=== PATIENT | male | born 1955 | race Caucasian/White ===

== ENCOUNTER 2016-08-29 00:40 | Emergency (ER) | payer OTHER ==
[~2016-08-29] VITALS: Ht 170.2 cm; Wt 60.0 kg
[~2016-08-29 00:40] MED LIST: CLIN1CAP6 PO; PERI0.126 SWISH-SPIT
[2016-08-29 00:43] VITALS: BP 144/84; PULSE 59; RESP 15; TEMP 97.7; O2SAT 92
[2016-08-29 00:56] VITALS: BP 141/94; PULSE 58; RESP 16; O2SAT 100
[2016-08-29] MEDS ORDERED: LEVE500 PO (00:57)
[2016-08-29] MEDS ORDERED: DEPA500T PO (00:57)
[2016-08-29] MEDS ORDERED: HYDR25TA5 PO (00:57)
[2016-08-29] MEDS ORDERED: CLON0.1T PO (00:57)
--- NOTE | 2016-08-29 01:02 | PD ---
HPI Chief Complaint: Oral / Dental Pain or Problem Time Seen by Provider: 00:59 Travel History International Travel<30 days: No Contact w/Intl Traveler<30days: No Traveled to known affect area: No History of Present Illness HPI 60-year-old male arrives with right upper frontal dentalgia and swelling for about 1 day. Onset gradual. Timing constant. Pain is worse with palpation. No fever. He is not sure when he most recently brush his teeth. PFSH Past Medical History Hx Anticoagulant Therapy: No Arthritis: Yes (GENERALIZED) Blood Disorders: No Heart Rhythm Problems: Yes Cancer: Yes (COLON) Cardiovascular Problems: Yes (HTN) High Cholesterol: No Chemotherapy: Yes (COLON CANCER) Chest Pain: Yes Congestive Heart Failure: No COPD: Yes Cerebrovascular Accident: Yes Diminished Hearing: No Endocrine: No Gastrointestinal Disorders: Yes (PANCREATITIS) GERD: No Genitourinary: No Headaches: Yes Heparin Induced Thrombocytopen: No Hypertension: Yes Implanted Vascular Access Dvce: No Musculoskeletal: No Neurologic: Yes (HISTORY OF SEIZURES ) Psychiatric: No Respiratory: Yes (COPD) Immunizations Current: No Migraines: No Pancreatitis: Yes Radiation Therapy: Yes Seizures: Yes Ulcer: No PNEUMOCCOCAL Vaccine (Year): 1 Past Surgical History Abdominal Surgery: Yes (COLOSTOMY) Appendectomy: Yes Cardiac Surgery: No Ear Surgery: No Endocrine Surgery: No Eye Surgery: Yes (MUSCLES CUT) Genitourinary Surgery: No Gynecologic Surgery: No Neurologic Surgery: No Oral Surgery: No Thoracic Surgery: No Tonsillectomy: Yes Other Surgery: Yes Family History Family Myocardial Infarction: Yes (FATHER) Social History Alcohol Use: No Tobacco Use: Yes (1/2 PPD) Substance Use: Yes (PT ADMITS TO MARIJUANA) Allergies-Medications (Allergen,Severity, Reaction): Coded Allergies: Amoxicillin (Verified Allergy, Severe, Anaphylaxis, 08/29/16) UNABLE TO CONFIRM PT IS INTUBATED Augmentin (Verified Allergy, Severe, "LIPS SWELL", 08/29/16) PT IS INTUBATED UNABLE TO CONFIRM Contrast Media (Verified Allergy, Severe, Anaphylaxis; 06/04/09: PT TOLERATES ORAL CONTRAST W/O AE, 08/29/16) PT INTUBATED UNABLE TO CONFIRM 06/04/09: PER RN, PT TOLERATES ORAL CONTRAST MEDIA WITHOUT ADVERSE EFFECTS; HE HAS HAD ORAL CONTRAST PREVIOUSLY. Dye, Prep (Verified Allergy, Severe, CARDIAC ARREST, 08/29/16) UNABLE TO CONFIRM PT IS INTUBATED Erythromycin (Verified Allergy, Severe, 08/29/16) UNABLE TO CONFIRM PT IS INTUBATED Haldol (Verified Allergy, Severe, "TIGHT JAW", 08/29/16) UNABLE TO CONFIRM PT IS INTUBATED Iohexol (OMNIPAQUE) (Verified Allergy, Severe, PT NEEDS PREMED/DOESN'T KNOW REACTION, 08/29/16) UNABLE TO CONFIRM PT IS INTUBATED Norvasc (Verified Allergy, Severe, Swelling, 08/29/16) UNALBE TO CONFIRM PT IS INTUBATED Valium (Verified Allergy, Severe, RESPIRATORY DISTRESS, 08/29/16) UNALBE TO CONFIRM PT IS INTUBATED Vasotec (Verified Allergy, Severe, 08/29/16) UNALBE TO CONFIRM PT IS INTUBATED Morphine (Verified Allergy, Mild, Itching, 08/29/16) UNABLE TO CONFIRM PT IS INTUBATED LAUREN Inhibitors (Verified Allergy, Unknown, UNKNOWN REACTION, 08/29/16) UNABLE TO CONFIRM PT IS INTUBATED Compazine (Verified Adverse Reaction, Severe, "LOCKJAW", 08/29/16) UNABLE TO CONFIRM PT IS INTUBATED *MDRO Multi-Drug Resistant Organism (Verified Adverse Reaction, Unknown, ) MRSA 03/2003 (cath tip), 06/2006 (urine), 12/2009 (sputum), 03/2012 (wound). Reported Meds & Prescriptions Reported Meds & Active Scripts Active Reported Depakote DR (Divalproex Sodium) 500 Mg Tabdr 500 Mg PO DAILY Keppra (Levetiracetam) 500 Mg Tab 500 Mg PO BID Hydrochlorothiazide 25 Mg Tab 25 Mg PO DAILY Clonidine (Clonidine HCl) 0.1 Mg Tab 0.1 Mg PO BID Review of Systems General / Constitutional: No: Fever, Chills Physical Exam Narrative GENERAL: 60-year-old male pleasant no acute distress SKIN: Warm and dry. HEAD: Atraumatic. Normocephalic. EYES: Pupils equal and round. No scleral icterus. No injection or drainage. ENT: No nasal bleeding or discharge. Mucous membranes pink and moist. Dentition is quite poor generally. There is swelling the region of the right maxillary face and right frontal/lateral incisors. NECK: Trachea midline. No JVD. CARDIOVASCULAR: Regular rate and rhythm. No murmur appreciated. RESPIRATORY: No accessory muscle use. Clear to auscultation. Breath sounds equal bilaterally. GASTROINTESTINAL: Abdomen soft, non-tender, nondistended. Hepatic and splenic margins not palpable. Data Data Last Documented VS Vital Signs Date Time Temp Pulse Resp B/P Pulse Ox O2 Delivery O2 Flow Rate FiO2 08/29/16 00:56 58 16 141/94 100 Room Air 08/29/16 00:43 97.7 MDM Medical Decision Making Medical Screen Exam Complete: Yes Emergency Medical Condition: Yes Medical Record Reviewed: Yes Differential Diagnosis Abscess, acute necrotizing ulcerative gingivitis, dental caries Narrative Course Clindamycin. Pain control. Follow-up with dentist. Diagnosis Primary Impression: Dental abscess Referrals: Dentist 2 days Additional Instructions: You have a choice when it comes to health care, and we are glad that you chose [facility]. Hopefully, we have met your expectations on today's visit. You are welcome to return to [facility] at any time, as we are committed to meeting the health care needs of our community. Med/Other Pt SpecificInfo: Prescription(s) given Scripts Hydrocodone-Acetaminophen (Lortab)5-325 Mg Tab1-2 Tab PO Q6H PRN (PAIN SCALE 5 TO 10) #15 TAB Ref 0 Prov:Dav Cook MD 08/29/16 Clindamycin 300 Mg [id number] Mg PO Q6H 10 Days Ref 0 Prov:Dav Cook MD 08/29/16 Disposition: 01 DISCHARGE HOME Condition: Stable Dav Cook MD Aug 29, 2016 01:02
[2016-08-29] MEDS ORDERED: HYDR-3533 PO (02:42)
[2016-08-29] MEDS ORDERED: CLIN1CAP6 PO (02:42)
[2016-08-29] MEDS ORDERED: CLINDAMYCIN 150 MG CAP PO ONE (02:45)
[2016-08-29] MEDS ORDERED: ACETAMINOPHEN/HYDROcodone 325 MG/10 MG TAB PO ONE (02:45)
[2016-08-29 03:00] VITALS: BP 153/90
== END 2016-08-29 06:50 | disposition home or self-care (01) ==
LOC: NEPC 00:40
DX: K04.7 Periapical abscess without sinus (principal); M19.90 Unspecified osteoarthritis, unspecified site; I10 Essential (primary) hypertension; J44.9 Chronic obstructive pulmonary disease, unspecified; K85.90 Acute pancreatitis without necrosis or infection, unspecified; F17.210 Nicotine dependence, cigarettes, uncomplicated; F12.90 Cannabis use, unspecified, uncomplicated
CPT/HCPCS: 99283

== ENCOUNTER 2016-09-03 04:28 | Emergency (ER) | payer OTHER ==
[~2016-09-03] VITALS: Ht 170.2 cm; Wt 68.0 kg
[~2016-09-03 04:28] MED LIST changes: +CLON0.1T PO; +DEPA500T PO; +HYDR-3533 PO; +HYDR25TA5 PO; +LEVE500 PO; -PERI0.126 SWISH-SPIT
[2016-09-03 04:36] VITALS: BP 194/104; PULSE 81; RESP 18; TEMP 98.4; O2SAT 98
[2016-09-03 04:55] VITALS: BP 120/51; PULSE 81; RESP 14; O2SAT 98
[2016-09-03] MEDS ORDERED: cloNIDine HCL 0.1 MG TAB PO ONE (05:15)
[2016-09-03] MEDS ORDERED: CLON0.1T PO (05:24)
--- NOTE | 2016-09-03 05:25 | PD ---
HPI Chief Complaint: Hypertension Time Seen by Provider: 05:03 Travel History International Travel<30 days: No Contact w/Intl Traveler<30days: No Traveled to known affect area: No History of Present Illness HPI Patient is a 60-year-old male who presents to emergency room for evaluation of hypertension. Patient reports that he ran out of his clonidine 0.1 mg twice a day and has not taken it for "quite a while." Patient reports that he is here for a refill on his medications. Patient reports "I think my blood pressure is high." Patient denies headache or dizziness. Patient denies vision changes. Patient denies chest pain or shortness of breath. Patient with no other complaints at this time. PFSH Past Medical History Hx Anticoagulant Therapy: No Arthritis: Yes (GENERALIZED) Blood Disorders: No Heart Rhythm Problems: Yes Cancer: Yes (COLON) Cardiovascular Problems: Yes (HTN) High Cholesterol: No Chemotherapy: Yes (COLON CANCER) Chest Pain: Yes Congestive Heart Failure: No COPD: Yes Cerebrovascular Accident: Yes Diminished Hearing: No Endocrine: No Gastrointestinal Disorders: Yes (PANCREATITIS) GERD: No Genitourinary: No Headaches: Yes Heparin Induced Thrombocytopen: No Hypertension: Yes Implanted Vascular Access Dvce: No Musculoskeletal: No Neurologic: Yes (HISTORY OF SEIZURES ) Psychiatric: No Respiratory: Yes (COPD) Immunizations Current: No Migraines: No Pancreatitis: Yes Radiation Therapy: Yes Seizures: Yes Ulcer: No PNEUMOCCOCAL Vaccine (Year): 1 Past Surgical History Abdominal Surgery: Yes (COLOSTOMY (REVERSED)) Appendectomy: Yes Cardiac Surgery: No Ear Surgery: No Endocrine Surgery: No Eye Surgery: Yes (MUSCLES CUT) Genitourinary Surgery: No Gynecologic Surgery: No Neurologic Surgery: No Oral Surgery: No Thoracic Surgery: No Tonsillectomy: Yes Other Surgery: Yes Family History Family Myocardial Infarction: Yes (FATHER) Social History Alcohol Use: No Tobacco Use: Yes (08/29 PPD) Substance Use: Yes (PT ADMITS TO MARIJUANA) Allergies-Medications (Allergen,Severity, Reaction): Coded Allergies: Amoxicillin (Verified Allergy, Severe, Anaphylaxis, 09/03/16) UNABLE TO CONFIRM PT IS INTUBATED Augmentin (Verified Allergy, Severe, "LIPS SWELL", 09/03/16) PT IS INTUBATED UNABLE TO CONFIRM Contrast Media (Verified Allergy, Severe, Anaphylaxis; 06/04/09: PT TOLERATES ORAL CONTRAST W/O AE, 09/03/16) PT INTUBATED UNABLE TO CONFIRM 06/04/09: PER RN, PT TOLERATES ORAL CONTRAST MEDIA WITHOUT ADVERSE EFFECTS; HE HAS HAD ORAL CONTRAST PREVIOUSLY. Dye, Prep (Verified Allergy, Severe, CARDIAC ARREST, 09/03/16) UNABLE TO CONFIRM PT IS INTUBATED Erythromycin (Verified Allergy, Severe, 09/03/16) UNABLE TO CONFIRM PT IS INTUBATED Haldol (Verified Allergy, Severe, "TIGHT JAW", 09/03/16) UNABLE TO CONFIRM PT IS INTUBATED Iohexol (OMNIPAQUE) (Verified Allergy, Severe, PT NEEDS PREMED/DOESN'T KNOW REACTION, 09/03/16) UNABLE TO CONFIRM PT IS INTUBATED Norvasc (Verified Allergy, Severe, Swelling, 09/03/16) UNALBE TO CONFIRM PT IS INTUBATED Valium (Verified Allergy, Severe, RESPIRATORY DISTRESS, 09/03/16) UNALBE TO CONFIRM PT IS INTUBATED Vasotec (Verified Allergy, Severe, 09/03/16) UNALBE TO CONFIRM PT IS INTUBATED Morphine (Verified Allergy, Mild, Itching, 09/03/16) UNABLE TO CONFIRM PT IS INTUBATED LAUREN Inhibitors (Verified Allergy, Unknown, UNKNOWN REACTION, 09/03/16) UNABLE TO CONFIRM PT IS INTUBATED Compazine (Verified Adverse Reaction, Severe, "LOCKJAW", 09/03/16) UNABLE TO CONFIRM PT IS INTUBATED *MDRO Multi-Drug Resistant Organism (Verified Adverse Reaction, Unknown, ) MRSA 03/2003 (cath tip), 06/2006 (urine), 12/2009 (sputum), 03/2012 (wound). Reported Meds & Prescriptions Reported Meds & Active Scripts Active Clonidine (Clonidine HCl) 0.1 Mg Tab 0.1 Mg PO BID Lortab (Hydrocodone-Acetaminophen) 5-325 Mg Tab 1-2 Tab PO Q6H PRN Clindamycin (Clindamycin HCl) 300 Mg Cap 300 Mg PO Q6H [address] (Divalproex Sodium) 500 Mg Tabdr 500 Mg PO DAILY Keppra (Levetiracetam) 500 Mg Tab 500 Mg PO BID Hydrochlorothiazide 25 Mg Tab 25 Mg PO DAILY Clonidine (Clonidine HCl) 0.1 Mg Tab 0.1 Mg PO BID Review of Systems General / Constitutional: No: Fever Eyes: No: Visual changes HENT: No: Headaches Cardiovascular: No: Chest Pain or Discomfort Respiratory: No: Shortness of Breath Gastrointestinal: No: Abdominal Pain Genitourinary: No: Dysuria Musculoskeletal: No: Pain Skin: No Rash Neurologic: No: Weakness Psychiatric: No: Depression Endocrine: No: Polydipsia Hematologic/Lymphatic: No: Easy Bruising Physical Exam Narrative GENERAL: No acute distress, nontoxic SKIN: Warm and dry. HEAD: Atraumatic. Normocephalic. EYES: Pupils equal and round. No scleral icterus. No injection or drainage. ENT: No nasal bleeding or discharge. Mucous membranes pink and moist. NECK: Trachea midline. No JVD. CARDIOVASCULAR: Regular rate and rhythm. No murmur appreciated. RESPIRATORY: No accessory muscle use. Clear to auscultation. Breath sounds equal bilaterally. GASTROINTESTINAL: Abdomen soft, non-tender, nondistended. Hepatic and splenic margins not palpable. MUSCULOSKELETAL: No obvious deformities. No clubbing. No cyanosis. No edema. NEUROLOGICAL: Awake and alert. No obvious cranial nerve deficits. Motor grossly within normal limits. Normal speech. PSYCHIATRIC: Appropriate mood and affect; insight and judgment normal. Data Data Last Documented VS Vital Signs Date Time Temp Pulse Resp B/P Pulse Ox O2 Delivery O2 Flow Rate FiO2 09/03/16 04:55 83 09/03/16 04:55 14 120/51 98 Room Air 09/03/16 04:36 98.4 Orders Clonidine (Catapres) (09/03/16 05:15) MDM Medical Decision Making Medical Screen Exam Complete: Yes Emergency Medical Condition: Yes Interpretation(s) Vital Signs Date Time Temp Pulse Resp B/P Pulse Ox O2 Delivery O2 Flow Rate FiO2 09/03/16 04:55 83 09/03/16 04:55 81 14 120/51 98 Room Air 09/03/16 04:36 98.4 81 18 194/104 98 Differential Diagnosis medication noncompliance, htn Narrative Course pt is a 60 year old male who presents to emergency room for evaluation of hypertension. Patient reports that he ran out of his clonidine 0.1 mg twice a day a few months ago and needs a refill on his prescription. Patient with no other complaints at this time. Patient's BP 120/51 - pt in no acute distress, no c/o. Plan to refill his script for clonidine and have him follow up with pcp and return to ER as needed. Signs and symptoms of when to return to ER reviewed with pt in detail. Diagnosis Primary Impression: Medication refill Additional Impression: Hypertension Qualified Code: I10 - Essential hypertension Patient Instructions: General Instructions Additional Instructions: Please follow-up with the primary care doctor as soon as possible Please return to ER as needed Please take all medications as prescribed Med/Other Pt SpecificInfo: Prescription(s) given Scripts Clonidine 0.1 Mg Tab0.1 Mg PO BID #60 TAB Ref 0 Prov:Irma Daley DO 09/03/16 Disposition: 01 DISCHARGE HOME Condition: Stable Irma Daley DO Sep 03, 2016 05:24
--- NOTE | 2016-09-03 14:20 | EKG ---
Date Performed: 09/03/2016 Time Performed: 05:01:39 PTAGE: 60 years EKG: Sinus rhythm MODERATE INTRAVENTRICULAR CONDUCTION DELAY BORDERLINE ECG PREVIOUS TRACING : 01/26/2016 19.25 Rate has increased DOCTOR: Tristan Cook Interpretating Date/Time 09/03/2016 14:19:42
== END 2016-09-03 06:20 | disposition home or self-care (01) ==
LOC: NEPE 04:28
DX: I10 Essential (primary) hypertension (principal); R94.31 Abnormal electrocardiogram [ECG] [EKG]; F17.200 Nicotine dependence, unspecified, uncomplicated; Z76.0 Encounter for issue of repeat prescription; Z86.79 Personal history of other diseases of the circulatory system; Z85.038 Personal history of other malignant neoplasm of large intestine; Z87.09 Personal history of other diseases of the respiratory system; Z86.73 Personal history of transient ischemic attack (TIA), and cerebral infarction without residual deficits; Z87.19 Personal history of other diseases of the digestive system; Z86.69 Personal history of other diseases of the nervous system and sense organs
CPT/HCPCS: 93005; 99283

== ENCOUNTER 2016-10-06 03:22 | Emergency (ER) | payer OTHER ==
[~2016-10-06] VITALS: Ht 170.2 cm; Wt 60.0 kg
[2016-10-06 03:39] VITALS: BP 160/90; PULSE 66; RESP 16; TEMP 97.1; O2SAT 94
[2016-10-06 05:06] VITALS: BP 188/92; PULSE 72; RESP 16
[2016-10-06] MEDS ORDERED: CLON0.1T PO (05:12)
--- NOTE | 2016-10-06 05:12 | PD ---
HPI Chief Complaint: Hypertension Time Seen by Provider: 05:10 Travel History International Travel<30 days: No Contact w/Intl Traveler<30days: No Traveled to known affect area: No History of Present Illness HPI 60-year-old male presents to clonidine refill. He has follow-up with Dr. Ma in 2 weeks. He reports occasional headaches. He denies chest pain. He drinks alcohol and smokes tobacco. He was prescribed clonidine here 1 month ago and ran out a couple days prior. He has no additional complaint. PFSH Past Medical History Hx Anticoagulant Therapy: No Arthritis: Yes (GENERALIZED) Blood Disorders: No Heart Rhythm Problems: Yes Cancer: Yes (COLON) Cardiovascular Problems: Yes (HTN) High Cholesterol: No Chemotherapy: Yes (COLON CANCER) Chest Pain: Yes Congestive Heart Failure: No COPD: Yes Cerebrovascular Accident: Yes Diminished Hearing: No Endocrine: No Gastrointestinal Disorders: Yes (PANCREATITIS) GERD: No Genitourinary: No Headaches: Yes Heparin Induced Thrombocytopen: No Hypertension: Yes Implanted Vascular Access Dvce: No Musculoskeletal: No Neurologic: Yes (HISTORY OF SEIZURES ) Psychiatric: No Respiratory: Yes (COPD) Immunizations Current: No Migraines: No Pancreatitis: Yes Radiation Therapy: Yes Seizures: Yes Ulcer: No Influenza Vaccination: Yes PNEUMOCCOCAL Vaccine (Year): 1 Past Surgical History Abdominal Surgery: Yes (COLOSTOMY (REVERSED)) Appendectomy: Yes Cardiac Surgery: No Ear Surgery: No Endocrine Surgery: No Eye Surgery: Yes (MUSCLES CUT) Genitourinary Surgery: No Gynecologic Surgery: No Neurologic Surgery: No Oral Surgery: No Thoracic Surgery: No Tonsillectomy: Yes Other Surgery: Yes Family History Family Myocardial Infarction: Yes (FATHER) Social History Alcohol Use: No Tobacco Use: Yes (1/2 PPD) Substance Use: Yes (PT ADMITS TO MARIJUANA) Allergies-Medications (Allergen,Severity, Reaction): Coded Allergies: Amoxicillin (Verified Allergy, Severe, Anaphylaxis, 10/06/16) UNABLE TO CONFIRM PT IS INTUBATED Augmentin (Verified Allergy, Severe, "LIPS SWELL", 10/06/16) PT IS INTUBATED UNABLE TO CONFIRM Contrast Media (Verified Allergy, Severe, Anaphylaxis; 06/04/09: PT TOLERATES ORAL CONTRAST W/O AE, 10/06/16) PT INTUBATED UNABLE TO CONFIRM 06/04/09: PER RN, PT TOLERATES ORAL CONTRAST MEDIA WITHOUT ADVERSE EFFECTS; HE HAS HAD ORAL CONTRAST PREVIOUSLY. Dye, Prep (Verified Allergy, Severe, CARDIAC ARREST, 10/06/16) UNABLE TO CONFIRM PT IS INTUBATED Erythromycin (Verified Allergy, Severe, 10/06/16) UNABLE TO CONFIRM PT IS INTUBATED Haldol (Verified Allergy, Severe, "TIGHT JAW", 10/06/16) UNABLE TO CONFIRM PT IS INTUBATED Iohexol (OMNIPAQUE) (Verified Allergy, Severe, PT NEEDS PREMED/DOESN'T KNOW REACTION, 10/06/16) UNABLE TO CONFIRM PT IS INTUBATED Norvasc (Verified Allergy, Severe, Swelling, 10/06/16) UNALBE TO CONFIRM PT IS INTUBATED Valium (Verified Allergy, Severe, RESPIRATORY DISTRESS, 10/06/16) UNALBE TO CONFIRM PT IS INTUBATED Vasotec (Verified Allergy, Severe, 10/06/16) UNALBE TO CONFIRM PT IS INTUBATED Morphine (Verified Allergy, Mild, Itching, 10/06/16) UNABLE TO CONFIRM PT IS INTUBATED LAUREN Inhibitors (Verified Allergy, Unknown, UNKNOWN REACTION, 10/06/16) UNABLE TO CONFIRM PT IS INTUBATED Compazine (Verified Adverse Reaction, Severe, "LOCKJAW", 10/06/16) UNABLE TO CONFIRM PT IS INTUBATED *MDRO Multi-Drug Resistant Organism (Verified Adverse Reaction, Unknown, ) MRSA 03/2003 (cath tip), 06/2006 (urine), 12/2009 (sputum), 03/2012 (wound). Reported Meds & Prescriptions Reported Meds & Active Scripts Active Clonidine (Clonidine HCl) 0.1 Mg Tab 0.1 Mg PO BID Lortab (Hydrocodone-Acetaminophen) 5-325 Mg Tab 1-2 Tab PO Q6H PRN Reported Depakote DR (Divalproex Sodium) 500 Mg Tabdr 500 Mg PO DAILY Keppra (Levetiracetam) 500 Mg Tab 500 Mg PO BID Hydrochlorothiazide 25 Mg Tab 25 Mg PO DAILY Clonidine (Clonidine HCl) 0.1 Mg Tab 0.1 Mg PO BID Review of Systems HENT: Positive: Headaches Cardiovascular: No: Chest Pain or Discomfort, Palpitations Physical Exam Narrative GENERAL: 60-year-old male appears older than stated age SKIN: Warm and dry. HEAD: Atraumatic. Normocephalic. EYES: Pupils equal and round. No scleral icterus. No injection or drainage. ENT: No nasal bleeding or discharge. Mucous membranes pink and moist. NECK: Trachea midline. No JVD. CARDIOVASCULAR: Regular rate and rhythm. No murmur appreciated. RESPIRATORY: No accessory muscle use. Clear to auscultation. Breath sounds equal bilaterally. GASTROINTESTINAL: Abdomen soft, non-tender, nondistended. Hepatic and splenic margins not palpable. MUSCULOSKELETAL: No obvious deformities. No clubbing. No cyanosis. No edema. NEUROLOGICAL: Awake and alert. No obvious cranial nerve deficits. Motor grossly within normal limits. Normal speech. PSYCHIATRIC: Appropriate mood and affect; insight and judgment normal. Data Data Last Documented VS Vital Signs Date Time Temp Pulse Resp B/P Pulse Ox O2 Delivery O2 Flow Rate FiO2 10/06/16 05:06 72 16 188/92 10/06/16 03:42 94 Room Air 10/06/16 03:39 97.1 VS reviewed [facility] Medical Decision Making Medical Screen Exam Complete: Yes Emergency Medical Condition: Yes Medical Record Reviewed: Yes Differential Diagnosis Hypertension, hypertensive crisis, medication refill Narrative Course CLonidine refilled. Pt ok for discharge. Pt understands that ongoing follow up with a primary provider is essential and agrees to follow up in 2 weeks as planned. Diagnosis Primary Impression: HTN (hypertension) Qualified Code: I15.9 - Secondary hypertension Additional Impression: Medication refill Referrals: Primary Care Physician 2 days Additional Instructions: You have a choice when it comes to health care, and we are glad that you chose [facility]. Hopefully, we have met your expectations on today's visit. You are welcome to return to [facility] at any time, as we are committed to meeting the health care needs of our community. Med/Other Pt SpecificInfo: Prescription(s) given Scripts Clonidine 0.1 Mg Tab0.1 Mg PO BID #60 TAB Ref 0 Prov:Dav Cook MD 10/06/16 Disposition: 01 DISCHARGE HOME Condition: Stable Dav Cook MD Oct 06, 2016 05:12
== END 2016-10-06 06:01 | disposition home or self-care (01) ==
LOC: NEDAMB 03:22
DX: I10 Essential (primary) hypertension (principal); Z76.0 Encounter for issue of repeat prescription; F17.210 Nicotine dependence, cigarettes, uncomplicated
CPT/HCPCS: 99283

== ENCOUNTER 2016-10-09 18:05 | Emergency (ER) | payer OTHER ==
[~2016-10-09] VITALS: Ht 170.2 cm; Wt 60.0 kg
[~2016-10-09 18:05] MED LIST changes: -CLIN1CAP6 PO
[2016-10-09 18:06] VITALS: BP 190/98; PULSE 68; RESP 16; TEMP 97.8; O2SAT 96
[2016-10-09] MEDS ORDERED: LABETALOL HCL 100 MG/20 ML VIAL IV PUSH ONE (18:30)
--- NOTE | 2016-10-09 18:36 | PD ---
HPI Chief Complaint: Hypertension Time Seen by Provider: 18:15 Travel History International Travel<30 days: No Contact w/Intl Traveler<30days: No Traveled to known affect area: No History of Present Illness HPI The patient is a 60 year-old male who presents to the emergency department for elevated blood pressure. The patient has a history of hypertension, he has a history of allergies to multiple antihypertensives including DEJAN inhibitor's, Norvasc, and Vasotec. The patient states that the Dejan inhibitors and Norvasc, swelling of the face and tongue. The patient has been on clonidine 0.2 mg twice a day, has been taking it regularly, however, his blood pressure continues to be elevated. The patient is followed by his primary physician, Dr. Ma. The patient complains of increasing headache secondary to his blood pressure as well as generalized malaise, mild nausea, and just not feeling well. He denies any chest pain or shortness of breath. Symptoms are moderate, possibly exacerbated by history of hypertension, and there are no current alleviating factors. The patient did take his clonidine 0.2 mg this morning. PFSH Past Medical History Hx Anticoagulant Therapy: No Arthritis: Yes (GENERALIZED) Blood Disorders: No Heart Rhythm Problems: Yes Cancer: Yes (COLON) Cardiovascular Problems: Yes (HTN) High Cholesterol: No Chemotherapy: Yes (COLON CANCER) Chest Pain: Yes Congestive Heart Failure: No COPD: Yes Cerebrovascular Accident: Yes Diminished Hearing: No Endocrine: No Gastrointestinal Disorders: Yes (PANCREATITIS) GERD: No Genitourinary: No Headaches: Yes Heparin Induced Thrombocytopen: No Hypertension: Yes Implanted Vascular Access Dvce: No Musculoskeletal: No Neurologic: Yes (HISTORY OF SEIZURES ) Psychiatric: No Respiratory: Yes (COPD) Immunizations Current: No Migraines: No Pancreatitis: Yes Radiation Therapy: Yes Seizures: Yes Ulcer: No PNEUMOCCOCAL Vaccine (Year): 1 Past Surgical History Abdominal Surgery: Yes (COLOSTOMY (REVERSED)) Appendectomy: Yes Cardiac Surgery: No Ear Surgery: No Endocrine Surgery: No Eye Surgery: Yes (MUSCLES CUT) Genitourinary Surgery: No Gynecologic Surgery: No Neurologic Surgery: No Oral Surgery: No Thoracic Surgery: No Tonsillectomy: Yes Other Surgery: Yes Family History Family Myocardial Infarction: Yes (FATHER) Social History Alcohol Use: Yes (OCC) Tobacco Use: Yes (1/2 PPD) Substance Use: Yes (PT ADMITS TO MARIJUANA) Allergies-Medications (Allergen,Severity, Reaction): Coded Allergies: Amoxicillin (Verified Allergy, Severe, Anaphylaxis, 10/09/16) UNABLE TO CONFIRM PT IS INTUBATED Augmentin (Verified Allergy, Severe, "LIPS SWELL", 10/09/16) PT IS INTUBATED UNABLE TO CONFIRM Contrast Media (Verified Allergy, Severe, Anaphylaxis; 06/04/09: PT TOLERATES ORAL CONTRAST W/O AE, 10/09/16) PT INTUBATED UNABLE TO CONFIRM 06/04/09: PER RN, PT TOLERATES ORAL CONTRAST MEDIA WITHOUT ADVERSE EFFECTS; HE HAS HAD ORAL CONTRAST PREVIOUSLY. Dye, Prep (Verified Allergy, Severe, CARDIAC ARREST, 10/09/16) UNABLE TO CONFIRM PT IS INTUBATED Erythromycin (Verified Allergy, Severe, 10/09/16) UNABLE TO CONFIRM PT IS INTUBATED Haldol (Verified Allergy, Severe, "TIGHT JAW", 10/09/16) UNABLE TO CONFIRM PT IS INTUBATED Iohexol (OMNIPAQUE) (Verified Allergy, Severe, PT NEEDS PREMED/DOESN'T KNOW REACTION, 10/09/16) UNABLE TO CONFIRM PT IS INTUBATED Norvasc (Verified Allergy, Severe, Swelling, 10/09/16) UNALBE TO CONFIRM PT IS INTUBATED Valium (Verified Allergy, Severe, RESPIRATORY DISTRESS, 10/09/16) UNALBE TO CONFIRM PT IS INTUBATED Vasotec (Verified Allergy, Severe, 10/09/16) UNALBE TO CONFIRM PT IS INTUBATED Morphine (Verified Allergy, Mild, Itching, 10/09/16) UNABLE TO CONFIRM PT IS INTUBATED DEJAN Inhibitors (Verified Allergy, Unknown, UNKNOWN REACTION, 10/09/16) UNABLE TO CONFIRM PT IS INTUBATED Compazine (Verified Adverse Reaction, Severe, "LOCKJAW", 10/09/16) UNABLE TO CONFIRM PT IS INTUBATED *MDRO Multi-Drug Resistant Organism (Verified Adverse Reaction, Unknown, ) MRSA 03/2003 (cath tip), 06/2006 (urine), 12/2009 (sputum), 03/2012 (wound). Reported Meds & Prescriptions Reported Meds & Active Scripts Active Clonidine (Clonidine HCl) 0.1 Mg Tab 0.1 Mg PO BID Reported Depakote DR (Divalproex Sodium) 500 Mg Tabdr 500 Mg PO DAILY Keppra (Levetiracetam) 500 Mg Tab 500 Mg PO BID Clonidine (Clonidine HCl) 0.1 Mg Tab 0.1 Mg PO BID Review of Systems Except as stated in HPI: all other systems reviewed are Neg Eyes: No: Blurred Vision HENT: Positive: Headaches, No: Neck Pain Cardiovascular: No: Chest Pain or Discomfort Respiratory: No: Shortness of Breath Gastrointestinal: Positive: Nausea, No: Vomiting, Abdominal Pain Musculoskeletal: Positive: Weakness Neurologic: Positive: Weakness, Dizziness, Headache Physical Exam Narrative GENERAL: Awake, alert, pleasant 60-year-old male who appears his stated age and is in no acute respiratory distress. SKIN: Warm and dry. HEAD: Atraumatic. Normocephalic. EYES: Pupils equal and round. No scleral icterus. No injection or drainage. ENT: No nasal bleeding or discharge. Poor dentition. NECK: Trachea midline. No JVD. CARDIOVASCULAR: Regular rate and rhythm. No murmur appreciated. Heart rate in the 70s. RESPIRATORY: No accessory muscle use. Clear to auscultation. Breath sounds equal bilaterally. GASTROINTESTINAL: Abdomen soft, multiple well-healed scars. MUSCULOSKELETAL: No obvious deformities. No clubbing. No cyanosis. No edema. NEUROLOGICAL: Awake and alert. No obvious cranial nerve deficits. Motor grossly within normal limits. Normal speech. PSYCHIATRIC: Appropriate mood and affect; insight and judgment normal. Data Data Last Documented VS Vital Signs Date Time Temp Pulse Resp B/P Pulse Ox O2 Delivery O2 Flow Rate FiO2 10/09/16 18:06 97.8 68 16 190/98 96 Room Air Orders Complete Blood Count With Diff (10/09/16 18:20) Basic Metabolic Panel (Bmp) (10/09/16 18:20) Troponin I (10/09/16 18:20) Creatine Kinase (Cpk) (10/09/16 18:20) Ct Brain W/O Iv Contrast(Rout) (10/09/16 ) Labetalol Inj (Trandate Inj) (10/09/16 18:30) Electrocardiogram (10/09/16 ) MDM Medical Decision Making Medical Screen Exam Complete: Yes Emergency Medical Condition: Yes Medical Record Reviewed: Yes Differential Diagnosis Differential diagnosis includes malignant hypertension, accelerated hypertension , noncompliance, essential hypertension, intracranial hemorrhage, acute renal failure, end organ damage. Narrative Course An ultrasound-guided IV was placed in right upper extremity using a linear probe and 1.88 inch, 20-gauge IV. The IV flowed easily, there was good blood return, there is no obvious contraindications. Labs were sent including CBC, CMP, troponin, and CPK. CT the brain was ordered. The patient was administered labetalol 20 mg intravenously for his significantly elevated blood pressure. The patient was signed out to the oncoming physician at [address] and labs pending. If workup is unremarkable and patient's blood pressure improves, patient be discharged home with outpatient follow-up. Procedures Procedure Narrative A 20-gauge, 1.88 inch ultrasound-guided IV was placed in right upper extremity using a linear probe. The IV flowed easily, there was good blood return, the patient had no obvious complications. The patient tolerated the procedure without difficulty. Diagnosis Primary Impression: Hypertensive urgency Condition: Stable Anibal Verde MD Oct 09, 2016 18:36
[2016-10-09 18:45] VITALS: BP 173/89; PULSE 181; RESP 20; O2SAT 94
[2016-10-09 18:55] LABS: AUTOMATED NEUTROPHIL # 2.2 TH/MM3 (1.8-7.7); BASOPHIL # 0.1 TH/MM3 (0-0.2); BASOPHIL % 1.5 % (0.0-2.0); EOSINOPHIL # 0.3 TH/MM3 (0-0.4); EOSINOPHIL % 5.7 % (0.0-4.0); HEMATOCRIT 37.1 % (39.0-51.0); HEMO FLAGS DIFF FINAL; LYMPH % 32.4 % (9.0-44.0); LYMPHOCYTE # 1.4 TH/MM3 (1.0-4.8); MEAN CELL VOLUME 93.5 FL (80.0-100.0); MEAN CORPUSCULAR HEMOGLOBIN 31.8 PG (27.0-34.0); MONO % 11.9 % (0.0-8.0); NEUT % 48.5 % (16.0-70.0); PLATELET COUNT 303 TH/MM3 (150-450); RED BLOOD COUNT 3.97 MIL/MM3 (4.50-5.90); RED CELL DISTRIBUTION WIDTH 14.7 % (11.6-17.2); WHITE BLOOD COUNT 4.4 TH/MM3 (4.0-11.0)
[2016-10-09 19:06] LABS: ANION GAP 9 MEQ/L (5-15); BICARBONATE 27.5 MEQ/L (21.0-32.0); BLOOD UREA NITROGEN 13 MG/DL (7-18); CHLORIDE 106 MEQ/L (98-107); GLOMERULAR FILTRATION RATE 72 ML/MIN (>89); POTASSIUM 3.2 MEQ/L (3.5-5.1); SODIUM (NA) 142 MEQ/L (136-145)
--- NOTE | 2016-10-09 19:06 | RADRPT ---
EXAM DATE/TIME: 10/09/2016 18:49 [facility] COMPARISON: No previous studies available for comparison. INDICATIONS : Dizziness; elevated blood pressure. RADIATION DOSE: 56.35 CTDIvol (mGy) MEDICAL HISTORY : Seizures. Cerebrovascular disease. Pancreatitis.Colon cancer SURGICAL HISTORY : Appendectomy. ENCOUNTER: Initial ACUITY: 1 day PAIN SCALE: 3/10 LOCATION: cranial TECHNIQUE: Multiple contiguous axial images were obtained of the head. Using automated exposure control and adj ustment of the mA and/or kV according to patient size, radiation dose was kept as low as reasonably a chievable to obtain optimal diagnostic quality images. FINDINGS: CEREBRUM: The ventricles are normal for age. No evidence of midline shift, mass lesion, hemorrhage or acute in farction. No extra-axial fluid collections are seen. POSTERIOR FOSSA: The cerebellum and brainstem are intact. The 4th ventricle is midline. The cerebellopontine angle i s unremarkable. EXTRACRANIAL: The visualized portion of the orbits is intact. SKULL: The calvaria is intact. No evidence of skull fracture. CONCLUSION: 1. No acute intracranial abnormalities. Retention cysts in both maxillary sinuses. Jori Reece MD on October 09, 2016 at 19:02 Board Certified Radiologist. This report was verified electronically.
[2016-10-09 19:10] LABS: CREATINE KINASE 154 U/L (39-308)
--- NOTE | 2016-10-09 19:45 | PD ---
Physical Exam Narrative General: The patient is a well-developed well-nourished male in no acute distress. The patient has received a dose of labetalol and he reports that his headache is improving. Head and Neck exam: Head is normocephalic atraumatic. Eyes: EOMI, pupils are equal round and reactive to light. Nose: Midline septum with pink mucous membranes Mouth: Dentition unremarkable. Moist mucus membranes. Posterior oropharynx is not erythematous. No tonsillar hypertrophy. Uvula midline. Airway patent. Neck: No palpable lymphadenopathy. No nuchal rigidity. No thyromegaly. Cardiovascular: Regular rate and rhythm without murmurs, gallops, or rubs. No pulse deficit to the extremities. Lungs: Clear to auscultation bilaterally. No wheezes, rhonchi, or rales. Abdomen: Soft, without tenderness to palpation in all 4 quadrants of the abdomen. No guarding, rebound, or rigidity. Negative [place] sign. Extremities: No clubbing, cyanosis, or edema. 2+ pulses in all 4 extremities. No calf tenderness on palpation. Back: No spinous process tenderness to palpation. No costovertebral angle tenderness to palpation. Neurologic Exam: Cranial nerves 2-12 were intact on exam. Strength is 5/5 in all 4 extremities. No sensory deficits noted. Skin Exam: No rash noted. Intact skin that is warm and dry. Data Data Last Documented VS Vital Signs Date Time Temp Pulse Resp B/P Pulse Ox O2 Delivery O2 Flow Rate FiO2 10/09/16 18:45 181 20 173/89 94 Room Air 10/09/16 18:06 97.8 Orders Complete Blood Count With Diff (10/09/16 18:20) Basic Metabolic Panel (Bmp) (10/09/16 18:20) Troponin I (10/09/16 18:20) Creatine Kinase (Cpk) (10/09/16 18:20) Ct Brain W/O Iv Contrast(Rout) (10/09/16 ) Labetalol Inj (Trandate Inj) (10/09/16 18:30) Electrocardiogram (10/09/16 ) Labs Laboratory Tests Test 10/09/16 18:37 White Blood Count 4.4 TH/MM3 Red Blood Count 3.97 MIL/MM3 Hemoglobin 12.6 GM/DL Hematocrit 37.1 % Mean Corpuscular Volume 93.5 FL Mean Corpuscular Hemoglobin 31.8 PG Mean Corpuscular Hemoglobin 34.0 % Concent Red Cell Distribution Width 14.7 % Platelet Count 303 TH/MM3 Mean Platelet Volume 7.2 FL Neutrophils (%) (Auto) 48.5 % Lymphocytes (%) (Auto) 32.4 % Monocytes (%) (Auto) 11.9 % Eosinophils (%) (Auto) 5.7 % Basophils (%) (Auto) 1.5 % Neutrophils # (Auto) 2.2 TH/MM3 Lymphocytes # (Auto) 1.4 TH/MM3 Monocytes # (Auto) 0.5 TH/MM3 Eosinophils # (Auto) 0.3 TH/MM3 Basophils # (Auto) 0.1 TH/MM3 CBC Comment DIFF FINAL Differential Comment Sodium Level 142 MEQ/L Potassium Level 3.2 MEQ/L Chloride Level 106 MEQ/L Carbon Dioxide Level 27.5 MEQ/L Anion Gap 9 MEQ/L Blood Urea Nitrogen 13 MG/DL Creatinine 1.06 MG/DL Estimat Glomerular Filtration 72 ML/MIN Rate Random Glucose 85 MG/DL Calcium Level 8.5 MG/DL Total Creatine Kinase 154 U/L Troponin I LESS THAN 0.02 NG/ML [facility] Medical Record Reviewed: Yes Supervised Visit with DIANE: No Interpretation(s) Laboratory Tests Test 10/09/16 18:37 White Blood Count 4.4 TH/MM3 Red Blood Count 3.97 MIL/MM3 Hemoglobin 12.6 GM/DL Hematocrit 37.1 % Mean Corpuscular Volume 93.5 FL Mean Corpuscular Hemoglobin 31.8 PG Mean Corpuscular Hemoglobin 34.0 % Concent Red Cell Distribution Width 14.7 % Platelet Count 303 TH/MM3 Mean Platelet Volume 7.2 FL Neutrophils (%) (Auto) 48.5 % Lymphocytes (%) (Auto) 32.4 % Monocytes (%) (Auto) 11.9 % Eosinophils (%) (Auto) 5.7 % Basophils (%) (Auto) 1.5 % Neutrophils # (Auto) 2.2 TH/MM3 Lymphocytes # (Auto) 1.4 TH/MM3 Monocytes # (Auto) 0.5 TH/MM3 Eosinophils # (Auto) 0.3 TH/MM3 Basophils # (Auto) 0.1 TH/MM3 CBC Comment DIFF FINAL Differential Comment Sodium Level 142 MEQ/L Potassium Level 3.2 MEQ/L Chloride Level 106 MEQ/L Carbon Dioxide Level 27.5 MEQ/L Anion Gap 9 MEQ/L Blood Urea Nitrogen 13 MG/DL Creatinine 1.06 MG/DL Estimat Glomerular Filtration 72 ML/MIN Rate Random Glucose 85 MG/DL Calcium Level 8.5 MG/DL Total Creatine Kinase 154 U/L Troponin I LESS THAN 0.02 NG/ML Last Impressions Head CT 10/09/16 0000 Signed Impressions: Service Date/Time: Sunday, October 09, 2016 18:49 - CONCLUSION: 1. No acute intracranial abnormalities. Retention cysts in both maxillary sinuses. Jori Reece MD Differential Diagnosis Poorly controlled hypertension associated headache, versus intracranial hemorrhage, versus tension headache, versus viral syndrome Narrative Course During the course of the patients emergency department visit, the patients history, examination, and differential diagnosis were reviewed with the patient. The patient had IV access obtained and blood work sent for analysis. The patient's case was checked out to me by Dr. Verde who requested that I review the patient's laboratory studies and imaging studies and disposition the patient. He anticipated that the patient would be able to be discharged home on a new blood pressure medication as his clonidine is reportedly not been well controlling his blood pressure. He was given a dose of labetalol and seems to be tolerating this well. The patient was provided labetalol 20 mg IV. The patients laboratory studies were reviewed and remarkable for white count of 4.4, hemoglobin 12.6, platelets 303 with 11.9 monocytes, eosinophils 5.7, CMP is remarkable for potassium 3.2 which was supplemented orally with potassium chloride 20 mEq by mouth 1. CPK 154, troponin I less than 0.02. Radiology studies were reviewed and remarkable for a CT scan of the brain shows no acute intracranial abnormality, retention cyst in both maxillary sinuses The patient is resting comfortably and feels better, is alert and in no distress. The patients results and examination findings were discussed with the patient. The repeat examination is unremarkable and benign. The history, exam, diagnostic testing, and current condition do not suggest any significant pathology to warrant further testing, continued ED treatment, admission, or surgical evaluation at this point. The vital signs have been stable. The patient does not have uncontrollable pain, intractable vomiting, or other significant symptoms. The patient's condition is stable and appropriate for discharge. The patient will pursue further outpatient evaluation with a primary care physician or other designated or consulting physician as indicated in the discharge instructions. The patient expressed understanding and was agreeable with this plan. Diagnosis Primary Impression: Hypertensive urgency Referrals: Arden Ma MD 2 days Patient Instructions: General Instructions, Hypertension (ED) Med/Other Pt SpecificInfo: Prescription(s) given Scripts Labetalol 100 Mg [id number] Mg PO BID 14 Days Ref 0 Prov:Macie Santoyo MD 10/09/16 Disposition: 01 DISCHARGE HOME Condition: Stable Macie Santoyo MD Oct 09, 2016 19:45
[2016-10-09] MEDS ORDERED: LABE100T2 PO (19:56)
[2016-10-09] MEDS ORDERED: POTASSIUM CHLORIDE 20 MEQ CONTROLLED RELEASE TAB PO ONE (20:00)
--- NOTE | 2016-10-10 11:08 | EKG ---
Date Performed: 10/09/2016 Time Performed: 18:49:23 PTAGE: 60 years EKG: Sinus rhythm MODERATE INTRAVENTRICULAR CONDUCTION DELAY FIRST DEGREE AV BLOCK Compared to previous tracing, first degree AV block is now present. BORDERLINE ECG PREVIOUS TRACING : 09/03/2016 05.01 DOCTOR: Carson Sen Interpretating Date/Time 10/10/2016 11:07:33
== END 2016-10-09 20:22 | disposition home or self-care (01) ==
LOC: NEPE 18:05
DX: I16.0 Hypertensive urgency (principal); F17.200 Nicotine dependence, unspecified, uncomplicated; J44.9 Chronic obstructive pulmonary disease, unspecified; I44.0 Atrioventricular block, first degree; Z85.038 Personal history of other malignant neoplasm of large intestine
CPT/HCPCS: 36000; 70450; 80048; 82550; 84484; 85025; 93005; 96374

== ENCOUNTER 2016-10-12 03:24 | Emergency (ER) | payer OTHER ==
[~2016-10-12 03:24] MED LIST changes: -HYDR-3533 PO; -HYDR25TA5 PO; +LABE100T2 PO
[2016-10-12 03:37] VITALS: BP 163/76; PULSE 70; RESP 16; TEMP 97.8; O2SAT 96
== END 2016-10-12 10:10 | disposition left against medical advice (07) ==
LOC: NETRI 03:24
DX: I10 Essential (primary) hypertension (principal)
CPT/HCPCS: 99281

== ENCOUNTER 2016-10-25 21:35 | Emergency (ER) | payer OTHER ==
[2016-10-25 21:37] VITALS: BP 190/97; PULSE 64; RESP 16; TEMP 98; O2SAT 99
== END 2016-10-25 23:26 | disposition left against medical advice (07) ==
LOC: NED 21:35
DX: Z53.21 Procedure and treatment not carried out due to patient leaving prior to being seen by health care provider (principal)
CPT/HCPCS: 99281

== ENCOUNTER 2016-12-07 17:26 | Emergency (ER) | payer OTHER ==
[~2016-12-07] VITALS: Ht 172.7 cm; Wt 66.0 kg
[2016-12-07 17:31] VITALS: BP 184/101; PULSE 67; RESP 16; TEMP 97.8; O2SAT 97
[2016-12-07] MEDS ORDERED: DEPA500T PO (17:53)
[2016-12-07] MEDS ORDERED: LEVE500 PO (17:53)
[2016-12-07 17:55] VITALS: RESP 18; O2SAT 98
[2016-12-07] MEDS ORDERED: SODIUM CHLORIDE 0.9% FLUSH 10 ML FLUSH IVF PRN (18:00)
[2016-12-07 18:08] VITALS: BP_SYST 170; BP_SYST 213; BP_SYST 222; BP_DIAS 107; BP_DIAS 114; BP_DIAS 93; RESP 18
[2016-12-07 18:22] LABS: AUTOMATED NEUTROPHIL # 4.2 TH/MM3 (1.8-7.7); BASOPHIL # 0.1 TH/MM3 (0-0.2); EOSINOPHIL # 0.1 TH/MM3 (0-0.4); EOSINOPHIL % 2.2 % (0.0-4.0); HEMATOCRIT 43.7 % (39.0-51.0); HEMO FLAGS DIFF FINAL; LYMPHOCYTE # 1.1 TH/MM3 (1.0-4.8); MEAN CELL VOLUME 93.3 FL (80.0-100.0); MEAN CORPUSCULAR HEMOGLOBIN 31.2 PG (27.0-34.0); MEAN CORPUSCULAR HGB CONC 33.4 % (32.0-36.0); MONO % 7.9 % (0.0-8.0); NEUT % 69.9 % (16.0-70.0); PLATELET COUNT 266 TH/MM3 (150-450); RED BLOOD COUNT 4.68 MIL/MM3 (4.50-5.90); RED CELL DISTRIBUTION WIDTH 14.5 % (11.6-17.2)
--- NOTE | 2016-12-07 18:27 | PD ---
HPI Chief Complaint: Dizziness Time Seen by Provider: 17:53 Travel History International Travel<30 days: No Contact w/Intl Traveler<30days: No Traveled to known affect area: No History of Present Illness HPI 61-year-old male with history of hypertension, seizures, presents to the ER today for several weeks' history of lightheadedness, general weakness, and not feeling right which he states worsened today. He states he has been having symptoms intermittently. He denies any focal neurological deficits, headaches, vomiting, abdominal pain, chest pains, or any other symptoms. She denies any new medications. He states that he has told his physician about this issue in the past and states there has been work up done for him but he does not know any of the results. He does not know any exacerbating or alleviating factors. Modifying Factors: None Associated Signs & Symptoms: Dizziness, general weakness Risk Factors: Hypertension PFSH Past Medical History Hx Anticoagulant Therapy: No Arthritis: Yes (GENERALIZED) Blood Disorders: No Heart Rhythm Problems: Yes Cancer: Yes (COLON) Cardiovascular Problems: Yes (HBP) High Cholesterol: No Chemotherapy: Yes (COLON CANCER) Chest Pain: Yes Congestive Heart Failure: No COPD: Yes Cerebrovascular Accident: Yes Diminished Hearing: No Endocrine: No Gastrointestinal Disorders: Yes (PANCREATITIS) GERD: No Genitourinary: No Headaches: Yes Heparin Induced Thrombocytopen: No Hypertension: Yes Implanted Vascular Access Dvce: No Musculoskeletal: No Neurologic: Yes (HISTORY OF SEIZURES ) Psychiatric: No Respiratory: Yes (COPD) Immunizations Current: No Migraines: No Pancreatitis: Yes Radiation Therapy: Yes Seizures: Yes Ulcer: No Tetanus Vaccination: < 5 Years Influenza Vaccination: Yes PNEUMOCCOCAL Vaccine (Year): 1 Past Surgical History Abdominal Surgery: Yes (COLOSTOMY (REVERSED)) Appendectomy: Yes Cardiac Surgery: No Ear Surgery: No Endocrine Surgery: No Eye Surgery: Yes (MUSCLES CUT) Genitourinary Surgery: No Gynecologic Surgery: No Neurologic Surgery: No Oral Surgery: No Thoracic Surgery: No Tonsillectomy: Yes Other Surgery: Yes Family History Family Myocardial Infarction: Yes (FATHER) Social History Alcohol Use: No Tobacco Use: Yes (/2 PPD) Substance Use: Yes (PT ADMITS TO MARIJUANA) Allergies-Medications (Allergen,Severity, Reaction): Coded Allergies: Amoxicillin (Verified Allergy, Severe, Anaphylaxis, 12/07/16) UNABLE TO CONFIRM PT IS INTUBATED Augmentin (Verified Allergy, Severe, "LIPS SWELL", 12/07/16) PT IS INTUBATED UNABLE TO CONFIRM Contrast Media (Verified Allergy, Severe, Anaphylaxis; 06/04/09: PT TOLERATES ORAL CONTRAST W/O AE, 12/07/16) PT INTUBATED UNABLE TO CONFIRM 06/04/09: PER RN, PT TOLERATES ORAL CONTRAST MEDIA WITHOUT ADVERSE EFFECTS; HE HAS HAD ORAL CONTRAST PREVIOUSLY. Dye, Prep (Verified Allergy, Severe, CARDIAC ARREST, 12/07/16) UNABLE TO CONFIRM PT IS INTUBATED Erythromycin (Verified Allergy, Severe, RASH, 12/07/16) Haldol (Verified Allergy, Severe, "TIGHT JAW", 12/07/16) UNABLE TO CONFIRM PT IS INTUBATED Iohexol (OMNIPAQUE) (Verified Allergy, Severe, PT NEEDS PREMED/DOESN'T KNOW REACTION, 12/07/16) UNABLE TO CONFIRM PT IS INTUBATED Norvasc (Verified Allergy, Severe, Swelling, 12/07/16) UNALBE TO CONFIRM PT IS INTUBATED Valium (Verified Allergy, Severe, RESPIRATORY DISTRESS, 12/07/16) UNALBE TO CONFIRM PT IS INTUBATED Vasotec (Verified Allergy, Severe, 12/07/16) UNALBE TO CONFIRM PT IS INTUBATED Morphine (Verified Allergy, Mild, Itching, 12/07/16) UNABLE TO CONFIRM PT IS INTUBATED LAUREN Inhibitors (Verified Allergy, Unknown, UNKNOWN REACTION, 12/07/16) UNABLE TO CONFIRM PT IS INTUBATED Compazine (Verified Adverse Reaction, Severe, "LOCKJAW", 12/07/16) UNABLE TO CONFIRM PT IS INTUBATED *MDRO Multi-Drug Resistant Organism (Verified Adverse Reaction, Unknown, ) MRSA 03/2003 (cath tip), 06/2006 (urine), 12/2009 (sputum), 03/2012 (wound). Reported Meds & Prescriptions Reported Meds & Active Scripts Active Labetalol (Labetalol HCl) 100 Mg Tab 100 Mg PO BID [address] (Divalproex Sodium) 500 Mg Tabdr 500 Mg PO BID Keppra (Levetiracetam) 500 Mg Tab 500 Mg PO BID Review of Systems Except as stated in HPI: all other systems reviewed are Neg Physical Exam Narrative GENERAL: Elderly white male patient who is well-developed, awake, alert, oriented 3. Currently none acute distress. SKIN: Focused skin assessment warm/dry. HEAD: Atraumatic. Normocephalic. EYES: Pupils equal and round. No scleral icterus. No injection or drainage. ENT: No nasal bleeding or discharge. Mucous membranes pink and moist. NECK: Trachea midline. No JVD. CARDIOVASCULAR: Regular rate and rhythm. No murmur appreciated. RESPIRATORY: No accessory muscle use. Clear to auscultation. Breath sounds equal bilaterally. GASTROINTESTINAL: Abdomen soft, non-tender, nondistended. Hepatic and splenic margins not palpable. MUSCULOSKELETAL: No obvious deformities. No clubbing. No cyanosis. No edema. NEUROLOGICAL: Awake and alert. No obvious cranial nerve deficits. Motor grossly within normal limits. Normal speech. PSYCHIATRIC: Appropriate mood and affect; insight and judgment normal. Data Data Last Documented VS Vital Signs Date Time Temp Pulse Resp B/P Pulse Ox O2 Delivery O2 Flow Rate FiO2 12/07/16 18:08 68 18 222/93 66 18 213/107 77 18 170/114 12/07/16 17:55 98 Room Air 12/07/16 17:31 97.8 Orders Electrocardiogram (12/07/16 17:53) Complete Blood Count With Diff (12/07/16 17:53) Comprehensive Metabolic Panel (12/07/16 17:53) Magnesium (Mg) (12/07/16 17:53) Ckmb (Isoenzyme) Profile (12/07/16 17:53) Troponin I (12/07/16 17:53) Act Partial Throm Time (Ptt) (12/07/16 17:53) Prothrombin Time / Inr (Pt) (12/07/16 17:53) Urinalysis - C+S If Indicated (12/07/16 17:53) Chest, Single Ap (12/07/16 17:53) Ct Brain W/O Iv Contrast(Rout) (12/07/16 17:53) Ecg Monitoring (12/07/16 17:53) Iv Access Insert/Monitor (12/07/16 17:53) Oximetry (12/07/16 17:53) Sodium Chloride 0.9% Flush (Ns Flush) (12/07/16 18:00) Orthostatic Vital Signs (12/07/16 17:53) Valproic Acid (Depakene) (12/07/16 17:53) Clonidine (Catapres) (12/07/16 18:30) CKMB (12/07/16 18:00) CKMB% (12/07/16 18:00) Labs Laboratory Tests Test 12/07/16 18:00 White Blood Count 6.0 TH/MM3 Red Blood Count 4.68 MIL/MM3 Hemoglobin 14.6 GM/DL Hematocrit 43.7 % Mean Corpuscular Volume 93.3 FL Mean Corpuscular Hemoglobin 31.2 PG Mean Corpuscular Hemoglobin 33.4 % Concent Red Cell Distribution Width 14.5 % Platelet Count 266 TH/MM3 Mean Platelet Volume 7.7 FL Neutrophils (%) (Auto) 69.9 % Lymphocytes (%) (Auto) 19.0 % Monocytes (%) (Auto) 7.9 % Eosinophils (%) (Auto) 2.2 % Basophils (%) (Auto) 1.0 % Neutrophils # (Auto) 4.2 TH/MM3 Lymphocytes # (Auto) 1.1 TH/MM3 Monocytes # (Auto) 0.5 TH/MM3 Eosinophils # (Auto) 0.1 TH/MM3 Basophils # (Auto) 0.1 TH/MM3 CBC Comment DIFF FINAL Differential Comment Prothrombin Time 9.7 SEC Prothromb Time International 0.9 RATIO Ratio Activated Partial 24.5 SEC Thromboplast Time Sodium Level 139 MEQ/L Potassium Level 3.6 MEQ/L Chloride Level 102 MEQ/L Carbon Dioxide Level 32.0 MEQ/L Anion Gap 5 MEQ/L Blood Urea Nitrogen 13 MG/DL Creatinine 1.05 MG/DL Estimat Glomerular Filtration 72 ML/MIN Rate Random Glucose 88 MG/DL Calcium Level 9.0 MG/DL Magnesium Level 2.4 MG/DL Total Bilirubin 0.3 MG/DL Aspartate Amino Transf 16 U/L (AST/SGOT) Alanine Aminotransferase 19 U/L (ALT/SGPT) Alkaline Phosphatase 98 U/L Total Creatine Kinase 154 U/L Creatine Kinase MB 1.0 NG/ML Troponin I LESS THAN 0.02 NG/ML Total Protein 8.3 GM/DL Albumin 3.9 GM/DL Valproic Acid (Depakene) Level 4 MCG/ML MDM Medical Decision Making Medical Screen Exam Complete: Yes Emergency Medical Condition: Yes Medical Record Reviewed: Yes Interpretation(s) EKG shows NSR, no ST elevation or depression, and no arrhythmias. No significant T-wave inversions. Laboratory Tests Test 12/07/16 18:00 Prothrombin Time 9.7 SEC (9.8-11.6) Estimat Glomerular Filtration 72 ML/MIN (>89) Rate Troponin I LESS THAN 0.02 NG/ML (0.02-0.05) Total Protein 8.3 GM/DL (6.4-8.2) Valproic Acid (Depakene) Level 4 MCG/ML (50-100) Last 24 hours Impressions Chest X-Ray 12/07/16 3181 Signed Impressions: Service Date/Time: Wednesday, December 07, 2016 18:11 - CONCLUSION: No evidence of acute cardiopulmonary disease. Arden Nicholas MD Differential Diagnosis Lightheadedness, general weaknessdehydration versus electrolyte abnormalities versus orthostasis versus dysrhythmias versus acute intracranial processes Narrative Course EKG did not show significant dysrhythmias. Vital signs are stable in the ER. Lab work did not show significant anemia or electrolyte abnormalities. CT of the brain did not show any signs of acute intra-cranial processes. Patient's blood pressure was elevated in the ER and clonidine and was given to the patient. Physician Communication Physician Communication Case is signed out at [address] Daley pending UA. Patient will need to ambulate prior to being evaluated for release. Disposition based on remaining UA and ambulation. Diagnosis Primary Impression: Dizziness Condition: Stable Manuel Lopez MD Dec 07, 2016 18:27
[2016-12-07] MEDS ORDERED: cloNIDine HCL 0.2 MG TAB PO ONE (18:30)
[2016-12-07 18:44] LABS: ANION GAP 5 MEQ/L (5-15); AST (GOT) 16 U/L (15-37); BLOOD UREA NITROGEN 13 MG/DL (7-18); CHLORIDE 102 MEQ/L (98-107); GLOMERULAR FILTRATION RATE 72 ML/MIN (>89); MAGNESIUM 2.4 MG/DL (1.5-2.5); POTASSIUM 3.6 MEQ/L (3.5-5.1); SODIUM (NA) 139 MEQ/L (136-145)
[2016-12-07 18:47] LABS: ALKALINE PHOSPHATASE 98 U/L (45-117); ALT (GPT) 19 U/L (12-78); CREATINE KINASE 154 U/L (39-308); TOTAL BILIRUBIN ADULT 0.3 MG/DL (0.2-1.0)
[2016-12-07 18:48] LABS: APTT (PATIENT) 24.5 SEC (24.3-30.1); INTERNATIONAL NORMALIZED RATIO 0.9 RATIO; PROTHROMBIN TIME - PATIENT 9.7 SEC (9.8-11.6)
--- NOTE | 2016-12-07 18:50 | RADRPT ---
EXAM DATE/TIME: 12/07/2016 18:11 [facility] COMPARISON: CHEST SINGLE AP, January 26, 2016, 19:31. INDICATIONS : Chest discomfort, weakness starting today MEDICAL HISTORY : Hypertension. SURGICAL HISTORY : None. ENCOUNTER: Initial ACUITY: 1 day PAIN SCORE: 0/10 LOCATION: Bilateral chest FINDINGS: A single view of the chest demonstrates the lungs to be symmetrically aerated without evidence of mas s, infiltrate or effusion. The cardiomediastinal contours are unremarkable. Osseous structures are intact. CONCLUSION: No evidence of acute cardiopulmonary disease. Arden Nicholas MD on December 07, 2016 at 18:48 Board Certified Radiologist. This report was verified electronically.
--- NOTE | 2016-12-07 18:55 | RADRPT ---
EXAM DATE/TIME: 12/07/2016 18:30 [facility] COMPARISON: No previous studies available for comparison. INDICATIONS : Generalized weakness with dizziness today. RADIATION DOSE: 42.72 CTDIvol (mGy) MEDICAL HISTORY : Cardiovascular disease. Cerebrovascular disease. Seizures.HTN; Colon cancer. SURGICAL HISTORY : None. ENCOUNTER: Initial ACUITY: 1 day PAIN SCALE: 0/10 LOCATION: cranial TECHNIQUE: Multiple contiguous axial images were obtained of the head. Using automated exposure control and adj ustment of the mA and/or kV according to patient size, radiation dose was kept as low as reasonably a chievable to obtain optimal diagnostic quality images. FINDINGS: CEREBRUM: The ventricles are normal for age. No evidence of midline shift, mass lesion, hemorrhage or acute in farction. No extra-axial fluid collections are seen. POSTERIOR FOSSA: The cerebellum and brainstem are intact. The 4th ventricle is midline. The cerebellopontine angle i s unremarkable. EXTRACRANIAL: Mucoperiosteal thickening and mucus retention cysts again seen in the ethmoid and maxillary air cells , actually slightly improved in the interim. SKULL: The calvaria is intact. No evidence of skull fracture. CONCLUSION: No acute intracranial abnormality demonstrated. Chronic sinusitis. Arden Nicholas MD on December 07, 2016 at 18:53 Board Certified Radiologist. This report was verified electronically.
[2016-12-07 19:30] VITALS: BP 189/114; PULSE 60; RESP 16; O2SAT 97
[2016-12-07 19:38] LABS: BLOOD, URINE NEG (NEG); COMMENT (UR) CULT NOT INDICATED; CULTURE IF INDICATED CULT NOT INDICATED; GLUCOSE,URINE NEG (NEG); KETONE, URINE NEG (NEG); NITRITE,URINE NEG (NEG); PH, URINE 6.5 (5.0-8.5); SQUAMOUS EPITHELIAL CELL URINE 1 /hpf (0-5); URINE COLOR YELLOW (YELLW/STRAW)
--- NOTE | 2016-12-07 20:24 | PD ---
Physical Exam Date Seen by Provider: Dec 07, 2016 Data Data Last Documented VS Vital Signs Date Time Temp Pulse Resp B/P Pulse Ox O2 Delivery O2 Flow Rate FiO2 12/07/16 19:30 60 16 189/114 97 Room Air 12/07/16 17:31 97.8 Orders Electrocardiogram (12/07/16 17:53) Complete Blood Count With Diff (12/07/16 17:53) Comprehensive Metabolic Panel (12/07/16 17:53) Magnesium (Mg) (12/07/16 17:53) Ckmb (Isoenzyme) Profile (12/07/16 17:53) Troponin I (12/07/16 17:53) Act Partial Throm Time (Ptt) (12/07/16:53) Prothrombin Time / Inr (Pt) (12/07/16 17:53) Urinalysis - C+S If Indicated (12/07/16 17:53) Chest, Single Ap (12/07/16 17:53) Ct Brain W/O Iv Contrast(Rout) (12/07/16 17:53) Ecg Monitoring (12/07/16 17:53) Iv Access Insert/Monitor (12/07/16 17:53) Oximetry (12/07/16 17:53) Sodium Chloride 0.9% Flush (Ns Flush) (12/07/16 18:00) Orthostatic Vital Signs (12/07/16 17:53) Valproic Acid (Depakene) (12/07/16 17:53) Clonidine (Catapres) (12/07/16 18:30) CKMB (12/07/16 18:00) CKMB% (12/07/16 18:00) Labs Laboratory Tests Test 12/07/16 12/07/16 18:00 19:20 White Blood Count 6.0 TH/MM3 Red Blood Count 4.68 MIL/MM3 Hemoglobin 14.6 GM/DL Hematocrit 43.7 % Mean Corpuscular Volume 93.3 FL Mean Corpuscular Hemoglobin 31.2 PG Mean Corpuscular Hemoglobin 33.4 % Concent Red Cell Distribution Width 14.5 % Platelet Count 266 TH/MM3 Mean Platelet Volume 7.7 FL Neutrophils (%) (Auto) 69.9 % Lymphocytes (%) (Auto) 19.0 % Monocytes (%) (Auto) 7.9 % Eosinophils (%) (Auto) 2.2 % Basophils (%) (Auto) 1.0 % Neutrophils # (Auto) 4.2 TH/MM3 Lymphocytes # (Auto) 1.1 TH/MM3 Monocytes # (Auto) 0.5 TH/MM3 Eosinophils # (Auto) 0.1 TH/MM3 Basophils # (Auto) 0.1 TH/MM3 CBC Comment DIFF FINAL Differential Comment Prothrombin Time 9.7 SEC Prothromb Time International 0.9 RATIO Ratio Activated Partial 24.5 SEC Thromboplast Time Sodium Level 139 MEQ/L Potassium Level 3.6 MEQ/L Chloride Level 102 MEQ/L Carbon Dioxide Level 32.0 MEQ/L Anion Gap 5 MEQ/L Blood Urea Nitrogen 13 MG/DL Creatinine 1.05 MG/DL Estimat Glomerular Filtration 72 ML/MIN Rate Random Glucose 88 MG/DL Calcium Level 9.0 MG/DL Magnesium Level 2.4 MG/DL Total Bilirubin 0.3 MG/DL Aspartate Amino Transf 16 U/L (AST/SGOT) Alanine Aminotransferase 19 U/L (ALT/SGPT) Alkaline Phosphatase 98 U/L Total Creatine Kinase 154 U/L Creatine Kinase MB 1.0 NG/ML Troponin I LESS THAN 0.02 NG/ML Total Protein 8.3 GM/DL Albumin 3.9 GM/DL Valproic Acid (Depakene) Level 4 MCG/ML Urine Color YELLOW Urine Turbidity CLEAR Urine pH 6.5 Urine Specific Josephine 1.009 Urine Protein NEG mg/dL Urine Glucose (UA) NEG mg/dL Urine Ketones NEG mg/dL Urine Occult Blood NEG Urine Nitrite NEG Urine Bilirubin NEG Urine Urobilinogen LESS THAN 2.0 MG/DL Urine Leukocyte Esterase NEG Urine RBC 1 /hpf Urine WBC 1 /hpf Urine Squamous Epithelial 1 /hpf Cells Microscopic Urinalysis Comment CULT NOT INDICATED [facility] Medical Record Reviewed: Yes Supervised Visit with DIANE: No Interpretation(s) Vital Signs Date Time Temp Pulse Resp B/P Pulse Ox O2 Delivery O2 Flow Rate FiO2 12/07/16 19:30 60 16 189/114 97 Room Air 12/07/16 18:08 68 18 222/93 66 18 213/107 77 18 170/114 12/07/16 17:55 18 98 Room Air 12/07/16 17:35 68 17 98 12/07/16 17:31 97.8 67 16 184/101 97 Laboratory Tests Test 12/07/16 12/07/16 18:00 19:20 White Blood Count 6.0 TH/MM3 (4.0-11.0) Red Blood Count 4.68 MIL/MM3 (4.50-5.90) Hemoglobin 14.6 GM/DL (13.0-17.0) Hematocrit 43.7 % (39.0-51.0) Mean Corpuscular Volume 93.3 FL (80.0-100.0) Mean Corpuscular Hemoglobin 31.2 PG (27.0-34.0) Mean Corpuscular Hemoglobin 33.4 % Concent (32.0-36.0) Red Cell Distribution Width 14.5 % (11.6-17.2) Platelet Count 266 TH/MM3 (150-450) Mean Platelet Volume 7.7 FL (7.0-11.0) Neutrophils (%) (Auto) 69.9 % (16.0-70.0) Lymphocytes (%) (Auto) 19.0 % (9.0-44.0) Monocytes (%) (Auto) 7.9 % (0.0-8.0) Eosinophils (%) (Auto) 2.2 % (0.0-4.0) Basophils (%) (Auto) 1.0 % (0.0-2.0) Neutrophils # (Auto) 4.2 TH/MM3 (1.8-7.7) Lymphocytes # (Auto) 1.1 TH/MM3 (1.0-4.8) Monocytes # (Auto) 0.5 TH/MM3 (0-0.9) Eosinophils # (Auto) 0.1 TH/MM3 (0-0.4) Basophils # (Auto) 0.1 TH/MM3 (0-0.2) CBC Comment DIFF FINAL Differential Comment Prothrombin Time 9.7 SEC (9.8-11.6) Prothromb Time International 0.9 RATIO Ratio Activated Partial 24.5 SEC Thromboplast Time (24.3-30.1) Sodium Level 139 MEQ/L (136-145) Potassium Level 3.6 MEQ/L (3.5-5.1) Chloride Level 102 MEQ/L (98-107) Carbon Dioxide Level 32.0 MEQ/L (21.0-32.0) Anion Gap 5 MEQ/L (5-15) Blood Urea Nitrogen 13 MG/DL (7-18) Creatinine 1.05 MG/DL (0.60-1.30) Estimat Glomerular Filtration 72 ML/MIN (>89) Rate Random Glucose 88 MG/DL (74-106) Calcium Level 9.0 MG/DL (8.5-10.1) Magnesium Level 2.4 MG/DL (1.5-2.5) Total Bilirubin 0.3 MG/DL (0.2-1.0) Aspartate Amino Transf 16 U/L (15-37) (AST/SGOT) Alanine Aminotransferase 19 U/L (12-78) (ALT/SGPT) Alkaline Phosphatase 98 U/L (45-117) Total Creatine Kinase 154 U/L (39-308) Creatine Kinase MB 1.0 NG/ML (0.5-3.6) Troponin I LESS THAN 0.02 NG/ML (0.02-0.05) Total Protein 8.3 GM/DL (6.4-8.2) Albumin 3.9 GM/DL (3.4-5.0) Valproic Acid (Depakene) Level 4 MCG/ML (50-100) Urine Color YELLOW (YELLW/STRAW) Urine Turbidity CLEAR (CLEAR) Urine pH 6.5 (5.0-8.5) Urine Specific Josephine 1.009 (1.002-1.035) Urine Protein NEG mg/dL (NEG-TRACE) Urine Glucose (UA) NEG mg/dL (NEG) Urine Ketones NEG mg/dL (NEG) Urine Occult Blood NEG (NEG) Urine Nitrite NEG (NEG) Urine Bilirubin NEG (NEG) Urine Urobilinogen LESS THAN 2.0 MG/DL (LESS THAN 2.0) Urine Leukocyte Esterase NEG (NEG) Urine RBC 1 /hpf (0-3) Urine WBC 1 /hpf (0-5) Urine Squamous Epithelial 1 /hpf (0-5) Cells Microscopic Urinalysis Comment CULT NOT INDICATED Last Impressions Head CT 12/07/161752 Signed Impressions: Service Date/Time: Wednesday, December 07, 2016 18:30 - CONCLUSION: No acute intracranial abnormality demonstrated. Chronic sinusitis. Arden Nicholas MD Chest X-Ray 12/07/161752 Signed Impressions: Service Date/Time: Wednesday, December 07, 2016 18:11 - CONCLUSION: No evidence of acute cardiopulmonary disease. Arden Nicholas MD Differential Diagnosis Dehydration, electrolyte abnormality, uti, VBI though unlikely Narrative Course Patient signed out to me by Dr. Lopez at change of shift The patient is a 61-year-old male with history of hypertension, seizures, presents to emergency room with complaints of dizziness and lightheadedness for the past few weeks. Patient had a workup including CT of the head, lab work, UA , EKG, patient was given IV fluids while in the emergency room. Patient pending UA as well as trial ambulation. Patient was reevaluated after UA resulted, patient reports that he feels 100% better, patient is walking in the emergency room with normal gait, Repeat neuro exam is benign, patient with no neuro deficits. CBC: wnl BMP: wnl UA: neg leuk esteraste, neg nitrite Last Impressions Head CT 12/07/161752 Signed Impressions: Service Date/Time: Wednesday, December 07, 2016 18:30 - CONCLUSION: No acute intracranial abnormality demonstrated. Chronic sinusitis. Arden Nicholas MD Chest X-Ray 12/07/161752 Signed Impressions: Service Date/Time: Wednesday, December 07, 2016 18:11 - CONCLUSION: No evidence of acute cardiopulmonary disease. Arden Nicholas MD Patient will follow up with his pcp and return to ER as needed. Patient appreciative of care Diagnosis Primary Impression: Dizziness Additional Instruction: Please return to ER as needed Please follow up with your primary care doctor Disposition: 01 DISCHARGE HOME Condition: Stable Irma Daley DO Dec 07, 2016 20:24
--- NOTE | 2016-12-09 07:10 | EKG ---
Date Performed: 12/07/2016 Time Performed: 18:04:08 PTAGE: 61 years EKG: Sinus rhythm MODERATE INTRAVENTRICULAR CONDUCTION DELAY BORDERLINE ECG Compared to prior tracing no significant c mimi PREVIOUS TRACING : 10/09/2016 18.49 DOCTOR: Nicolas Charlton Interpretating Date/Time 12/09/2016 07:07:54
== END 2016-12-07 20:44 | disposition home or self-care (01) ==
LOC: NEPE 17:26
DX: R42 Dizziness and giddiness (principal); R53.1 Weakness; R07.89 Other chest pain; I10 Essential (primary) hypertension; F17.200 Nicotine dependence, unspecified, uncomplicated; Z79.899 Other long term (current) drug therapy
CPT/HCPCS: 70450; 71010; 80053; 80164; 81001; 82550; 82552; 83735; 84484; 85025; 85610; 85730; 93005

== ENCOUNTER 2017-01-03 17:31 | Observation (INO) | payer OTHER ==
[~2017-01-03] VITALS: Ht 170.2 cm; Wt 70.0 kg
[~2017-01-03 17:31] MED LIST changes: -CLON0.1T PO
[2017-01-03 17:40] VITALS: BP 184/98; PULSE 68; RESP 20; TEMP 98.3; O2SAT 94
[2017-01-03] MEDS ORDERED: ALBUAER3 INH (17:46)
[2017-01-03 18:00] VITALS: BP 158/75; PULSE 89; RESP 18; TEMP 98.3; O2SAT 98
[2017-01-03] MEDS ORDERED: SODIUM CHLORIDE 0.9% FLUSH 10 ML FLUSH IVF PRN (18:00)
--- NOTE | 2017-01-03 18:05 | PD ---
HPI Chief Complaint: Chest Pain Time Seen by Provider: 17:53 Travel History International Travel<30 days: No Contact w/Intl Traveler<30days: No Traveled to known affect area: No History of Present Illness HPI Patient is 7-year-old male presenting to emergency evaluation of chest pain. Chest pain started just prior to arrival in the right chest with radiation to his left chest. Patient states pain is sharp and came on suddenly. He also reports nausea and shortness of breath. Patient was given 162 mg of aspirin and 1 sublingual nitroglycerin per EMS. Patient reports that he had this same pain several months ago. He currently reports his pain is 8 out of 10, he had no relief of pain with the nitroglycerin. Patient was sitting in his recliner at home and the pain started. Patient's past medical history significant for seizures, COPD, colon cancer with resection, hypertension. PFSH Past Medical History Hx Anticoagulant Therapy: No Arthritis: Yes (GENERALIZED) Blood Disorders: No Heart Rhythm Problems: Yes Cancer: Yes (COLON) Cardiovascular Problems: Yes High Cholesterol: No Chemotherapy: Yes (COLON CANCER) Chest Pain: Yes Congestive Heart Failure: No COPD: Yes Cerebrovascular Accident: Yes Diminished Hearing: No Endocrine: No Gastrointestinal Disorders: Yes (PANCREATITIS) GERD: No Genitourinary: No Headaches: Yes Heparin Induced Thrombocytopen: No Hypertension: Yes Implanted Vascular Access Dvce: No Musculoskeletal: No Psychiatric: No Respiratory: Yes (COPD) Immunizations Current: No Migraines: No Pancreatitis: Yes Radiation Therapy: Yes Seizures: Yes Ulcer: No PNEUMOCCOCAL Vaccine (Year): 1 Past Surgical History Abdominal Surgery: Yes (COLOSTOMY (REVERSED)) Appendectomy: Yes Cardiac Surgery: No Ear Surgery: No Endocrine Surgery: No Eye Surgery: Yes (MUSCLES CUT) Genitourinary Surgery: No Gynecologic Surgery: No Neurologic Surgery: No Oral Surgery: No Thoracic Surgery: No Tonsillectomy: Yes Other Surgery: Yes (bowel resection) Family History Family Myocardial Infarction: Yes (FATHER) Social History Alcohol Use: No Tobacco Use: Yes (1/2 PPD) Substance Use: No Allergies-Medications (Allergen,Severity, Reaction): Coded Allergies: Amoxicillin (Verified Allergy, Severe, Anaphylaxis, 12/07/16) UNABLE TO CONFIRM PT IS INTUBATED Augmentin (Verified Allergy, Severe, "LIPS SWELL", 12/07/16) PT IS INTUBATED UNABLE TO CONFIRM Contrast Media (Verified Allergy, Severe, Anaphylaxis; 06/04/09: PT TOLERATES ORAL CONTRAST W/O AE, 12/07/16) PT INTUBATED UNABLE TO CONFIRM 06/04/09: PER RN, PT TOLERATES ORAL CONTRAST MEDIA WITHOUT ADVERSE EFFECTS; HE HAS HAD ORAL CONTRAST PREVIOUSLY. Dye, Prep (Verified Allergy, Severe, CARDIAC ARREST, 12/07/16) UNABLE TO CONFIRM PT IS INTUBATED Erythromycin (Verified Allergy, Severe, RASH, 12/07/16) Haldol (Verified Allergy, Severe, "TIGHT JAW", 12/07/16) UNABLE TO CONFIRM PT IS INTUBATED Iohexol (OMNIPAQUE) (Verified Allergy, Severe, PT NEEDS PREMED/DOESN'T KNOW REACTION, 12/07/16) UNABLE TO CONFIRM PT IS INTUBATED Norvasc (Verified Allergy, Severe, Swelling, 12/07/16) UNALBE TO CONFIRM PT IS INTUBATED Valium (Verified Allergy, Severe, RESPIRATORY DISTRESS, 12/07/16) UNALBE TO CONFIRM PT IS INTUBATED Vasotec (Verified Allergy, Severe, 12/07/16) UNALBE TO CONFIRM PT IS INTUBATED Morphine (Verified Allergy, Mild, Itching, 12/07/16) UNABLE TO CONFIRM PT IS INTUBATED LAUREN Inhibitors (Verified Allergy, Unknown, UNKNOWN REACTION, 12/07/16) UNABLE TO CONFIRM PT IS INTUBATED Compazine (Verified Adverse Reaction, Severe, "LOCKJAW", 12/07/16) UNABLE TO CONFIRM PT IS INTUBATED *MDRO Multi-Drug Resistant Organism (Verified Adverse Reaction, Unknown, ) MRSA 03/2003 (cath tip), 06/2006 (urine), 12/2009 (sputum), 03/2012 (wound). Reported Meds & Prescriptions Reported Meds & Active Scripts Active Labetalol (Labetalol HCl) 100 Mg Tab 100 Mg PO BID 14 Days Reported Proair Hfa 8.5 GM Inh (Albuterol Sulfate) 90 Mcg/Act Aer 2 Puff INH Q4-6H PRN 108 mcg/actuation Depakote DR (Divalproex Sodium) 500 Mg Tabdr 500 Mg PO BID Keppra (Levetiracetam) 500 Mg Tab 500 Mg PO BID Review of Systems Except as stated in HPI: all other systems reviewed are Neg Eyes: No: Blurred Vision HENT: No: Headaches Cardiovascular: Positive: Chest Pain or Discomfort Respiratory: Positive: Shortness of Breath Gastrointestinal: Positive: Nausea, No: Vomiting, Diarrhea, Abdominal Pain Musculoskeletal: No: Myalgias Neurologic: No: Weakness, Dizziness, Syncope Physical Exam Narrative GENERAL: Well-developed, well-nourished, alert elderly male. Appears slightly uncomfortable, in no acute distress. SKIN: Focused skin assessment warm/dry. HEAD: Atraumatic. Normocephalic. EYES: Pupils equal and round. No scleral icterus. No injection or drainage. ENT: No nasal bleeding or discharge. Mucous membranes pink and moist. NECK: Trachea midline. No JVD. CARDIOVASCULAR: Regular rate and rhythm. No murmur appreciated. RESPIRATORY: No accessory muscle use. Clear to auscultation. Breath sounds equal bilaterally. GASTROINTESTINAL: Abdomen soft, non-tender, nondistended. Hepatic and splenic margins not palpable. MUSCULOSKELETAL: No obvious deformities. No clubbing. No cyanosis. No edema. NEUROLOGICAL: Awake and alert. No obvious cranial nerve deficits. Motor grossly within normal limits. Normal speech. PSYCHIATRIC: Appropriate mood and affect; insight and judgment normal. Data Data Last Documented VS Vital Signs Date Time Temp Pulse Resp B/P Pulse Ox O2 Delivery O2 Flow Rate FiO2 01/03/17 17:50 96 Room Air 01/03/17 17:40 98.3 68 20 184/98 Orders Electrocardiogram (01/03/17 17:46) Ckmb (Isoenzyme) Profile (01/03/17 17:46) Complete Blood Count With Diff (01/03/17 17:46) Comprehensive Metabolic Panel (01/03/17 17:46) Magnesium (Mg) (01/03/17 17:46) Prothrombin Time / Inr (Pt) (01/03/17 17:46) Act Partial Throm Time (Ptt) (01/03/17 17:46) Troponin I (01/03/17 17:46) Chest, Single Ap (01/03/17 17:46) Ecg Monitoring (01/03/17 17:46) Bilateral Bp Monitoring (01/03/17 17:46) Iv Access Insert/Monitor (01/03/17 17:46) Oximetry (01/03/17 17:46) Oxygen Administration (01/03/17 17:46) Sodium Chloride 0.9% Flush (Ns Flush) (01/03/17 18:00) Vascular Access Team Consult/P PRN (01/03/17 18:07) Vascular Poc Ultrasound (01/03/17 ) Ketorolac Inj (Toradol Inj) (01/03/17 19:00) CKMB (01/03/17 18:05) CKMB% (01/03/17 18:05) Admit Order (Ed Use Only) (01/03/17:43) Activity Bed Rest With Brp (01/03/17:43) Vital Signs (Adult) Q4H (01/03/17:43) Cardiac Rhythm .As Directed (01/03/17:43) Notify Dr: Other .PRN (01/03/17:43) Notify Parameters (01/03/17:43) Resp Oxygen Nasal Cannula (01/03/17 ) Diet Npo (01/04/17 Breakfast) Ckmb (Isoenzyme) Profile (01/03/17 21:30) Ckmb (Isoenzyme) Profile (01/04/17 00:30) Troponin I (01/03/17 21:30) Troponin I (01/04/17 00:30) Electrocardiogram (01/03/17 21:30) Electrocardiogram (01/04/17 00:30) ^ Obtain (01/03/17:43) Labs Laboratory Tests Test 01/03/17 01/03/17 18:05 18:35 Sodium Level 140 MEQ/L Potassium Level 3.6 MEQ/L Chloride Level 106 MEQ/L Carbon Dioxide Level 26.3 MEQ/L Anion Gap 8 MEQ/L Blood Urea Nitrogen 17 MG/DL Creatinine 1.01 MG/DL Estimat Glomerular Filtration 75 ML/MIN Rate Random Glucose 85 MG/DL Calcium Level 8.5 MG/DL Magnesium Level 2.3 MG/DL Total Bilirubin 0.3 MG/DL Aspartate Amino Transf 18 U/L (AST/SGOT) Alanine Aminotransferase 17 U/L (ALT/SGPT) Alkaline Phosphatase 75 U/L Total Creatine Kinase 109 U/L Creatine Kinase MB 1.0 NG/ML Troponin I LESS THAN 0.02 NG/ML Total Protein 6.7 GM/DL Albumin 3.4 GM/DL White Blood Count 4.6 TH/MM3 Red Blood Count 4.07 MIL/MM3 Hemoglobin 12.6 GM/DL Hematocrit 37.9 % Mean Corpuscular Volume 93.1 FL Mean Corpuscular Hemoglobin 30.9 PG Mean Corpuscular Hemoglobin 33.2 % Concent Red Cell Distribution Width 14.0 % Platelet Count 250 TH/MM3 Mean Platelet Volume 8.1 FL Neutrophils (%) (Auto) 57.1 % Lymphocytes (%) (Auto) 27.7 % Monocytes (%) (Auto) 10.0 % Eosinophils (%) (Auto) 3.8 % Basophils (%) (Auto) 1.4 % Neutrophils # (Auto) 2.6 TH/MM3 Lymphocytes # (Auto) 1.3 TH/MM3 Monocytes # (Auto) 0.5 TH/MM3 Eosinophils # (Auto) 0.2 TH/MM3 Basophils # (Auto) 0.1 TH/MM3 CBC Comment DIFF FINAL Differential Comment Prothrombin Time 10.5 SEC Prothromb Time International 1.0 RATIO Ratio MDM Medical Decision Making Medical Screen Exam Complete: Yes Emergency Medical Condition: Yes Interpretation(s) Vital Signs Date Time Temp Pulse Resp B/P Pulse Ox O2 Delivery O2 Flow Rate FiO2 01/03/17 17:50 96 Room Air 01/03/17 17:40 98.3 68 20 184/98 94 Differential Diagnosis Unstable angina versus pleurisy versus pulmonary embolism versus chest wall pain versus KS versus other Narrative Course Patient is a 61-year-old male presenting to emergency evaluation of chest pain. Pain radiates across the anterior chest, patient's vital signs are stable currently. Labs and imaging were ordered and pending. IV access established, patient placed on telemetry monitoring and continuous pulse oximetry. Patient was given aspirin and nitroglycerin by EMS prior to arrival. CBC is unremarkable, chemistry is unremarkable, troponin is negative, coags are normal. Patient had a negative stress test in March 2015, and he has not had any recent cardiac workup. Patient's past medical history significant for COPD, hypertension and long-term tobacco use. At this time it would be feasible to bring patient in observation for the chest pain center. Patient is agreeable to plan. Diagnosis Primary Impression: Chest pain Qualified Code: R07.9 - Chest pain, unspecified type Admitting Information Admitting Physician Requests: Observation Condition: Stable Rhonda Cunha January 03, 2017 18:05
--- NOTE | 2017-01-03 18:27 | RADRPT ---
EXAM DATE/TIME: 01/03/2017 18:08 [facility] COMPARISON: CHEST SINGLE AP, December 07, 2016, 18:11. INDICATIONS : Chest pain. MEDICAL HISTORY : Carcinoma, colon. Cardiovascular disease. Cerebrovascular disease. Seizures.HTN; SURGICAL HISTORY : None. ENCOUNTER: Initial ACUITY: 1 day PAIN SCORE: 8/10 LOCATION: Bilateral chest FINDINGS: A single view of the chest demonstrates the lungs to be symmetrically aerated without evidence of mas s, infiltrate or effusion. The cardiomediastinal contours are unremarkable. Osseous structures are intact. CONCLUSION: No acute disease. Arden Lauren MD on January 03, 2017 at 18:24 Board Certified Radiologist. This report was verified electronically.
[2017-01-03 18:53] LABS: ALT (GPT) 17 U/L (12-78); ANION GAP 8 MEQ/L (5-15); AST (GOT) 18 U/L (15-37); BICARBONATE 26.3 MEQ/L (21.0-32.0); BLOOD UREA NITROGEN 17 MG/DL (7-18); CHLORIDE 106 MEQ/L (98-107); GLOMERULAR FILTRATION RATE 75 ML/MIN (>89); MAGNESIUM 2.3 MG/DL (1.5-2.5); POTASSIUM 3.6 MEQ/L (3.5-5.1); SODIUM (NA) 140 MEQ/L (136-145)
[2017-01-03 18:57] LABS: ALKALINE PHOSPHATASE 75 U/L (45-117); CREATINE KINASE 109 U/L (39-308); TOTAL BILIRUBIN ADULT 0.3 MG/DL (0.2-1.0)
[2017-01-03] MEDS ORDERED: KETOROLAC TROMETHAMINE 30 MG/ML (IVP) VIAL IV PUSH ONE (19:00)
[2017-01-03 19:21] LABS: AUTOMATED NEUTROPHIL # 2.6 TH/MM3 (1.8-7.7); BASOPHIL # 0.1 TH/MM3 (0-0.2); BASOPHIL % 1.4 % (0.0-2.0); EOSINOPHIL # 0.2 TH/MM3 (0-0.4); EOSINOPHIL % 3.8 % (0.0-4.0); HEMATOCRIT 37.9 % (39.0-51.0); HEMO FLAGS DIFF FINAL; LYMPH % 27.7 % (9.0-44.0); LYMPHOCYTE # 1.3 TH/MM3 (1.0-4.8); MEAN CELL VOLUME 93.1 FL (80.0-100.0); MEAN CORPUSCULAR HEMOGLOBIN 30.9 PG (27.0-34.0); MEAN CORPUSCULAR HGB CONC 33.2 % (32.0-36.0); NEUT % 57.1 % (16.0-70.0); PLATELET COUNT 250 TH/MM3 (150-450); RED BLOOD COUNT 4.07 MIL/MM3 (4.50-5.90); WHITE BLOOD COUNT 4.6 TH/MM3 (4.0-11.0)
[2017-01-03 19:42] LABS: PROTHROMBIN TIME - PATIENT 10.5 SEC (9.8-11.6)
[2017-01-03 19:47] LABS: APTT (PATIENT) 23.9 SEC (24.3-30.1)
[2017-01-03 19:49] VITALS: O2SAT 96
[2017-01-03 20:00] VITALS: BP 193/99; PULSE 65; RESP 18; O2SAT 95
[2017-01-03] MEDS ORDERED: hydrALAZINE HCL 20 MG/ML VIAL IV PUSH ONE (21:15)
[2017-01-03 21:22] VITALS: BP 161/95; PULSE 67; RESP 20; O2SAT 95
[2017-01-03 21:48] VITALS: BP 170/98; PULSE 70; RESP 20; O2SAT 94
[2017-01-03 22:36] LABS: CREATINE KINASE 94 U/L (39-308)
[2017-01-03] MEDS: ONDANSETRON HCL 4 MG/2 ML VIAL IV PUSH PRN (23:25)
[2017-01-03] MEDS: LABETALOL HCL 100 MG TAB PO SCH (23:25)
[2017-01-03] MEDS ORDERED: cloNIDine HCL 0.2 MG TAB PO PRN (23:30)
[2017-01-04] VITALS (7 sets, daily range): BP systolic 128–164; BP diastolic 77–105; PULSE 51–65; RESP 16–20; TEMP 96.1–98.2; O2SAT 92–96
[2017-01-04 01:12] LABS: CREATINE KINASE 105 U/L (39-308)
[2017-01-04 01:25] LABS: CKMB 0.7 NG/ML (0.5-3.6)
--- NOTE | 2017-01-04 05:42 | EKG ---
Date Performed: 01/03/2017 Time Performed: 21:14:58 PTAGE: 61 years EKG: Sinus rhythm OLD INFERIOR MYOCARDIAL INFARCTION ABNORMAL ECG PREVIOUS TRACING : 01/03/2017 17.47 Compared to prior tracing no significant change DOCTOR: Yoselyn Taveras Interpretating Date/Time 01/04/2017 05:42:00
--- NOTE | 2017-01-04 05:52 | EKG ---
Date Performed: 01/03/2017 Time Performed: 17:47:39 PTAGE: 61 years EKG: Sinus rhythm MODERATE INTRAVENTRICULAR CONDUCTION DELAY BORDERLINE ECG PREVIOUS TRACING : 12/07/2016 18.04 Compared to prior tracing no significant change DOCTOR: Yoselyn Taveras Interpretating Date/Time 01/04/2017 05:50:11
[2017-01-04] MEDS ORDERED: RESP: ALBUTEROL 2.5 MG/IPRATROPIUM 0.5 MG NEB (SCH) INH ONE (09:15)
[2017-01-04] MEDS ORDERED: RESP: ALBUTEROL 2.5 MG/IPRATROPIUM 0.5 MG NEB (PRN) INH (09:15)
[2017-01-04] MEDS ORDERED: LABETALOL HCL 100 MG TAB PO SCH (09:15)
[2017-01-04] MEDS ORDERED: levETIRAcetam 500 MG TAB PO SCH (09:30)
[2017-01-04] MEDS: LABETALOL HCL 100 MG TAB PO SCH (09:58)
--- NOTE | 2017-01-04 10:11 | HHI.HP ---
[facility] Primary Care Physician Arden Ma MD Chief Complaint Chest pain History of Present Illness This is a 61-year-old male that presents to the ED via E VAC with a complaint of developing a chest discomfort across his chest began yesterday morning while sitting. It was a sharp and stabbing pain. The last all day long. He states he was given subluminal nitroglycerin in the ambulance and the pain is now gone. He is also given Toradol in the ED. He denies history of CAD. Upon reviewing records he had a nonischemic Lexiscan in 2015. He was nauseous and short of breath with the symptoms return or diaphoresis. Denies recent illness. Denies fevers or chills. Review of Systems General: Patient denies fevers, chills recent, and recent travel HEENT: Patient denies headache, sore throat, difficulty swallowing. Cardiovascular: Has the chest discomfort as mentioned above. Denies sensation of heart beating rapidly or irregularly. No syncope. Denies diaphoresis. Respiratory: He was short of breath. Denies inspirational chest discomfort. Denies coughing wheezing or hemoptysis. GI: He was nauseous. Patient denies vomiting, diarrhea, abdominal pain, bloody stools. Musculoskeletal: Patient denies joint pain or edema. Denies calf pain or edema. Neurovascular: Patient denies numbness, tingling, weakness in extremities. Denies headache. Endocrine: Denies polyuria and polydipsia. Hematologic: Denies easy bruising. Skin: Denies rash or itching. Past Family Social History Allergies: Coded Allergies: Amoxicillin (Verified Allergy, Severe, Anaphylaxis, 12/07/16) UNABLE TO CONFIRM PT IS INTUBATED Augmentin (Verified Allergy, Severe, "LIPS SWELL", 12/07/16) PT IS INTUBATED UNABLE TO CONFIRM Contrast Media (Verified Allergy, Severe, Anaphylaxis; 06/04/09: PT TOLERATES ORAL CONTRAST W/O AE, 12/07/16) PT INTUBATED UNABLE TO CONFIRM 06/04/09: PER RN, PT TOLERATES ORAL CONTRAST MEDIA WITHOUT ADVERSE EFFECTS; HE HAS HAD ORAL CONTRAST PREVIOUSLY. Dye, Prep (Verified Allergy, Severe, CARDIAC ARREST, 12/07/16) UNABLE TO CONFIRM PT IS INTUBATED Erythromycin (Verified Allergy, Severe, RASH, 12/07/16) Haldol (Verified Allergy, Severe, "TIGHT JAW", 12/07/16) UNABLE TO CONFIRM PT IS INTUBATED Iohexol (OMNIPAQUE) (Verified Allergy, Severe, PT NEEDS PREMED/DOESN'T KNOW REACTION, 12/07/16) UNABLE TO CONFIRM PT IS INTUBATED Norvasc (Verified Allergy, Severe, Swelling, 12/07/16) UNALBE TO CONFIRM PT IS INTUBATED Valium (Verified Allergy, Severe, RESPIRATORY DISTRESS, 12/07/16) UNALBE TO CONFIRM PT IS INTUBATED Vasotec (Verified Allergy, Severe, 12/07/16) UNALBE TO CONFIRM PT IS INTUBATED Morphine (Verified Allergy, Mild, Itching, 12/07/16) UNABLE TO CONFIRM PT IS INTUBATED LAUREN Inhibitors (Verified Allergy, Unknown, UNKNOWN REACTION, 12/07/16) UNABLE TO CONFIRM PT IS INTUBATED Compazine (Verified Adverse Reaction, Severe, "LOCKJAW", 12/07/16) UNABLE TO CONFIRM PT IS INTUBATED *MDRO Multi-Drug Resistant Organism (Verified Adverse Reaction, Unknown, ) MRSA 03/2003 (cath tip), 06/2006 (urine), 12/2009 (sputum), 03/2012 (wound). Past Medical History Hypertension, tobacco abuse, pancreatitis, colon cancer with surgery and radiation and chemotherapy. That was 20 years ago. CVA in the past. COPD. He had a pneumothorax in the past with chest tube placement. Denies diabetes, hyperlipidemia, and known CAD. Past Surgical History Chest tube placement for pneumothorax. Bowel resection secondary to colon cancer. Tonsillectomy. Reported Medications Reported Meds & Active Scripts Active Labetalol (Labetalol HCl) 100 Mg Tab 100 Mg PO BID 14 Days Reported Proair Hfa 8.5 GM Inh (Albuterol Sulfate) 90 Mcg/Act Aer 2 Puff INH Q4-6H PRN 108 mcg/actuation Depakote DR (Divalproex Sodium) 500 Mg Tabdr 500 Mg PO BID Keppra (Levetiracetam) 500 Mg Tab 500 Mg PO BID Active Ordered Medications Current Medications Medications (Trade) Dose Ordered Sig/Dorothy Route Start Time Stop Time Status Last Admin (NS Flush) 2 ml UNSCH PRN IVF 01/03/17 18:00 01/04/17 09:58 (Catapres) 0.2 mg Q6H PRN PO 01/03/17 23:30 (Zofran Inj) 4 mg Q6H PRN IV PUSH 01/03/17 23:30 01/03/17 23:25 (Trandate) 100 mg BID PO 01/03/17 23:18 01/04/17 09:58 (Depakote Dr) 500 mg BID PO 01/04/17 21:00 (Keppra) 500 mg BID PO 01/04/17 09:30 01/04/17 09:58 Family History His father had an DE in his 70s. Social History Patient smokes about one half pack of cigarettes daily for last year but prior that he smoked about 2 pack of cigarettes daily for 45 years. Denies alcohol or illicit drugs. Physical Exam Vital Signs Vital Signs Date Time Temp Pulse Resp B/P Pulse Ox O2 Delivery O2 Flow Rate FiO2 01/04/17 07:59 98.2 57 16 130/78 96 01/04/17 04:40 96.3 56 20 128/77 92 01/04/17 04:02 51 01/04/17 00:22 63 01/04/17 00:16 64 01/04/17 00:11 96.1 65 20 164/105 95 01/03/17 21:48 70 20 170/98 94 01/03/17 21:22 67 20 161/95 95 Room Air 01/03/17 20:00 65 18 193/99 95 Room Air 01/03/17 19:49 96 01/03/17 17:50 96 Room Air 01/03/17 17:40 98.3 68 20 184/98 94 Physical Exam GENERAL: This is a well-nourished, well-developed patient, in no apparent distress. Patient speaks in clear complete sentences. Patient is pleasant. HEENT: Head is atraumatic and normocephalic. Neck is supple without lymphadenopathy and trachea is midline. No JVD or carotid bruits. CARDIOVASCULAR: Regular rate and rhythm without murmurs, gallops, or rubs. RESPIRATORY: Clear to auscultation. Breath sounds equal bilaterally. There was some mild expiratory wheezes bilaterally more so on the right. No rales, or rhonchi. Chest wall is nontender. No use of accessory muscles. GASTROINTESTINAL: Abdomen is nontender, nondistended. Abdomen soft. No obvious pulsatile mass or bruit. No CVA tenderness. Strong femoral pulses bilaterally. Normal bowel sounds in all quadrants. MUSCULOSKELETAL: Patient is moving upper and lower extremities freely. No calf tenderness or edema, no Homans sign. Strong pulses in upper and lower extremities. NEUROLOGICAL: Patient is alert and oriented. Cranial nerves 2-12 are grossly intact. No focal deficits and speech is clear. SKIN: No rash and turgor is normal. Laboratory Laboratory Tests Test 01/03/17 01/03/17 01/03/17 01/04/17 18:05 18:35 21:17 00:25 Sodium Level 140 Potassium Level 3.6 Chloride Level 106 Carbon Dioxide Level 26.3 Anion Gap 8 Blood Urea Nitrogen 17 Creatinine 1.01 Estimat Glomerular Filtration 75 Rate Random Glucose 85 Calcium Level 8.5 Magnesium Level 2.3 Total Bilirubin 0.3 Aspartate Amino Transf 18 (AST/SGOT) Alanine Aminotransferase 17 (ALT/SGPT) Alkaline Phosphatase 75 Total Creatine Kinase 109 94 105 Creatine Kinase MB 1.0 0.7 Troponin I LESS THAN 0.02 LESS THAN 0.02 LESS THAN 0.02 Total Protein 6.7 Albumin 3.4 White Blood Count 4.6 Red Blood Count 4.07 Hemoglobin 12.6 Hematocrit 37.9 Mean Corpuscular Volume 93.1 Mean Corpuscular Hemoglobin 30.9 Mean Corpuscular Hemoglobin 33.2 Concent Red Cell Distribution Width 14.0 Platelet Count 250 Mean Platelet Volume 8.1 Neutrophils (%) (Auto) 57.1 Lymphocytes (%) (Auto) 27.7 Monocytes (%) (Auto) 10.0 Eosinophils (%) (Auto) 3.8 Basophils (%) (Auto) 1.4 Neutrophils # (Auto) 2.6 Lymphocytes # (Auto) 1.3 Monocytes # (Auto) 0.5 Eosinophils # (Auto) 0.2 Basophils # (Auto) 0.1 CBC Comment DIFF FINAL Differential Comment Prothrombin Time 10.5 Prothromb Time International 1.0 Ratio Activated Partial 23.9 Thromboplast Time Result Diagram: 01/03/17 1835 01/03/17 1805 Imaging Last 24 hours Impressions Chest X-Ray 01/03/17 1142 Signed Impressions: Service Date/Time: Tuesday, January 03, 2017 18:08 - CONCLUSION: No acute disease. Arden Lauren MD Course EKGs have sinus rhythm without significant ST segment depressions or elevations. Assessment and Plan Assessment and Plan * Chest pain: Patient has had serial cardiac enzymes and EKGs for ruling out purposes. He will be seen by Dr. Carson Sen of cardiology in the chest pain center. He will undergo a Lexiscan and if nonischemic will be discharged home with instructions to follow-up with his primary care physician. * Hypertension: Continue current medication. * Seizure disorder continue current medications. * COPD: Patient is a quit smoking. Continue medications. We'll add duo nebs when necessary. * Tobacco abuse: Patient has been counseled on importance of smoking cessation. Patient is stable at this time. He is agreeable to this plan. Brendon Mejía January 04, 2017 10:11
[2017-01-04] MEDS ORDERED: REGADENOSON INJ 0.4 MG/5 ML SYR ONE (11:12)
[2017-01-04] MEDS: ONDANSETRON HCL 4 MG/2 ML VIAL IV PUSH PRN (13:00)
--- NOTE | 2017-01-04 13:15 | RADRPT ---
EXAM DATE/TIME: 01/04/2017 11:14 [facility] COMPARISON: No previous studies available for comparison. INDICATIONS : Mid chest pain for one day. Angina. DOSE: 27.2 mCi Tc99m Myoview at stress. 8.5 mCi Tc99m Myoview at rest. 0.4 mg Lexiscan STRESS SYMPTOMS: Chest pain, nausea and abdominal pain. EJECTION FRACTION: 69% MEDICAL HISTORY : Carcinoma, colon. Hypertension. Chronic obstructive pulmonary disease. SURGICAL HISTORY : Tonsillectomy. Bowel resection. ENCOUNTER: Initial ACUITY: 1 day PAIN SCALE: 8/10 LOCATION: Midsternal chest TECHNIQUE: The patient underwent pharmacologic stress with infusion of prescribed dose. Continuous ECG tracing was monitored during stress. Gated SPECT imaging was performed after stress and conventional SPECT i maging was performed at rest. The examination was performed on a SPECT/CT scanner, both attenuation and non-corrected datasets were reviewed. FINDINGS: DISTRIBUTION: The maximum perfused segment at stress is in the anteroseptal wall. PERFUSION STUDY: The pattern of perfusion at stress is within normal limits. GATED STUDY: There is intact wall motion and thickening without hypokinetic or dyskinetic segments. CONCLUSION: 1. Normal ejection fraction. 2. No significant reversible perfusion defects to suggest ischemia. RISK CATEGORY: Low (<1% Annual Mortality Rate) Deo Bethea MD on January 04, 2017 at 13:11 Board Certified Radiologist. This report was verified electronically.
--- NOTE | 2017-01-04 13:26 | HHI.DCPOC ---
Discharge Care Plan Diagnosis: (1) Chest pain (2) Hypertension (3) Tobacco abuse Goals to Promote Your Health * To prevent worsening of your condition and complications * To maintain your health at the optimal level Directions to Meet Your Goals Take your medications as prescribed Follow your dietary instruction Follow activity as directed Keep your appointments as scheduled Take your immunizations and boosters as scheduled If your symptoms worsen call your PCP, if no PCP go to Urgent Care Center or Emergency Room Smoking is Dangerous to Your Health. Avoid second hand smoke Call the 24-hour hour crisis hotline for domestic abuse at Brendon Mejía January 04, 2017 13:26
--- NOTE | 2017-01-04 14:09 | EKG ---
Date Performed: 01/04/2017 Time Performed: 00:28:29 PTAGE: 61 years EKG: Sinus rhythm PROLONGED QT INTERVAL ABNORMAL ECG PREVIOUS TRACING : 01/03/2017 21.14 Since previous tracing, no significant change noted DOCTOR: Carson Sen Interpretating Date/Time 01/04/2017 14:07:13
--- NOTE | 2017-01-04 14:36 | TR ---
Date Performed: 01/04/2017 Time Performed: 11:53:55 DOCTOR: Carson Sen DRUG LIST: ASA CLINICAL HISTORY: HTN CHEST PAIN REASON FOR TEST: CHEST PAIN REASON FOR ENDING: OBSERVATION: CONCLUSION: Lexiscan stress test was performed under standard four minute protocol. Radionuclid e was injected one minute prior to ending the test. No electrocardiographic abormalities were present to suggest ischemia. Nuclear imaging and interpretation are pending. COMMENTS:
[2017-01-04] MEDS ORDERED: DIVALPROEX DR 500 MG TABEC PO SCH (21:00)
== END 2017-01-04 18:34 | disposition home or self-care (01) ==
LOC: NEPC 17:31 → NEDH 19:48 → NEPFCDU 21:35
PROVIDERS: ADMIT Internal Medicine Interventional Cardiology; ATTEND Internal Medicine Interventional Cardiology
DX: R07.89 Other chest pain (principal); I10 Essential (primary) hypertension; G40.909 Epilepsy, unspecified, not intractable, without status epilepticus; J44.9 Chronic obstructive pulmonary disease, unspecified; F17.210 Nicotine dependence, cigarettes, uncomplicated; M19.90 Unspecified osteoarthritis, unspecified site; Z88.5 Allergy status to narcotic agent; Z88.8 Allergy status to other drugs, medicaments and biological substances; Z88.1 Allergy status to other antibiotic agents; Z91.041 Radiographic dye allergy status; Z85.038 Personal history of other malignant neoplasm of large intestine; Z92.21 Personal history of antineoplastic chemotherapy; Z86.73 Personal history of transient ischemic attack (TIA), and cerebral infarction without residual deficits; Z79.51 Long term (current) use of inhaled steroids; Z82.49 Family history of ischemic heart disease and other diseases of the circulatory system
CPT/HCPCS: 71010; 76937; 78452; 80053; 82550; 82552; 83735; 84484; 85025; 85610; 85730; 93005; 93017; 94664; 96374; 99285; A9502; G0378; J0360; J1885; J2405; J2785

== ENCOUNTER 2017-01-09 18:08 | Emergency (ER) | payer OTHER ==
[~2017-01-09 18:08] MED LIST changes: +ALBUAER3 INH
[2017-01-09 18:16] VITALS: BP 137/95; PULSE 72; RESP 20; TEMP 98.3; O2SAT 95
== END 2017-01-09 18:35 | disposition left against medical advice (07) ==
LOC: NEDAMB 18:08
DX: R07.9 Chest pain, unspecified (principal)
CPT/HCPCS: 99281

== ENCOUNTER 2017-01-28 09:53 | Emergency (ER) | payer OTHER ==
[~2017-01-28] VITALS: Ht 170.2 cm; Wt 60.0 kg
[2017-01-28 10:10] VITALS: BP 158/81; TEMP 98; O2SAT 94
[2017-01-28] MEDS ORDERED: SODIUM CHLOR 0.9% 1000 ML INJ 1,000 ML IV ONE (10:23)
[2017-01-28] MEDS ORDERED: HYDR25TA5 PO (10:23)
[2017-01-28] MEDS ORDERED: SODIUM CHLORIDE 0.9% FLUSH 10 ML FLUSH IVF PRN (10:30)
[2017-01-28] MEDS ORDERED: METOCLOPRAMIDE HCL 10 MG/2 ML VIAL IV PUSH ONE (10:30)
[2017-01-28] MEDS ORDERED: MECLIZINE HCL 25 MG TAB PO ONE (10:30)
--- NOTE | 2017-01-28 10:56 | PD ---
HPI Chief Complaint: Dizziness Time Seen by Provider: 10:23 Travel History International Travel<30 days: No Contact w/Intl Traveler<30days: No Traveled to known affect area: No History of Present Illness HPI Patient is a 61-year-old male with history of hypertension, pancreatitis, colon cancer, CVA, COPD, urgency room with complaints of dizziness. Patient reports that his dizziness began 1 hour prior to presentation to the emergency room, ( patient did tell nursing that symptoms started about 24 hours ago), patient reports that he feels as if the whole world is spinning, reports that symptoms occurred acutely, reports that symptoms are better when he lays down. Patient reports that when he stands up and ambulates, he feels lightheaded and dizzy with associated nausea and vomiting. Patient denies any vision changes, denies any chest pain or shortness of breath at this time. Patient reports that he has had symptoms like this in the past. PFSH Past Medical History Hx Anticoagulant Therapy: No Arthritis: Yes (GENERALIZED) Blood Disorders: No Heart Rhythm Problems: Yes Cancer: Yes (COLON) Cardiac Catheterization: No Cardiovascular Problems: Yes High Cholesterol: No Chemotherapy: Yes (COLON CANCER) Chest Pain: Yes Congestive Heart Failure: No COPD: Yes Cerebrovascular Accident: Yes Diabetes: No Diminished Hearing: No Endocrine: No Gastrointestinal Disorders: Yes (PANCREATITIS) GERD: No Genitourinary: No Headaches: Yes Heparin Induced Thrombocytopen: No Hypertension: Yes Implanted Vascular Access Dvce: No Musculoskeletal: No Psychiatric: No Respiratory: Yes (COPD) Immunizations Current: No Migraines: No Pancreatitis: Yes Radiation Therapy: Yes Seizures: Yes Ulcer: No PNEUMOCCOCAL Vaccine (Year): 1 Past Surgical History Abdominal Surgery: Yes (COLOSTOMY (REVERSED)) Appendectomy: Yes Cardiac Surgery: No Coronary Artery Bypass Graft: No Ear Surgery: No Endocrine Surgery: No Eye Surgery: Yes (MUSCLES CUT) Genitourinary Surgery: No Gynecologic Surgery: No Neurologic Surgery: No Oral Surgery: No Thoracic Surgery: No Tonsillectomy: Yes Other Surgery: Yes (bowel resection) Family History Family Myocardial Infarction: Yes (FATHER) Social History Alcohol Use: No Tobacco Use: Yes (08/29 PPD) Substance Use: No Allergies-Medications (Allergen,Severity, Reaction): Coded Allergies: Amoxicillin (Verified Allergy, Severe, Anaphylaxis, 01/28/17) UNABLE TO CONFIRM PT IS INTUBATED Augmentin (Verified Allergy, Severe, "LIPS SWELL", 01/28/17) PT IS INTUBATED UNABLE TO CONFIRM Contrast Media (Verified Allergy, Severe, Anaphylaxis; 06/04/09: PT TOLERATES ORAL CONTRAST W/O AE, 01/28/17) PT INTUBATED UNABLE TO CONFIRM 06/04/09: PER RN, PT TOLERATES ORAL CONTRAST MEDIA WITHOUT ADVERSE EFFECTS; HE HAS HAD ORAL CONTRAST PREVIOUSLY. Dye, Prep (Verified Allergy, Severe, CARDIAC ARREST, 01/28/17) UNABLE TO CONFIRM PT IS INTUBATED Erythromycin (Verified Allergy, Severe, RASH, 01/28/17) Haldol (Verified Allergy, Severe, "TIGHT JAW", 01/28/17) UNABLE TO CONFIRM PT IS INTUBATED Iohexol (OMNIPAQUE) (Verified Allergy, Severe, PT NEEDS PREMED/DOESN'T KNOW REACTION, 01/28/17) UNABLE TO CONFIRM PT IS INTUBATED Norvasc (Verified Allergy, Severe, Swelling, 01/28/17) UNALBE TO CONFIRM PT IS INTUBATED Valium (Verified Allergy, Severe, RESPIRATORY DISTRESS, 01/28/17) UNALBE TO CONFIRM PT IS INTUBATED Vasotec (Verified Allergy, Severe, 01/28/17) UNALBE TO CONFIRM PT IS INTUBATED Morphine (Verified Allergy, Mild, Itching, 01/28/17) UNABLE TO CONFIRM PT IS INTUBATED LAUREN Inhibitors (Verified Allergy, Unknown, UNKNOWN REACTION, 01/28/17) UNABLE TO CONFIRM PT IS INTUBATED Compazine (Verified Adverse Reaction, Severe, "LOCKJAW", 01/28/17) UNABLE TO CONFIRM PT IS INTUBATED *MDRO Multi-Drug Resistant Organism (Verified Adverse Reaction, Unknown, ) MRSA 03/2003 (cath tip), 06/2006 (urine), 12/2009 (sputum), 03/2012 (wound). Reported Meds & Prescriptions Reported Meds & Active Scripts Active Labetalol (Labetalol HCl) 100 Mg Tab 100 Mg PO BID 14 Days Reported Hydrochlorothiazide 25 Mg Tab 25 Mg PO DAILY Proair Hfa 8.5 GM Inh (Albuterol Sulfate) 90 Mcg/Act Aer 2 Puff INH Q4-6H PRN 108 mcg/actuation Depakote DR (Divalproex Sodium) 500 Mg Tabdr 500 Mg PO BID Keppra (Levetiracetam) 500 Mg Tab 500 Mg PO BID Review of Systems General / Constitutional: No: Fever Eyes: No: Visual changes HENT: No: Headaches Cardiovascular: No: Chest Pain or Discomfort Respiratory: No: Shortness of Breath Gastrointestinal: Positive: Nausea, Vomiting, No: Abdominal Pain Genitourinary: No: Dysuria Musculoskeletal: No: Pain Skin: No Rash Neurologic: Positive: Dizziness, No: Weakness Psychiatric: No: Depression Endocrine: No: Polydipsia Hematologic/Lymphatic: No: Easy Bruising Physical Exam Narrative GENERAL: Mild distress SKIN: Focused skin assessment warm/dry. HEAD: Atraumatic. Normocephalic. EYES: Pupils equal and round. No scleral icterus. No injection or drainage. Patient with horizontal nystagmus ENT: No nasal bleeding or discharge. Mucous membranes pink and moist. NECK: Trachea midline. No JVD. CARDIOVASCULAR: Regular rate and rhythm. No murmur appreciated. RESPIRATORY: No accessory muscle use. Clear to auscultation. Breath sounds equal bilaterally. GASTROINTESTINAL: Abdomen soft, non-tender, nondistended. Hepatic and splenic margins not palpable. MUSCULOSKELETAL: No obvious deformities. No clubbing. No cyanosis. No edema. NEUROLOGICAL: Awake and alert. No obvious cranial nerve deficits. Motor grossly within normal limits. Normal speech. PSYCHIATRIC: Appropriate mood and affect; insight and judgment normal. Data Data Last Documented VS Vital Signs Date Time Temp Pulse Resp B/P Pulse Ox O2 Delivery O2 Flow Rate FiO2 01/28/17 10:10 98.0 60 17 158/81 94 Orders Electrocardiogram (01/28/17 10:23) Complete Blood Count With Diff (01/28/17 10:23) Comprehensive Metabolic Panel (01/28/17 10:23) Magnesium (Mg) (01/28/17 10:23) Act Partial Throm Time (Ptt) (01/28/17 10:23) Prothrombin Time / Inr (Pt) (01/28/17 10:23) Urinalysis - C+S If Indicated (01/28/17 10:23) Ct Brain W/O Iv Contrast(Rout) (01/28/17 10:23) Blood Glucose (01/28/17 10:23) Ecg Monitoring (01/28/17 10:23) Iv Access Insert/Monitor (01/28/17 10:23) Oximetry (01/28/17 10:23) Meclizine (Antivert) (01/28/17 10:30) Sodium Chloride 0.9% Flush (Ns Flush) (01/28/17 10:30) Sodium Chlor 0.9% 1000 Ml Inj (Ns 1000 M (01/28/17 10:23) Metoclopramide Inj (Reglan Inj) (01/28/17 10:30) Vascular Access Team Consult/P PRN (01/28/17 10:27) Vascular Poc Ultrasound (01/28/17 ) Labs Laboratory Tests Test 01/28/17 10:55 White Blood Count 4.2 TH/MM3 Red Blood Count 4.23 MIL/MM3 Hemoglobin 13.4 GM/DL Hematocrit 39.5 % Mean Corpuscular Volume 93.4 FL Mean Corpuscular Hemoglobin 31.7 PG Mean Corpuscular Hemoglobin 33.9 % Concent Red Cell Distribution Width 13.9 % Platelet Count 229 TH/MM3 Mean Platelet Volume 7.9 FL Neutrophils (%) (Auto) 61.3 % Lymphocytes (%) (Auto) 22.1 % Monocytes (%) (Auto) 11.2 % Eosinophils (%) (Auto) 3.8 % Basophils (%) (Auto) 1.6 % Neutrophils # (Auto) 2.6 TH/MM3 Lymphocytes # (Auto) 0.9 TH/MM3 Monocytes # (Auto) 0.5 TH/MM3 Eosinophils # (Auto) 0.2 TH/MM3 Basophils # (Auto) 0.1 TH/MM3 CBC Comment DIFF FINAL Differential Comment Prothrombin Time 10.0 SEC Prothromb Time International 0.9 RATIO Ratio Activated Partial 27.3 SEC Thromboplast Time Sodium Level 140 MEQ/L Potassium Level 4.6 MEQ/L Chloride Level 107 MEQ/L Carbon Dioxide Level 29.9 MEQ/L Anion Gap 3 MEQ/L Blood Urea Nitrogen 12 MG/DL Creatinine 1.03 MG/DL Estimat Glomerular Filtration 74 ML/MIN Rate Random Glucose 83 MG/DL Calcium Level 8.1 MG/DL Magnesium Level 2.3 MG/DL Total Bilirubin 0.3 MG/DL Aspartate Amino Transf 21 U/L (AST/SGOT) Alanine Aminotransferase 19 U/L (ALT/SGPT) Alkaline Phosphatase 69 U/L Total Protein 7.2 GM/DL Albumin 3.6 GM/DL MDM Medical Decision Making Medical Screen Exam Complete: Yes Emergency Medical Condition: Yes Interpretation(s) EKG at 1012: Sinus bradycardia at 57 bpm, QT/QTc 475/470, no acute ST or T-wave changes Vital Signs Date Time Temp Pulse Resp B/P Pulse Ox O2 Delivery O2 Flow Rate FiO2 01/28/17 10:10 98.0 60 17 158/81 94 Differential Diagnosis Dizziness could be secondary to vertigo, CVA, electrolyte abnormality, ACS though unlikely Narrative Course Patient is a 61-year-old male who presents to emergency room for evaluation of acute onset dizziness which started 1 hour prior to presentation to the emergency room. Patient reports that he had symptoms similar to today previously. On evaluation, patient reports that he feels fine when he is laying down and laying still. With normal neurological exam except for the fact that he does have horizontal nystagmus. Patient's dizziness is most likely due to benign positional vertigo. 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 Vital Signs Date Time Temp Pulse Resp B/P Pulse Ox O2 Delivery O2 Flow Rate FiO2 01/28/17 10:10 98.0 60 17 158/81 94 Laboratory Tests Test 01/28/17 10:55 White Blood Count 4.2 TH/MM3 (4.0-11.0) Red Blood Count 4.23 MIL/MM3 (4.50-5.90) Hemoglobin 13.4 GM/DL (13.0-17.0) Hematocrit 39.5 % (39.0-51.0) Mean Corpuscular Volume 93.4 FL (80.0-100.0) Mean Corpuscular Hemoglobin 31.7 PG (27.0-34.0) Mean Corpuscular Hemoglobin 33.9 % Concent (32.0-36.0) Red Cell Distribution Width 13.9 % (11.6-17.2) Platelet Count 229 TH/MM3 (150-450) Mean Platelet Volume 7.9 FL (7.0-11.0) Neutrophils (%) (Auto) 61.3 % (16.0-70.0) Lymphocytes (%) (Auto) 22.1 % (9.0-44.0) Monocytes (%) (Auto) 11.2 % (0.0-8.0) Eosinophils (%) (Auto) 3.8 % (0.0-4.0) Basophils (%) (Auto) 1.6 % (0.0-2.0) Neutrophils # (Auto) 2.6 TH/MM3 (1.8-7.7) Lymphocytes # (Auto) 0.9 TH/MM3 (1.0-4.8) Monocytes # (Auto) 0.5 TH/MM3 (0-0.9) Eosinophils # (Auto) 0.2 TH/MM3 (0-0.4) Basophils # (Auto) 0.1 TH/MM3 (0-0.2) CBC Comment DIFF FINAL Differential Comment Prothrombin Time 10.0 SEC (9.8-11.6) Prothromb Time International 0.9 RATIO Ratio Activated Partial 27.3 SEC Thromboplast Time (24.3-30.1) Sodium Level 140 MEQ/L (136-145) Potassium Level 4.6 MEQ/L (3.5-5.1) Chloride Level 107 MEQ/L (98-107) Carbon Dioxide Level 29.9 MEQ/L (21.0-32.0) Anion Gap 3 MEQ/L (5-15) Blood Urea Nitrogen 12 MG/DL (7-18) Creatinine 1.03 MG/DL (0.60-1.30) Estimat Glomerular Filtration 74 ML/MIN (>89) Rate Random Glucose 83 MG/DL (74-106) Calcium Level 8.1 MG/DL (8.5-10.1) Magnesium Level 2.3 MG/DL (1.5-2.5) Total Bilirubin 0.3 MG/DL (0.2-1.0) Aspartate Amino Transf 21 U/L (15-37) (AST/SGOT) Alanine Aminotransferase 19 U/L (12-78) (ALT/SGPT) Alkaline Phosphatase 69 U/L (45-117) Total Protein 7.2 GM/DL (6.4-8.2) Albumin 3.6 GM/DL (3.4-5.0) Last Impressions Head CT 01/28/17 1023 Signed Impressions: Service Date/Time: Monday, January 28, 2017 10:37 - CONCLUSION: No acute intracranial findings. Modesto Donnelly MD Patient re-evaluated, patient wishes to have no further workup. he request to be discharged at this time. He understands that he can return to ER at anytime. Understands need to follow up with his primary care doctor as soon as possible. AMA: The risks of leaving against medical advice without further evaluation treatment were discussed with the patient. These risks include cardiac dysfunction, cardiac dysrhythmia, possible heart attack, possible stroke or . The patient indicated understanding of these risks and appeared to have the capacity to make this decision. Diagnosis Primary Impression: Dizziness Patient Instructions: General Instructions Additional Instructions: You may return to the emergency room at any time for further evaluation of her symptoms Please call your primary care doctor first thing in the morning for follow up as soon as possible Return to ER as needed Disposition: 07 AGAINST MEDICAL ADVICE Irma Daley DO Jan 28, 2017 10:56
[2017-01-28 11:18] LABS: AUTOMATED NEUTROPHIL # 2.6 TH/MM3 (1.8-7.7); BASOPHIL # 0.1 TH/MM3 (0-0.2); BASOPHIL % 1.6 % (0.0-2.0); EOSINOPHIL # 0.2 TH/MM3 (0-0.4); EOSINOPHIL % 3.8 % (0.0-4.0); HEMATOCRIT 39.5 % (39.0-51.0); HEMO FLAGS DIFF FINAL; LYMPH % 22.1 % (9.0-44.0); LYMPHOCYTE # 0.9 TH/MM3 (1.0-4.8); MEAN CELL VOLUME 93.4 FL (80.0-100.0); MEAN CORPUSCULAR HEMOGLOBIN 31.7 PG (27.0-34.0); MEAN CORPUSCULAR HGB CONC 33.9 % (32.0-36.0); MONO % 11.2 % (0.0-8.0); NEUT % 61.3 % (16.0-70.0); PLATELET COUNT 229 TH/MM3 (150-450); RED BLOOD COUNT 4.23 MIL/MM3 (4.50-5.90); RED CELL DISTRIBUTION WIDTH 13.9 % (11.6-17.2); WHITE BLOOD COUNT 4.2 TH/MM3 (4.0-11.0)
[2017-01-28 11:30] LABS: APTT (PATIENT) 27.3 SEC (24.3-30.1); INTERNATIONAL NORMALIZED RATIO 0.9 RATIO
[2017-01-28 11:36] LABS: ALT (GPT) 19 U/L (12-78)
[2017-01-28 11:39] LABS: ALKALINE PHOSPHATASE 69 U/L (45-117); TOTAL BILIRUBIN ADULT 0.3 MG/DL (0.2-1.0)
--- NOTE | 2017-01-28 11:39 | RADRPT ---
EXAM DATE/TIME: 01/28/2017 10:37 [facility] COMPARISON: CT BRAIN W/O CONTRAST, December 07, 2016, 18:30. INDICATIONS : Dizziness. RADIATION DOSE: 43.32 CTDIvol (mGy) MEDICAL HISTORY : Seizures. Carcinoma, colon. SURGICAL HISTORY : None. ENCOUNTER: Initial ACUITY: 1 day PAIN SCALE: 0/10 LOCATION: cranial TECHNIQUE: Multiple contiguous axial images were obtained of the head. Using automated exposure control and adj ustment of the mA and/or kV according to patient size, radiation dose was kept as low as reasonably a chievable to obtain optimal diagnostic quality images. FINDINGS: CEREBRUM: The ventricles are normal for age. No evidence of midline shift, mass lesion, hemorrhage or acute in farction. No extra-axial fluid collections are seen. POSTERIOR FOSSA: The cerebellum and brainstem are intact. The 4th ventricle is midline. The cerebellopontine angle i s unremarkable. EXTRACRANIAL: The visualized portion of the orbits is intact. SKULL: The calvaria is intact. No evidence of skull fracture. CONCLUSION: No acute intracranial findings. Modesto Donnelly MD on January 28, 2017 at 11:36 Board Certified Radiologist. This report was verified electronically.
[2017-01-28 11:45] LABS: ANION GAP 3 MEQ/L (5-15); AST (GOT) 21 U/L (15-37); BICARBONATE 29.9 MEQ/L (21.0-32.0); BLOOD UREA NITROGEN 12 MG/DL (7-18); CHLORIDE 107 MEQ/L (98-107); GLOMERULAR FILTRATION RATE 74 ML/MIN (>89); MAGNESIUM 2.3 MG/DL (1.5-2.5); SODIUM (NA) 140 MEQ/L (136-145)
[2017-01-28 11:46] LABS: POTASSIUM 4.6 MEQ/L (3.5-5.1)
--- NOTE | 2017-01-29 14:11 | EKG ---
Date Performed: 01/28/2017 Time Performed: 10:12:42 PTAGE: 61 years EKG: SINUS BRADYCARDIA MODERATE INTRAVENTRICULAR CONDUCTION DELAY PROLONGED QT INTERVAL Compared to previous tracing, no significant change ABNORMAL ECG PREVIOUS TRACING : 01/04/2017 00.28 DOCTOR: Stephen Ulloa Interpretating Date/Time 01/29/2017 14:10:31
== END 2017-01-28 12:15 | disposition left against medical advice (07) ==
LOC: NEPE 09:53
DX: R42 Dizziness and giddiness (principal); R94.31 Abnormal electrocardiogram [ECG] [EKG]; I10 Essential (primary) hypertension
CPT/HCPCS: 70450; 80053; 83735; 85025; 85610; 85730; 93005; 99284

== ENCOUNTER 2017-02-19 16:33 | Emergency (ER) | payer OTHER ==
[~2017-02-19] VITALS: Ht 170.2 cm; Wt 60.0 kg
[~2017-02-19 16:33] MED LIST changes: +HYDR25TA5 PO
[2017-02-19] MEDS ORDERED: FUROSEMIDE 40 MG/4 ML VIAL IV PUSH ONE (16:45)
[2017-02-19 16:47] VITALS: BP 139/90; PULSE 62; RESP 15; TEMP 97.6; O2SAT 96
[2017-02-19 16:52] VITALS: O2SAT 97
--- NOTE | 2017-02-19 16:56 | PD ---
HPI Chief Complaint: Dizziness Time Seen by Provider: 16:43 Travel History International Travel<30 days: No Contact w/Intl Traveler<30days: No Traveled to known affect area: No History of Present Illness HPI PT STATES THAT HE FEELS LIKE HIS "PRESSURE IS UP" BECAUSE HE IS STARTING TO NOTICE SWELLING TO HIS HANDS, DENIES CP/SOB/BALTAZAR/ABD PAIN/N/V/D/URI SX. PFSH Past Medical History Hx Anticoagulant Therapy: No Arthritis: Yes (GENERALIZED) Blood Disorders: No Heart Rhythm Problems: Yes Cancer: Yes (COLON) Cardiac Catheterization: No Cardiovascular Problems: Yes (HTN) High Cholesterol: No Chemotherapy: Yes (COLON CANCER) Chest Pain: Yes Congestive Heart Failure: No COPD: Yes Cerebrovascular Accident: Yes Diabetes: No Diminished Hearing: No Endocrine: No Gastrointestinal Disorders: Yes (PANCREATITIS) GERD: No Genitourinary: No Headaches: Yes Heparin Induced Thrombocytopen: No Hypertension: Yes Implanted Vascular Access Dvce: No Musculoskeletal: No Psychiatric: No Respiratory: Yes (COPD) Immunizations Current: No Migraines: No Pancreatitis: Yes Radiation Therapy: Yes Seizures: Yes Ulcer: No Influenza Vaccination: Yes PNEUMOCCOCAL Vaccine (Year): 1 Past Surgical History Abdominal Surgery: Yes (COLOSTOMY (REVERSED)) Appendectomy: Yes Cardiac Surgery: No Coronary Artery Bypass Graft: No Ear Surgery: No Endocrine Surgery: No Eye Surgery: Yes (MUSCLES CUT) Genitourinary Surgery: No Gynecologic Surgery: No Neurologic Surgery: No Oral Surgery: No Thoracic Surgery: No Tonsillectomy: Yes Other Surgery: Yes (bowel resection) Family History Family Myocardial Infarction: Yes (FATHER) Social History Alcohol Use: Yes (OCCASIONALLY) Tobacco Use: Yes (1/2 PPD) Substance Use: No Allergies-Medications (Allergen,Severity, Reaction): Coded Allergies: Amoxicillin (Verified Allergy, Severe, Anaphylaxis, 02/19/17) UNABLE TO CONFIRM PT IS INTUBATED Augmentin (Verified Allergy, Severe, "LIPS SWELL", 02/19/17) PT IS INTUBATED UNABLE TO CONFIRM Contrast Media (Verified Allergy, Severe, Anaphylaxis; 06/04/09: PT TOLERATES ORAL CONTRAST W/O AE, 02/19/17) PT INTUBATED UNABLE TO CONFIRM 06/04/09: PER RN, PT TOLERATES ORAL CONTRAST MEDIA WITHOUT ADVERSE EFFECTS; HE HAS HAD ORAL CONTRAST PREVIOUSLY. Dye, Prep (Verified Allergy, Severe, CARDIAC ARREST, 02/19/17) UNABLE TO CONFIRM PT IS INTUBATED Erythromycin (Verified Allergy, Severe, RASH, 02/19/17) Haldol (Verified Allergy, Severe, "TIGHT JAW", 02/19/17) UNABLE TO CONFIRM PT IS INTUBATED Iohexol (OMNIPAQUE) (Verified Allergy, Severe, PT NEEDS PREMED/DOESN'T KNOW REACTION, 02/19/17) UNABLE TO CONFIRM PT IS INTUBATED Norvasc (Verified Allergy, Severe, Swelling, 02/19/17) UNALBE TO CONFIRM PT IS INTUBATED Valium (Verified Allergy, Severe, RESPIRATORY DISTRESS, 02/19/17) UNALBE TO CONFIRM PT IS INTUBATED Vasotec (Verified Allergy, Severe, 02/19/17) UNALBE TO CONFIRM PT IS INTUBATED Morphine (Verified Allergy, Mild, Itching, 02/19/17) UNABLE TO CONFIRM PT IS INTUBATED LAUREN Inhibitors (Verified Allergy, Unknown, UNKNOWN REACTION, 02/19/17) UNABLE TO CONFIRM PT IS INTUBATED Compazine (Verified Adverse Reaction, Severe, "LOCKJAW", 02/19/17) UNABLE TO CONFIRM PT IS INTUBATED *MDRO Multi-Drug Resistant Organism (Verified Adverse Reaction, Unknown, ) MRSA 03/2003 (cath tip), 06/2006 (urine), 12/2009 (sputum), 03/2012 (wound). Reported Meds & Prescriptions Reported Meds & Active Scripts Active Labetalol (Labetalol HCl) 100 Mg Tab 100 Mg PO BID 14 Days Reported Hydrochlorothiazide 25 Mg Tab 25 Mg PO DAILY Proair Hfa 8.5 GM Inh (Albuterol Sulfate) 90 Mcg/Act Aer 2 Puff INH Q4-6H PRN 108 mcg/actuation Depakote DR (Divalproex Sodium) 500 Mg Tabdr 500 Mg PO BID Keppra (Levetiracetam) 500 Mg Tab 500 Mg PO BID Review of Systems Except as stated in HPI: all other systems reviewed are Neg Musculoskeletal: Positive: Edema (MILD MARITA EDEMA TO HANDS OF 1+) Physical Exam Narrative GENERAL: SKIN: Warm and dry. HEAD: Atraumatic. Normocephalic. EYES: Pupils equal and round. No scleral icterus. No injection or drainage. ENT: No nasal bleeding or discharge. Mucous membranes pink and moist. NECK: Trachea midline. No JVD. CARDIOVASCULAR: Regular rate and rhythm. RESPIRATORY: No accessory muscle use. Clear to auscultation. Breath sounds equal bilaterally. GASTROINTESTINAL: Abdomen soft, non-tender, nondistended. Hepatic and splenic margins not palpable. MUSCULOSKELETAL: Extremities without clubbing, cyanosis, BUT 1+ PERIPHERAL MARITA HAND edema. No obvious deformities. NEUROLOGICAL: Awake and alert. No obvious cranial nerve deficits. Motor grossly within normal limits. Five out of 5 muscle strength in the arms and legs. Normal speech. PSYCHIATRIC: Appropriate mood and affect; insight and judgment normal. Data Data Last Documented VS Vital Signs Date Time Temp Pulse Resp B/P Pulse Ox O2 Delivery O2 Flow Rate FiO2 02/19/17 16:52 97 Room Air 02/19/17 16:47 97.6 62 15 139/90 Orders Complete Blood Count With Diff (02/19/17 16:43) Comprehensive Metabolic Panel (02/19/17 16:43) B-Type Natriuretic Peptide (02/19/17 16:43) Valproic Acid (Depakene) (02/19/17 16:43) Chest, Single Ap (02/19/17 16:43) Iv Access Insert/Monitor (02/19/17 16:43) Ecg Monitoring (02/19/17 16:43) Oximetry (02/19/17 16:43) Furosemide Inj (Lasix Inj) (02/19/17 16:45) Labs Laboratory Tests Test 02/19/17 18:00 White Blood Count 5.5 TH/MM3 Red Blood Count 4.23 MIL/MM3 Hemoglobin 13.3 GM/DL Hematocrit 39.5 % Mean Corpuscular Volume 93.4 FL Mean Corpuscular Hemoglobin 31.4 PG Mean Corpuscular Hemoglobin 33.6 % Concent Red Cell Distribution Width 14.1 % Platelet Count 244 TH/MM3 Mean Platelet Volume 7.4 FL Neutrophils (%) (Auto) 65.9 % Lymphocytes (%) (Auto) 22.3 % Monocytes (%) (Auto) 8.0 % Eosinophils (%) (Auto) 2.8 % Basophils (%) (Auto) 1.0 % Neutrophils # (Auto) 3.6 TH/MM3 Lymphocytes # (Auto) 1.2 TH/MM3 Monocytes # (Auto) 0.4 TH/MM3 Eosinophils # (Auto) 0.2 TH/MM3 Basophils # (Auto) 0.1 TH/MM3 CBC Comment DIFF FINAL Differential Comment Sodium Level 143 MEQ/L Potassium Level 3.4 MEQ/L Chloride Level 107 MEQ/L Carbon Dioxide Level 28.1 MEQ/L Anion Gap 8 MEQ/L Blood Urea Nitrogen 14 MG/DL Creatinine 1.05 MG/DL Estimat Glomerular Filtration 72 ML/MIN Rate Random Glucose 90 MG/DL Calcium Level 8.3 MG/DL Total Bilirubin 0.4 MG/DL Aspartate Amino Transf 17 U/L (AST/SGOT) Alanine Aminotransferase 21 U/L (ALT/SGPT) Alkaline Phosphatase 77 U/L Total Protein 7.4 GM/DL Albumin 3.8 GM/DL Valproic Acid (Depakene) Level LESS THAN 3 MCG/ML [facility] Medical Decision Making Medical Screen Exam Complete: Yes Emergency Medical Condition: Yes Medical Record Reviewed: Yes Differential Diagnosis PERIPHERAL EDEMA V RENAL INSUFF V LIVER FAILURE V CHF Narrative Course NO E/O CHF/RENAL FAILURE NOR LIVER FAILURE....PATIENT WILL BE D/C WITH PERIPHERAL EDEMA...PT IS A/O X4 AND AMBULATES WELL ON HIS OWN WITHOUT ASSISTANCE Diagnosis Primary Impression: PERIPHERAL EDEMA Patient Instructions: General Instructions, Leg Edema (ED) Scripts Furosemide (Lasix)40 Mg Tab40 Mg PO DAILY #6 TAB Prov:Eduardo Schmidt MD 02/19/17 Disposition: 01 DISCHARGE HOME Condition: Stable Eduardo Schmidt MD Feb 19, 2017 16:56
--- NOTE | 2017-02-19 17:14 | RADRPT ---
EXAM DATE/TIME: 02/19/2017 16:43 [facility] COMPARISON: CHEST SINGLE AP, January 03, 2017, 18:08. INDICATIONS : Upper extremity edema for two days with lightheadness and dizziness for one day. MEDICAL HISTORY : Hypertension. SURGICAL HISTORY : None. ENCOUNTER: Initial ACUITY: 2 days PAIN SCORE: 0/10 LOCATION: Bilateral chest FINDINGS: A single view of the chest demonstrates the lungs to be symmetrically aerated without evidence of mas s, infiltrate or effusion. The cardiomediastinal contours are unremarkable. Osseous structures are intact. CONCLUSION: No acute disease. Remi Nieves MD on February 19, 2017 at 17:11 Board Certified Radiologist. This report was verified electronically.
[2017-02-19 18:18] LABS: AUTOMATED NEUTROPHIL # 3.6 TH/MM3 (1.8-7.7); BASOPHIL # 0.1 TH/MM3 (0-0.2); EOSINOPHIL # 0.2 TH/MM3 (0-0.4); EOSINOPHIL % 2.8 % (0.0-4.0); HEMATOCRIT 39.5 % (39.0-51.0); HEMO FLAGS DIFF FINAL; LYMPH % 22.3 % (9.0-44.0); LYMPHOCYTE # 1.2 TH/MM3 (1.0-4.8); MEAN CELL VOLUME 93.4 FL (80.0-100.0); MEAN CORPUSCULAR HEMOGLOBIN 31.4 PG (27.0-34.0); MEAN CORPUSCULAR HGB CONC 33.6 % (32.0-36.0); NEUT % 65.9 % (16.0-70.0); PLATELET COUNT 244 TH/MM3 (150-450); RED BLOOD COUNT 4.23 MIL/MM3 (4.50-5.90); RED CELL DISTRIBUTION WIDTH 14.1 % (11.6-17.2); WHITE BLOOD COUNT 5.5 TH/MM3 (4.0-11.0)
[2017-02-19 18:38] LABS: ALT (GPT) 21 U/L (12-78); ANION GAP 8 MEQ/L (5-15); AST (GOT) 17 U/L (15-37); BICARBONATE 28.1 MEQ/L (21.0-32.0); BLOOD UREA NITROGEN 14 MG/DL (7-18); CHLORIDE 107 MEQ/L (98-107); GLOMERULAR FILTRATION RATE 72 ML/MIN (>89); POTASSIUM 3.4 MEQ/L (3.5-5.1); SODIUM (NA) 143 MEQ/L (136-145)
[2017-02-19 18:40] LABS: ALKALINE PHOSPHATASE 77 U/L (45-117); TOTAL BILIRUBIN ADULT 0.4 MG/DL (0.2-1.0)
[2017-02-19] MEDS ORDERED: FURO1TAB60 PO (18:51)
[2017-02-19] MEDS ORDERED: VALPROIC ACID 250 MG CAP PO ONE (19:00)
== END 2017-02-19 19:04 | disposition home or self-care (01) ==
LOC: NEPC 16:33
DX: R60.0 Localized edema (principal); I10 Essential (primary) hypertension; J44.9 Chronic obstructive pulmonary disease, unspecified; F17.200 Nicotine dependence, unspecified, uncomplicated; Z85.038 Personal history of other malignant neoplasm of large intestine
CPT/HCPCS: 71010; 80053; 80164; 83880; 85025; 96374; 99284; J1940

== ENCOUNTER 2017-03-22 19:04 | Emergency (ER) | payer OTHER ==
[~2017-03-22 19:04] MED LIST changes: +FURO1TAB60 PO
[2017-03-22 19:21] VITALS: BP 207/112; PULSE 68; RESP 16; TEMP 98.3; O2SAT 99
--- NOTE | 2017-03-22 20:23 | PD ---
HPI Chief Complaint: Hypertension Time Seen by Provider: 20:22 Travel History International Travel<30 days: No Contact w/Intl Traveler<30days: No Traveled to known affect area: No PFSH Past Medical History Hx Anticoagulant Therapy: No Arthritis: Yes (GENERALIZED) Blood Disorders: No Heart Rhythm Problems: Yes Cancer: Yes (COLON) Cardiac Catheterization: No Cardiovascular Problems: Yes (HTN) High Cholesterol: No Chemotherapy: Yes (COLON CANCER) Chest Pain: Yes Congestive Heart Failure: No COPD: Yes Cerebrovascular Accident: Yes Diabetes: No Diminished Hearing: No Endocrine: No Gastrointestinal Disorders: Yes (PANCREATITIS) GERD: No Genitourinary: No Headaches: Yes Heparin Induced Thrombocytopen: No Hypertension: Yes Implanted Vascular Access Dvce: No Musculoskeletal: No Psychiatric: No Respiratory: Yes (COPD) Immunizations Current: No Migraines: No Pancreatitis: Yes Radiation Therapy: Yes Seizures: Yes Ulcer: No PNEUMOCCOCAL Vaccine (Year): 1 Past Surgical History Abdominal Surgery: Yes (COLOSTOMY (REVERSED)) Appendectomy: Yes Cardiac Surgery: No Coronary Artery Bypass Graft: No Ear Surgery: No Endocrine Surgery: No Eye Surgery: Yes (MUSCLES CUT) Genitourinary Surgery: No Gynecologic Surgery: No Neurologic Surgery: No Oral Surgery: No Thoracic Surgery: No Tonsillectomy: Yes Other Surgery: Yes (bowel resection) Social History Alcohol Use: Yes (OCCASIONALLY) Tobacco Use: Yes (1/2 PPD) Substance Use: No Allergies-Medications (Allergen,Severity, Reaction): Coded Allergies: Amoxicillin (Verified Allergy, Severe, Anaphylaxis, 03/22/17) UNABLE TO CONFIRM PT IS INTUBATED Augmentin (Verified Allergy, Severe, "LIPS SWELL", 03/22/17) PT IS INTUBATED UNABLE TO CONFIRM Contrast Media (Verified Allergy, Severe, Anaphylaxis; 06/04/09: PT TOLERATES ORAL CONTRAST W/O AE, 03/22/17) PT INTUBATED UNABLE TO CONFIRM 06/04/09: PER RN, PT TOLERATES ORAL CONTRAST MEDIA WITHOUT ADVERSE EFFECTS; HE HAS HAD ORAL CONTRAST PREVIOUSLY. Dye, Prep (Verified Allergy, Severe, CARDIAC ARREST, 03/22/17) UNABLE TO CONFIRM PT IS INTUBATED Erythromycin (Verified Allergy, Severe, RASH, 03/22/17) Haldol (Verified Allergy, Severe, "TIGHT JAW", 03/22/17) UNABLE TO CONFIRM PT IS INTUBATED Iohexol (OMNIPAQUE) (Verified Allergy, Severe, PT NEEDS PREMED/DOESN'T KNOW REACTION, 03/22/17) UNABLE TO CONFIRM PT IS INTUBATED Norvasc (Verified Allergy, Severe, Swelling, 03/22/17) UNALBE TO CONFIRM PT IS INTUBATED Valium (Verified Allergy, Severe, RESPIRATORY DISTRESS, 03/22/17) UNALBE TO CONFIRM PT IS INTUBATED Vasotec (Verified Allergy, Severe, 03/22/17) UNALBE TO CONFIRM PT IS INTUBATED Morphine (Verified Allergy, Mild, Itching, 03/22/17) UNABLE TO CONFIRM PT IS INTUBATED LAUREN Inhibitors (Verified Allergy, Unknown, UNKNOWN REACTION, 03/22/17) UNABLE TO CONFIRM PT IS INTUBATED Compazine (Verified Adverse Reaction, Severe, "LOCKJAW", 03/22/17) UNABLE TO CONFIRM PT IS INTUBATED *MDRO Multi-Drug Resistant Organism (Verified Adverse Reaction, Unknown, ) MRSA 03/2003 (cath tip), 06/2006 (urine), 12/2009 (sputum), 03/2012 (wound). Reported Meds & Prescriptions Reported Meds & Active Scripts Active Lasix (Furosemide) 40 Mg Tab 40 Mg PO DAILY Labetalol (Labetalol HCl) 100 Mg Tab 100 Mg PO BID 14 Days Reported Hydrochlorothiazide 25 Mg Tab 25 Mg PO DAILY Proair Hfa 8.5 GM Inh (Albuterol Sulfate) 90 Mcg/Act Aer 2 Puff INH Q4-6H PRN 108 mcg/actuation Depakote DR (Divalproex Sodium) 500 Mg Tabdr 500 Mg PO BID Keppra (Levetiracetam) 500 Mg Tab 500 Mg PO BID Data Data Last Documented VS Vital Signs Date Time Temp Pulse Resp B/P Pulse Ox O2 Delivery O2 Flow Rate FiO2 03/22/17 19:21 98.3 68 16 207/112 99 Room Air Orders ^ Insert Iv (03/22/17 20:29) Sodium Chlor 0.9% 1000 Ml Inj (Ns 1000 M (03/22/17 20:30) Ondansetron Inj (Zofran Inj) (03/22/17 20:30) Thuy Green Mar 22, 2017 20:23
[2017-03-22] MEDS ORDERED: SODIUM CHLOR 0.9% 1000 ML INJ 1,000 ML IV ONE (20:30)
[2017-03-22] MEDS ORDERED: ONDANSETRON HCL 4 MG/2 ML VIAL IV PUSH ONE (20:30)
== END 2017-03-22 20:50 | disposition left against medical advice (07) ==
LOC: NED 19:04
DX: I10 Essential (primary) hypertension (principal); Z53.21 Procedure and treatment not carried out due to patient leaving prior to being seen by health care provider
CPT/HCPCS: 99281

== ENCOUNTER 2017-04-19 08:56 | Emergency (ER) | payer OTHER ==
[2017-04-19 09:07] VITALS: BP 190/107; PULSE 60; RESP 22; TEMP 97.9; O2SAT 96
[2017-04-19 09:15] VITALS: BP 190/106; PULSE 59; RESP 22; TEMP 97.9; O2SAT 96
[2017-04-19] MEDS ORDERED: predniSONE 50 MG TAB PO ONE (09:15)
[2017-04-19] MEDS: RESP: ALBUTEROL 2.5 MG/IPRATROPIUM 0.5 MG NEB (SCH) INH (09:22)
[2017-04-19 09:23] VITALS: O2SAT 96
--- NOTE | 2017-04-19 09:51 | PD ---
HPI Chief Complaint: Cold / Flu Symptoms Time Seen by Provider: 09:13 Travel History International Travel<30 days: No Contact w/Intl Traveler<30days: No Traveled to known affect area: No History of Present Illness HPI 61-year-old male notes using his inhaler and having frequent cough over the past week. He notes productive cough. He denies other significant complaints. He feels worse when he moves around. He denies other modifying factors. He presents by ambulance where he was given no medications and had stable vitals. Quality is productive. Severity is frequent per patient. PFSH Past Medical History Hx Anticoagulant Therapy: No Arthritis: Yes (GENERALIZED) Asthma: No Autoimmune Disease: No Blood Disorders: No Anxiety: No Depression: No Heart Rhythm Problems: Yes Cancer: Yes (COLON) Cardiac Catheterization: No Cardiovascular Problems: Yes (HTN) High Cholesterol: No Chemotherapy: Yes (COLON CANCER) Chest Pain: Yes Congestive Heart Failure: No COPD: Yes Cerebrovascular Accident: Yes Diabetes: No Diminished Hearing: No Endocrine: No Gastrointestinal Disorders: Yes (PANCREATITIS) GERD: No Glaucoma: No Genitourinary: No Headaches: Yes Hepatitis: No Hiatal Hernia: No Heparin Induced Thrombocytopen: No Hypertension: Yes Immune Disorder: No Implanted Vascular Access Dvce: No Kidney Stones: No Musculoskeletal: No Neurologic: Yes (HISTORY OF SEIZURES ) Psychiatric: No Reproductive: No Respiratory: Yes (COPD) Immunizations Current: No Migraines: No Myocardial Infarction: No Pancreatitis: Yes Radiation Therapy: Yes Renal Failure: No Seizures: Yes Sickle Cell Disease: No Sleep Apnea: No Thyroid Disease: No Ulcer: No PNEUMOCCOCAL Vaccine (Year): 1 Past Surgical History Abdominal Surgery: Yes (COLOSTOMY (REVERSED)) AICD: No Appendectomy: Yes Arteriovenous Shunt: No Cardiac Surgery: No Cholecystectomy: No Coronary Artery Bypass Graft: No Ear Surgery: No Endocrine Surgery: No Eye Surgery: Yes (MUSCLES CUT) Genitourinary Surgery: No Gynecologic Surgery: No Insulin Pump: No Joint Replacement: No Neurologic Surgery: No Oral Surgery: No Pacemaker: No Thoracic Surgery: No Tonsillectomy: Yes Other Surgery: Yes (bowel resection) Family History Family Myocardial Infarction: Yes (FATHER) Social History Alcohol Use: Yes (OCCASIONALLY) Tobacco Use: Yes (1/2 PPD) Substance Use: No Allergies-Medications (Allergen,Severity, Reaction): Coded Allergies: amlodipine (Unverified Allergy, Severe, Swelling, 04/19/17) UNALBE TO CONFIRM PT IS INTUBATED amoxicillin (Unverified Allergy, Severe, "LIPS SWELL", 04/19/17) PT IS INTUBATED UNABLE TO CONFIRM clavulanic acid (Unverified Allergy, Severe, "LIPS SWELL", 04/19/17) PT IS INTUBATED UNABLE TO CONFIRM diatrizoate meglumine (Unverified Allergy, Severe, Anaphylaxis; 06/04/09: PT TOLERATES ORAL CONTRAST W/O AE, 04/19/17) PT INTUBATED UNABLE TO CONFIRM 06/04/09: PER RN, PT TOLERATES ORAL CONTRAST MEDIA WITHOUT ADVERSE EFFECTS; HE HAS HAD ORAL CONTRAST PREVIOUSLY. diazepam (Unverified Allergy, Severe, RESPIRATORY DISTRESS, 04/19/17) UNALBE TO CONFIRM PT IS INTUBATED enalaprilat (Unverified Allergy, Severe, 04/19/17) UNALBE TO CONFIRM PT IS INTUBATED erythromycin base (Unverified Allergy, Severe, RASH, 04/19/17) gadobenic acid (Unverified Allergy, Severe, Anaphylaxis; 06/04/09: PT TOLERATES ORAL CONTRAST W/O AE, 04/19/17) PT INTUBATED UNABLE TO CONFIRM 06/04/09: PER RN, PT TOLERATES ORAL CONTRAST MEDIA WITHOUT ADVERSE EFFECTS; HE HAS HAD ORAL CONTRAST PREVIOUSLY. gadodiamide (Unverified Allergy, Severe, Anaphylaxis; 06/04/09: PT TOLERATES ORAL CONTRAST W/O AE, 04/19/17) PT INTUBATED UNABLE TO CONFIRM 06/04/09: PER RN, PT TOLERATES ORAL CONTRAST MEDIA WITHOUT ADVERSE EFFECTS; HE HAS HAD ORAL CONTRAST PREVIOUSLY. gadoteridol (Unverified Allergy, Severe, Anaphylaxis; 06/04/09: PT TOLERATES ORAL CONTRAST W/O AE, 04/19/17) PT INTUBATED UNABLE TO CONFIRM 06/04/09: PER RN, PT TOLERATES ORAL CONTRAST MEDIA WITHOUT ADVERSE EFFECTS; HE HAS HAD ORAL CONTRAST PREVIOUSLY. haloperidol (Unverified Allergy, Severe, "TIGHT JAW", 04/19/17) UNABLE TO CONFIRM PT IS INTUBATED iodixanol (Unverified Allergy, Severe, Anaphylaxis; 06/04/09: PT TOLERATES ORAL CONTRAST W/O AE, 04/19/17) PT INTUBATED UNABLE TO CONFIRM 06/04/09: PER RN, PT TOLERATES ORAL CONTRAST MEDIA WITHOUT ADVERSE EFFECTS; HE HAS HAD ORAL CONTRAST PREVIOUSLY. iohexol (Unverified Allergy, Severe, PT NEEDS PREMED/DOESN'T KNOW REACTION , 04/19/17) UNABLE TO CONFIRM PT IS INTUBATED 06/04/09: PER RN, PT TOLERATES ORAL CONTRAST MEDIA WITHOUT ADVERSE EFFECTS; HE HAS HAD ORAL CONTRAST PREVIOUSLY. morphine (Unverified Allergy, Mild, Itching, 04/19/17) UNABLE TO CONFIRM PT IS INTUBATED benazepril (Unverified Allergy, Unknown, UNKNOWN REACTION, 04/19/17) UNABLE TO CONFIRM PT IS INTUBATED captopril (Unverified Allergy, Unknown, UNKNOWN REACTION, 04/19/17) UNABLE TO CONFIRM PT IS INTUBATED fosinopril (Unverified Allergy, Unknown, UNKNOWN REACTION, 04/19/17) UNABLE TO CONFIRM PT IS INTUBATED lisinopril (Unverified Allergy, Unknown, UNKNOWN REACTION, 04/19/17) UNABLE TO CONFIRM PT IS INTUBATED quinapril (Unverified Allergy, Unknown, UNKNOWN REACTION, 04/19/17) UNABLE TO CONFIRM PT IS INTUBATED prochlorperazine (Unverified Adverse Reaction, Severe, "LOCKJAW", 04/19/17) UNABLE TO CONFIRM PT IS INTUBATED *MDRO Multi-Drug Resistant Organism (Verified Adverse Reaction, Unknown, ) MRSA 03/2003 (cath tip), 06/2006 (urine), 12/2009 (sputum), 03/2012 (wound). Uncoded Allergies: DYE (Allergy, Severe, CARDIAC ARREST, 04/11/17) UNABLE TO CONFIRM PT IS INTUBATED Reported Meds & Prescriptions Reported Meds & Active Scripts Active Doxycycline (Doxycycline (Monohydrate)) 100 Mg Cap 100 Mg PO BID 5 Days Prednisone 50 Mg Tab 50 Mg PO DAILY first dose 04/20 Ventolin Hfa 18 GM Inh (Albuterol Sulfate) 90 Mcg/Act Aer 2 Puff INH Q4-6H PRN Lasix (Furosemide) 40 Mg Tab 40 Mg PO DAILY Labetalol (Labetalol HCl) 100 Mg Tab 100 Mg PO BID 14 Days Reported Hydrochlorothiazide 25 Mg Tab 25 Mg PO DAILY Proair Hfa 8.5 GM Inh (Albuterol Sulfate) 90 Mcg/Act Aer 2 Puff INH Q4-6H PRN 108 mcg/actuation Depakote DR (Divalproex Sodium) 500 Mg Tabdr 500 Mg PO BID Keppra (Levetiracetam) 500 Mg Tab 500 Mg PO BID Review of Systems Except as stated in HPI: all other systems reviewed are Neg Physical Exam Narrative General: No apparent distress, well appearing ENT: mmm Neck: Neck is supple,trachea is midline Cardiovascular: Regular rate and rhythm Lungs: No increased respiratory effort noted, intermittent expiratory wheezing bilaterally that clears with cough Abdomen: Soft, NT, ND, no rebound or guarding Extremities: No edema Neuro: Awake, motor and sensation grossly intact, normal speech Data Data Last Documented VS Vital Signs Date Time Temp Pulse Resp B/P (MAP) Pulse Ox O2 Delivery O2 Flow Rate FiO2 04/19/17 10:15 95 Room Air 04/19/17 10:15 64 18 04/19/17 09:23 21 04/19/17 09:15 97.9 Orders Orders Influenzae A/B Antigen (04/19/17 09:13) Ecg Monitoring (04/19/17 09:13) Oximetry (04/19/17 09:13) Chest, Pa & Lat (04/19/17 09:13) Albuterol-Ipratropium Neb (Duoneb Neb) (04/19/17 09:15) Prednisone (Deltasone) (04/19/17 09:15) MDM Medical Decision Making Medical Screen Exam Complete: Yes Emergency Medical Condition: Yes Medical Record Reviewed: Yes (pmh confirmed) Interpretation(s) Last 24 hours Impressions Chest X-Ray 04/19/17912 Signed Impressions: Service Date/Time: Wednesday, April 19, 2017 09:56 - CONCLUSION: 1. Symmetric nodular densities projecting over the lower chest are characteristic of benign nipple shadows. 2. Lungs are otherwise clear Gm Brunson MD flu no acute Differential Diagnosis COPD, pneumonia, URI Narrative Course Will check chest x-ray and dose with prednisone and DuoNeb's and reevaluate ed workup with COPD exacerbation, patient feels better after 2 breathing treatments, 96% on room air, and no wheezing with cough now, chest x-ray without concurrent pneumonia, influenza is negative,Patient denies any new complaints, all questions answered. Patient knows that follow up is incumbent on them and to return to the emergency room immediately if new or worsening symptoms develop. Patient given strict return precautions, vitals reviewed and are normal, agrees to further workup as an outpatient. Patient agrees to monitor blood pressure and discuss with his primary adjustment Diagnosis Primary Impression: COPD exacerbation Additional Impression: Hypertension Qualified Codes: I10 - Essential (primary) hypertension Patient Instructions: General Instructions Additional Instructions: Return as needed, keep blood pressure log, follow with primary care physician this week Med/Other Pt SpecificInfo: Prescription(s) given Scripts Doxycycline (Monohydrate) (Doxycycline) 100 Mg Cap 100 MG PO BID for 5 Days Prov: Toyin Varghese MD 04/19/17 Prednisone (Prednisone) 50 Mg Tab 50 MG PO DAILY, #5 TAB 0 Refills first dose 04/20 Prov: Toyin Varghese MD 04/19/17 Albuterol 18 GM Inh (Ventolin Hfa 18 GM Inh) 90 Mcg/Act Aer 2 PUFF INH Q4-6H Y for SHORTNESS OF BREATH, #1 INHALER 0 Refills Prov: Toyin Varghese MD 04/19/17 Disposition: 01 DISCHARGE HOME Condition: Stable Toyin Varghese MD Apr 19, 2017 09:51
--- NOTE | 2017-04-19 10:09 | RADRPT ---
EXAM DATE/TIME: 04/19/2017 09:56 [facility] COMPARISON: CHEST PA & LAT, February 02, 2015, 18:48. INDICATIONS : Short of breath for one week. Productive cough. MEDICAL HISTORY : Hypertension. Chronic obstructive pulmonary disease. SURGICAL HISTORY : None. ENCOUNTER: Initial ACUITY: 1 week PAIN SCORE: 0/10 LOCATION: Bilateral chest FINDINGS: PA and lateral views of the chest demonstrate the lungs to be symmetrically aerated with symmetric no dular densities projecting over the lower chest characteristic of benign nipple shadows. Lungs are ot herwise clear. Heart size is normal. Osseous structures are intact. CONCLUSION: 1. Symmetric nodular densities projecting over the lower chest are characteristic of benign nipple sh adows. 2. Lungs are otherwise clear Gm Brunson MD on April 19, 2017 at 10:05 Board Certified Radiologist. This report was verified electronically.
[2017-04-19 10:15] VITALS: BP 168/97; PULSE 64; RESP 18; O2SAT 95
[2017-04-19] MEDS ORDERED: PRED50 PO (10:33)
[2017-04-19] MEDS ORDERED: VENTAER INH (10:33)
[2017-04-19] MEDS ORDERED: DOXY1CAP91 PO (10:33)
[2017-04-19 11:09] VITALS: BP 166/68
== END 2017-04-19 11:13 | disposition home or self-care (01) ==
LOC: NEPE 08:56
DX: J44.1 Chronic obstructive pulmonary disease with (acute) exacerbation (principal); I10 Essential (primary) hypertension; F17.200 Nicotine dependence, unspecified, uncomplicated; Z87.39 Personal history of other diseases of the musculoskeletal system and connective tissue; Z86.79 Personal history of other diseases of the circulatory system; Z85.038 Personal history of other malignant neoplasm of large intestine; Z87.09 Personal history of other diseases of the respiratory system; Z87.19 Personal history of other diseases of the digestive system; Z86.69 Personal history of other diseases of the nervous system and sense organs
CPT/HCPCS: 71020; 87804; 94640; 94664; 99283; J7512

== ENCOUNTER 2017-05-21 14:06 | Emergency (ER) | payer OTHER ==
[~2017-05-21] VITALS: Ht 170.2 cm; Wt 60.0 kg
[~2017-05-21 14:06] MED LIST changes: +DOXY1CAP91 PO; +PRED50 PO; +VENTAER INH
[2017-05-21 14:41] VITALS: BP 174/97; PULSE 62; RESP 18; TEMP 98.5; O2SAT 96
[2017-05-21] MEDS ORDERED: SODIUM CHLORIDE 0.9% FLUSH 10 ML FLUSH IVF PRN (15:00)
[2017-05-21 15:08] VITALS: BP 147/96; PULSE 65; RESP 16; O2SAT 97
--- NOTE | 2017-05-21 15:17 | RADRPT ---
EXAM DATE/TIME: 05/21/2017 14:57 [facility] COMPARISON: CHEST PA & LAT, April 19, 2017, 9:56. CHEST SINGLE AP, February 19, 2017, 16:43. INDICATIONS : Shortness of breath, cough for 1 month. MEDICAL HISTORY : Chronic obstructive pulmonary disease. Hypertension SURGICAL HISTORY : None. ENCOUNTER: Initial ACUITY: 1 month PAIN SCORE: 0/10 LOCATION: Bilateral chest FINDINGS: A single view of the chest demonstrates the lungs to be symmetrically aerated without evidence of mas s, infiltrate or effusion. The cardiomediastinal contours are unremarkable. Osseous structures are intact. CONCLUSION: No acute disease. Rakan Ramirez MD on May 21, 2017 at 15:15 Board Certified Radiologist. This report was verified electronically.
--- NOTE | 2017-05-21 15:22 | PD ---
HPI Chief Complaint: Dizziness Time Seen by Provider: 15:11 Travel History International Travel<30 days: No Contact w/Intl Traveler<30days: No Traveled to known affect area: No History of Present Illness HPI 61-year-old male patient with history of colon cancer status post treatment, COPD, seizures, presents to the ER today for several weeks' history of dizziness especially with standing up, coughing, shortness of breath. He denies any recent fevers, chest pains, or any other issues. He denies any vomiting or other symptoms. Modifying Factors: None Associated Signs & Symptoms: Dizziness with standing up, coughing, shortness of breath Risk Factors: None PFSH Past Medical History Hx Anticoagulant Therapy: No Arthritis: Yes (GENERALIZED) Asthma: No Autoimmune Disease: No Blood Disorders: No Anxiety: No Depression: No Heart Rhythm Problems: Yes Cancer: Yes (COLON) Cardiac Catheterization: No Cardiovascular Problems: Yes High Cholesterol: No Chemotherapy: Yes (COLON CANCER) Chest Pain: Yes Congestive Heart Failure: No COPD: Yes Cerebrovascular Accident: Yes Diabetes: No Diminished Hearing: No Endocrine: No Gastrointestinal Disorders: Yes (PANCREATITIS) GERD: No Glaucoma: No Genitourinary: No Headaches: Yes Hepatitis: No Hiatal Hernia: No Heparin Induced Thrombocytopen: No Hypertension: Yes Immune Disorder: No Implanted Vascular Access Dvce: No Kidney Stones: No Musculoskeletal: No Neurologic: Yes (HISTORY OF SEIZURES ) Psychiatric: No Reproductive: No Respiratory: Yes (COPD) Immunizations Current: No Migraines: No Myocardial Infarction: No Pancreatitis: Yes Radiation Therapy: Yes Renal Failure: No Seizures: Yes Sickle Cell Disease: No Sleep Apnea: No Thyroid Disease: No Ulcer: No Tetanus Vaccination: < 5 Years Influenza Vaccination: Yes PNEUMOCCOCAL Vaccine (Year): 1 Past Surgical History Abdominal Surgery: Yes (COLOSTOMY (REVERSED)) AICD: No Appendectomy: Yes Arteriovenous Shunt: No Cardiac Surgery: No Cholecystectomy: No Coronary Artery Bypass Graft: No Ear Surgery: No Endocrine Surgery: No Eye Surgery: Yes (MUSCLES CUT) Genitourinary Surgery: No Gynecologic Surgery: No Insulin Pump: No Joint Replacement: No Neurologic Surgery: No Oral Surgery: No Pacemaker: No Thoracic Surgery: No Tonsillectomy: Yes Other Surgery: Yes (bowel resection) Family History Family Myocardial Infarction: Yes (FATHER) Social History Alcohol Use: Yes (OCCASIONALLY) Tobacco Use: Yes (1/2 PPD) Substance Use: No Allergies-Medications (Allergen,Severity, Reaction): Coded Allergies: amlodipine (Unverified Allergy, Severe, Swelling, 05/21/17) UNALBE TO CONFIRM PT IS INTUBATED amoxicillin (Unverified Allergy, Severe, "LIPS SWELL", 05/21/17) PT IS INTUBATED UNABLE TO CONFIRM clavulanic acid (Unverified Allergy, Severe, "LIPS SWELL", 05/21/17) PT IS INTUBATED UNABLE TO CONFIRM diatrizoate meglumine (Unverified Allergy, Severe, Anaphylaxis; 06/04/09: PT TOLERATES ORAL CONTRAST W/O AE, 05/21/17) PT INTUBATED UNABLE TO CONFIRM 06/04/09: PER RN, PT TOLERATES ORAL CONTRAST MEDIA WITHOUT ADVERSE EFFECTS; HE HAS HAD ORAL CONTRAST PREVIOUSLY. diazepam (Unverified Allergy, Severe, RESPIRATORY DISTRESS, 05/21/17) UNALBE TO CONFIRM PT IS INTUBATED enalaprilat (Unverified Allergy, Severe, 05/21/17) UNALBE TO CONFIRM PT IS INTUBATED erythromycin base (Unverified Allergy, Severe, RASH, 05/21/17) gadobenic acid (Unverified Allergy, Severe, Anaphylaxis; 06/04/09: PT TOLERATES ORAL CONTRAST W/O AE, 05/21/17) PT INTUBATED UNABLE TO CONFIRM 06/04/09: PER RN, PT TOLERATES ORAL CONTRAST MEDIA WITHOUT ADVERSE EFFECTS; HE HAS HAD ORAL CONTRAST PREVIOUSLY. gadodiamide (Unverified Allergy, Severe, Anaphylaxis; 06/04/09: PT TOLERATES ORAL CONTRAST W/O AE, 05/21/17) PT INTUBATED UNABLE TO CONFIRM 06/04/09: PER RN, PT TOLERATES ORAL CONTRAST MEDIA WITHOUT ADVERSE EFFECTS; HE HAS HAD ORAL CONTRAST PREVIOUSLY. gadoteridol (Unverified Allergy, Severe, Anaphylaxis; 06/04/09: PT TOLERATES ORAL CONTRAST W/O AE, 05/21/17) PT INTUBATED UNABLE TO CONFIRM 06/04/09: PER RN, PT TOLERATES ORAL CONTRAST MEDIA WITHOUT ADVERSE EFFECTS; HE HAS HAD ORAL CONTRAST PREVIOUSLY. haloperidol (Unverified Allergy, Severe, "TIGHT JAW", 05/21/17) UNABLE TO CONFIRM PT IS INTUBATED iodixanol (Unverified Allergy, Severe, Anaphylaxis; 06/04/09: PT TOLERATES ORAL CONTRAST W/O AE, 05/21/17) PT INTUBATED UNABLE TO CONFIRM 06/04/09: PER RN, PT TOLERATES ORAL CONTRAST MEDIA WITHOUT ADVERSE EFFECTS; HE HAS HAD ORAL CONTRAST PREVIOUSLY. iohexol (Unverified Allergy, Severe, PT NEEDS PREMED/DOESN'T KNOW REACTION , 05/21/17) UNABLE TO CONFIRM PT IS INTUBATED 06/04/09: PER RN, PT TOLERATES ORAL CONTRAST MEDIA WITHOUT ADVERSE EFFECTS; HE HAS HAD ORAL CONTRAST PREVIOUSLY. morphine (Unverified Allergy, Mild, Itching, 05/21/17) UNABLE TO CONFIRM PT IS INTUBATED benazepril (Unverified Allergy, Unknown, UNKNOWN REACTION, 05/21/17) UNABLE TO CONFIRM PT IS INTUBATED captopril (Unverified Allergy, Unknown, UNKNOWN REACTION, 05/21/17) UNABLE TO CONFIRM PT IS INTUBATED fosinopril (Unverified Allergy, Unknown, UNKNOWN REACTION, 05/21/17) UNABLE TO CONFIRM PT IS INTUBATED lisinopril (Unverified Allergy, Unknown, UNKNOWN REACTION, 05/21/17) UNABLE TO CONFIRM PT IS INTUBATED quinapril (Unverified Allergy, Unknown, UNKNOWN REACTION, 05/21/17) UNABLE TO CONFIRM PT IS INTUBATED prochlorperazine (Unverified Adverse Reaction, Severe, "LOCKJAW", 05/21/17) UNABLE TO CONFIRM PT IS INTUBATED *MDRO Multi-Drug Resistant Organism (Verified Adverse Reaction, Unknown, ) MRSA 03/2003 (cath tip), 06/2006 (urine), 12/2009 (sputum), 03/2012 (wound). Uncoded Allergies: DYE (Allergy, Severe, CARDIAC ARREST, 04/11/17) UNABLE TO CONFIRM PT IS INTUBATED Reported Meds & Prescriptions Reported Meds & Active Scripts Active Ventolin Hfa 18 GM Inh (Albuterol Sulfate) 90 Mcg/Act Aer 2 Puff INH Q4-6H PRN Lasix (Furosemide) 40 Mg Tab 40 Mg PO DAILY Labetalol (Labetalol HCl) 100 Mg Tab 100 Mg PO BID 14 Days Reported Hydrochlorothiazide 25 Mg Tab 25 Mg PO DAILY Proair Hfa 8.5 GM Inh (Albuterol Sulfate) 90 Mcg/Act Aer 2 Puff INH Q4-6H PRN 108 mcg/actuation Depakote DR (Divalproex Sodium) 500 Mg Tabdr 500 Mg PO BID Keppra (Levetiracetam) 500 Mg Tab 500 Mg PO BID Review of Systems Except as stated in HPI: all other systems reviewed are Neg Physical Exam Narrative GENERAL: Well-developed elderly white male patient currently in no acute distress. Awake and oriented 3. SKIN: Focused skin assessment warm/dry. HEAD: Atraumatic. Normocephalic. EYES: Pupils equal and round. No scleral icterus. No injection or drainage. ENT: No nasal bleeding or discharge. Mucous membranes pink and moist. NECK: Trachea midline. No JVD. CARDIOVASCULAR: Regular rate and rhythm. No murmur appreciated. Pulses are present and equal bilaterally. RESPIRATORY: No accessory muscle use. Clear to auscultation. Breath sounds equal bilaterally. GASTROINTESTINAL: Abdomen soft, non-tender, nondistended. Hepatic and splenic margins not palpable. MUSCULOSKELETAL: No obvious deformities. No clubbing. No cyanosis. No edema. NEUROLOGICAL: Awake and alert. No obvious cranial nerve deficits. Motor grossly within normal limits. Normal speech. PSYCHIATRIC: Appropriate mood and affect; insight and judgment normal. Data Data Last Documented VS Vital Signs Date Time Temp Pulse Resp B/P (MAP) Pulse Ox O2 Delivery O2 Flow Rate FiO2 05/21/17 15:08 65 16 147/96 (113) 97 Room Air 05/21/17 14:41 98.5 Orders Orders Electrocardiogram (05/21/17 14:51) Complete Blood Count With Diff (05/21/17 14:51) Comprehensive Metabolic Panel (05/21/17 14:51) Ckmb (Isoenzyme) Profile (05/21/17 14:51) Troponin I (05/21/17 14:51) Urinalysis - C+S If Indicated (05/21/17 14:51) Chest, Single Ap (05/21/17 14:51) Ecg Monitoring (05/21/17 14:51) Iv Access Insert/Monitor (05/21/17 14:51) Oximetry (05/21/17 14:51) Sodium Chloride 0.9% Flush (Ns Flush) (05/21/17 15:00) Valproic Acid (Depakene) (05/21/17 15:11) Vascular Access Team Consult/P PRN (05/21/17 15:14) Vascular Poc Ultrasound (05/21/17 ) MDM Medical Decision Making Medical Screen Exam Complete: Yes Emergency Medical Condition: Yes Medical Record Reviewed: Yes Interpretation(s) EKG shows sinus bradycardia rate of 53 bpm, no ST elevation or depression, and no arrhythmias. No significant T-wave inversions. Last 24 hours Impressions Chest X-Ray 05/21/17 1451 Signed Impressions: Service Date/Time: Sunday, May 21, 2017 14:57 - CONCLUSION: No acute disease. Rakan Ramirez MD Differential Diagnosis Dizziness, coughing, shortness of breath: Pneumonia versus metabolic issues versus dehydration versus COPD exacerbation Narrative Course Chest x-ray did not show any signs of acute pneumonia. It appears that his symptoms have been going on at least for several weeks. There has been no change according to the patient. EKG did not show significant dysrhythmias except for some mild bradycardia. Vital signs are otherwise stable in the ER. Patient is ambulatory in the ER. Lab work was ordered but patient is a very hard lab draw and refuses for me to do an EJ on the right side in order to obtain blood work. Consult for vascular access has been ordered but before they can calm, patient decided he did not want to wait anymore. He should follow-up with primary care physician. However, workup has not been completed and at this point I cannot tell whether the patient has any underlying acute processes. Acute processes can include cardiac dysrhythmias, [place], sepsis, and other issues not yet identified. Patient will be leaving against my advice. Patient has been notified of this as well. AMA: The risks of leaving against medical advice without further evaluation treatment were discussed with the patient. These risks include cardiac dysfunction, cardiac dysrhythmia, possible heart attack, possible stroke or . The patient indicated understanding of these risks and appeared to have the capacity to make this decision. Diagnosis Primary Impression: Dizziness Disposition: 07 AGAINST MEDICAL ADVICE Condition: Stable Manuel Lopez MD May 21, 2017 15:22
--- NOTE | 2017-05-22 14:15 | EKG ---
Date Performed: 05/21/2017 Time Performed: 15:25:46 PTAGE: 61 years EKG: SINUS BRADYCARDIA PROLONGED QT INTERVAL ABNORMAL ECG Compared to prior tracing no significa nt change PREVIOUS TRACING : 01/28/2017 10.12 DOCTOR: Néstor Mccain Interpretating Date/Time 05/22/2017 14:14:10
== END 2017-05-21 18:05 | disposition left against medical advice (07) ==
LOC: NEPC 14:06
DX: R42 Dizziness and giddiness (principal)
CPT/HCPCS: 71010; 93005; 99284

== ENCOUNTER 2017-05-24 23:24 | Emergency (ER) | payer OTHER ==
[~2017-05-24] VITALS: Ht 170.2 cm; Wt 60.0 kg
[2017-05-24 23:30] VITALS: BP 127/68; PULSE 68; RESP 16; O2SAT 98
[2017-05-25] MEDS ORDERED: PROPARACAINE HCL 0.5% OPHT SOLN 15 ML BTL LEFT EYE ONE (00:45)
--- NOTE | 2017-05-25 00:58 | PD ---
HPI Chief Complaint: Eye Problems/Injury Time Seen by Provider: 00:34 Travel History International Travel<30 days: No Contact w/Intl Traveler<30days: No Traveled to known affect area: No History of Present Illness HPI DEVELOPED LEFT EYE PAIN WHILE HELPING [employer] AND [employer] A [employer], LEFT EYE TEARY, 02/04, ABLE TO SEE BUT PAINFUL TO OPEN LEFT EYE PFSH Past Medical History Hx Anticoagulant Therapy: No Arthritis: Yes (GENERALIZED) Asthma: No Autoimmune Disease: No Blood Disorders: No Anxiety: No Depression: No Heart Rhythm Problems: Yes Cancer: Yes (COLON) Cardiac Catheterization: No Cardiovascular Problems: Yes High Cholesterol: No Chemotherapy: Yes (COLON CANCER) Chest Pain: Yes Congestive Heart Failure: No COPD: Yes Cerebrovascular Accident: Yes Diabetes: No Diminished Hearing: No Endocrine: No Gastrointestinal Disorders: Yes (PANCREATITIS) GERD: No Glaucoma: No Genitourinary: No Headaches: Yes Hepatitis: No Hiatal Hernia: No Heparin Induced Thrombocytopen: No Hypertension: Yes Immune Disorder: No Implanted Vascular Access Dvce: No Kidney Stones: No Musculoskeletal: No Neurologic: Yes (HISTORY OF SEIZURES ) Psychiatric: No Reproductive: No Respiratory: Yes (COPD) Immunizations Current: No Migraines: No Myocardial Infarction: No Pancreatitis: Yes Radiation Therapy: Yes Renal Failure: No Seizures: Yes Sickle Cell Disease: No Sleep Apnea: No Thyroid Disease: No Ulcer: No PNEUMOCCOCAL Vaccine (Year): 1 Past Surgical History Abdominal Surgery: Yes (COLOSTOMY (REVERSED)) AICD: No Appendectomy: Yes Arteriovenous Shunt: No Cardiac Surgery: No Cholecystectomy: No Coronary Artery Bypass Graft: No Ear Surgery: No Endocrine Surgery: No Eye Surgery: Yes (MUSCLES CUT) Genitourinary Surgery: No Gynecologic Surgery: No Insulin Pump: No Joint Replacement: No Neurologic Surgery: No Oral Surgery: No Pacemaker: No Thoracic Surgery: No Tonsillectomy: Yes Other Surgery: Yes (bowel resection) Family History Family Myocardial Infarction: Yes (FATHER) Social History Alcohol Use: Yes (OCCASIONALLY) Tobacco Use: Yes (1/2 PPD) Substance Use: No Allergies-Medications (Allergen,Severity, Reaction): Coded Allergies: amlodipine (Unverified Allergy, Severe, Swelling, 05/24/17) UNALBE TO CONFIRM PT IS INTUBATED amoxicillin (Unverified Allergy, Severe, "LIPS SWELL", 05/24/17) PT IS INTUBATED UNABLE TO CONFIRM clavulanic acid (Unverified Allergy, Severe, "LIPS SWELL", 05/24/17) PT IS INTUBATED UNABLE TO CONFIRM diatrizoate meglumine (Unverified Allergy, Severe, Anaphylaxis; 06/04/09: PT TOLERATES ORAL CONTRAST W/O AE, 05/24/17) PT INTUBATED UNABLE TO CONFIRM 06/04/09: PER RN, PT TOLERATES ORAL CONTRAST MEDIA WITHOUT ADVERSE EFFECTS; HE HAS HAD ORAL CONTRAST PREVIOUSLY. diazepam (Unverified Allergy, Severe, RESPIRATORY DISTRESS, 05/24/17) UNALBE TO CONFIRM PT IS INTUBATED enalaprilat (Unverified Allergy, Severe, 05/24/17) UNALBE TO CONFIRM PT IS INTUBATED erythromycin base (Unverified Allergy, Severe, RASH, 05/24/17) gadobenic acid (Unverified Allergy, Severe, Anaphylaxis; 06/04/09: PT TOLERATES ORAL CONTRAST W/O AE, 05/24/17) PT INTUBATED UNABLE TO CONFIRM 06/04/09: PER RN, PT TOLERATES ORAL CONTRAST MEDIA WITHOUT ADVERSE EFFECTS; HE HAS HAD ORAL CONTRAST PREVIOUSLY. gadodiamide (Unverified Allergy, Severe, Anaphylaxis; 06/04/09: PT TOLERATES ORAL CONTRAST W/O AE, 05/24/17) PT INTUBATED UNABLE TO CONFIRM 06/04/09: PER RN, PT TOLERATES ORAL CONTRAST MEDIA WITHOUT ADVERSE EFFECTS; HE HAS HAD ORAL CONTRAST PREVIOUSLY. gadoteridol (Unverified Allergy, Severe, Anaphylaxis; 06/04/09: PT TOLERATES ORAL CONTRAST W/O AE, 05/24/17) PT INTUBATED UNABLE TO CONFIRM 06/04/09: PER RN, PT TOLERATES ORAL CONTRAST MEDIA WITHOUT ADVERSE EFFECTS; HE HAS HAD ORAL CONTRAST PREVIOUSLY. haloperidol (Unverified Allergy, Severe, "TIGHT JAW", 05/24/17) UNABLE TO CONFIRM PT IS INTUBATED iodixanol (Unverified Allergy, Severe, Anaphylaxis; 06/04/09: PT TOLERATES ORAL CONTRAST W/O AE, 05/24/17) PT INTUBATED UNABLE TO CONFIRM 06/04/09: PER RN, PT TOLERATES ORAL CONTRAST MEDIA WITHOUT ADVERSE EFFECTS; HE HAS HAD ORAL CONTRAST PREVIOUSLY. iohexol (Unverified Allergy, Severe, PT NEEDS PREMED/DOESN'T KNOW REACTION , 05/24/17) UNABLE TO CONFIRM PT IS INTUBATED 06/04/09: PER RN, PT TOLERATES ORAL CONTRAST MEDIA WITHOUT ADVERSE EFFECTS; HE HAS HAD ORAL CONTRAST PREVIOUSLY. morphine (Unverified Allergy, Mild, Itching, 05/24/17) UNABLE TO CONFIRM PT IS INTUBATED benazepril (Unverified Allergy, Unknown, UNKNOWN REACTION, 05/24/17) UNABLE TO CONFIRM PT IS INTUBATED captopril (Unverified Allergy, Unknown, UNKNOWN REACTION, 05/24/17) UNABLE TO CONFIRM PT IS INTUBATED fosinopril (Unverified Allergy, Unknown, UNKNOWN REACTION, 05/24/17) UNABLE TO CONFIRM PT IS INTUBATED lisinopril (Unverified Allergy, Unknown, UNKNOWN REACTION, 05/24/17) UNABLE TO CONFIRM PT IS INTUBATED quinapril (Unverified Allergy, Unknown, UNKNOWN REACTION, 05/24/17) UNABLE TO CONFIRM PT IS INTUBATED prochlorperazine (Unverified Adverse Reaction, Severe, "LOCKJAW", 05/24/17) UNABLE TO CONFIRM PT IS INTUBATED *MDRO Multi-Drug Resistant Organism (Verified Adverse Reaction, Unknown, ) MRSA 03/2003 (cath tip), 06/2006 (urine), 12/2009 (sputum), 03/2012 (wound). Uncoded Allergies: DYE (Allergy, Severe, CARDIAC ARREST, 04/11/17) UNABLE TO CONFIRM PT IS INTUBATED Reported Meds & Prescriptions Reported Meds & Active Scripts Active Bacitracin Opth Oint 500 Unit/Gm Oint 1 Applic LEFT EYE BID Ventolin Hfa 18 GM Inh (Albuterol Sulfate) 90 Mcg/Act Aer 2 Puff INH Q4-6H PRN Labetalol (Labetalol HCl) 100 Mg Tab 100 Mg PO BID 14 Days Reported Proair Hfa 8.5 GM Inh (Albuterol Sulfate) 90 Mcg/Act Aer 2 Puff INH Q4-6H PRN 108 mcg/actuation Depakote DR (Divalproex Sodium) 500 Mg Tabdr 500 Mg PO BID Keppra (Levetiracetam) 500 Mg Tab 500 Mg PO BID Review of Systems Except as stated in HPI: all other systems reviewed are Neg Eyes: Positive: Foreign Body Sensation Physical Exam Narrative GENERAL: SKIN: Warm and dry. HEAD: Atraumatic. Normocephalic. EYES: Pupils equal and round. No scleral icterus. LEFT EYE INJECTED, NL PUPIL, NEG LOBO'S, CORNEAL ABRASION NOTED WITH FLOURESCEIN, 20/40 ON LEFT EYE AND RIGHT EYE. ENT: No nasal bleeding or discharge. Mucous membranes pink and moist. NECK: Trachea midline. No JVD. CARDIOVASCULAR: Regular rate and rhythm. RESPIRATORY: No accessory muscle use. Clear to auscultation. Breath sounds equal bilaterally. GASTROINTESTINAL: Abdomen soft, non-tender, nondistended. Hepatic and splenic margins not palpable. MUSCULOSKELETAL: Extremities without clubbing, cyanosis, or edema. No obvious deformities. NEUROLOGICAL: Awake and alert. No obvious cranial nerve deficits. Motor grossly within normal limits. Five out of 5 muscle strength in the arms and legs. Normal speech. PSYCHIATRIC: Appropriate mood and affect; insight and judgment normal. Data Data Last Documented VS Vital Signs Date Time Temp Pulse Resp B/P (MAP) Pulse Ox O2 Delivery O2 Flow Rate FiO2 05/25/17 03:03 05/24/17 23:30 68 16 98 Room Air Orders Orders Proparacaine 0.5% Opth Soln (Alcaine 0.5 (05/25/17 00:45) MDM Medical Decision Making Medical Screen Exam Complete: Yes Emergency Medical Condition: Yes Medical Record Reviewed: Yes Differential Diagnosis FB V CORNEAL ULCER V CORNEAL ABRASION Narrative Course UPON EXAMINATION NO E/O RETINAL DETACHMENT, NORMAL TONOPEN PRESSURES OF 12 AND 14, NEG LOBO SIGN, ONLY E/O CORNEAL ABRASION PRESENT...PATIENT FELT MUCH BETTER AFTER PROPARACAINE Diagnosis Primary Impression: LEFT CORNEAL ABRASION Patient Instructions: Corneal Abrasion (ED), General Instructions Scripts Bacitracin Opth Oint (Bacitracin Opth Oint) 500 Unit/Gm Oint 1 APPLIC LEFT EYE BID for Infection, #1 TUBE 0 Refills Prov: Eduardo Schmidt MD 05/25/17 Disposition: 01 DISCHARGE HOME Condition: Stable Eduardo Schmidt MD May 25, 2017 00:58
[2017-05-25] MEDS ORDERED: BACIOIN6 LEFT EYE (01:39)
== END 2017-05-25 03:05 | disposition home or self-care (01) ==
LOC: NEPE 23:24
DX: S05.02XA Injury of conjunctiva and corneal abrasion without foreign body, left eye, initial encounter (principal); I10 Essential (primary) hypertension; K85.90 Acute pancreatitis without necrosis or infection, unspecified; J44.9 Chronic obstructive pulmonary disease, unspecified; M19.90 Unspecified osteoarthritis, unspecified site; R56.9 Unspecified convulsions; W45.8XXA Other foreign body or object entering through skin, initial encounter; Z86.73 Personal history of transient ischemic attack (TIA), and cerebral infarction without residual deficits; Z79.899 Other long term (current) drug therapy
CPT/HCPCS: 99283

== ENCOUNTER 2017-05-27 22:54 | Emergency (ER) | payer OTHER ==
[~2017-05-27] VITALS: Ht 170.2 cm; Wt 60.0 kg
[~2017-05-27 22:54] MED LIST changes: +BACIOIN6 LEFT EYE; -DOXY1CAP91 PO; -FURO1TAB60 PO; -HYDR25TA5 PO; -PRED50 PO
[2017-05-27 23:02] VITALS: BP 130/78; PULSE 70; RESP 16; TEMP 98.1; O2SAT 97
[2017-05-28] MEDS ORDERED: PROPARACAINE HCL 0.5% OPHT SOLN 15 ML BTL EACH EYE ONE
[2017-05-28] MEDS ORDERED: OFLOXACIN 0.3% OPTH SOLN 5 ML BTL LEFT EYE ONE (00:45)
--- NOTE | 2017-05-28 00:46 | PD ---
HPI Chief Complaint: ENT Complaint Time Seen by Provider: 23:55 Travel History International Travel<30 days: No Contact w/Intl Traveler<30days: No Traveled to known affect area: No History of Present Illness HPI 61-year-old white male returns to the emergency department by EMS for evaluation of left eye pain. He states he was seen in the ER last week for a foreign body with an abrasion in his left eye. He alleges that he was sent home with antibiotics that he has continued to take although he states that his eyes becoming matted closed. He states that he's had decreased vision, increasing pain and discharge from his left eye. No photophobia. No nausea vomiting. Patient states the pain is moderate. PFSH Past Medical History Hx Anticoagulant Therapy: No Arthritis: Yes (GENERALIZED) Asthma: No Autoimmune Disease: No Blood Disorders: No Anxiety: No Depression: No Heart Rhythm Problems: Yes Cancer: Yes (COLON) Cardiac Catheterization: No Cardiovascular Problems: Yes High Cholesterol: No Chemotherapy: Yes (COLON CANCER) Chest Pain: Yes Congestive Heart Failure: No COPD: Yes Cerebrovascular Accident: Yes Diabetes: No Diminished Hearing: No Endocrine: No Gastrointestinal Disorders: Yes (PANCREATITIS) GERD: No Glaucoma: No Genitourinary: No Headaches: Yes Hepatitis: No Hiatal Hernia: No Heparin Induced Thrombocytopen: No Hypertension: Yes Immune Disorder: No Implanted Vascular Access Dvce: No Kidney Stones: No Musculoskeletal: No Neurologic: Yes (HISTORY OF SEIZURES ) Psychiatric: No Reproductive: No Respiratory: Yes (COPD) Immunizations Current: No Migraines: No Myocardial Infarction: No Pancreatitis: Yes Radiation Therapy: Yes Renal Failure: No Seizures: Yes Sickle Cell Disease: No Sleep Apnea: No Thyroid Disease: No Ulcer: No Tetanus Vaccination: < 5 Years Influenza Vaccination: Yes PNEUMOCCOCAL Vaccine (Year): 1 Past Surgical History Abdominal Surgery: Yes (COLOSTOMY (REVERSED)) AICD: No Appendectomy: Yes Arteriovenous Shunt: No Cardiac Surgery: No Cholecystectomy: No Coronary Artery Bypass Graft: No Ear Surgery: No Endocrine Surgery: No Eye Surgery: Yes (MUSCLES CUT) Genitourinary Surgery: No Gynecologic Surgery: No Insulin Pump: No Joint Replacement: No Neurologic Surgery: No Oral Surgery: No Pacemaker: No Thoracic Surgery: No Tonsillectomy: Yes Other Surgery: Yes (bowel resection) Family History Family Myocardial Infarction: Yes (FATHER) Social History Alcohol Use: Yes (OCCASIONALLY) Tobacco Use: Yes (1/2 PPD) Substance Use: No (sascha) Allergies-Medications (Allergen,Severity, Reaction): Coded Allergies: amlodipine (Unverified Allergy, Severe, Swelling, 05/24/17) UNALBE TO CONFIRM PT IS INTUBATED amoxicillin (Unverified Allergy, Severe, "LIPS SWELL", 05/24/17) PT IS INTUBATED UNABLE TO CONFIRM clavulanic acid (Unverified Allergy, Severe, "LIPS SWELL", 05/24/17) PT IS INTUBATED UNABLE TO CONFIRM diatrizoate meglumine (Unverified Allergy, Severe, Anaphylaxis; 06/04/09: PT TOLERATES ORAL CONTRAST W/O AE, 05/24/17) PT INTUBATED UNABLE TO CONFIRM 06/04/09: PER RN, PT TOLERATES ORAL CONTRAST MEDIA WITHOUT ADVERSE EFFECTS; HE HAS HAD ORAL CONTRAST PREVIOUSLY. diazepam (Unverified Allergy, Severe, RESPIRATORY DISTRESS, 05/24/17) UNALBE TO CONFIRM PT IS INTUBATED enalaprilat (Unverified Allergy, Severe, 05/24/17) UNALBE TO CONFIRM PT IS INTUBATED erythromycin base (Unverified Allergy, Severe, RASH, 05/24/17) gadobenic acid (Unverified Allergy, Severe, Anaphylaxis; 06/04/09: PT TOLERATES ORAL CONTRAST W/O AE, 05/24/17) PT INTUBATED UNABLE TO CONFIRM 06/04/09: PER RN, PT TOLERATES ORAL CONTRAST MEDIA WITHOUT ADVERSE EFFECTS; HE HAS HAD ORAL CONTRAST PREVIOUSLY. gadodiamide (Unverified Allergy, Severe, Anaphylaxis; 06/04/09: PT TOLERATES ORAL CONTRAST W/O AE, 05/24/17) PT INTUBATED UNABLE TO CONFIRM 06/04/09: PER RN, PT TOLERATES ORAL CONTRAST MEDIA WITHOUT ADVERSE EFFECTS; HE HAS HAD ORAL CONTRAST PREVIOUSLY. gadoteridol (Unverified Allergy, Severe, Anaphylaxis; 06/04/09: PT TOLERATES ORAL CONTRAST W/O AE, 05/24/17) PT INTUBATED UNABLE TO CONFIRM 06/04/09: PER RN, PT TOLERATES ORAL CONTRAST MEDIA WITHOUT ADVERSE EFFECTS; HE HAS HAD ORAL CONTRAST PREVIOUSLY. haloperidol (Unverified Allergy, Severe, "TIGHT JAW", 05/24/17) UNABLE TO CONFIRM PT IS INTUBATED iodixanol (Unverified Allergy, Severe, Anaphylaxis; 06/04/09: PT TOLERATES ORAL CONTRAST W/O AE, 05/24/17) PT INTUBATED UNABLE TO CONFIRM 06/04/09: PER RN, PT TOLERATES ORAL CONTRAST MEDIA WITHOUT ADVERSE EFFECTS; HE HAS HAD ORAL CONTRAST PREVIOUSLY. iohexol (Unverified Allergy, Severe, PT NEEDS PREMED/DOESN'T KNOW REACTION , 05/24/17) UNABLE TO CONFIRM PT IS INTUBATED 06/04/09: PER RN, PT TOLERATES ORAL CONTRAST MEDIA WITHOUT ADVERSE EFFECTS; HE HAS HAD ORAL CONTRAST PREVIOUSLY. morphine (Unverified Allergy, Mild, Itching, 05/24/17) UNABLE TO CONFIRM PT IS INTUBATED benazepril (Unverified Allergy, Unknown, UNKNOWN REACTION, 05/24/17) UNABLE TO CONFIRM PT IS INTUBATED captopril (Unverified Allergy, Unknown, UNKNOWN REACTION, 05/24/17) UNABLE TO CONFIRM PT IS INTUBATED fosinopril (Unverified Allergy, Unknown, UNKNOWN REACTION, 05/24/17) UNABLE TO CONFIRM PT IS INTUBATED lisinopril (Unverified Allergy, Unknown, UNKNOWN REACTION, 05/24/17) UNABLE TO CONFIRM PT IS INTUBATED quinapril (Unverified Allergy, Unknown, UNKNOWN REACTION, 05/24/17) UNABLE TO CONFIRM PT IS INTUBATED prochlorperazine (Unverified Adverse Reaction, Severe, "LOCKJAW", 05/24/17) UNABLE TO CONFIRM PT IS INTUBATED *MDRO Multi-Drug Resistant Organism (Verified Adverse Reaction, Unknown, ) MRSA 03/2003 (cath tip), 06/2006 (urine), 12/2009 (sputum), 03/2012 (wound). Uncoded Allergies: DYE (Allergy, Severe, CARDIAC ARREST, 04/11/17) UNABLE TO CONFIRM PT IS INTUBATED Reported Meds & Prescriptions Reported Meds & Active Scripts Active Bacitracin Opth Oint 500 Unit/Gm Oint 1 Applic LEFT EYE BID Ventolin Hfa 18 GM Inh (Albuterol Sulfate) 90 Mcg/Act Aer 2 Puff INH Q4-6H PRN Labetalol (Labetalol HCl) 100 Mg Tab 100 Mg PO BID 14 Days Reported Proair Hfa 8.5 GM Inh (Albuterol Sulfate) 90 Mcg/Act Aer 2 Puff INH Q4-6H PRN 108 mcg/actuation Depakote DR (Divalproex Sodium) 500 Mg Tabdr 500 Mg PO BID Keppra (Levetiracetam) 500 Mg Tab 500 Mg PO BID Review of Systems Except as stated in HPI: all other systems reviewed are Neg Eyes: Positive: Blurred Vision, Drainage, Redness, Foreign Body Sensation, Pain , Tearing, Visual changes, No: Diploplia, Photophobia Physical Exam Narrative GENERAL: Well-developed, well-nourished in no acute distress. Nontoxic appearing. HEAD: Normocephalic, atraumatic. EYES: Pupils equal round and reactive. Extraocular motions intact. No scleral icterus. No injection or drainage in the right eye. The left eyes glued shut with mucus. The eyes moistened with saline and the eyelashes are . The cornea appears clear. Cornea is very injected. The lids are flipped and no foreign body seen. Fluorescein stain reveals mild superficial uptake but no localized ulceration or foreign body. No corneal abrasion. Visual acuity noted on the nursing note. ENT: TMs clear without erythema. The external auditory canals clear. Nose: clear . Posterior pharynx is pink and moist. No tonsillar edema or exudate. Uvula midline. Airway patent. NECK: Trachea midline.Supple, nontender, moves head freely. No central bony tenderness or spasm. CARDIOVASCULAR: Regular rate and rhythm without murmurs, gallops, or rubs. RESPIRATORY: Clear to auscultation. Breath sounds equal bilaterally. No wheezes , rales, or rhonchi. GASTROINTESTINAL: Abdomen soft, non-tender, nondistended. No hepato-splenomegaly , or palpable masses. No guarding. EXTREMITIES: No clubbing, cyanosis, or edema. No joint tenderness, effusion, or edema noted. BACK: Nontender without deformity or crepitance. No flank tenderness. Data Data Last Documented VS Vital Signs Date Time Temp Pulse Resp B/P (MAP) Pulse Ox O2 Delivery O2 Flow Rate FiO2 05/27/17 23:02 98.1 70 16 130/78 (95) 97 Orders Orders Proparacaine 0.5% Opth Soln (Alcaine 0.5 (05/28/17 00:00) Ofloxacin 0.3% Opth Soln (Ocuflox 0.3% O (05/28/17 00:45) MDM Medical Decision Making Medical Screen Exam Complete: Yes Emergency Medical Condition: Yes Medical Record Reviewed: Yes Differential Diagnosis MDM: High Differential diagnoses: Acute conjunctivitis (bacterial, viral, allergic, traumatic), glaucoma, iritis, traumatic globe injury, foreign body, corneal abrasion, corneal ulcer, diabetic retinopathy, photokeratitis, herpes keratitis , CMV retinitis Narrative Course The patient appeared to have a secondary conjunctivitis from having a foreign body and corneal abrasion. I see no evidence of a foreign body at this time a corneal abrasion. The patient is given Floxin ophthalmic drops. He is to continue this until he follows up with on Monday. Diagnosis Primary Impression: Acute conjunctivitis, left eye Qualified Codes: H10.32 - Unspecified acute conjunctivitis, left eye Referrals: Karena Stark MD 2 days Patient Instructions: General Instructions Additional Instructions: Rest. Wash eyelashes with baby shampoo 3 times daily. Warm compresses. Floxin ophthalmic drops. Followup with an eye doctor Monday. No eye rubbing Return to the ER if any problems. Med/Other Pt SpecificInfo: Prescription(s) given Disposition: DISCHARGE HOME Condition: Jori Devries May 28, 2017 00:46
== END 2017-05-28 01:24 | disposition home or self-care (01) ==
LOC: NEPD 22:54
DX: H10.32 Unspecified acute conjunctivitis, left eye (principal); M19.90 Unspecified osteoarthritis, unspecified site; J44.9 Chronic obstructive pulmonary disease, unspecified; K85.90 Acute pancreatitis without necrosis or infection, unspecified; I10 Essential (primary) hypertension; R56.9 Unspecified convulsions; F17.200 Nicotine dependence, unspecified, uncomplicated; Z86.73 Personal history of transient ischemic attack (TIA), and cerebral infarction without residual deficits; Z79.899 Other long term (current) drug therapy
CPT/HCPCS: 99283

== ENCOUNTER 2017-06-03 18:37 | Emergency (ER) | payer OTHER ==
[~2017-06-03] VITALS: Ht 170.2 cm; Wt 60.0 kg
[2017-06-03 18:49] VITALS: BP 184/100; PULSE 88; RESP 13; TEMP 99.2; O2SAT 95
[2017-06-03 19:54] VITALS: BP 179/100; PULSE 76; RESP 18; O2SAT 99
--- NOTE | 2017-06-03 19:57 | PD ---
HPI Chief Complaint: Injury Time Seen by Provider: 19:46 Travel History International Travel<30 days: No Contact w/Intl Traveler<30days: No Traveled to known affect area: No History of Present Illness HPI The patient is a 61 year-old male who presents to the emergency department via EMS for left shoulder pain. The patient states he tripped over an electrical cord last night, falling 4 to strike [place] left [place]. The patient complains of pain over the anterior lateral aspect the shoulder which is worsened with movement and alleviated at rest. He does have a history of previous dislocation to the left shoulder. He denies any numbness or tingling to the left upper extremity, does note he is able to move his left upper extremity, however, it is painful. He denies any obvious deformity to the affected area and denies any associated paresthesias, numbness , or tingling. He denies any loss consciousness with the fall denies any current headache, neck pain, nausea, vomiting, or abdominal pain. The patient is left-hand dominant. PFSH Past Medical History Hx Anticoagulant Therapy: No Arthritis: Yes (GENERALIZED) Asthma: No Autoimmune Disease: No Blood Disorders: No Anxiety: No Depression: No Heart Rhythm Problems: Yes Cancer: Yes (COLON) Cardiac Catheterization: No Cardiovascular Problems: Yes High Cholesterol: No Chemotherapy: Yes Chest Pain: Yes Congestive Heart Failure: No COPD: Yes Cerebrovascular Accident: Yes (CVA ) Diabetes: No Diminished Hearing: No Endocrine: No Gastrointestinal Disorders: Yes GERD: No Glaucoma: No Genitourinary: No Headaches: Yes Hepatitis: No Hiatal Hernia: No Heparin Induced Thrombocytopen: No Hypertension: Yes Immune Disorder: No Implanted Vascular Access Dvce: No Kidney Stones: No Musculoskeletal: No Neurologic: Yes Psychiatric: No Reproductive: No Respiratory: Yes Immunizations Current: No Migraines: No Myocardial Infarction: No Pancreatitis: Yes Radiation Therapy: Yes Renal Failure: No Seizures: Yes Sickle Cell Disease: No Sleep Apnea: No Thyroid Disease: No Ulcer: No PNEUMOCCOCAL Vaccine (Year): 1 Past Surgical History Abdominal Surgery: Yes (COLOSTOMY (REVERSED), COLON RESECTION) AICD: No Appendectomy: Yes Arteriovenous Shunt: No Cardiac Surgery: No Cholecystectomy: No Coronary Artery Bypass Graft: No Ear Surgery: No Endocrine Surgery: No Eye Surgery: Yes (BILAT MUSCLES CUT) Genitourinary Surgery: No Gynecologic Surgery: No Insulin Pump: No Joint Replacement: No Neurologic Surgery: No Oral Surgery: No Pacemaker: No Thoracic Surgery: No Tonsillectomy: Yes Other Surgery: Yes Family History Family Myocardial Infarction: Yes (FATHER) Social History Alcohol Use: Yes (OCCASIONALLY) Tobacco Use: Yes (1/2 PPD) Substance Use: Yes (nilsonia) Allergies-Medications (Allergen,Severity, Reaction): Coded Allergies: amlodipine (Unverified Allergy, Severe, Swelling, 06/03/17) UNALBE TO CONFIRM PT IS INTUBATED amoxicillin (Unverified Allergy, Severe, "LIPS SWELL", 06/03/17) PT IS INTUBATED UNABLE TO CONFIRM clavulanic acid (Unverified Allergy, Severe, "LIPS SWELL", 06/03/17) PT IS INTUBATED UNABLE TO CONFIRM diatrizoate meglumine (Unverified Allergy, Severe, Anaphylaxis; 06/04/09: PT TOLERATES ORAL CONTRAST W/O AE, 06/03/17) PT INTUBATED UNABLE TO CONFIRM 06/04/09: PER RN, PT TOLERATES ORAL CONTRAST MEDIA WITHOUT ADVERSE EFFECTS; HE HAS HAD ORAL CONTRAST PREVIOUSLY. diazepam (Unverified Allergy, Severe, RESPIRATORY DISTRESS, 06/03/17) UNALBE TO CONFIRM PT IS INTUBATED enalaprilat (Unverified Allergy, Severe, 06/03/17) UNALBE TO CONFIRM PT IS INTUBATED erythromycin base (Unverified Allergy, Severe, RASH, 06/03/17) gadobenic acid (Unverified Allergy, Severe, Anaphylaxis; 06/04/09: PT TOLERATES ORAL CONTRAST W/O AE, 06/03/17) PT INTUBATED UNABLE TO CONFIRM 06/04/09: PER RN, PT TOLERATES ORAL CONTRAST MEDIA WITHOUT ADVERSE EFFECTS; HE HAS HAD ORAL CONTRAST PREVIOUSLY. gadodiamide (Unverified Allergy, Severe, Anaphylaxis; 06/04/09: PT TOLERATES ORAL CONTRAST W/O AE, 06/03/17) PT INTUBATED UNABLE TO CONFIRM 06/04/09: PER RN, PT TOLERATES ORAL CONTRAST MEDIA WITHOUT ADVERSE EFFECTS; HE HAS HAD ORAL CONTRAST PREVIOUSLY. gadoteridol (Unverified Allergy, Severe, Anaphylaxis; 06/04/09: PT TOLERATES ORAL CONTRAST W/O AE, 06/03/17) PT INTUBATED UNABLE TO CONFIRM 06/04/09: PER RN, PT TOLERATES ORAL CONTRAST MEDIA WITHOUT ADVERSE EFFECTS; HE HAS HAD ORAL CONTRAST PREVIOUSLY. haloperidol (Unverified Allergy, Severe, "TIGHT JAW", 06/03/17) UNABLE TO CONFIRM PT IS INTUBATED iodixanol (Unverified Allergy, Severe, Anaphylaxis; 06/04/09: PT TOLERATES ORAL CONTRAST W/O AE, 06/03/17) PT INTUBATED UNABLE TO CONFIRM 06/04/09: PER RN, PT TOLERATES ORAL CONTRAST MEDIA WITHOUT ADVERSE EFFECTS; HE HAS HAD ORAL CONTRAST PREVIOUSLY. iohexol (Unverified Allergy, Severe, PT NEEDS PREMED/DOESN'T KNOW REACTION , 06/03/17) UNABLE TO CONFIRM PT IS INTUBATED 06/04/09: PER RN, PT TOLERATES ORAL CONTRAST MEDIA WITHOUT ADVERSE EFFECTS; HE HAS HAD ORAL CONTRAST PREVIOUSLY. morphine (Unverified Allergy, Mild, Itching, 06/03/17) UNABLE TO CONFIRM PT IS INTUBATED benazepril (Unverified Allergy, Unknown, UNKNOWN REACTION, 06/03/17) UNABLE TO CONFIRM PT IS INTUBATED captopril (Unverified Allergy, Unknown, UNKNOWN REACTION, 06/03/17) UNABLE TO CONFIRM PT IS INTUBATED fosinopril (Unverified Allergy, Unknown, UNKNOWN REACTION, 06/03/17) UNABLE TO CONFIRM PT IS INTUBATED lisinopril (Unverified Allergy, Unknown, UNKNOWN REACTION, 06/03/17) UNABLE TO CONFIRM PT IS INTUBATED quinapril (Unverified Allergy, Unknown, UNKNOWN REACTION, 06/03/17) UNABLE TO CONFIRM PT IS INTUBATED prochlorperazine (Unverified Adverse Reaction, Severe, "LOCKJAW", 06/03/17) UNABLE TO CONFIRM PT IS INTUBATED *MDRO Multi-Drug Resistant Organism (Verified Adverse Reaction, Unknown, 06/03/17) MRSA 03/2003 (cath tip), 06/2006 (urine), 12/2009 (sputum), 03/2012 (wound). Uncoded Allergies: DYE (Allergy, Severe, CARDIAC ARREST, 04/11/17) UNABLE TO CONFIRM PT IS INTUBATED Reported Meds & Prescriptions Reported Meds & Active Scripts Active Ventolin Hfa 18 GM Inh (Albuterol Sulfate) 90 Mcg/Act Aer 2 Puff INH Q4-6H PRN Labetalol (Labetalol HCl) 100 Mg Tab 100 Mg PO BID 14 Days Reported Hydrochlorothiazide 12.5 Mg Cap Unknown Dose PO BID Proair Hfa 8.5 GM Inh (Albuterol Sulfate) 90 Mcg/Act Aer 2 Puff INH Q4-6H PRN 108 mcg/actuation Depakote DR (Divalproex Sodium) 500 Mg Tabdr 500 Mg PO BID Keppra (Levetiracetam) 500 Mg Tab 500 Mg PO BID Review of Systems HENT: No: Headaches, Neck Pain Cardiovascular: No: Chest Pain or Discomfort Respiratory: No: Shortness of Breath Gastrointestinal: No: Nausea, Vomiting Musculoskeletal: Positive: Limited ROM, Pain Neurologic: No: Paresthesia, Sensory Disturbance Physical Exam Narrative GENERAL: Awake, alert, pleasant [id number] male who appears his stated age and is in no acute respiratory distress. SKIN: Focused skin assessment warm/dry. HEAD: Atraumatic. Normocephalic. EYES: Patient is wearing glasses. No injection or drainage. ENT: No nasal bleeding or discharge. Mucous membranes pink and moist. Poor dentition. NECK: Trachea midline. No JVD. No tenderness of the cervical vertebrae. MUSCULOSKELETAL: Mild tenderness of the lateral aspect left shoulder, no tenderness of the ear, clavicular joint or clavicle. The patient is able to extend the shoulder as well as abducted to 45. He is able flex and extend the left elbow as well as supinate and pronate the left forearm. He is able to flex and extend the left wrist. Intrinsic hand muscles on the left hand are intact. Positive left radial pulse. There is no visible ecchymosis or deformity. NEUROLOGICAL: Awake and alert. No obvious cranial nerve deficits. Motor grossly within normal limits. Normal speech. Sensation is intact over the radial, median, and ulnar distribution of the left hand. PSYCHIATRIC: Appropriate mood and affect; insight and judgment normal. Data Data Last Documented VS Vital Signs Date Time Temp Pulse Resp B/P (MAP) Pulse Ox O2 Delivery O2 Flow Rate FiO2 06/03/17 19:54 76 18 179/100 (126) 99 Room Air 06/03/17 18:49 99.2 Orders Orders Shoulder, Limited(2vws) (06/03/17 ) Acetamin-Hydrocod 325-5 Mg ([place] 5-325 (06/03/17 20:00) Ondansetron Odt (Zofran Odt) (06/03/17 20:15) MDM Medical Decision Making Medical Screen Exam Complete: Yes Emergency Medical Condition: Yes Medical Record Reviewed: Yes Interpretation(s) Last Impressions Shoulder X-Ray 06/03/17 0000 Signed Impressions: Service Date/Time: Saturday, June 03, 2017 20:28 - CONCLUSION: No acute disease. Shaun Martinez MD Differential Diagnosis Differential diagnosis includes fracture, dislocation, contusion, hematoma, clavicle fracture, acromioclavicular separation, rotator cuff injury. Narrative Course X-ray the left shoulder was obtained. The patient was administered [place] 5 mg/ 325 mg orally for pain. X-ray of the left shoulder is unremarkable. The patient was placed on pain medications, is advised range of motion, to follow- up with his primary physician. Diagnosis Primary Impression: Shoulder pain, left Qualified Codes: M25.512 - Pain in left shoulder Patient Instructions: General Instructions Additional Instructions: Range of motion exercises daily. Apply ice and/or heat. Follow-up with your primary physician. Medication as directed. Return if symptoms worsen or progress. Please provide the patient a copy of his x-ray results at discharge. Med/Other Pt SpecificInfo: Prescription(s) given Scripts Hydrocodone-Acetaminophen ([place]) 5-325 mg Tab 1 TAB PO Q6H Y for PAIN, #15 TAB 0 Refills Prov: Anibal Verde MD 06/03/17 Disposition: 01 DISCHARGE HOME Condition: Stable Anibal Verde MD Jun 03, 2017 19:57
[2017-06-03] MEDS ORDERED: HYDR12.57 PO (19:58)
[2017-06-03] MEDS ORDERED: ACETAMINOPHEN/HYDROcodone 325 MG/5 MG TAB PO ONE (20:00)
[2017-06-03] MEDS ORDERED: ONDANSETRON ODT 4 MG TAB PO ONE (20:15)
--- NOTE | 2017-06-03 20:54 | RADRPT ---
EXAM DATE/TIME: 06/03/2017 20:28 [facility] COMPARISON: No previous studies available for comparison. INDICATIONS : Fall. Left shoulder pain. MEDICAL HISTORY : None. SURGICAL HISTORY : None. ENCOUNTER: Initial ACUITY: 1 day PAIN SCORE: 6/10 LOCATION: Left scapular FINDINGS: Two view examination of the left shoulder demonstrates no evidence of fracture or dislocation. The g lenohumeral and acromioclavicular joints are maintained. Bony mineralization is normal. CONCLUSION: No acute disease. Shaun Martinez MD on June 03, 2017 at 20:52 Board Certified Radiologist. This report was verified electronically.
[2017-06-03] MEDS ORDERED: NORC5TAB PO (21:12)
== END 2017-06-03 21:38 | disposition home or self-care (01) ==
LOC: NEPC 18:37
DX: M25.512 Pain in left shoulder (principal); F17.210 Nicotine dependence, cigarettes, uncomplicated; F12.90 Cannabis use, unspecified, uncomplicated; W18.09XA Striking against other object with subsequent fall, initial encounter
CPT/HCPCS: 73030; 99283

== ENCOUNTER 2017-06-05 09:07 | Emergency (ER) | payer OTHER ==
[~2017-06-05] VITALS: Ht 175.3 cm; Wt 65.0 kg
[~2017-06-05 09:07] MED LIST changes: -BACIOIN6 LEFT EYE; +HYDR12.57 PO; +NORC5TAB PO
[2017-06-05 09:16] VITALS: BP 143/96; PULSE 74; RESP 16; TEMP 97.7; O2SAT 95
--- NOTE | 2017-06-05 09:46 | PD ---
HPI Chief Complaint: Chest Pain Time Seen by Provider: 09:31 Travel History International Travel<30 days: No Contact w/Intl Traveler<30days: No Traveled to known affect area: No History of Present Illness HPI This patient complains of chest pain. He has had a left upper chest pain every day for the last 1-2 months. It is made significantly worse by him sitting up or twisting his torso. He denies injury to the chest wall. He is not short of breath. Symptoms severity is moderate. No Alleviating factors. PFSH Past Medical History Hx Anticoagulant Therapy: No Arthritis: Yes (GENERALIZED) Asthma: No Autoimmune Disease: No Blood Disorders: No Anxiety: No Depression: No Heart Rhythm Problems: Yes Cancer: Yes (COLON) Cardiac Catheterization: No Cardiovascular Problems: Yes High Cholesterol: No Chemotherapy: Yes Chest Pain: Yes Congestive Heart Failure: No COPD: Yes Cerebrovascular Accident: Yes (CVA ) Diabetes: No Diminished Hearing: No Endocrine: No Gastrointestinal Disorders: Yes GERD: No Glaucoma: No Genitourinary: No Headaches: Yes Hepatitis: No Hiatal Hernia: No Heparin Induced Thrombocytopen: No Hypertension: Yes Immune Disorder: No Implanted Vascular Access Dvce: No Kidney Stones: No Musculoskeletal: No Neurologic: Yes Psychiatric: No Reproductive: No Respiratory: Yes Immunizations Current: No Migraines: No Myocardial Infarction: No Pancreatitis: Yes Radiation Therapy: Yes Renal Failure: No Seizures: Yes Sickle Cell Disease: No Sleep Apnea: No Thyroid Disease: No Ulcer: No Tetanus Vaccination: < 5 Years PNEUMOCCOCAL Vaccine (Year): 1 Past Surgical History Abdominal Surgery: Yes (COLOSTOMY (REVERSED), COLON RESECTION) AICD: No Appendectomy: Yes Arteriovenous Shunt: No Cardiac Surgery: No Cholecystectomy: No Coronary Artery Bypass Graft: No Ear Surgery: No Endocrine Surgery: No Eye Surgery: Yes (BILAT MUSCLES CUT) Genitourinary Surgery: No Gynecologic Surgery: No Insulin Pump: No Joint Replacement: No Neurologic Surgery: No Oral Surgery: No Pacemaker: No Thoracic Surgery: No Tonsillectomy: Yes Other Surgery: Yes Family History Family Myocardial Infarction: Yes (FATHER) Social History Alcohol Use: Yes (OCCASIONALLY) Tobacco Use: Yes (1/2 PPD) Substance Use: Yes (marijaunia) Allergies-Medications (Allergen,Severity, Reaction): Coded Allergies: amlodipine (Unverified Allergy, Severe, Swelling, 06/05/17) UNALBE TO CONFIRM PT IS INTUBATED amoxicillin (Unverified Allergy, Severe, "LIPS SWELL", 06/05/17) PT IS INTUBATED UNABLE TO CONFIRM clavulanic acid (Unverified Allergy, Severe, "LIPS SWELL", 06/05/17) PT IS INTUBATED UNABLE TO CONFIRM diatrizoate meglumine (Unverified Allergy, Severe, Anaphylaxis; 06/04/09: PT TOLERATES ORAL CONTRAST W/O AE, 06/05/17) PT INTUBATED UNABLE TO CONFIRM 06/04/09: PER RN, PT TOLERATES ORAL CONTRAST MEDIA WITHOUT ADVERSE EFFECTS; HE HAS HAD ORAL CONTRAST PREVIOUSLY. diazepam (Unverified Allergy, Severe, RESPIRATORY DISTRESS, 06/05/17) UNALBE TO CONFIRM PT IS INTUBATED enalaprilat (Unverified Allergy, Severe, 06/05/17) UNALBE TO CONFIRM PT IS INTUBATED erythromycin base (Unverified Allergy, Severe, RASH, 06/05/17) gadobenic acid (Unverified Allergy, Severe, Anaphylaxis; 06/04/09: PT TOLERATES ORAL CONTRAST W/O AE, 06/05/17) PT INTUBATED UNABLE TO CONFIRM 06/04/09: PER RN, PT TOLERATES ORAL CONTRAST MEDIA WITHOUT ADVERSE EFFECTS; HE HAS HAD ORAL CONTRAST PREVIOUSLY. gadodiamide (Unverified Allergy, Severe, Anaphylaxis; 06/04/09: PT TOLERATES ORAL CONTRAST W/O AE, 06/05/17) PT INTUBATED UNABLE TO CONFIRM 06/04/09: PER RN, PT TOLERATES ORAL CONTRAST MEDIA WITHOUT ADVERSE EFFECTS; HE HAS HAD ORAL CONTRAST PREVIOUSLY. gadoteridol (Unverified Allergy, Severe, Anaphylaxis; 06/04/09: PT TOLERATES ORAL CONTRAST W/O AE, 06/05/17) PT INTUBATED UNABLE TO CONFIRM 06/04/09: PER RN, PT TOLERATES ORAL CONTRAST MEDIA WITHOUT ADVERSE EFFECTS; HE HAS HAD ORAL CONTRAST PREVIOUSLY. haloperidol (Unverified Allergy, Severe, "TIGHT JAW", 06/05/17) UNABLE TO CONFIRM PT IS INTUBATED iodixanol (Unverified Allergy, Severe, Anaphylaxis; 06/04/09: PT TOLERATES ORAL CONTRAST W/O AE, 06/05/17) PT INTUBATED UNABLE TO CONFIRM 06/04/09: PER RN, PT TOLERATES ORAL CONTRAST MEDIA WITHOUT ADVERSE EFFECTS; HE HAS HAD ORAL CONTRAST PREVIOUSLY. iohexol (Unverified Allergy, Severe, PT NEEDS PREMED/DOESN'T KNOW REACTION , 06/05/17) UNABLE TO CONFIRM PT IS INTUBATED 06/04/09: PER RN, PT TOLERATES ORAL CONTRAST MEDIA WITHOUT ADVERSE EFFECTS; HE HAS HAD ORAL CONTRAST PREVIOUSLY. morphine (Unverified Allergy, Mild, Itching, 06/05/17) UNABLE TO CONFIRM PT IS INTUBATED benazepril (Unverified Allergy, Unknown, UNKNOWN REACTION, 06/05/17) UNABLE TO CONFIRM PT IS INTUBATED captopril (Unverified Allergy, Unknown, UNKNOWN REACTION, 06/05/17) UNABLE TO CONFIRM PT IS INTUBATED fosinopril (Unverified Allergy, Unknown, UNKNOWN REACTION, 06/05/17) UNABLE TO CONFIRM PT IS INTUBATED lisinopril (Unverified Allergy, Unknown, UNKNOWN REACTION, 06/05/17) UNABLE TO CONFIRM PT IS INTUBATED quinapril (Unverified Allergy, Unknown, UNKNOWN REACTION, 06/05/17) UNABLE TO CONFIRM PT IS INTUBATED prochlorperazine (Unverified Adverse Reaction, Severe, "LOCKJAW", 06/05/17) UNABLE TO CONFIRM PT IS INTUBATED *MDRO Multi-Drug Resistant Organism (Verified Adverse Reaction, Unknown, 06/05/17) MRSA 03/2003 (cath tip), 06/2006 (urine), 12/2009 (sputum), 03/2012 (wound). Uncoded Allergies: DYE (Allergy, Severe, CARDIAC ARREST, 04/11/17) UNABLE TO CONFIRM PT IS INTUBATED Reported Meds & Prescriptions Reported Meds & Active Scripts Active [place] (Hydrocodone-Acetaminophen) 5-325 mg Tab 1 Tab PO Q6H PRN Ventolin Hfa 18 GM Inh (Albuterol Sulfate) 90 Mcg/Act Aer 2 Puff INH Q4-6H PRN Labetalol (Labetalol HCl) 100 Mg Tab 100 Mg PO BID 14 Days Reported Hydrochlorothiazide 12.5 Mg Cap Unknown Dose PO BID Proair Hfa 8.5 GM Inh (Albuterol Sulfate) 90 Mcg/Act Aer 2 Puff INH Q4-6H PRN 108 mcg/actuation Depakote DR (Divalproex Sodium) 500 Mg Tabdr 500 Mg PO BID Keppra (Levetiracetam) 500 Mg Tab 500 Mg PO BID Review of Systems General / Constitutional: No: Fever Eyes: No: Visual changes HENT: No: Headaches Cardiovascular: Positive: Chest Pain or Discomfort Respiratory: No: Shortness of Breath Gastrointestinal: No: Abdominal Pain Genitourinary: No: Dysuria Musculoskeletal: No: Pain Skin: No Rash Neurologic: No: Weakness Psychiatric: No: Depression Endocrine: No: Polydipsia Hematologic/Lymphatic: No: Easy Bruising Physical Exam Narrative GENERAL: Well-nourished, well-developed patient in no apparent distress. SKIN: Focused skin assessment reveals no rash and nodules. Skin is Warm and dry. HEAD: Atraumatic. Normocephalic. EYES: Pupils equal and round. No scleral icterus. No injection or drainage. ENT: No nasal bleeding or discharge. Mucous membranes pink and moist. NECK: Trachea midline. No JVD. CARDIOVASCULAR: Regular rate and rhythm. No murmur appreciated. RESPIRATORY: No accessory muscle use. Scattered rhonchi . Breath sounds equal bilaterally. GASTROINTESTINAL: Abdomen soft, non-tender, nondistended. Hepatic and splenic margins not palpable. MUSCULOSKELETAL: No obvious deformities. No clubbing. No cyanosis. No edema. Some reproducible chest wall tenderness in the left upper chest. No bruising or crepitus. NEUROLOGICAL: Awake and alert. No obvious cranial nerve deficits. Motor grossly within normal limits. Normal speech. PSYCHIATRIC: Appropriate mood and affect; insight and judgment seems a bit weak given his continued smoking with COPD . Data Data Last Documented VS Vital Signs Date Time Temp Pulse Resp B/P (MAP) Pulse Ox O2 Delivery O2 Flow Rate FiO2 06/05/17 09:16 97.7 74 16 143/96 (112) 95 Orders Orders Electrocardiogram (06/05/17 ) Chest, Single Ap (06/05/17 ) Azithromycin (Zithromax) (06/05/17 11:00) Ceftriaxone Inj (Rocephin Inj) (06/05/17 11:00) Lidocaine Pf 1% Inj (Xylocaine-Mpf 1% In (06/05/17 11:00) MDM Medical Decision Making Medical Screen Exam Complete: Yes Emergency Medical Condition: Yes Medical Record Reviewed: Yes Differential Diagnosis Differential diagnosis includes GA, angina, pericarditis, pleurisy, GERD, anxiety. Narrative Course I have reviewed the patient's electronic medical record. Patient is an extremely frequent visitor to the ER. He's been here innumerable times over the years, many times for chest pain. He had a normal myocardial perfusion scan 5 months ago here. He was seen here 2 or 3 days ago for shoulder pain. I reviewed his chest x-ray shows some left-sided infiltrate could be consistent with pneumonia I reviewed his EKG which shows sinus rhythm with no ST elevation or ectopy Patient has no productive cough or fever, this is an incidental finding His chest pain is clearly noncardiac and in his chest wall I gave him Rocephin and Zithromax I'm prescribing a Z-Raymond Is to quit smoking and follow-up with primary care Diagnosis Primary Impression: Musculoskeletal chest pain Additional Impression: Community acquired pneumonia Qualified Codes: J18.1 - Lobar pneumonia, unspecified organism Additional Instructions: The patient was advised to follow up with their physician and return if they worsen. Quit smoking Med/Other Pt SpecificInfo: Prescription(s) given Disposition: 01 DISCHARGE HOME Condition: Stable Scott Guillermo MD Jun 05, 2017 09:46
--- NOTE | 2017-06-05 10:46 | RADRPT ---
EXAM DATE/TIME: 06/05/2017 10:01 [facility] COMPARISON: CHEST SINGLE AP, May 21, 2017, 14:57. INDICATIONS : Shortness of breath, with mild chest pains. MEDICAL HISTORY : Chronic obstructive pulmonary disease. SURGICAL HISTORY : None. ENCOUNTER: Initial ACUITY: 1 day PAIN SCORE: 3/10 LOCATION: Left chest FINDINGS: Left lower lobe airspace consolidation and associated small to moderate left pleural effusion. Right lung is clear. Cardiomediastinal contours are within normal limits. Remainder of exam is unchanged. CONCLUSION: 1. New left lower lobe airspace consolidation and associated small to moderate left pleural effusion. Jae Talavera MD on June 05, 2017 at 10:43 Board Certified Radiologist. This report was verified electronically.
[2017-06-05] MEDS ORDERED: LIDOCAINE HCL 1% PF 30 ML VIAL XX ONE (11:00)
[2017-06-05] MEDS ORDERED: AZITHROMYCIN 250 MG TAB PO ONE (11:00)
[2017-06-05] MEDS ORDERED: ZITHTAB PO (11:56)
[2017-06-05 12:03] VITALS: BP 142/87
--- NOTE | 2017-06-05 12:33 | EKG ---
Date Performed: 06/05/2017 Time Performed: 09:49:00 PTAGE: 61 years EKG: Sinus rhythm Since PREVIOUS TRACING , no significant change noted PREVIOUS TRACIN05/21/2017 15.25 DOCTOR: Carson Sen Interpretating Date/Time 06/05/2017 12:28:01
== END 2017-06-05 12:07 | disposition home or self-care (01) ==
LOC: NEPD 09:07
DX: J18.1 Lobar pneumonia, unspecified organism (principal); J44.0 Chronic obstructive pulmonary disease with (acute) lower respiratory infection; F17.200 Nicotine dependence, unspecified, uncomplicated
CPT/HCPCS: 71010; 93005; 96372; 99284; J0696

== ENCOUNTER 2017-06-07 18:04 | Emergency (ER) | payer OTHER ==
[~2017-06-07] VITALS: Ht 170.2 cm; Wt 60.0 kg
[~2017-06-07 18:04] MED LIST changes: +ZITHTAB PO
[2017-06-07 18:15] VITALS: BP 116/89; PULSE 94; RESP 16; O2SAT 96
== END 2017-06-07 20:52 | disposition left against medical advice (07) ==
LOC: NED 18:04
DX: R53.1 Weakness (principal)
CPT/HCPCS: 99281

== ENCOUNTER 2017-06-17 12:37 | Emergency (ER) | payer OTHER ==
[2017-06-17 12:42] VITALS: BP 120/82; PULSE 80; RESP 16; TEMP 98.6; O2SAT 98
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
== END 2017-06-17 14:22 | disposition left against medical advice (07) ==
LOC: NEPK 12:37
DX: M25.512 Pain in left shoulder (principal); F17.200 Nicotine dependence, unspecified, uncomplicated; Z85.038 Personal history of other malignant neoplasm of large intestine
CPT/HCPCS: 99281

== ENCOUNTER 2017-06-20 16:20 | Inpatient (IN) | payer OTHER ==
[~2017-06-20] VITALS: Ht 170.2 cm; Wt 60.0 kg
[~2017-06-20 16:20] MED LIST changes: -ALBUAER3 INH; -NORC5TAB PO; -ZITHTAB PO
[2017-06-20 16:25] VITALS: BP 158/80; PULSE 70; RESP 18; O2SAT 98
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
--- NOTE | 2017-06-20 17:34 | RADRPT ---
EXAM DATE/TIME: 06/20/2017 17:09 [facility] COMPARISON: CHEST SINGLE AP, June 05, 2017, 10:01. CHEST PA & LAT, April 19, 2017, 9:56. INDICATIONS : Chest pain and cough. MEDICAL HISTORY : Carcinoma, colon. Chronic obstructive pulmonary disease. SURGICAL HISTORY : None. ENCOUNTER: Initial ACUITY: 2 weeks PAIN SCORE: 10/10 LOCATION: Left chest FINDINGS: There is prominent opacity with meniscal interface elevating the lateral left hemidiaphragm and exten ding posterior in the lateral view. This is characteristic of a moderately large pleural effusion. There are patchy areas of infiltrate in the left lower lung which are less dense and smaller when com pared to to prior chest x-ray. The right lung is clear. The heart is normal in size. CONCLUSION: Persistent but improving left lower lobe consolidation. Persistent large left pleural effusion with possible loculation and extension posterior to the upper chest. Augusto Jeong MD on June 20, 2017 at 17:31 Board Certified Radiologist. This report was verified electronically.
--- NOTE | 2017-06-20 19:58 | PD ---
HPI Chief Complaint: Chest Pain Time Seen by Provider: 19:48 Travel History International Travel<30 days: No Contact w/Intl Traveler<30days: No Traveled to known affect area: No History of Present Illness HPI The patient is a 61 year old male who presents to the [facility] emergency department with a history of left sided chest pain that began 2 weeks ago after a fall. He has a history of COPD. He has had a more frequent cough productive of clear sputum over the last 1 and 1/2 weeks. He has a subjective fever. He has intermittent dyspnea on exertion. the chest pain only occurs with activity and is sharp in character. On review of symptoms, he denies any neck pain, abdominal pain, vomiting, urinary symptoms, or neurologic symptoms. He has had a loss of appetite. He has had diarrhea 2 x per day since the fall. No blood in his stool. He has nausea. [facility] Past Medical History Narrative Medical The patient's past medical history is significant for COPD, history of colon cancer, history of seizure disorder, hypertension, prior history of medication noncompliance Hx Anticoagulant Therapy: No Arthritis: Yes (GENERALIZED) Asthma: No Autoimmune Disease: No Blood Disorders: No Anxiety: No Depression: No Heart Rhythm Problems: Yes Cancer: Yes (COLON) Cardiac Catheterization: No Cardiovascular Problems: Yes High Cholesterol: No Chemotherapy: Yes Chest Pain: Yes Congestive Heart Failure: No COPD: Yes Cerebrovascular Accident: Yes (CVA ) Diabetes: No Diminished Hearing: No Endocrine: No Gastrointestinal Disorders: Yes GERD: No Glaucoma: No Genitourinary: No Headaches: Yes Hepatitis: No Hiatal Hernia: No Heparin Induced Thrombocytopen: No Hypertension: Yes Immune Disorder: No Implanted Vascular Access Dvce: No Kidney Stones: No Musculoskeletal: No Neurologic: Yes Psychiatric: No Reproductive: No Respiratory: Yes Immunizations Current: No Migraines: No Myocardial Infarction: No Pancreatitis: Yes Radiation Therapy: Yes Renal Failure: No Seizures: Yes Sickle Cell Disease: No Sleep Apnea: No Thyroid Disease: No Ulcer: No Tetanus Vaccination: < 5 Years PNEUMOCCOCAL Vaccine (Year): 1 Past Surgical History Narrative Surgical The patient's past surgical history is significant for colon cancer resection, tonsillectomy, eye surgery Abdominal Surgery: Yes (COLOSTOMY (REVERSED), COLON RESECTION) AICD: No Appendectomy: Yes Arteriovenous Shunt: No Cardiac Surgery: No Cholecystectomy: No Coronary Artery Bypass Graft: No Ear Surgery: No Endocrine Surgery: No Eye Surgery: Yes (BILAT MUSCLES CUT) Genitourinary Surgery: No Gynecologic Surgery: No Insulin Pump: No Joint Replacement: No Neurologic Surgery: No Oral Surgery: No Pacemaker: No Thoracic Surgery: No Tonsillectomy: Yes Other Surgery: Yes Family History Family Myocardial Infarction: Yes (FATHER) Social History Alcohol Use: Yes (OCCASIONALLY) Tobacco Use: Yes (1/2 PPD) Substance Use: Yes (marijaunia) Allergies-Medications (Allergen,Severity, Reaction): Coded Allergies: amlodipine (Verified Allergy, Severe, Swelling, 06/20/17) UNALBE TO CONFIRM PT IS INTUBATED amoxicillin (Verified Allergy, Severe, "LIPS SWELL", 06/20/17) PT IS INTUBATED UNABLE TO CONFIRM clavulanic acid (Verified Allergy, Severe, "LIPS SWELL", 06/20/17) PT IS INTUBATED UNABLE TO CONFIRM diatrizoate meglumine (Verified Allergy, Severe, Anaphylaxis; 06/04/09: PT TOLERATES ORAL CONTRAST W/O AE, 06/20/17) PT INTUBATED UNABLE TO CONFIRM 06/04/09: PER RN, PT TOLERATES ORAL CONTRAST MEDIA WITHOUT ADVERSE EFFECTS; HE HAS HAD ORAL CONTRAST PREVIOUSLY. diazepam (Verified Allergy, Severe, RESPIRATORY DISTRESS, 06/20/17) UNALBE TO CONFIRM PT IS INTUBATED enalaprilat (Verified Allergy, Severe, 06/20/17) UNALBE TO CONFIRM PT IS INTUBATED erythromycin base (Verified Allergy, Severe, RASH, 06/20/17) gadobenic acid (Verified Allergy, Severe, Anaphylaxis; 06/04/09: PT TOLERATES ORAL CONTRAST W/O AE, 06/20/17) PT INTUBATED UNABLE TO CONFIRM 06/04/09: PER RN, PT TOLERATES ORAL CONTRAST MEDIA WITHOUT ADVERSE EFFECTS; HE HAS HAD ORAL CONTRAST PREVIOUSLY. gadodiamide (Verified Allergy, Severe, Anaphylaxis; 06/04/09: PT TOLERATES ORAL CONTRAST W/O AE, 06/20/17) PT INTUBATED UNABLE TO CONFIRM 06/04/09: PER RN, PT TOLERATES ORAL CONTRAST MEDIA WITHOUT ADVERSE EFFECTS; HE HAS HAD ORAL CONTRAST PREVIOUSLY. gadoteridol (Verified Allergy, Severe, Anaphylaxis; 06/04/09: PT TOLERATES ORAL CONTRAST W/O AE, 06/20/17) PT INTUBATED UNABLE TO CONFIRM 06/04/09: PER RN, PT TOLERATES ORAL CONTRAST MEDIA WITHOUT ADVERSE EFFECTS; HE HAS HAD ORAL CONTRAST PREVIOUSLY. haloperidol (Verified Allergy, Severe, "TIGHT JAW", 06/20/17) UNABLE TO CONFIRM PT IS INTUBATED iodixanol (Verified Allergy, Severe, Anaphylaxis; 06/04/09: PT TOLERATES ORAL CONTRAST W/O AE, 06/20/17) PT INTUBATED UNABLE TO CONFIRM 06/04/09: PER RN, PT TOLERATES ORAL CONTRAST MEDIA WITHOUT ADVERSE EFFECTS; HE HAS HAD ORAL CONTRAST PREVIOUSLY. iohexol (Verified Allergy, Severe, PT NEEDS PREMED/DOESN'T KNOW REACTION, 06/20/17) UNABLE TO CONFIRM PT IS INTUBATED 06/04/09: PER RN, PT TOLERATES ORAL CONTRAST MEDIA WITHOUT ADVERSE EFFECTS; HE HAS HAD ORAL CONTRAST PREVIOUSLY. morphine (Verified Allergy, Mild, Itching, 06/20/17) UNABLE TO CONFIRM PT IS INTUBATED benazepril (Verified Allergy, Unknown, UNKNOWN REACTION, 06/20/17) UNABLE TO CONFIRM PT IS INTUBATED captopril (Verified Allergy, Unknown, UNKNOWN REACTION, 06/20/17) UNABLE TO CONFIRM PT IS INTUBATED fosinopril (Verified Allergy, Unknown, UNKNOWN REACTION, 06/20/17) UNABLE TO CONFIRM PT IS INTUBATED lisinopril (Verified Allergy, Unknown, UNKNOWN REACTION, 06/20/17) UNABLE TO CONFIRM PT IS INTUBATED quinapril (Verified Allergy, Unknown, UNKNOWN REACTION, 06/20/17) UNABLE TO CONFIRM PT IS INTUBATED prochlorperazine (Verified Adverse Reaction, Severe, "LOCKJAW", 06/20/17) UNABLE TO CONFIRM PT IS INTUBATED *MDRO Multi-Drug Resistant Organism (Verified Adverse Reaction, Unknown, 06/20/17) MRSA 03/2003 (cath tip), 06/2006 (urine), 12/2009 (sputum), 03/2012 (wound). Uncoded Allergies: DYE (Allergy, Severe, CARDIAC ARREST, 04/11/17) UNABLE TO CONFIRM PT IS INTUBATED Reported Meds & Prescriptions Reported Meds & Active Scripts Active Ventolin Hfa 18 GM Inh (Albuterol Sulfate) 90 Mcg/Act Aer 2 Puff INH Q4-6H PRN Labetalol (Labetalol HCl) 100 Mg Tab 100 Mg PO BID 14 Days Reported Hydrochlorothiazide 12.5 Mg Cap Unknown Dose PO BID Depakote DR (Divalproex Sodium) 500 Mg Tabdr 500 Mg PO BID Keppra (Levetiracetam) 500 Mg Tab 500 Mg PO BID Narrative Medication depakote, keppra, hctz, labetolol, albuterol nebulizer treatment. Review of Systems Except as stated in HPI: all other systems reviewed are Neg General / Constitutional: Positive: Fever Eyes: No: Visual changes HENT: Positive: Congestion, No: Headaches Cardiovascular: Positive: Chest Pain or Discomfort, Dyspnea on exertion Respiratory: Positive: Cough, Shortness of Breath Gastrointestinal: No: Abdominal Pain Genitourinary: No: Dysuria Musculoskeletal: No: Pain Skin: No Rash Neurologic: No: Weakness Psychiatric: No: Depression Endocrine: No: Polydipsia Hematologic/Lymphatic: No: Easy Bruising Physical Exam Narrative General: The patient is a well-developed well-nourished male in no acute distress. Head and Neck exam: Head is normocephalic atraumatic. Eyes: EOMI, pupils are equal round and reactive to light. Nose: Midline septum with pink mucous membranes Mouth: Dentition unremarkable. Moist mucus membranes. Posterior oropharynx is not erythematous. No tonsillar hypertrophy. Uvula midline. Airway patent. Neck: No palpable lymphadenopathy. No nuchal rigidity. No thyromegaly. Cardiovascular: Regular rate and rhythm without murmurs, gallops, or rubs. Lungs: The patient has decreased breath sounds are audible in the left lower lung field , no rhonchi, no crackles. No accessory muscle use. The patient has no chest wall tenderness on palpation. No step-off or crepitus. Abdomen: Soft, without tenderness to palpation in all 4 quadrants of the abdomen. No guarding, rebound, or rigidity. Normal bowel sounds are audible. No tenderness on palpation of McBurney's point. Extremities: No clubbing, cyanosis, or edema. 2+ pulses in all 4 extremities. Back: No spinous process tenderness to palpation. The patient reports having left- sided CVA tenderness on palpation. Neurologic Exam: Grossly nonfocal. Skin Exam: No rash noted. Intact skin that is warm and dry. Data Data Last Documented VS Vital Signs Date Time Temp Pulse Resp B/P (MAP) Pulse Ox O2 Delivery O2 Flow Rate FiO2 06/20/17 22:37 114 18 138/88 (105) 96 Room Air Orders Orders Electrocardiogram (06/20/17 16:40) Ckmb (Isoenzyme) Profile (06/20/17 16:40) Complete Blood Count With Diff (06/20/17 16:40) Comprehensive Metabolic Panel (06/20/17 16:40) Magnesium (Mg) (06/20/17 16:40) Prothrombin Time / Inr (Pt) (06/20/17 16:40) Act Partial Throm Time (Ptt) (06/20/17 16:40) Troponin I (06/20/17 16:40) Chest, Pa & Lat (06/20/17 16:40) Lactic Acid Sepsis Protocol (06/20/17 19:57) Blood Culture (06/20/17 19:57) B-Type Natriuretic Peptide (06/20/17 19:57) Lipase (06/20/17 19:57) Valproic Acid (Depakene) (06/20/17 20:08) Nitroglycerin 2% Oint (Nitroglycerin 2% (06/20/17 20:15) Ceftriaxone Inj (Rocephin Inj) (06/20/17 20:15) Azithromycin Inj (Zithromax Inj) (06/20/17 20:15) Ondansetron Inj (Zofran Inj) (06/20/17 20:15) Ketorolac Inj (Toradol Inj) (06/20/17 20:15) Labetalol Inj (Trandate Inj) (06/20/17 22:15) Admit Order (Ed Use Only) (06/20/17 22:40) Labs Laboratory Tests Test 06/20/17 20:20 White Blood Count 12.2 TH/MM3 Red Blood Count 3.71 MIL/MM3 Hemoglobin 11.8 GM/DL Hematocrit 34.4 % Mean Corpuscular Volume 92.8 FL Mean Corpuscular Hemoglobin 31.9 PG Mean Corpuscular Hemoglobin Concent 34.4 % Red Cell Distribution Width 13.3 % Platelet Count 611 TH/MM3 Mean Platelet Volume 6.6 FL Neutrophils (%) (Auto) 79.9 % Lymphocytes (%) (Auto) 10.0 % Monocytes (%) (Auto) 7.0 % Eosinophils (%) (Auto) 2.0 % Basophils (%) (Auto) 1.1 % Neutrophils # (Auto) 9.8 TH/MM3 Lymphocytes # (Auto) 1.2 TH/MM3 Monocytes # (Auto) 0.9 TH/MM3 Eosinophils # (Auto) 0.2 TH/MM3 Basophils # (Auto) 0.1 TH/MM3 CBC Comment DIFF FINAL Differential Comment Blood Urea Nitrogen 16 MG/DL Creatinine 1.04 MG/DL Random Glucose 112 MG/DL Total Protein 7.5 GM/DL Albumin 2.7 GM/DL Calcium Level 8.8 MG/DL Magnesium Level 2.1 MG/DL Alkaline Phosphatase 87 U/L Aspartate Amino Transf (AST/SGOT) 15 U/L Alanine Aminotransferase (ALT/SGPT) 21 U/L Total Bilirubin 0.2 MG/DL Sodium Level 138 MEQ/L Potassium Level 3.0 MEQ/L Chloride Level 100 MEQ/L Carbon Dioxide Level 28.2 MEQ/L Anion Gap 10 MEQ/L Estimat Glomerular Filtration Rate 73 ML/MIN Lactic Acid Level 1.3 mmol/L Total Creatine Kinase 51 U/L Troponin I LESS THAN 0.02 NG/ML B-Type Natriuretic Peptide 54 PG/ML Lipase 232 U/L Valproic Acid (Depakene) Level 5 MCG/ML MDM Medical Decision Making Medical Screen Exam Complete: Yes Emergency Medical Condition: Yes Medical Record Reviewed: Yes Interpretation(s) Last Impressions Chest X-Ray 06/20/17 1640 Signed Impressions: Service Date/Time: Tuesday, June 20, 2017 17:09 - CONCLUSION: Persistent but improving left lower lobe consolidation. Persistent large left pleural effusion with possible loculation and extension posterior to the upper chest. Augusto Jeong MD Differential Diagnosis Acute coronary syndrome, versus pneumonia, versus effusion, versus new-onset congestive heart failure. Narrative Course During the course of the patients emergency department visit, the patients history, examination, and differential diagnosis were reviewed with the patient. The patient was placed on a engine monitor with oximetry and frequent blood pressure monitoring. The patient had IV access obtained and blood work sent for analysis. Blood cultures 2 were ordered, lactic acid was ordered. The patient was initially provided Rocephin 2 g IV, Zithromax 500 IV, the patient had nitroglycerin 1 inch of paste applied to the chest wall. The patient reports having an allergy to aspirin therefore this was not administered. The patient was given Toradol 15 mg IV for pain, Zofran 4 mg IV for nausea. The patients laboratory studies were reviewed and remarkable for white count of 12.2, hemoglobin 11.8, platelets 611, with neutrophils 79.9, lactic acid is 1.3 , lipase 232, valproic acid level is 5 Radiology studies were reviewed and remarkable for a persistent but improving left lower lobe consolidation. Persistent large left pleural effusion with possible loculation and extension posterior to the upper chest. On review the patient's prior x-rays the patient was noted to have a left lower lobe infiltrate on evaluation by chest x-ray on June 05. The patient was given his first dose of antibiotic in the emergency department and then discharged home with a Z-Raymond. He reports that he completed the Z-Raymond. In April the patient had a chest x-ray that showed no evidence of infiltrate or effusions. The patients results were discussed with the patient, including the plan of care. I explained that further testing and/ or monitoring is indicated based on the patients history, examination, and/ or laboratory findings. Therefore, I recommended admission for additional evaluation. The patient expressed understanding and was agreeable with this plan. The patient was admitted to the hospital in stable condition and sent to a bed [facility] the [facility].. Physician Communication Physician Communication The patient's case is discussed with Dr. Rowland who did agree to admit the patient for further evaluation and treatment at this time. Diagnosis Primary Impression: Pneumonia Qualified Codes: J18.1 - Lobar pneumonia, unspecified organism Additional Impressions: Pleural effusion Chest pain Qualified Codes: R07.9 - Chest pain, unspecified Admitting Information Admitting Physician Requests: Admit Condition: Macie Braden MD Jun 20, 2017 19:58
[2017-06-20] MEDS ORDERED: ONDANSETRON HCL 4 MG/2 ML VIAL IV PUSH ONE (20:15)
[2017-06-20] MEDS ORDERED: cefTRIAXone INJ 2,000 MG in SODIUM CHLORIDE 0.9% INJ 100 ML IV ONE (20:15)
[2017-06-20] MEDS ORDERED: AZITHROMYCIN INJ 500 MG in SODIUM CHLOR 0.9% 250 ML INJ 250 ML IV ONE (20:15)
[2017-06-20] MEDS ORDERED: KETOROLAC TROMETHAMINE 30 MG/ML (IVP) VIAL IV PUSH ONE (20:15)
[2017-06-20] MEDS ORDERED: NITROGLYCERIN 2% OINT 1 GM PACKET TOPICAL ONE (20:15)
[2017-06-20 20:25] VITALS: BP 191/101; PULSE 89; RESP 22; O2SAT 99
[2017-06-20 21:01] LABS: AUTOMATED NEUTROPHIL # 9.8 TH/MM3 (1.8-7.7); BASOPHIL # 0.1 TH/MM3 (0-0.2); BASOPHIL % 1.1 % (0.0-2.0); EOSINOPHIL # 0.2 TH/MM3 (0-0.4); HEMATOCRIT 34.4 % (39.0-51.0); HEMO FLAGS DIFF FINAL; LYMPHOCYTE # 1.2 TH/MM3 (1.0-4.8); MEAN CELL VOLUME 92.8 FL (80.0-100.0); MEAN CORPUSCULAR HEMOGLOBIN 31.9 PG (27.0-34.0); MEAN CORPUSCULAR HGB CONC 34.4 % (32.0-36.0); NEUT % 79.9 % (16.0-70.0); PLATELET COUNT 611 TH/MM3 (150-450); RED BLOOD COUNT 3.71 MIL/MM3 (4.50-5.90); RED CELL DISTRIBUTION WIDTH 13.3 % (11.6-17.2); WHITE BLOOD COUNT 12.2 TH/MM3 (4.0-11.0)
--- NOTE | 2017-06-20 21:45 | EKG ---
Date Performed: 06/20/2017 Time Performed: 16:45:40 PTAGE: 61 years EKG: Sinus rhythm PREVIOUS TRACING : 06/05/2017 09.49 Compared to prior tracing no significant change DOCTOR: Yoselyn Taveras Interpretating Date/Time 06/20/2017 21:44:34
[2017-06-20 22:13] LABS: ANION GAP 10 MEQ/L (5-15); AST (GOT) 15 U/L (15-37); BICARBONATE 28.2 MEQ/L (21.0-32.0); BLOOD UREA NITROGEN 16 MG/DL (7-18); CHLORIDE 100 MEQ/L (98-107); GLOMERULAR FILTRATION RATE 73 ML/MIN (>89); MAGNESIUM 2.1 MG/DL (1.5-2.5); SODIUM (NA) 138 MEQ/L (136-145)
[2017-06-20] MEDS ORDERED: LABETALOL HCL 100 MG/20 ML VIAL IV PUSH ONE (22:15)
[2017-06-20 22:18] LABS: ALKALINE PHOSPHATASE 87 U/L (45-117); ALT (GPT) 21 U/L (12-78); TOTAL BILIRUBIN ADULT 0.2 MG/DL (0.2-1.0)
[2017-06-20 22:21] LABS: CREATINE KINASE 51 U/L (39-308)
[2017-06-20 22:37] VITALS: BP 138/88; PULSE 114; RESP 18; O2SAT 96
[2017-06-20] MEDS ORDERED: SODIUM CHLORIDE 0.9% FLUSH 10 ML FLUSH IV FLUSH PRN (23:30)
[2017-06-20] MEDS ORDERED: NALOXONE HCL 0.4 MG/ML AMP IV PUSH PRN (23:30)
[2017-06-20] MEDS ORDERED: POTASSIUM CHLORIDE 25 MEQ EFFERVESCENT TAB PO ONE (23:30)
--- NOTE | 2017-06-20 23:49 | RADRPT ---
EXAM DATE/TIME: 06/20/2017 23:34 [place] COMPARISON: CHEST PA & LAT, June 20, 2017, 17:09. INDICATIONS : Short of breath. MEDICAL HISTORY : None. SURGICAL HISTORY : None. ENCOUNTER: Subsequent ACUITY: 1 day PAIN SCORE: 0/10 LOCATION: Bilateral chest FINDINGS: A single view of the chest demonstrates moderate left pleural effusion and left basilar density. Righ t lung clear. Osseous structures are intact. CONCLUSION: Moderate left pleural effusion and left basilar density likely atelectasis. Deo Bethea MD on June 20, 2017 at 23:46 Board Certified Radiologist. This report was verified electronically.
[2017-06-21] VITALS (10 sets, daily range): BP systolic 125–192; BP diastolic 76–99; PULSE 48–67; RESP 14–20; TEMP 96.3–98.4; O2SAT 93–98
[2017-06-21] MEDS: LEVOFLOXACIN 750 MG PREMIX INJ 150 ML IV SCH ×2 (00:04→22:28)
--- NOTE | 2017-06-21 01:40 | HHI.HP ---
[facility] Arden Ma MD Admission Diagnosis left sided pneumonia with pleural effusion, chest pain Diagnoses: Chief Complaint: left sided chest pain and sob Travel History International Travel<30 Days: No Contact w/Intl Traveler <30 Da: No Traveled to Known Affected Are: No History of Present Illness Written by MALENA Newby acting as scribe for [Janett] on 06/21/17 at 01: 29. 61 y/o male with a history of HTN, colon cancer, HLD, CVA, and seizures presented to the ED with a complaints of a cough for the last 2 weeks. He states he has been having a productive cough with white sputum for 2 weeks with associated with left sided chest pain. Worse with deep breath and palpation. Denies any fever or chills. He states 2 weeks ago he was was given azithromycin and he finished 1 week ago. He states his symptoms have not changed. He also complains of diarrhea, twice a day for 1 week, denies any black or red colored stools. Denies any vomiting or nausea. Review of Systems Except as stated in HPI: all other systems reviewed are Neg Past Family Social History Past Medical History HTN Colon cancer,chemo,radiation 30 years ago CVA, no residual HLD COPD Seizures Past Surgical History Colon resection Tonsillectomy Eye surgery Reported Medications Reported Meds & Active Scripts Active Ventolin Hfa 18 GM Inh (Albuterol Sulfate) 90 Mcg/Act Aer 2 Puff INH Q4-6H PRN Labetalol (Labetalol HCl) 100 Mg Tab 100 Mg PO BID 14 Days Reported Hydrochlorothiazide 12.5 Mg Cap Unknown Dose PO BID Depakote DR (Divalproex Sodium) 500 Mg Tabdr 500 Mg PO BID Keppra (Levetiracetam) 500 Mg Tab 500 Mg PO BID Allergies: Coded Allergies: amlodipine (Verified Allergy, Severe, Swelling, 06/20/17) UNALBE TO CONFIRM PT IS INTUBATED amoxicillin (Verified Allergy, Severe, "LIPS SWELL", 06/20/17) PT IS INTUBATED UNABLE TO CONFIRM clavulanic acid (Verified Allergy, Severe, "LIPS SWELL", 06/20/17) PT IS INTUBATED UNABLE TO CONFIRM diatrizoate meglumine (Verified Allergy, Severe, Anaphylaxis; 06/04/09: PT TOLERATES ORAL CONTRAST W/O AE, 06/20/17) PT INTUBATED UNABLE TO CONFIRM 06/04/09: PER RN, PT TOLERATES ORAL CONTRAST MEDIA WITHOUT ADVERSE EFFECTS; HE HAS HAD ORAL CONTRAST PREVIOUSLY. diazepam (Verified Allergy, Severe, RESPIRATORY DISTRESS, 06/20/17) UNALBE TO CONFIRM PT IS INTUBATED enalaprilat (Verified Allergy, Severe, 06/20/17) UNALBE TO CONFIRM PT IS INTUBATED erythromycin base (Verified Allergy, Severe, RASH, 06/20/17) gadobenic acid (Verified Allergy, Severe, Anaphylaxis; 06/04/09: PT TOLERATES ORAL CONTRAST W/O AE, 06/20/17) PT INTUBATED UNABLE TO CONFIRM 06/04/09: PER RN, PT TOLERATES ORAL CONTRAST MEDIA WITHOUT ADVERSE EFFECTS; HE HAS HAD ORAL CONTRAST PREVIOUSLY. gadodiamide (Verified Allergy, Severe, Anaphylaxis; 06/04/09: PT TOLERATES ORAL CONTRAST W/O AE, 06/20/17) PT INTUBATED UNABLE TO CONFIRM 06/04/09: PER RN, PT TOLERATES ORAL CONTRAST MEDIA WITHOUT ADVERSE EFFECTS; HE HAS HAD ORAL CONTRAST PREVIOUSLY. gadoteridol (Verified Allergy, Severe, Anaphylaxis; 06/04/09: PT TOLERATES ORAL CONTRAST W/O AE, 06/20/17) PT INTUBATED UNABLE TO CONFIRM 06/04/09: PER RN, PT TOLERATES ORAL CONTRAST MEDIA WITHOUT ADVERSE EFFECTS; HE HAS HAD ORAL CONTRAST PREVIOUSLY. haloperidol (Verified Allergy, Severe, "TIGHT JAW", 06/20/17) UNABLE TO CONFIRM PT IS INTUBATED iodixanol (Verified Allergy, Severe, Anaphylaxis; 06/04/09: PT TOLERATES ORAL CONTRAST W/O AE, 06/20/17) PT INTUBATED UNABLE TO CONFIRM 06/04/09: PER RN, PT TOLERATES ORAL CONTRAST MEDIA WITHOUT ADVERSE EFFECTS; HE HAS HAD ORAL CONTRAST PREVIOUSLY. iohexol (Verified Allergy, Severe, PT NEEDS PREMED/DOESN'T KNOW REACTION, 06/20/17) UNABLE TO CONFIRM PT IS INTUBATED 06/04/09: PER RN, PT TOLERATES ORAL CONTRAST MEDIA WITHOUT ADVERSE EFFECTS; HE HAS HAD ORAL CONTRAST PREVIOUSLY. morphine (Verified Allergy, Mild, Itching, 06/20/17) UNABLE TO CONFIRM PT IS INTUBATED benazepril (Verified Allergy, Unknown, UNKNOWN REACTION, 06/20/17) UNABLE TO CONFIRM PT IS INTUBATED captopril (Verified Allergy, Unknown, UNKNOWN REACTION, 06/20/17) UNABLE TO CONFIRM PT IS INTUBATED fosinopril (Verified Allergy, Unknown, UNKNOWN REACTION, 06/20/17) UNABLE TO CONFIRM PT IS INTUBATED lisinopril (Verified Allergy, Unknown, UNKNOWN REACTION, 06/20/17) UNABLE TO CONFIRM PT IS INTUBATED quinapril (Verified Allergy, Unknown, UNKNOWN REACTION, 06/20/17) UNABLE TO CONFIRM PT IS INTUBATED prochlorperazine (Verified Adverse Reaction, Severe, "LOCKJAW", 06/20/17) UNABLE TO CONFIRM PT IS INTUBATED *MDRO Multi-Drug Resistant Organism (Verified Adverse Reaction, Unknown, 06/20/17) MRSA 03/2003 (cath tip), 06/2006 (urine), 12/2009 (sputum), 03/2012 (wound). Uncoded Allergies: DYE (Allergy, Severe, CARDIAC ARREST, 04/11/17) UNABLE TO CONFIRM PT IS INTUBATED Active Ordered Medications Current Medications Medications (Trade) Dose Ordered Sig/Dorothy Route Start Time Stop Time Status Last Admin (NS Flush) 2 ml UNSCH PRN IV FLUSH 06/20/17 23:30 (NS Flush) 2 ml BID IV FLUSH 06/21/17 09:00 (Narcan Inj) 0.4 mg UNSCH PRN IV PUSH 06/20/17 23:30 Levofloxacin/ Dextrose 150 ml @ 100 mls/hr Q24H IV 06/21/17 00:00 06/21/17 00:04 (Flu (Quadrivalent) Vaccine Inj) 0.5 ml ONCE ONCE IM 06/21/17 09:00 06/21/17 09:01 Family History Dad: Cancer, unknown kind Social History Tobacco use: 1PPD Alcohol use: Denies Illicit drug use: Marijuana Physical Exam Vital Signs Vital Signs Date Time Temp Pulse Resp B/P (MAP) Pulse Ox O2 Delivery O2 Flow Rate FiO2 06/21/17 01:07 96.3 62 18 142/77 (98) 94 06/20/17 23:56 06/20/17 22:37 114 18 138/88 (105) 96 Room Air 06/20/17 20:25 22 98 Room Air 06/20/17 20:25 89 22 191/101 (131) 99 Room Air 06/20/17 16:25 70 18 158/80 (106) 98 Physical Exam GENERAL: This is a well-nourished, well-developed patient, in no apparent distress. SKIN: No rashes, ecchymoses or lesions. Cool and dry. HEAD: Atraumatic. Normocephalic. EYES: Pupils equal round and reactive. ENT: Nose without bleeding, purulent drainage or septal hematoma. Airway patent. NECK: Trachea midline. No JVD. CARDIOVASCULAR: Regular rate and rhythm without murmurs, gallops, or rubs. RESPIRATORY: Decreased air entry on left side. No wheezes, rales, or rhonchi. GASTROINTESTINAL: Abdomen soft, non-tender, nondistended. MUSCULOSKELETAL: Extremities without clubbing, cyanosis, or edema. No calf tenderness. NEUROLOGICAL: Awake and alert. Motor and sensory grossly within normal limits. Normal speech. Laboratory Laboratory Tests Test 06/20/17 20:20 White Blood Count 12.2 Red Blood Count 3.71 Hemoglobin 11.8 Hematocrit 34.4 Mean Corpuscular Volume 92.8 Mean Corpuscular Hemoglobin 31.9 Mean Corpuscular Hemoglobin Concent 34.4 Red Cell Distribution Width 13.3 Platelet Count 611 Mean Platelet Volume 6.6 Neutrophils (%) (Auto) 79.9 Lymphocytes (%) (Auto) 10.0 Monocytes (%) (Auto) 7.0 Eosinophils (%) (Auto) 2.0 Basophils (%) (Auto) 1.1 Neutrophils # (Auto) 9.8 Lymphocytes # (Auto) 1.2 Monocytes # (Auto) 0.9 Eosinophils # (Auto) 0.2 Basophils # (Auto) 0.1 CBC Comment DIFF FINAL Differential Comment Blood Urea Nitrogen 16 Creatinine 1.04 Random Glucose 112 Total Protein 7.5 Albumin 2.7 Calcium Level 8.8 Magnesium Level 2.1 Alkaline Phosphatase 87 Aspartate Amino Transf (AST/SGOT) 15 Alanine Aminotransferase (ALT/SGPT) 21 Total Bilirubin 0.2 Sodium Level 138 Potassium Level 3.0 Chloride Level 100 Carbon Dioxide Level 28.2 Anion Gap 10 Estimat Glomerular Filtration Rate 73 Lactic Acid Level 1.3 Total Creatine Kinase 51 Troponin I LESS THAN 0.02 B-Type Natriuretic Peptide 54 Lipase 232 Valproic Acid (Depakene) Level 5 Date/Time Source Procedure Growth Status 06/20/17 20:20 Blood Peripheral Aerobic Blood Culture Pending Received 06/20/17 20:20 Blood Peripheral Anaerobic Blood Culture Pending Received Result Diagram: 06/20/17201906/20/172019 Imaging Last Impressions Chest X-Ray 06/20/17 1640 Signed Impressions: Service Date/Time: Tuesday, June 20, 2017 17:09 - CONCLUSION: Persistent but improving left lower lobe consolidation. Persistent large left pleural effusion with possible loculation and extension posterior to the upper chest. Augusto Jeong MD Capjillian VTE Risk Assessment Caprini VTE Risk Assessment: Mod/High Risk (score >= 2) Caprini Risk Assessment Model Point Value = 1 Point Value = 2 Point Value = 3 Point Value = 5 Age 41-60 Minor surgery BMI > 25 kg/m2 Swollen legs Varicose veins or History of unexplained or recurrent spontaneous Oral contraceptives or hormone replacement Sepsis (< 1 month) Serious lung disease, including pneumonia (< 1 month) Abnormal pulmonary function Acute myocardial infarction Congestive heart failure (< 1 month) History of inflammatory bowel disease Medical patient at bed rest Age 61-74 Arthroscopic surgery Major open surgery (> 45 min) Laparoscopic surgery (> 45 min) Malignancy Confined to bed (> 72 hours) Immobilizing plaster cast Central venous access Age >= 75 History of VTE Family history of VTE Factor V Leiden Prothrombin [id number] Lupus anticoagulant Anticardiolipin antibodies Elevated serum homocysteine Heparin-induced thrombocytopenia Other congenital or acquired thrombophilia Stroke (< 1 month) Elective arthroplasty Hip, pelvis, or leg fracture Acute spinal cord injury (< 1 month) Prophylaxis Regimen Total Risk Factor Score Risk Level Prophylaxis Regimen 0-1 Low Early ambulation 2 Moderate Order ONE of the following: *Sequential Compression Device (SCD) *Heparin 5000 units SQ BID 3-4 Higher Order ONE of the following medications: *Heparin 5000 units SQ TID *Enoxaparin/Lovenox 40 mg SQ daily (WT < 150 kg, CrCl > 30 mL/min) *Enoxaparin/Lovenox 30 mg SQ daily (WT < 150 kg, CrCl > 10-29 mL/min) *Enoxaparin/Lovenox 30 mg SQ BID (WT < 150 kg, CrCl > 30 mL/min) AND/OR *Sequential Compression Device (SCD) 5 or more Highest Order ONE of the following medications: *Heparin 5000 units SQ TID (Preferred with Epidurals) *Enoxaparin/Lovenox 40 mg SQ daily (WT < 150 kg, CrCl > 30 mL/min) *Enoxaparin/Lovenox 30 mg SQ daily (WT < 150 kg, CrCl > 10-29 mL/min) *Enoxaparin/Lovenox 30 mg SQ BID (WT < 150 kg, CrCl > 30 mL/min) AND *Sequential Compression Device (SCD) Assessment and Plan Problem List: (1) Pleural effusion associated with pulmonary infection ICD Code: J18.9 - Pneumonia, unspecified organism; J91.8 - Pleural effusion in other conditions classified elsewhere Status: Acute (2) Hypertension ICD Code: I10 - Hypertension Status: Chronic (3) Tobacco abuse ICD Code: Z72.0 - Tobacco abuse Status: Chronic (4) Seizure disorder ICD Code: G40.909 - Seizure disorder Status: Chronic Assessment and Plan 61 y/o male with a history of HTN, colon cancer, HLD, CVA, and seizures presented to the ED with a complaints of a cough for the last 2 weeks. Pleural effusion associated with pulmonary infections with leukocytosis Chest x ray reviewed and shows moderate left pleural effusion and left basilar density atelectasis WBC 12.2 -Consult IR for thoracentesis, pleural fluid labs and cultures ordered -Hold IV antibiotics until after thoracentesis -CBC in AM -Pain management with [facility] [place] Hypokalemia, potassium 3.0 -Supplementation ordered, labs in AM, replace as needed Hypertension, chronic -Resume home medications, monitor vitals Seizure, chronic -Resume home medications, seizure precautions DVT prophylaxis: SCDs, hold chemical until after thoracentesis Discussed Condition With Patient and RN Physician Certification 2 Midnight Certification Type: Admission for Inpatient Services Order for Inpatient Services The services are ordered in accordance with Medicare regulations or non- Medicare payer requirements, as applicable. In the case of services not specified as inpatient-only, they are appropriately provided as inpatient services in accordance with the 2-midnight benchmark. Estimated LOS (days): 3 days is the estimated time the patient will need to remain in the hospital, assuming treatment plan goals are met and no additional complications. Post-Hospital Plan: Valeria Tijerina Jun 21, 2017 01:39
[2017-06-21] MEDS ORDERED: ALBUTEROL SULFATE 90 MCG/ACT HFA 8 GM INHALER INH PRN (03:30)
[2017-06-21] MEDS ORDERED: ACETAMINOPHEN/HYDROcodone 325 MG/5 MG TAB PO PRN (03:30)
[2017-06-21] MEDS: ACETAMINOPHEN/HYDROcodone 325 MG/10 MG TAB PO PRN ×2 (03:59→21:56)
[2017-06-21 07:56] LABS: APTT (PATIENT) 34.5 SEC (24.3-30.1); PROTHROMBIN TIME - PATIENT 10.9 SEC (9.8-11.6)
[2017-06-21 07:57] LABS: AUTOMATED NEUTROPHIL # 6.7 TH/MM3 (1.8-7.7); BASOPHIL # 0.1 TH/MM3 (0-0.2); BASOPHIL % 0.7 % (0.0-2.0); EOSINOPHIL # 0.2 TH/MM3 (0-0.4); EOSINOPHIL % 2.8 % (0.0-4.0); HEMATOCRIT 31.8 % (39.0-51.0); HEMO FLAGS DIFF FINAL; MEAN CELL VOLUME 93.7 FL (80.0-100.0); MEAN CORPUSCULAR HEMOGLOBIN 32.1 PG (27.0-34.0); MEAN CORPUSCULAR HGB CONC 34.3 % (32.0-36.0); MONO % 7.3 % (0.0-8.0); NEUT % 78.2 % (16.0-70.0); PLATELET COUNT 554 TH/MM3 (150-450); RED BLOOD COUNT 3.39 MIL/MM3 (4.50-5.90); RED CELL DISTRIBUTION WIDTH 13.2 % (11.6-17.2); WHITE BLOOD COUNT 8.6 TH/MM3 (4.0-11.0)
[2017-06-21 08:24] LABS: BICARBONATE 29.1 MEQ/L (21.0-32.0); POTASSIUM 3.2 MEQ/L (3.5-5.1)
[2017-06-21] MEDS ORDERED: ONDANSETRON HCL 4 MG/2 ML VIAL IV PUSH PRN (08:30)
[2017-06-21] MEDS ORDERED: PNEUMOCOCCAL POLYVALENT INJ 25 MCG/0.5 ML SYR IM ONE (09:00)
[2017-06-21] MEDS: levETIRAcetam 500 MG TAB PO SCH ×2 (09:00→21:49)
[2017-06-21] MEDS: DIVALPROEX DR 500 MG TABEC PO SCH ×2 (09:00→21:50)
[2017-06-21] MEDS: LABETALOL HCL 100 MG TAB PO SCH ×2 (09:00→21:49)
[2017-06-21] MEDS ORDERED: INFLUENZA VIRUS VACCINE (QUADRIVALENT) 0.5 ML SYR IM ONE (09:00)
[2017-06-21] MEDS ORDERED: POTASSIUM CHLORIDE 10 MEQ CONTROLLED RELEASE TAB PO ONE (09:45)
[2017-06-21] MEDS: SODIUM CHLORIDE 0.9% FLUSH 10 ML FLUSH IV FLUSH SCH ×2 (11:10→21:50)
[2017-06-21] MEDS ORDERED: LIDOCAINE HCL 1% 20 ML VIAL ONE (15:18)
--- NOTE | 2017-06-21 15:18 | RADRPT ---
EXAM DATE/TIME: 06/21/2017 15:55 [facility] COMPARISON: CHEST SINGLE AP, June 20, 2017, 23:34. INDICATIONS : Status post left sided thoracentesis. MEDICAL HISTORY : None. SURGICAL HISTORY : None. ENCOUNTER: Subsequent ACUITY: 1 day PAIN SCORE: 0/10 LOCATION: chest FINDINGS: A single portable frontal view the chest shows interval reduction in size of the left pleural effusio n. No pneumothorax observed. A small effusion remains. Left basilar consolidation is noted but less p ronounced from the prior exam. Right lung is clear. Heart is at the upper limits of normal in terms o f size. A scoliotic spine. CONCLUSION: 1. No pneumothorax following thoracentesis. 2. Small left effusion with left lower lobe atelectasis versus infiltrate. Augusto Rivas Jr., MD on June 21, 2017 at 15:15 Board Certified Radiologist. This report was verified electronically.
--- NOTE | 2017-06-21 15:28 | RADRPT ---
EXAM DATE/TIME: 06/21/2017 13:41 [facility] COMPARISON: No previous studies available for comparison. INDICATIONS : Left pleural effusion. MEDICAL HISTORY : Pancreatitis. Arthritis. Carcinoma, colon. CVA. Seizures. Head trauma. Chest pain. Irregular heartbea t. HTN. COPD. Dyspnea. Pleural effusion. Pneumonia. Clotting problems. MRSA. Substance use. Tobacco u se. SURGICAL HISTORY : Tonsillectomy. Appendectomy. Bilateral eye muscles cut. Chemotherapy. Radiation therapy. Blood trans fusions. ENCOUNTER: Initial ACUITY: 2 days PAIN SCORE: 0/10 LOCATION: Left chest FLUID: Total volume of 400 cc of clear, red fluid was removed. Fluid was sent to lab for ordered studies. TECHNIQUE: 1. Ultrasound guidance for thoracentesis. 2. Thoracentesis. The risks, benefits, and alternatives to ultrasound guided thoracentesis were explained to the patien t in lay simple terms, including the risk of bleeding and infection. Written and verbal informed con sent was obtained. Appropriate area for thoracentesis was marked under ultrasound guidance with the patient in the uprig ht position. Overlying skin was prepped and draped in the usual sterile fashion and with local anest hetic, a dermatotomy was made with an 11 blade scalpel. A 6 Turkmen thoracentesis catheter was placed in the pleural space and fluid was removed. Catheter was then removed and a sterile dressing applie d. There were no immediate complications. The patient tolerated the procedure well and the left the ultrasound suite in stable condition. Chest radiograph is to be obtained. CONCLUSION: Uncomplicated ultrasound guided thoracentesis. Jae Talavera MD on June 21, 2017 at 15:26 Board Certified Radiologist. This report was verified electronically.
[2017-06-21] MEDS ORDERED: ENALAPRILAT 1.25 MG/ML VIAL IV PUSH PRN (16:15)
[2017-06-21] MEDS ORDERED: cloNIDine HCL 0.1 MG TAB PO PRN (16:15)
[2017-06-21 22:46] LABS: TOTAL PROTEIN,PLEURAL FLUID 4.5 GM/DL
[2017-06-21 23:14] LABS: PLEURAL FLUID LYMPHS 88 %
[2017-06-22] VITALS (7 sets, daily range): BP systolic 97–131; BP diastolic 59–79; PULSE 46–65; RESP 16–20; TEMP 96.4–98.4; O2SAT 92–97
[2017-06-22] MEDS: ACETAMINOPHEN/HYDROcodone 325 MG/10 MG TAB PO PRN ×2 (02:15→22:31)
[2017-06-22] MEDS: ONDANSETRON ODT 4 MG TAB PO PRN ×4 (05:13→22:31)
[2017-06-22 07:05] LABS: AUTOMATED NEUTROPHIL # 5.8 TH/MM3 (1.8-7.7); BASOPHIL # 0.1 TH/MM3 (0-0.2); BASOPHIL % 0.9 % (0.0-2.0); EOSINOPHIL # 0.3 TH/MM3 (0-0.4); EOSINOPHIL % 3.4 % (0.0-4.0); HEMO FLAGS DIFF FINAL; LYMPH % 14.7 % (9.0-44.0); LYMPHOCYTE # 1.2 TH/MM3 (1.0-4.8); MEAN CELL VOLUME 93.8 FL (80.0-100.0); MEAN CORPUSCULAR HEMOGLOBIN 31.7 PG (27.0-34.0); MEAN CORPUSCULAR HGB CONC 33.7 % (32.0-36.0); PLATELET COUNT 511 TH/MM3 (150-450); RED CELL DISTRIBUTION WIDTH 13.2 % (11.6-17.2)
[2017-06-22 07:52] LABS: ALKALINE PHOSPHATASE 74 U/L (45-117); ALT (GPT) 18 U/L (12-78); ANION GAP 7 MEQ/L (5-15); AST (GOT) 13 U/L (15-37); BICARBONATE 29.7 MEQ/L (21.0-32.0); BLOOD UREA NITROGEN 17 MG/DL (7-18); CHLORIDE 99 MEQ/L (98-107); GLOMERULAR FILTRATION RATE 83 ML/MIN (>89); POTASSIUM 3.5 MEQ/L (3.5-5.1); SODIUM (NA) 136 MEQ/L (136-145); TOTAL BILIRUBIN ADULT 0.1 MG/DL (0.2-1.0)
[2017-06-22] MEDS: levETIRAcetam 500 MG TAB PO SCH ×2 (09:00→21:00)
[2017-06-22] MEDS: LABETALOL HCL 100 MG TAB PO SCH ×2 (09:00→21:00)
[2017-06-22] MEDS: DIVALPROEX DR 500 MG TABEC PO SCH ×2 (09:00→21:00)
[2017-06-22] MEDS: SODIUM CHLORIDE 0.9% FLUSH 10 ML FLUSH IV FLUSH SCH ×2 (09:02→22:30)
--- NOTE | 2017-06-22 15:30 | HHI.PR ---
Subjective Remarks Patient tolerated left-sided thoracentesis well. He says his breathing much better today. Cultures are pending. Objective Vital Signs Date Time Temp Pulse Resp B/P (MAP) Pulse Ox O2 Delivery O2 Flow Rate FiO2 06/22/17 12:00 97.9 56 18 97/59 (72) 92 06/22/17 08:00 98.4 46 18 130/75 (93) 96 06/22/17 04:00 97.2 51 20 130/70 (90) 96 06/22/17 00:00 96.4 54 20 127/79 (95) 94 06/21/17 20:00 98.4 53 20 141/90 (107) 94 06/21/17 19:55 53 06/21/17 16:30 176/87 (116) 06/21/17 16:00 97.1 54 16 187/96 (126) 98 06/21/17 15:29 96.9 53 16 192/92 (125) 96 I/O 06/21/17 06/21/17 06/21/17 06/22/17 06/22/17 06/22/17 07:00 15:00 23:00 07:00 15:00 23:00 Intake Total 0 ml 650 ml 480 ml 150 ml Balance 0 ml 650 ml 480 ml 150 ml Intake Oral 0 ml 650 ml 480 ml IV Total 150 ml # Voids 0 2 3 # Bowel Movements 0 0 1 Result Diagram: 06/22/17 0559 06/22/17 0559 Objective Remarks GENERAL: NAD, A&Ox3 HEAD: Normocephalic. NECK: Supple, trachea midline. No lymphadenopathy. EYES: No scleral icterus. No injection or drainage. CARDIOVASCULAR: Regular rate and rhythm without murmurs, gallops, or rubs. RESPIRATORY: Breath sounds equal bilaterally. No accessory muscle use. GASTROINTESTINAL: Abdomen soft, non-tender, nondistended. MUSCULOSKELETAL: No cyanosis, or edema. SKIN: Warm and dry. NEURO: No focal neurological deficitis. A/P Problem List: (1) Pneumonia ICD Code: J18.9 - Pneumonia, unspecified organism (2) Pleural effusion associated with pulmonary infection ICD Code: J18.9 - Pneumonia, unspecified organism; J91.8 - Pleural effusion in other conditions classified elsewhere Status: Acute Assessment and Plan Assessment and Plan 69-year-old male admitted with left sided pneumonia and pleural effusion Left-sided pleural effusion Status post thoracentesis Follow cultures to ensure no empyema Follow clinically Community-acquired pneumonia Levaquin Probiotics Oxygen as needed Follow for improvement As needed pain treatments Hypokalemia Monitor and supplement as needed Hypertension Follow blood pressures Provide treatment as needed Seizure Patient declines recommended treatments DVT prophylaxis SCDs Dav Bradford MD Jun 22, 2017 15:30
[2017-06-22] MEDS: LEVOFLOXACIN 750 MG PREMIX INJ 150 ML IV SCH (22:31)
[2017-06-23 00:36] VITALS: BP 128/83; PULSE 62; RESP 16; TEMP 97.1; O2SAT 96
[2017-06-23 04:00] VITALS: BP 112/75; PULSE 61; RESP 16; TEMP 98.2; O2SAT 94
[2017-06-23 08:00] VITALS: BP 142/80; PULSE 57; RESP 16; TEMP 97.6; O2SAT 93
[2017-06-23] MEDS: DIVALPROEX DR 500 MG TABEC PO SCH (09:00)
[2017-06-23] MEDS: LABETALOL HCL 100 MG TAB PO SCH (09:00)
[2017-06-23] MEDS: levETIRAcetam 500 MG TAB PO SCH (09:00)
[2017-06-23] MEDS: SODIUM CHLORIDE 0.9% FLUSH 10 ML FLUSH IV FLUSH SCH (10:24)
--- NOTE | 2017-06-23 15:11 | PD.AMA ---
Against Medical Advice Note Diagnosis: (1) Pleural effusion associated with pulmonary infection (2) Pneumonia Discharge Disposition: Against Medical Advice Pt Condition on Discharge: Guarded Recommended Treatment Course Stay in hospital for further clarification of infection and continue antibiotic treatments. AMA Statement Patient Arden Tan has decided to leave the hospital against medical advice. This patient has the capacity to refuse care and understands the risks of leaving, including permanent disability and/or , and has had an opportunity to ask questions about his condition. The patient has been informed that he may return for care at any time, and follow up has been arranged/ advised. Dav Bradford MD Jun 23, 2017 15:10
[2017-06-24] MEDS ORDERED: LEVOFLOXACIN 750 MG TAB PO SCH (11:00)
== END 2017-06-23 10:52 | disposition left against medical advice (07) | DRG 194 ==
LOC: NEPC 16:20 → NEDA 22:43 → N07B 06-21 00:07
PROVIDERS: ADMIT Hospitalist; ATTEND Hospitalist
PROC: 0W9B3ZX Drainage of Left Pleural Cavity, Percutaneous Approach, Diagnostic (ICD-10-PCS; principal; 2017-06-21)
DX: J18.9 Pneumonia, unspecified organism (principal); J91.8 Pleural effusion in other conditions classified elsewhere; J44.0 Chronic obstructive pulmonary disease with (acute) lower respiratory infection; E78.5 Hyperlipidemia, unspecified; I10 Essential (primary) hypertension; F17.210 Nicotine dependence, cigarettes, uncomplicated; E87.6 Hypokalemia; G40.909 Epilepsy, unspecified, not intractable, without status epilepticus; Z85.038 Personal history of other malignant neoplasm of large intestine; Z86.73 Personal history of transient ischemic attack (TIA), and cerebral infarction without residual deficits; Z92.3 Personal history of irradiation; Z92.21 Personal history of antineoplastic chemotherapy; Z23 Encounter for immunization; Z88.5 Allergy status to narcotic agent; Z88.0 Allergy status to penicillin; Z88.8 Allergy status to other drugs, medicaments and biological substances; Z88.1 Allergy status to other antibiotic agents; Z91.041 Radiographic dye allergy status
CPT/HCPCS: 32555; 71010; 71020; 76937; 80048; 80053; 80164; 82150; 82550; 82945; 83605; 83615; 83690; 83735; 83880; 83986; 84157; 84484; 85025; 85610; 85730; 87015; 87040; 87070; 87102; 87116; 87205; 87206; 88108; 89051; 90686; 93005; 96365; 96368; 96375; C1729; J0456; J0696; J1885; J1956; J2405; J7050; Q2038

== ENCOUNTER 2017-11-27 17:01 | Emergency (ER) | payer OTHER | END 2017-11-27 17:40 | disposition left against medical advice (07) | LOC: NED 17:01 | DX: Z03.89 Encounter for observation for other suspected diseases and conditions ruled out (principal) | CPT/HCPCS: 99281 ==

== ENCOUNTER 2017-12-08 01:03 | Inpatient (IN) | payer OTHER ==
[2017-12-08] VITALS (24 sets, daily range): BP systolic 116–193; BP diastolic 71–107; PULSE 50–71; RESP 16–18; TEMP 97.9–98.1; O2SAT 94–98
[~2017-12-08] VITALS: Ht 175.3 cm; Wt 58.4 kg
[2017-12-08] MEDS ORDERED: SODIUM CHLORIDE 0.9% FLUSH 10 ML FLUSH IV FLUSH PRN ×2 (02:00→04:00)
--- NOTE | 2017-12-08 02:27 | RADRPT ---
EXAM DATE/TIME: 12/08/2017 02:07 [facility] COMPARISON: CT BRAIN W/O CONTRAST, January 28, 2017, 10:37. INDICATIONS : Altered mental status. RADIATION DOSE: 52.13 CTDIvol (mGy) MEDICAL HISTORY : Carcinoma, colon. Cerebrovascular disease. Seizures.Hypertension. SURGICAL HISTORY : None. ENCOUNTER: Initial ACUITY: 1 day PAIN SCALE: 0/10 LOCATION: cranial TECHNIQUE: Multiple contiguous axial images were obtained of the head. Using automated exposure control and adj ustment of the mA and/or kV according to patient size, radiation dose was kept as low as reasonably a chievable to obtain optimal diagnostic quality images. DICOM format image data is available electro nically for review and comparison. FINDINGS: CEREBRUM: The ventricles are normal for age. No evidence of midline shift, mass lesion, hemorrhage or acute in farction. No extra-axial fluid collections are seen. POSTERIOR FOSSA: The cerebellum and brainstem are intact. The 4th ventricle is midline. The cerebellopontine angle i s unremarkable. EXTRACRANIAL: The visualized portion of the orbits is intact. SKULL: The calvaria is intact. No evidence of skull fracture. CONCLUSION: Stable brain with no acute intracranial findings Arden Lauren MD on December 08, 2017 at 2:22 Board Certified Radiologist. This report was verified electronically.
[2017-12-08 02:50] LABS: AUTOMATED NEUTROPHIL # 5.8 TH/MM3 (1.8-7.7); BASOPHIL # 0.1 TH/MM3 (0-0.2); EOSINOPHIL # 0.3 TH/MM3 (0-0.4); EOSINOPHIL % 3.2 % (0.0-4.0); HEMOGLOBIN 14.5 GM/DL (13.0-17.0); LYMPH % 20.6 % (9.0-44.0); LYMPHOCYTE # 1.9 TH/MM3 (1.0-4.8); MEAN CELL VOLUME 92.6 FL (80.0-100.0); MEAN CORPUSCULAR HEMOGLOBIN 31.3 PG (27.0-34.0); MEAN CORPUSCULAR HGB CONC 33.8 % (32.0-36.0); MEAN PLATELET VOLUME 7.8 FL (7.0-11.0); MONO % 10.5 % (0.0-8.0); MONOCYTE # 0.9 TH/MM3 (0-0.9); NEUT % 64.7 % (16.0-70.0); PLATELET COUNT 287 TH/MM3 (150-450); RED BLOOD COUNT 4.64 MIL/MM3 (4.50-5.90); RED CELL DISTRIBUTION WIDTH 14.1 % (11.6-17.2)
--- NOTE | 2017-12-08 02:55 | RADRPT ---
EXAM DATE/TIME: 12/08/2017 02:04 [facility] COMPARISON: CHEST EXPIRATION ONLY, June 21, 2017, 15:55. INDICATIONS : Syncopal episode. MEDICAL HISTORY : Carcinoma, colon. Chronic obstructive pulmonary disease. SURGICAL HISTORY : None. ENCOUNTER: Initial ACUITY: 1 day PAIN SCORE: Non-responsive. LOCATION: chest FINDINGS: There is minimal parenchymal opacity at the left lung base. Right lung is grossly clear. Possible sma ll left effusion. Cardiac contours are stable and satisfactory. CONCLUSION: Minimal left base pleural-parenchymal opacity Arden Lauren MD on December 08, 2017 at 2:51 Board Certified Radiologist. This report was verified electronically.
[2017-12-08 03:04] LABS: ALBUMIN 3.9 GM/DL (3.4-5.0); AST (GOT) 18 U/L (15-37); BICARBONATE 27.4 MEQ/L (21.0-32.0); BLOOD UREA NITROGEN 24 MG/DL (7-18); CALCIUM 8.6 MG/DL (8.5-10.1); CHLORIDE 108 MEQ/L (98-107); GLOMERULAR FILTRATION RATE 62 ML/MIN (>89); GLUCOSE,RANDOM 82 MG/DL (74-106); SODIUM (NA) 141 MEQ/L (136-145)
[2017-12-08 03:07] LABS: ALKALINE PHOSPHATASE 84 U/L (45-117); ALT (GPT) 22 U/L (12-78); TOTAL BILIRUBIN ADULT 0.3 MG/DL (0.2-1.0)
--- NOTE | 2017-12-08 03:10 | PD ---
HPI Chief Complaint: General Weakness Time Seen by Provider: 01:58 Travel History International Travel<30 days: No Contact w/Intl Traveler<30days: No Traveled to known affect area: No History of Present Illness HPI 62-year-old male arrives to the ER via [facility]. He complains of dizziness malaise and weakness. He states that he typically feels as well as blood pressure is high. Upon his arrival the blood pressure recorded at 179/101. When I entered the room the patient states, "when I am at work" repeatedly. History is thereby limited. PFSH Past Medical History Hx Anticoagulant Therapy: No Arthritis: Yes (GENERALIZED) Asthma: No Autoimmune Disease: No Blood Disorders: No Anxiety: No Depression: No Heart Rhythm Problems: Yes Cancer: Yes (colon cancer) Cardiac Catheterization: No Cardiovascular Problems: No High Cholesterol: No Chemotherapy: Yes (over 30 years) Chest Pain: Yes Congestive Heart Failure: No COPD: Yes Cerebrovascular Accident: Yes (CVA ) Diabetes: No Diminished Hearing: No Endocrine: No Gastrointestinal Disorders: Yes GERD: No Glaucoma: No Genitourinary: No Headaches: Yes Hepatitis: No Hiatal Hernia: No Heparin Induced Thrombocytopen: No Hypertension: Yes Immune Disorder: No Implanted Vascular Access Dvce: No Kidney Stones: No Musculoskeletal: No Neurologic: Yes Psychiatric: No Reproductive: No Respiratory: Yes Immunizations Current: No Migraines: No Myocardial Infarction: No Pancreatitis: Yes Radiation Therapy: Yes Renal Failure: No Seizures: Yes Sickle Cell Disease: No Sleep Apnea: No Thyroid Disease: No Ulcer: No PNEUMOCCOCAL Vaccine (Year): 1 Past Surgical History Abdominal Surgery: Yes (deepti cancer) AICD: No Appendectomy: Yes Arteriovenous Shunt: No Cardiac Surgery: No Cholecystectomy: No Coronary Artery Bypass Graft: No Ear Surgery: No Endocrine Surgery: No Eye Surgery: Yes (BILAT MUSCLES CUT) Genitourinary Surgery: No Gynecologic Surgery: No Insulin Pump: No Joint Replacement: No Neurologic Surgery: No Oral Surgery: No Pacemaker: No Thoracic Surgery: No Tonsillectomy: Yes Other Surgery: Yes (colon cancer.tonsilts, eyes,) Family History Family Myocardial Infarction: Yes (FATHER) Social History Alcohol Use: Yes (OCCASIONALLY) Tobacco Use: Yes (1/2 PPD) Substance Use: Yes Allergies-Medications (Allergen,Severity, Reaction): Coded Allergies: amlodipine (Verified Allergy, Severe, Swelling, 12/08/17) UNALBE TO CONFIRM PT IS INTUBATED amoxicillin (Verified Allergy, Severe, "LIPS SWELL", 12/08/17) PT IS INTUBATED UNABLE TO CONFIRM clavulanic acid (Verified Allergy, Severe, "LIPS SWELL", 12/08/17) PT IS INTUBATED UNABLE TO CONFIRM diatrizoate meglumine (Verified Allergy, Severe, Anaphylaxis; 06/04/09: PT TOLERATES ORAL CONTRAST W/O AE, 12/08/17) PT INTUBATED UNABLE TO CONFIRM 06/04/09: PER RN, PT TOLERATES ORAL CONTRAST MEDIA WITHOUT ADVERSE EFFECTS; HE HAS HAD ORAL CONTRAST PREVIOUSLY. diazepam (Verified Allergy, Severe, RESPIRATORY DISTRESS, 12/08/17) UNALBE TO CONFIRM PT IS INTUBATED enalaprilat (Verified Allergy, Severe, 12/08/17) UNALBE TO CONFIRM PT IS INTUBATED erythromycin base (Verified Allergy, Severe, RASH, 12/08/17) gadobenic acid (Verified Allergy, Severe, Anaphylaxis; 06/04/09: PT TOLERATES ORAL CONTRAST W/O AE, 12/08/17) PT INTUBATED UNABLE TO CONFIRM 06/04/09: PER RN, PT TOLERATES ORAL CONTRAST MEDIA WITHOUT ADVERSE EFFECTS; HE HAS HAD ORAL CONTRAST PREVIOUSLY. gadodiamide (Verified Allergy, Severe, Anaphylaxis; 06/04/09: PT TOLERATES ORAL CONTRAST W/O AE, 12/08/17) PT INTUBATED UNABLE TO CONFIRM 06/04/09: PER RN, PT TOLERATES ORAL CONTRAST MEDIA WITHOUT ADVERSE EFFECTS; HE HAS HAD ORAL CONTRAST PREVIOUSLY. gadoteridol (Verified Allergy, Severe, Anaphylaxis; 06/04/09: PT TOLERATES ORAL CONTRAST W/O AE, 12/08/17) PT INTUBATED UNABLE TO CONFIRM 06/04/09: PER RN, PT TOLERATES ORAL CONTRAST MEDIA WITHOUT ADVERSE EFFECTS; HE HAS HAD ORAL CONTRAST PREVIOUSLY. haloperidol (Verified Allergy, Severe, "TIGHT JAW", 12/08/17) UNABLE TO CONFIRM PT IS INTUBATED iodixanol (Verified Allergy, Severe, Anaphylaxis; 06/04/09: PT TOLERATES ORAL CONTRAST W/O AE, 12/08/17) PT INTUBATED UNABLE TO CONFIRM 06/04/09: PER RN, PT TOLERATES ORAL CONTRAST MEDIA WITHOUT ADVERSE EFFECTS; HE HAS HAD ORAL CONTRAST PREVIOUSLY. iohexol (Verified Allergy, Severe, PT NEEDS PREMED/DOESN'T KNOW REACTION, 12/08/17) UNABLE TO CONFIRM PT IS INTUBATED 06/04/09: PER RN, PT TOLERATES ORAL CONTRAST MEDIA WITHOUT ADVERSE EFFECTS; HE HAS HAD ORAL CONTRAST PREVIOUSLY. morphine (Verified Allergy, Mild, Itching, 12/08/17) UNABLE TO CONFIRM PT IS INTUBATED benazepril (Verified Allergy, Unknown, UNKNOWN REACTION, 12/08/17) UNABLE TO CONFIRM PT IS INTUBATED captopril (Verified Allergy, Unknown, UNKNOWN REACTION, 12/08/17) UNABLE TO CONFIRM PT IS INTUBATED fosinopril (Verified Allergy, Unknown, UNKNOWN REACTION, 12/08/17) UNABLE TO CONFIRM PT IS INTUBATED lisinopril (Verified Allergy, Unknown, UNKNOWN REACTION, 12/08/17) UNABLE TO CONFIRM PT IS INTUBATED quinapril (Verified Allergy, Unknown, UNKNOWN REACTION, 12/08/17) UNABLE TO CONFIRM PT IS INTUBATED prochlorperazine (Verified Adverse Reaction, Severe, "LOCKJAW", 12/08/17) UNABLE TO CONFIRM PT IS INTUBATED Uncoded Allergies: DYE (Allergy, Severe, CARDIAC ARREST, 04/11/17) UNABLE TO CONFIRM PT IS INTUBATED Reported Meds & Prescriptions Reported Meds & Active Scripts Active Ventolin Hfa 18 GM Inh (Albuterol Sulfate) 90 Mcg/Act Aer 2 Puff INH Q4-6H PRN Labetalol (Labetalol HCl) 100 Mg Tab 100 Mg PO BID 14 Days Reported Hydrochlorothiazide 12.5 Mg Cap Unknown Dose PO BID Depakote DR (Divalproex Sodium) 500 Mg Tabdr 500 Mg PO BID Keppra (Levetiracetam) 500 Mg Tab 500 Mg PO BID Review of Systems ROS Limitations: Clinical Condition Physical Exam Narrative GENERAL: 62-year-old male well-nourished well-developed unable to participate with meaningful history of present illness SKIN: Warm and dry. HEAD: Atraumatic. Normocephalic. EYES: Pupils equal and round. No scleral icterus. No injection or drainage. ENT: No nasal bleeding or discharge. Mucous membranes pink and moist. NECK: Trachea midline. No JVD. CARDIOVASCULAR: Regular rate and rhythm. RESPIRATORY: No accessory muscle use. Clear to auscultation. Breath sounds equal bilaterally. GASTROINTESTINAL: Abdomen soft, non-tender, nondistended. Hepatic and splenic margins not palpable. MUSCULOSKELETAL: Extremities without clubbing, cyanosis, or edema. No obvious deformities. NEUROLOGICAL: Cranial nerves II through XII are normal. The patient moving all extremities normally. Patient repeats "when I'm at work" repeatedly PSYCHIATRIC: Unable to assess. Data Data Last Documented VS Vital Signs Date Time Temp Pulse Resp B/P (MAP) Pulse Ox O2 Delivery O2 Flow Rate FiO2 12/08/17 03:42 57 186/100 12/08/17 03:27 94 Room Air 12/08/17 03:27 18 12/08/17 01:24 97.9 Orders Orders Ammonia (12/08/17 01:58) Complete Blood Count With Diff (12/08/17 01:58) Comprehensive Metabolic Panel (12/08/17 01:58) Creatine Kinase (Cpk) (12/08/17 01:58) Chest, Single Ap (12/08/17 01:58) Ct Brain W/O Iv Contrast(Rout) (12/08/17 01:58) Blood Glucose (12/08/17 01:58) Ecg Monitoring (12/08/17 01:58) Iv Access Insert/Monitor (12/08/17 01:58) Oximetry (12/08/17 01:58) Sodium Chloride 0.9% Flush (Ns Flush) (12/08/17 02:00) Drug Screen, Random Urine (12/08/17 01:58) Alcohol (Ethanol) (12/08/17 01:58) Nicardipine Inj (Cardene Inj) (12/08/17 03:30) Admit Order (Ed Use Only) (12/08/17 ) [employer] / Telemetry VALENTINO.Q8H (12/08/17 03:44) Vital Signs (Adult) Q4H (12/08/17 03:44) Diet Heart Healthy (12/08/17 Breakfast) Activity Bed Rest (12/08/17 03:44) Notify Dr: Other (12/08/17 03:44) Labs Laboratory Tests Test 12/08/17 02:25 12/08/17 03:27 White Blood Count 9.0 TH/MM3 Red Blood Count 4.64 MIL/MM3 Hemoglobin 14.5 GM/DL Hematocrit 43.0 % Mean Corpuscular Volume 92.6 FL Mean Corpuscular Hemoglobin 31.3 PG Mean Corpuscular Hemoglobin Concent 33.8 % Red Cell Distribution Width 14.1 % Platelet Count 287 TH/MM3 Mean Platelet Volume 7.8 FL Neutrophils (%) (Auto) 64.7 % Lymphocytes (%) (Auto) 20.6 % Monocytes (%) (Auto) 10.5 % Eosinophils (%) (Auto) 3.2 % Basophils (%) (Auto) 1.0 % Neutrophils # (Auto) 5.8 TH/MM3 Lymphocytes # (Auto) 1.9 TH/MM3 Monocytes # (Auto) 0.9 TH/MM3 Eosinophils # (Auto) 0.3 TH/MM3 Basophils # (Auto) 0.1 TH/MM3 CBC Comment DIFF FINAL Differential Comment Blood Urea Nitrogen 24 MG/DL Creatinine 1.20 MG/DL Random Glucose 82 MG/DL Total Protein 8.0 GM/DL Albumin 3.9 GM/DL Calcium Level 8.6 MG/DL Alkaline Phosphatase 84 U/L Aspartate Amino Transf (AST/SGOT) 18 U/L Alanine Aminotransferase (ALT/SGPT) 22 U/L Total Bilirubin 0.3 MG/DL Sodium Level 141 MEQ/L Potassium Level 3.8 MEQ/L Chloride Level 108 MEQ/L Carbon Dioxide Level 27.4 MEQ/L Anion Gap 6 MEQ/L Estimat Glomerular Filtration Rate 62 ML/MIN Ammonia 27 MCMOL/L Total Creatine Kinase 115 U/L Ethyl Alcohol Level LESS THAN 3 MG/DL Urine Opiates Screen NEG Urine Barbiturates Screen NEG Urine Amphetamines Screen NEG Urine Benzodiazepines Screen NEG Urine Cocaine Screen NEG Urine Cannabinoids Screen POS [facility] Medical Decision Making Medical Screen Exam Complete: Yes Emergency Medical Condition: Yes Medical Record Reviewed: Yes Differential Diagnosis Metabolic disarray, polypharmacy, EtOH intoxication, seizure, infection Narrative Course CBC & BMP Diagram 12/08/17 02:25 Total Protein 8.0, Albumin 3.9, Calcium Level 8.6, Alkaline Phosphatase 84, Aspartate Amino Transf (AST/SGOT) 18, Alanine Aminotransferase (ALT/SGPT) 22, Total Bilirubin 0.3 Ammonia [address] 12/08/17 0158 Signed Impressions: Service Date/Time: Friday, December 08, 2017 02:07 - CONCLUSION: Stable brain with no acute intracranial findings Arden Lauren MD Chest X-Ray 12/08/17 0158 Signed Impressions: Service Date/Time: Friday, December 08, 2017 02:04 - CONCLUSION: Minimal left base pleural-parenchymal opacity Arden Lauren MD Nicardipine drip started in the setting of hypertensive encephalopathy. The patient will be admitted for hypertension management. d/w Dr Hernandez Critical Care Narrative Aggregate critical care time was 35 minutes. Time to perform other separately billable procedures was not included in the critical care time. My time did not include minutes spent treating any other patients simultaneously or on activities that did not directly contribute to the patient's treatment. The services I provided to this patient were to treat and/or prevent clinically significant deterioration that could result in: ICH, permanent deficit I provided critical care services requiring my management, as noted below: Chart data review, documentation time, medication orders and management, vital sign assessments/reviewing monitor data, ordering and reviewing lab tests, ordering and interpreting/reviewing x-rays and diagnostic studies, care of the patient and discussion of the patient with the admitting physicians. Diagnosis Primary Impression: Hypertensive encephalopathy Admitting Information Admitting Physician Requests: Dav Aguillon MD Dec 08, 2017 03:10
[2017-12-08] MEDS ORDERED: niCARdipine INJ 25 MG in SODIUM CHLOR 0.9% 250 ML INJ 240 ML IV ONE (03:30)
[2017-12-08] MEDS ORDERED: ONDANSETRON HCL 4 MG/2 ML VIAL IVP PRN (04:00)
[2017-12-08] MEDS ORDERED: ACETAMINOPHEN 325 MG TAB PO PRN (04:00)
[2017-12-08] MEDS ORDERED: NALOXONE HCL 0.4 MG/ML AMP IV PUSH PRN (04:00)
[2017-12-08] MEDS ORDERED: RESP: ALBUTEROL 2.5 MG/IPRATROPIUM 0.5 MG NEB (PRN) NEB (04:45)
--- NOTE | 2017-12-08 04:47 | HHI.HP ---
[facility] Arden Ma MD Admission Diagnosis Hypertensive Encephalopathy Diagnoses: Travel History International Travel<30 Days: No Contact w/Intl Traveler <30 Da: No Traveled to Known Affected Are: No History of Present Illness 62-year-old male with a past medical history significant for hypertension, history of colon cancer, hyperlipidemia, previous CVA and seizure disorder presents to the emergency department for evaluation of elevated blood pressure. The patient reports he did not take his blood pressure at home but he knew he was hypertensive because his hands were swelling and he became dizzy. He states these are his typical symptoms when his blood pressure is elevated. He denies any chest pain or shortness of breath. No abdominal pain. No nausea/ vomiting/diarrhea. No new onset weakness or fatigue. Review of Systems Except as stated in HPI: all other systems reviewed are Neg Past Family Social History Past Medical History HTN Colon cancer,chemo,radiation 30 years ago CVA, no residual HLD COPD Seizures Past Surgical History Colon resection Tonsillectomy Eye surgery Reported Medications Reported Meds & Active Scripts Active Ventolin Hfa 18 GM Inh (Albuterol Sulfate) 90 Mcg/Act Aer 2 Puff INH Q4-6H PRN Labetalol (Labetalol HCl) 100 Mg Tab 100 Mg PO BID 14 Days Reported Hydrochlorothiazide 12.5 Mg Cap Unknown Dose PO BID Depakote DR (Divalproex Sodium) 500 Mg Tabdr 500 Mg PO BID Keppra (Levetiracetam) 500 Mg Tab 500 Mg PO BID Allergies: Coded Allergies: amlodipine (Verified Allergy, Severe, Swelling, 12/08/17) UNALBE TO CONFIRM PT IS INTUBATED amoxicillin (Verified Allergy, Severe, "LIPS SWELL", 12/08/17) PT IS INTUBATED UNABLE TO CONFIRM clavulanic acid (Verified Allergy, Severe, "LIPS SWELL", 12/08/17) PT IS INTUBATED UNABLE TO CONFIRM diatrizoate meglumine (Verified Allergy, Severe, Anaphylaxis; 06/04/09: PT TOLERATES ORAL CONTRAST W/O AE, 12/08/17) PT INTUBATED UNABLE TO CONFIRM 06/04/09: PER RN, PT TOLERATES ORAL CONTRAST MEDIA WITHOUT ADVERSE EFFECTS; HE HAS HAD ORAL CONTRAST PREVIOUSLY. diazepam (Verified Allergy, Severe, RESPIRATORY DISTRESS, 12/08/17) UNALBE TO CONFIRM PT IS INTUBATED enalaprilat (Verified Allergy, Severe, 12/08/17) UNALBE TO CONFIRM PT IS INTUBATED erythromycin base (Verified Allergy, Severe, RASH, 12/08/17) gadobenic acid (Verified Allergy, Severe, Anaphylaxis; 06/04/09: PT TOLERATES ORAL CONTRAST W/O AE, 12/08/17) PT INTUBATED UNABLE TO CONFIRM 06/04/09: PER RN, PT TOLERATES ORAL CONTRAST MEDIA WITHOUT ADVERSE EFFECTS; HE HAS HAD ORAL CONTRAST PREVIOUSLY. gadodiamide (Verified Allergy, Severe, Anaphylaxis; 06/04/09: PT TOLERATES ORAL CONTRAST W/O AE, 12/08/17) PT INTUBATED UNABLE TO CONFIRM 06/04/09: PER RN, PT TOLERATES ORAL CONTRAST MEDIA WITHOUT ADVERSE EFFECTS; HE HAS HAD ORAL CONTRAST PREVIOUSLY. gadoteridol (Verified Allergy, Severe, Anaphylaxis; 06/04/09: PT TOLERATES ORAL CONTRAST W/O AE, 12/08/17) PT INTUBATED UNABLE TO CONFIRM 06/04/09: PER RN, PT TOLERATES ORAL CONTRAST MEDIA WITHOUT ADVERSE EFFECTS; HE HAS HAD ORAL CONTRAST PREVIOUSLY. haloperidol (Verified Allergy, Severe, "TIGHT JAW", 12/08/17) UNABLE TO CONFIRM PT IS INTUBATED iodixanol (Verified Allergy, Severe, Anaphylaxis; 06/04/09: PT TOLERATES ORAL CONTRAST W/O AE, 12/08/17) PT INTUBATED UNABLE TO CONFIRM 06/04/09: PER RN, PT TOLERATES ORAL CONTRAST MEDIA WITHOUT ADVERSE EFFECTS; HE HAS HAD ORAL CONTRAST PREVIOUSLY. iohexol (Verified Allergy, Severe, PT NEEDS PREMED/DOESN'T KNOW REACTION, 12/08/17) UNABLE TO CONFIRM PT IS INTUBATED 06/04/09: PER RN, PT TOLERATES ORAL CONTRAST MEDIA WITHOUT ADVERSE EFFECTS; HE HAS HAD ORAL CONTRAST PREVIOUSLY. morphine (Verified Allergy, Mild, Itching, 12/08/17) UNABLE TO CONFIRM PT IS INTUBATED benazepril (Verified Allergy, Unknown, UNKNOWN REACTION, 12/08/17) UNABLE TO CONFIRM PT IS INTUBATED captopril (Verified Allergy, Unknown, UNKNOWN REACTION, 12/08/17) UNABLE TO CONFIRM PT IS INTUBATED fosinopril (Verified Allergy, Unknown, UNKNOWN REACTION, 12/08/17) UNABLE TO CONFIRM PT IS INTUBATED lisinopril (Verified Allergy, Unknown, UNKNOWN REACTION, 12/08/17) UNABLE TO CONFIRM PT IS INTUBATED quinapril (Verified Allergy, Unknown, UNKNOWN REACTION, 12/08/17) UNABLE TO CONFIRM PT IS INTUBATED prochlorperazine (Verified Adverse Reaction, Severe, "LOCKJAW", 12/08/17) UNABLE TO CONFIRM PT IS INTUBATED Uncoded Allergies: DYE (Allergy, Severe, CARDIAC ARREST, 04/11/17) UNABLE TO CONFIRM PT IS INTUBATED Family History Dad: Cancer, unknown kind Social History Tobacco use: 1PPD Alcohol use: Denies Illicit drug use: Marijuana Physical Exam Vital Signs Vital Signs Date Time Temp Pulse Resp B/P (MAP) Pulse Ox O2 Delivery O2 Flow Rate FiO2 12/08/17 04:29 57 18 161/92 (115) 98 Room Air 12/08/17 03:57 182/102 (128) 12/08/17 03:42 57 186/100 12/08/17 03:27 94 Room Air 12/08/17 03:27 66 18 193/102 (132) 94 Room Air 12/08/17 01:24 97.9 59 16 179/101 (127) Physical Exam GENERAL: male lying in bed SKIN: No rashes, ecchymoses or lesions. Cool and dry. HEAD: Atraumatic. Normocephalic. No temporal or scalp tenderness. EYES: Pupils equal round and reactive. Extraocular motions intact. No scleral icterus. No injection or drainage. ENT: Nose without bleeding, purulent drainage or septal hematoma. Throat without erythema, tonsillar hypertrophy or exudate. Uvula midline. Airway patent. NECK: Trachea midline. No JVD or lymphadenopathy. Supple, nontender, no meningeal signs. CARDIOVASCULAR: Regular rate and rhythm without murmurs, gallops, or rubs. RESPIRATORY: Clear to auscultation. Breath sounds equal bilaterally. No wheezes , rales, or rhonchi. GASTROINTESTINAL: Abdomen soft, non-tender, nondistended. No hepato-splenomegaly , or palpable masses. No guarding. MUSCULOSKELETAL: Extremities without clubbing, cyanosis, or edema. No joint tenderness, effusion, or edema noted. No calf tenderness. NEUROLOGICAL: Awake and alert. Cranial nerves II through XII intact. Motor and sensory grossly within normal limits. Normal speech. Laboratory Laboratory Tests Test 12/08/17 02:25 12/08/17 03:27 White Blood Count 9.0 Red Blood Count 4.64 Hemoglobin 14.5 Hematocrit 43.0 Mean Corpuscular Volume 92.6 Mean Corpuscular Hemoglobin 31.3 Mean Corpuscular Hemoglobin Concent 33.8 Red Cell Distribution Width 14.1 Platelet Count 287 Mean Platelet Volume 7.8 Neutrophils (%) (Auto) 64.7 Lymphocytes (%) (Auto) 20.6 Monocytes (%) (Auto) 10.5 Eosinophils (%) (Auto) 3.2 Basophils (%) (Auto) 1.0 Neutrophils # (Auto) 5.8 Lymphocytes # (Auto) 1.9 Monocytes # (Auto) 0.9 Eosinophils # (Auto) 0.3 Basophils # (Auto) 0.1 CBC Comment DIFF FINAL Differential Comment Blood Urea Nitrogen 24 Creatinine 1.20 Random Glucose 82 Total Protein 8.0 Albumin 3.9 Calcium Level 8.6 Alkaline Phosphatase 84 Aspartate Amino Transf (AST/SGOT) 18 Alanine Aminotransferase (ALT/SGPT) 22 Total Bilirubin 0.3 Sodium Level 141 Potassium Level 3.8 Chloride Level 108 Carbon Dioxide Level 27.4 Anion Gap 6 Estimat Glomerular Filtration Rate 62 Ammonia 27 Total Creatine Kinase 115 Ethyl Alcohol Level LESS THAN 3 Urine Opiates Screen NEG Urine Barbiturates Screen NEG Urine Amphetamines Screen NEG Urine Benzodiazepines Screen NEG Urine Cocaine Screen NEG Urine Cannabinoids Screen POS Result Diagram: 12/08/1722412/08/17224 Caprini VTE Risk Assessment Caprini VTE Risk Assessment: Mod/High Risk (score >= 2) Caprini Risk Assessment Model Point Value = 1 Point Value = 2 Point Value = 3 Point Value = 5 Age 41-60 Minor surgery BMI > 25 kg/m2 Swollen legs Varicose veins or History of unexplained or recurrent spontaneous Oral contraceptives or hormone replacement Sepsis (< 1 month) Serious lung disease, including pneumonia (< 1 month) Abnormal pulmonary function Acute myocardial infarction Congestive heart failure (< 1 month) History of inflammatory bowel disease Medical patient at bed rest Age 61-74 Arthroscopic surgery Major open surgery (> 45 min) Laparoscopic surgery (> 45 min) Malignancy Confined to bed (> 72 hours) Immobilizing plaster cast Central venous access Age >= 75 History of VTE Family history of VTE Factor V Leiden Prothrombin [id number] Lupus anticoagulant Anticardiolipin antibodies Elevated serum homocysteine Heparin-induced thrombocytopenia Other congenital or acquired thrombophilia Stroke (< 1 month) Elective arthroplasty Hip, pelvis, or leg fracture Acute spinal cord injury (< 1 month) Prophylaxis Regimen Total Risk Factor Score Risk Level Prophylaxis Regimen 0-1 Low Early ambulation 2 Moderate Order ONE of the following: *Sequential Compression Device (SCD) *Heparin 5000 units SQ BID 3-4 Higher Order ONE of the following medications: *Heparin 5000 units SQ TID *Enoxaparin/Lovenox 40 mg SQ daily (WT < 150 kg, CrCl > 30 mL/min) *Enoxaparin/Lovenox 30 mg SQ daily (WT < 150 kg, CrCl > 10-29 mL/min) *Enoxaparin/Lovenox 30 mg SQ BID (WT < 150 kg, CrCl > 30 mL/min) AND/OR *Sequential Compression Device (SCD) 5 or more Highest Order ONE of the following medications: *Heparin 5000 units SQ TID (Preferred with Epidurals) *Enoxaparin/Lovenox 40 mg SQ daily (WT < 150 kg, CrCl > 30 mL/min) *Enoxaparin/Lovenox 30 mg SQ daily (WT < 150 kg, CrCl > 10-29 mL/min) *Enoxaparin/Lovenox 30 mg SQ BID (WT < 150 kg, CrCl > 30 mL/min) AND *Sequential Compression Device (SCD) Assessment and Plan Assessment and Plan Assessment/plan: 1. Hypertensive urgency Cardene drip Wean as tolerated Continue home labetalol, hydrochlorothiazide 2. Seizure disorder Continue home Depakote, Keppra 3. COPD Duo nebs FEN Heart healthy diet Electrolytes: monitor and replete prn Heparin Physician Certification 2 Midnight Certification Type: Admission for Inpatient Services Order for Inpatient Services The services are ordered in accordance with Medicare regulations or non- Medicare payer requirements, as applicable. In the case of services not specified as inpatient-only, they are appropriately provided as inpatient services in accordance with the 2-midnight benchmark. Estimated LOS (days): 2 2 days is the estimated time the patient will need to remain in the hospital, assuming treatment plan goals are met and no additional complications. Post-Hospital Plan: Not yet determined Irma Hernandez MD Dec 08, 2017 04:47
[2017-12-08] MEDS: HEPARIN SODIUM - SQ 10,000 UNITS/ML VIAL SQ SCH ×2 (06:20→14:30)
[2017-12-08] MEDS ORDERED: niCARdipine INJ 25 MG in SODIUM CHLOR 0.9% 250 ML INJ 240 ML IV PRN (06:45)
[2017-12-08] MEDS: SODIUM CHLORIDE 0.9% FLUSH 10 ML FLUSH IV FLUSH SCH ×2 (09:00→21:00)
[2017-12-08] MEDS: DIVALPROEX DR 500 MG TABEC PO SCH ×2 (09:48→21:00)
[2017-12-08] MEDS: LABETALOL HCL 100 MG TAB PO SCH ×2 (09:48→21:00)
[2017-12-08] MEDS: HYDROCHLOROTHIAZIDE 12.5 MG CAP PO SCH ×2 (09:48→20:12)
[2017-12-08] MEDS: levETIRAcetam 500 MG TAB PO SCH ×2 (09:48→21:00)
[2017-12-08] MEDS ORDERED: cloNIDine HCL 0.1 MG TAB PO PRN (11:00)
--- NOTE | 2017-12-08 18:44 | HHI.PR ---
Addendum To [facility] Progress Not Reason for addendum: Additonal documentation (Discussed with RN, off Cardene drip. BP much improved on home medications. Asymptomatic at this time. Continue to monitor add IV hydralazine as needed) Wally Davis MD Dec 08, 2017 18:44
[2017-12-08] MEDS ORDERED: hydrALAZINE HCL 20 MG/ML VIAL IV PUSH PRN (18:45)
[2017-12-09] VITALS (12 sets, daily range): BP systolic 125–159; BP diastolic 88–97; PULSE 50–59; RESP 18; TEMP 97.5–97.9; O2SAT 96–98
[2017-12-09 05:07] LABS: AUTOMATED NEUTROPHIL # 3.5 TH/MM3 (1.8-7.7); BASOPHIL # 0.1 TH/MM3 (0-0.2); BASOPHIL % 1.2 % (0.0-2.0); EOSINOPHIL # 0.2 TH/MM3 (0-0.4); EOSINOPHIL % 3.8 % (0.0-4.0); HEMATOCRIT 42.3 % (39.0-51.0); HEMOGLOBIN 14.5 GM/DL (13.0-17.0); LYMPH % 23.6 % (9.0-44.0); LYMPHOCYTE # 1.4 TH/MM3 (1.0-4.8); MEAN CELL VOLUME 91.6 FL (80.0-100.0); MEAN CORPUSCULAR HEMOGLOBIN 31.4 PG (27.0-34.0); MEAN CORPUSCULAR HGB CONC 34.3 % (32.0-36.0); MEAN PLATELET VOLUME 7.5 FL (7.0-11.0); MONO % 10.8 % (0.0-8.0); MONOCYTE # 0.6 TH/MM3 (0-0.9); NEUT % 60.6 % (16.0-70.0); PLATELET COUNT 296 TH/MM3 (150-450); RED BLOOD COUNT 4.61 MIL/MM3 (4.50-5.90); RED CELL DISTRIBUTION WIDTH 14.2 % (11.6-17.2); WHITE BLOOD COUNT 5.8 TH/MM3 (4.0-11.0)
[2017-12-09 05:26] LABS: BICARBONATE 29.2 MEQ/L (21.0-32.0); CALCIUM 9.1 MG/DL (8.5-10.1); CREATININE 1.02 MG/DL (0.60-1.30)
[2017-12-09] MEDS: HEPARIN SODIUM - SQ 10,000 UNITS/ML VIAL SQ SCH ×2 (05:48→14:00)
[2017-12-09] MEDS: levETIRAcetam 500 MG TAB PO SCH (05:50)
[2017-12-09] MEDS: LABETALOL HCL 100 MG TAB PO SCH (05:50)
[2017-12-09] MEDS: DIVALPROEX DR 500 MG TABEC PO SCH (05:50)
[2017-12-09] MEDS ORDERED: POTA-163 PO (08:14)
--- NOTE | 2017-12-09 08:14 | HHI.DCPOC ---
Discharge Care Plan Diagnosis: (1) Hypertension Your Health Problems Are: Difficulty with ADL Exercise Tolerance Goals to Promote Your Health * To prevent worsening of your condition and complications * To maintain your health at the optimal level Directions to Meet Your Goals Take your medications as prescribed Follow your dietary instruction Follow activity as directed Keep your appointments as scheduled Take your immunizations and boosters as scheduled If your symptoms worsen call your PCP, if no PCP go to Urgent Care Center or Emergency Room Smoking is Dangerous to Your Health. Avoid second hand smoke Call the 24-hour hour crisis hotline for domestic abuse at Wally Davis MD Dec 09, 2017 08:14
[2017-12-09] MEDS ORDERED: POTASSIUM CHLORIDE 20 MEQ CONTROLLED RELEASE TAB PO ONE (08:15)
[2017-12-09] MEDS: HYDROCHLOROTHIAZIDE 12.5 MG CAP PO SCH (08:48)
[2017-12-09] MEDS: SODIUM CHLORIDE 0.9% FLUSH 10 ML FLUSH IV FLUSH SCH (08:55)
[2017-12-09] MEDS ORDERED: PNEUMOCOCCAL POLYVALENT INJ 25 MCG/0.5 ML SYR IM ONE (09:00)
[2017-12-09] MEDS ORDERED: INFLUENZA VIRUS VACCINE (QUADRIVALENT) 0.5 ML SYR IM ONE (09:00)
--- NOTE | 2017-12-09 09:48 | HHI.PR ---
Subjective Remarks Follow-up hypertension and encephalopathy. States he is doing much better denies any complaints. He is alert and oriented. He is requesting refill of his BP medications. He has been counseled regarding compliance. Discussed with nursing. Objective Vitals Vital Signs Date Time Temp Pulse Resp B/P (MAP) Pulse Ox O2 Delivery O2 Flow Rate FiO2 12/09/17 07:01 56 12/09/17 04:00 59 12/09/17 00:00 56 12/08/17 20:45 98.1 63 16 175/84 (114) 95 12/08/17 20:45 58 12/08/17 20:26 12/08/17 18:30 50 16 135/73 (93) 98 Room Air 12/08/17 15:50 58 16 178/93 (121) 98 Room Air 12/08/17 14:31 61 16 145/87 (106) 98 Room Air 12/08/17 13:30 54 16 141/90 (107) 98 Room Air 12/08/17 12:30 56 16 152/85 (107) 98 Room Air 12/08/17 12:00 60 16 132/84 (100) 98 Room Air 12/08/17 11:29 54 16 129/83 (98) 98 Room Air 12/08/17 11:00 63 16 116/71 (86) 98 Room Air 12/08/17 10:03 61 16 139/82 (101) 98 Room Air 12/08/17 09:49 71 16 135/81 (99) 98 Room Air I/O 12/08/17 12/08/17 12/08/17 12/09/17 12/09/17 12/09/17 07:00 15:00 23:00 07:00 15:00 23:00 Intake Total 120 ml Output Total 850 ml Balance -730 ml Intake Oral 120 ml Output Urine Total 850 ml # Voids 1 Result Diagram: 12/09/17 0440 12/09/17439 Imaging Last Impressions Head CT 12/08/17157 Signed Impressions: Service Date/Time: Friday, December 08, 2017 02:07 - CONCLUSION: Stable brain with no acute intracranial findings Arden Lauren MD Chest X-Ray 12/08/17157 Signed Impressions: Service Date/Time: Friday, December 08, 2017 02:04 - CONCLUSION: Minimal left base pleural-parenchymal opacity Arden Lauren MD Objective Remarks GENERAL: male lying in bed. Well-developed and well-nourished SKIN: No rashes, ecchymoses or lesions. Cool and dry. CARDIOVASCULAR: Regular rate and rhythm without murmurs, gallops, or rubs. RESPIRATORY: Clear to auscultation. Breath sounds equal bilaterally. No wheezes , rales, or rhonchi. GASTROINTESTINAL: Abdomen soft, non-tender, nondistended. No guarding. MUSCULOSKELETAL: Extremities without clubbing, cyanosis, or edema. No joint tenderness, effusion, or edema noted. No calf tenderness. NEUROLOGICAL: Awake and alert. Cranial nerves II through XII intact. Motor and sensory grossly within normal limits. Normal speech. Procedures none A/P Problem List: (1) Hypertension ICD Code: I10 - Essential (primary) hypertension Status: Chronic Assessment and Plan 1. Hypertensive urgency. Resolved status post Cardizem drip. Continue home medications of labetalol and hydrochlorothiazide. He has been counseled. 2. Hypertensive encephalopathy. Resolved. Continue to monitor 3. Seizure disorder. Stable Continue home Depakote, Keppra 4. COPD. Stable ct Duo nebs FEN Heart healthy diet Electrolytes: monitor and replete prn Heparin Discharge Planning discharge patient to home Condition on discharge: Improved Regular Diet as tolerated Ad Nataliya activity no driving Rx written:requested refill of Percocet and labetalol Follow-up with primary care physician Wally Davis MD Dec 09, 2017 09:48
[2017-12-09] MEDS ORDERED: LABE100T2 PO (09:58)
[2017-12-09] MEDS ORDERED: HYDR12.57 PO (09:58)
== END 2017-12-09 16:00 | disposition home or self-care (01) | DRG 79 ==
LOC: NEPE 01:03 → NEDA 03:46 → HCIS 20:24
PROVIDERS: ADMIT Internal Medicine; ATTEND Internal Medicine
DX: I67.4 Hypertensive encephalopathy (principal); I16.0 Hypertensive urgency; I10 Essential (primary) hypertension; G40.909 Epilepsy, unspecified, not intractable, without status epilepticus; J44.9 Chronic obstructive pulmonary disease, unspecified; E78.5 Hyperlipidemia, unspecified; R53.1 Weakness; F12.90 Cannabis use, unspecified, uncomplicated; F17.210 Nicotine dependence, cigarettes, uncomplicated; Z85.038 Personal history of other malignant neoplasm of large intestine; Z86.73 Personal history of transient ischemic attack (TIA), and cerebral infarction without residual deficits
CPT/HCPCS: 70450; 71045; 80048; 80053; 80307; 82140; 82550; 85025; 96374; J1644; J7050

== ENCOUNTER 2017-12-16 23:50 | Emergency (ER) | payer OTHER ==
[~2017-12-16] VITALS: Ht 177.8 cm; Wt 71.0 kg
[~2017-12-16 23:50] MED LIST changes: +POTA-163 PO
[2017-12-17] VITALS: BP 194/99; PULSE 60; RESP 18; TEMP 98.1
--- NOTE | 2017-12-17 00:23 | PD ---
HPI Chief Complaint: Hypertension Time Seen by Provider: 00:05 Travel History International Travel<30 days: No Contact w/Intl Traveler<30days: No Traveled to known affect area: No History of Present Illness HPI 62-year-old male came to the emergency room with history feeling weak. Patient is well-known to the department and has been in the emergency room multiple times. His last admission was 2 weeks ago for hypertensive crisis. Patient is on medications for high blood pressure and says that he took a few hours ago. His blood pressure upon arrival was 194/77. Patient came in by ambulance. Denies of any chest pain, headache. Says he has mild blurred vision. He does not appear to be in significant distress. [facility] Past Medical History Narrative Medical List of his past medical, surgical, social and family history is reviewed from the nursing note. Hx Anticoagulant Therapy: No Arthritis: Yes (GENERALIZED) Asthma: No Autoimmune Disease: No Blood Disorders: No Anxiety: No Depression: No Heart Rhythm Problems: Yes Cancer: Yes (colon cancer) Cardiac Catheterization: No Cardiovascular Problems: Yes High Cholesterol: No Chemotherapy: Yes Chest Pain: Yes Congestive Heart Failure: No COPD: Yes Cerebrovascular Accident: Yes (CVA ) Diabetes: No Patient Takes Glucophage: No Diminished Hearing: No Endocrine: No Gastrointestinal Disorders: Yes GERD: No Glaucoma: No Genitourinary: No Headaches: Yes Hepatitis: No Hiatal Hernia: No Heparin Induced Thrombocytopen: No Hypertension: Yes Immune Disorder: No Implanted Vascular Access Dvce: No Kidney Stones: No Musculoskeletal: No Neurologic: Yes Psychiatric: No Reproductive: No Respiratory: Yes Immunizations Current: Yes Migraines: No Myocardial Infarction: No Pancreatitis: Yes Radiation Therapy: Yes Renal Failure: No Seizures: Yes Sickle Cell Disease: No Sleep Apnea: No Thyroid Disease: No Ulcer: No Tetanus Vaccination: > 5 Years Influenza Vaccination: Yes PNEUMOCCOCAL Vaccine (Year): 1 Past Surgical History Abdominal Surgery: Yes (deepti cancer) AICD: No Appendectomy: Yes Arteriovenous Shunt: No Cardiac Surgery: No Cholecystectomy: No Coronary Artery Bypass Graft: No Ear Surgery: No Endocrine Surgery: No Eye Surgery: Yes (BILAT MUSCLES CUT) Genitourinary Surgery: No Gynecologic Surgery: No Insulin Pump: No Joint Replacement: No Neurologic Surgery: No Oral Surgery: No Pacemaker: No Thoracic Surgery: No Tonsillectomy: Yes Other Surgery: Yes (colon cancer.tonsilts, eyes,) Family History Family Myocardial Infarction: Yes (FATHER) Social History Alcohol Use: Yes (OCCASIONALLY) Tobacco Use: Yes (1/2 PPD) Substance Use: Yes (marijuana) Allergies-Medications (Allergen,Severity, Reaction): Coded Allergies: amlodipine (Verified Allergy, Severe, Swelling, 12/17/17) UNALBE TO CONFIRM PT IS INTUBATED amoxicillin (Verified Allergy, Severe, "LIPS SWELL", 12/17/17) PT IS INTUBATED UNABLE TO CONFIRM clavulanic acid (Verified Allergy, Severe, "LIPS SWELL", 12/17/17) PT IS INTUBATED UNABLE TO CONFIRM diatrizoate meglumine (Verified Allergy, Severe, Anaphylaxis; 06/04/09: PT TOLERATES ORAL CONTRAST W/O AE, 12/17/17) PT INTUBATED UNABLE TO CONFIRM 06/04/09: PER RN, PT TOLERATES ORAL CONTRAST MEDIA WITHOUT ADVERSE EFFECTS; HE HAS HAD ORAL CONTRAST PREVIOUSLY. diazepam (Verified Allergy, Severe, RESPIRATORY DISTRESS, 12/17/17) UNALBE TO CONFIRM PT IS INTUBATED enalaprilat (Verified Allergy, Severe, 12/17/17) UNALBE TO CONFIRM PT IS INTUBATED erythromycin base (Verified Allergy, Severe, RASH, 12/17/17) gadobenic acid (Verified Allergy, Severe, Anaphylaxis; 06/04/09: PT TOLERATES ORAL CONTRAST W/O AE, 12/17/17) PT INTUBATED UNABLE TO CONFIRM 06/04/09: PER RN, PT TOLERATES ORAL CONTRAST MEDIA WITHOUT ADVERSE EFFECTS; HE HAS HAD ORAL CONTRAST PREVIOUSLY. gadodiamide (Verified Allergy, Severe, Anaphylaxis; 06/04/09: PT TOLERATES ORAL CONTRAST W/O AE, 12/17/17) PT INTUBATED UNABLE TO CONFIRM 06/04/09: PER RN, PT TOLERATES ORAL CONTRAST MEDIA WITHOUT ADVERSE EFFECTS; HE HAS HAD ORAL CONTRAST PREVIOUSLY. gadoteridol (Verified Allergy, Severe, Anaphylaxis; 06/04/09: PT TOLERATES ORAL CONTRAST W/O AE, 12/17/17) PT INTUBATED UNABLE TO CONFIRM 06/04/09: PER RN, PT TOLERATES ORAL CONTRAST MEDIA WITHOUT ADVERSE EFFECTS; HE HAS HAD ORAL CONTRAST PREVIOUSLY. haloperidol (Verified Allergy, Severe, "TIGHT JAW", 12/17/17) UNABLE TO CONFIRM PT IS INTUBATED iodixanol (Verified Allergy, Severe, Anaphylaxis; 06/04/09: PT TOLERATES ORAL CONTRAST W/O AE, 12/17/17) PT INTUBATED UNABLE TO CONFIRM 06/04/09: PER RN, PT TOLERATES ORAL CONTRAST MEDIA WITHOUT ADVERSE EFFECTS; HE HAS HAD ORAL CONTRAST PREVIOUSLY. iohexol (Verified Allergy, Severe, PT NEEDS PREMED/DOESN'T KNOW REACTION, 12/17/17) UNABLE TO CONFIRM PT IS INTUBATED 06/04/09: PER RN, PT TOLERATES ORAL CONTRAST MEDIA WITHOUT ADVERSE EFFECTS; HE HAS HAD ORAL CONTRAST PREVIOUSLY. morphine (Verified Allergy, Mild, Itching, 12/17/17) UNABLE TO CONFIRM PT IS INTUBATED benazepril (Verified Allergy, Unknown, UNKNOWN REACTION, 12/17/17) UNABLE TO CONFIRM PT IS INTUBATED captopril (Verified Allergy, Unknown, UNKNOWN REACTION, 12/17/17) UNABLE TO CONFIRM PT IS INTUBATED fosinopril (Verified Allergy, Unknown, UNKNOWN REACTION, 12/17/17) UNABLE TO CONFIRM PT IS INTUBATED lisinopril (Verified Allergy, Unknown, UNKNOWN REACTION, 12/17/17) UNABLE TO CONFIRM PT IS INTUBATED quinapril (Verified Allergy, Unknown, UNKNOWN REACTION, 12/17/17) UNABLE TO CONFIRM PT IS INTUBATED prochlorperazine (Verified Adverse Reaction, Severe, "LOCKJAW", 12/17/17) UNABLE TO CONFIRM PT IS INTUBATED Uncoded Allergies: DYE (Allergy, Severe, CARDIAC ARREST, 04/11/17) UNABLE TO CONFIRM PT IS INTUBATED Comments List of his extensive allergies reviewed from the nursing note. Reported Meds & Prescriptions Reported Meds & Active Scripts Active Hydrochlorothiazide 12.5 Mg Cap 12.5 Mg PO QD Labetalol (Labetalol HCl) 100 Mg Tab 100 Mg PO BID 14 Days Potassium Chloride ER (Potassium Chloride) 20 Meq Tab 20 Meq PO DAILY Ventolin Hfa 18 GM Inh (Albuterol Sulfate) 90 Mcg/Act Aer 2 Puff INH Q4-6H PRN Reported Depbritany DR (Divalproex Sodium) 500 Mg Tabdr 500 Mg PO BID Keppra (Levetiracetam) 500 Mg Tab 500 Mg PO BID Narrative Medication List of his home medications reviewed from the nursing appear Review of Systems Except as stated in HPI: all other systems reviewed are Neg Physical Exam Narrative GENERAL: Awake, alert, disheveled, no obvious to SKIN: Focused skin assessment warm/dry. Disheveled, poor skin hygiene HEAD: Atraumatic. Normocephalic. EYES: Pupils equal and round. No scleral icterus. No injection or drainage. ENT: No nasal bleeding or discharge. Mucous membranes pink and moist. NECK: Trachea midline. No JVD. CARDIOVASCULAR: Regular rate and rhythm. No murmur appreciated. RESPIRATORY: No accessory muscle use. Clear to auscultation. Breath sounds equal bilaterally. GASTROINTESTINAL: Abdomen soft, non-tender, nondistended. Hepatic and splenic margins not palpable. MUSCULOSKELETAL: No obvious deformities. No clubbing. No cyanosis. No edema. NEUROLOGICAL: Awake and alert. No obvious cranial nerve deficits. Motor grossly within normal limits. Normal speech. PSYCHIATRIC: Appropriate mood and affect; insight and judgment normal. Data Data Last Documented VS Vital Signs Date Time Temp Pulse Resp B/P (MAP) Pulse Ox O2 Delivery O2 Flow Rate FiO2 12/17/17 08:33 98.9 76 19 157/89 (111) 95 12/17/17 06:02 Room Air Orders Orders Complete Blood Count With Diff (12/17/17 00:05) Basic Metabolic Panel (Bmp) (12/17/17 00:05) Valproic Acid (Depakene) (12/17/17 00:05) Urinalysis - C+S If Indicated (12/17/17 00:05) Gear Shaver Set Up Operator / Telemetry VALENTINO.Q8H (12/17/17 00:05) Clonidine (Catapres) (12/17/17 00:30) Magnesium (Mg) (12/17/17 00:05) Ed Discharge Order (12/17/17 01:43) Labs Laboratory Tests Test 12/17/17 00:50 12/17/17 01:10 White Blood Count 6.2 TH/MM3 Red Blood Count 4.38 MIL/MM3 Hemoglobin 13.8 GM/DL Hematocrit 40.5 % Mean Corpuscular Volume 92.5 FL Mean Corpuscular Hemoglobin 31.6 PG Mean Corpuscular Hemoglobin Concent 34.1 % Red Cell Distribution Width 14.2 % Platelet Count 243 TH/MM3 Mean Platelet Volume 8.0 FL Neutrophils (%) (Auto) 58.0 % Lymphocytes (%) (Auto) 26.3 % Monocytes (%) (Auto) 10.9 % Eosinophils (%) (Auto) 3.8 % Basophils (%) (Auto) 1.0 % Neutrophils # (Auto) 3.6 TH/MM3 Lymphocytes # (Auto) 1.6 TH/MM3 Monocytes # (Auto) 0.7 TH/MM3 Eosinophils # (Auto) 0.2 TH/MM3 Basophils # (Auto) 0.1 TH/MM3 CBC Comment DIFF FINAL Differential Comment Blood Urea Nitrogen 12 MG/DL Creatinine 1.05 MG/DL Random Glucose 85 MG/DL Calcium Level 8.5 MG/DL Magnesium Level 2.2 MG/DL Sodium Level 138 MEQ/L Potassium Level 3.7 MEQ/L Chloride Level 105 MEQ/L Carbon Dioxide Level 25.7 MEQ/L Anion Gap 7 MEQ/L Estimat Glomerular Filtration Rate 72 ML/MIN Valproic Acid (Depakene) Level 5 MCG/ML Urine Color COLORLESS Urine Turbidity CLEAR Urine pH 5.5 Urine Specific [place] 1.001 Urine Protein NEG mg/dL Urine Glucose (UA) NEG mg/dL Urine Ketones NEG mg/dL Urine Occult Blood NEG Urine Nitrite NEG Urine Bilirubin NEG Urine Urobilinogen LESS THAN 2.0 MG/DL Urine Leukocyte Esterase NEG Urine WBC LESS THAN 1 /hpf Urine Squamous Epithelial Cells <1 /hpf Microscopic Urinalysis Comment CULT NOT INDICATED MDM Medical Decision Making Medical Screen Exam Complete: Yes Emergency Medical Condition: Yes Medical Record Reviewed: Yes Differential Diagnosis Essential hypertension, electrolyte abnormalities Narrative Course 12:23 AM waiting for blood test result. Patient will get p.o. clonidine. 12:50 AM waiting for the labs. Case will be signed over to the nurse practitioner. Procedures EKG Prior to Arrival: Concepción Mcbride MD Dec 17, 2017 00:23
[2017-12-17] MEDS ORDERED: cloNIDine HCL 0.1 MG TAB PO ONE (00:30)
[2017-12-17 01:17] LABS: BILIRUBIN, URINE NEG (NEG); BLOOD, URINE NEG (NEG); GLUCOSE,URINE NEG (NEG); KETONE, URINE NEG (NEG); NITRITE,URINE NEG (NEG); PH, URINE 5.5 (5.0-8.5); SQUAMOUS EPITHELIAL CELL URINE <1 /hpf (0-5); URINE COLOR COLORLESS (YELLW/STRAW); URINE LEUKOCYTE ESTERASE NEG (NEG)
[2017-12-17 01:19] LABS: AUTOMATED NEUTROPHIL # 3.6 TH/MM3 (1.8-7.7); BASOPHIL # 0.1 TH/MM3 (0-0.2); EOSINOPHIL # 0.2 TH/MM3 (0-0.4); EOSINOPHIL % 3.8 % (0.0-4.0); HEMATOCRIT 40.5 % (39.0-51.0); HEMOGLOBIN 13.8 GM/DL (13.0-17.0); LYMPH % 26.3 % (9.0-44.0); LYMPHOCYTE # 1.6 TH/MM3 (1.0-4.8); MEAN CELL VOLUME 92.5 FL (80.0-100.0); MEAN CORPUSCULAR HEMOGLOBIN 31.6 PG (27.0-34.0); MEAN CORPUSCULAR HGB CONC 34.1 % (32.0-36.0); MONO % 10.9 % (0.0-8.0); MONOCYTE # 0.7 TH/MM3 (0-0.9); PLATELET COUNT 243 TH/MM3 (150-450); RED BLOOD COUNT 4.38 MIL/MM3 (4.50-5.90); RED CELL DISTRIBUTION WIDTH 14.2 % (11.6-17.2); WHITE BLOOD COUNT 6.2 TH/MM3 (4.0-11.0)
[2017-12-17 01:24] LABS: BICARBONATE 25.7 MEQ/L (21.0-32.0); CALCIUM 8.5 MG/DL (8.5-10.1); CREATININE 1.05 MG/DL (0.60-1.30); MAGNESIUM 2.2 MG/DL (1.5-2.5)
[2017-12-17 01:41] VITALS: BP 161/97; PULSE 55; RESP 20; O2SAT 96
--- NOTE | 2017-12-17 01:44 | PD ---
Physical Exam Time Seen by Provider: 01:43 Data Data Last Documented VS Vital Signs Date Time Temp Pulse Resp B/P (MAP) Pulse Ox O2 Delivery O2 Flow Rate FiO2 12/17/17 01:41 55 20 161/97 (118) 96 Room Air 12/17/17 00:00 98.1 Orders Orders Complete Blood Count With Diff (12/17/17 00:05) Basic Metabolic Panel (Bmp) (12/17/17 00:05) Electrocardiogram (12/17/17 ) Valproic Acid (Depakene) (12/17/17 00:05) Urinalysis - C+S If Indicated (12/17/17 00:05) Litigation Secretary / Telemetry VALENTINO.Q8H (12/17/17 00:05) Clonidine (Catapres) (12/17/17 00:30) Magnesium (Mg) (12/17/17 00:05) Ed Discharge Order (12/17/17 01:43) Labs Laboratory Tests Test 12/17/17 00:50 12/17/17 01:10 White Blood Count 6.2 TH/MM3 Red Blood Count 4.38 MIL/MM3 Hemoglobin 13.8 GM/DL Hematocrit 40.5 % Mean Corpuscular Volume 92.5 FL Mean Corpuscular Hemoglobin 31.6 PG Mean Corpuscular Hemoglobin Concent 34.1 % Red Cell Distribution Width 14.2 % Platelet Count 243 TH/MM3 Mean Platelet Volume 8.0 FL Neutrophils (%) (Auto) 58.0 % Lymphocytes (%) (Auto) 26.3 % Monocytes (%) (Auto) 10.9 % Eosinophils (%) (Auto) 3.8 % Basophils (%) (Auto) 1.0 % Neutrophils # (Auto) 3.6 TH/MM3 Lymphocytes # (Auto) 1.6 TH/MM3 Monocytes # (Auto) 0.7 TH/MM3 Eosinophils # (Auto) 0.2 TH/MM3 Basophils # (Auto) 0.1 TH/MM3 CBC Comment DIFF FINAL Differential Comment Blood Urea Nitrogen 12 MG/DL Creatinine 1.05 MG/DL Random Glucose 85 MG/DL Calcium Level 8.5 MG/DL Magnesium Level 2.2 MG/DL Sodium Level 138 MEQ/L Potassium Level 3.7 MEQ/L Chloride Level 105 MEQ/L Carbon Dioxide Level 25.7 MEQ/L Anion Gap 7 MEQ/L Estimat Glomerular Filtration Rate 72 ML/MIN Valproic Acid (Depakene) Level 5 MCG/ML Urine Color COLORLESS Urine Turbidity CLEAR Urine pH 5.[address] [place] 1.001 Urine Protein NEG mg/dL Urine Glucose (UA) NEG mg/dL Urine Ketones NEG mg/dL Urine Occult Blood NEG Urine Nitrite NEG Urine Bilirubin NEG Urine Urobilinogen LESS THAN 2.0 MG/DL Urine Leukocyte Esterase NEG Urine WBC LESS THAN 1 /hpf Urine Squamous Epithelial Cells <1 /hpf Microscopic Urinalysis Comment CULT NOT INDICATED MDM Medical Record Reviewed: Yes Supervised Visit with DIANE: No Diagnosis Primary Impression: Hypertension Qualified Codes: I10 - Essential (primary) hypertension Referrals: Primary Care Physician Patient Instructions: Chronic Hypertension (ED), General Instructions Additional Instruction: Follow-up with a primary care provider Take your medication as prescribed Return immediately with any acute worsening symptoms Disposition: 01 DISCHARGE HOME Condition: Stable SullivanHerve lewisfrank GUY Dec 17, 2017 01:44
[2017-12-17 06:02] VITALS: BP 151/86; PULSE 60; RESP 20; O2SAT 98
[2017-12-17 08:33] VITALS: BP 157/89; TEMP 98.9
== END 2017-12-17 08:10 | disposition home or self-care (01) ==
LOC: NEPD 23:50
DX: I10 Essential (primary) hypertension (principal); J44.9 Chronic obstructive pulmonary disease, unspecified; F17.210 Nicotine dependence, cigarettes, uncomplicated; Z86.73 Personal history of transient ischemic attack (TIA), and cerebral infarction without residual deficits; Z85.038 Personal history of other malignant neoplasm of large intestine; Z88.1 Allergy status to other antibiotic agents; Z88.0 Allergy status to penicillin; Z88.5 Allergy status to narcotic agent; Z88.8 Allergy status to other drugs, medicaments and biological substances; Z79.899 Other long term (current) drug therapy
CPT/HCPCS: 80048; 80164; 81001; 83735; 85025; 99284

== ENCOUNTER 2017-12-20 15:05 | Observation (INO) | payer OTHER ==
[2017-12-20] VITALS (12 sets, daily range): BP systolic 166–185; BP diastolic 76–112; PULSE 64–77; RESP 16–18; TEMP 98.2; O2SAT 93–99
[2017-12-20] MEDS ORDERED: cloNIDine HCL 0.1 MG TAB PO ONE (16:00)
[2017-12-20] MEDS ORDERED: RESP: ALBUTEROL 2.5 MG/IPRATROPIUM 0.5 MG NEB (SCH) INH ONE ×2 (16:00→21:00)
[2017-12-20] MEDS ORDERED: ASPIRIN 325 MG TAB PO ONE (16:00)
[2017-12-20] MEDS ORDERED: NITROGLYCERIN 0.4 MG SL 25 TABS/BTL SL ONE (16:15)
--- NOTE | 2017-12-20 16:39 | PD ---
HPI Chief Complaint: Hypertension Time Seen by Provider: 15:47 Travel History International Travel<30 days: No Contact w/Intl Traveler<30days: No Traveled to known affect area: No History of Present Illness HPI 62-year-old male that presents to the ED for evaluation of high blood pressure and chest pressure. Patient reports that his blood pressure has been elevated and his been having chest pressure for the past 2 hours before coming. Patient called the ambulance and was brought here for evaluation. Per patient he is compliant with his medications but his blood pressure continues to creep up. He has a history of high blood pressure as well as COPD. He also has a history of seizures. He denies any alcohol. He does state that he smokes. He has been using inhalers recently. He has been having cough and congestion for the past week. He has multiple allergies to different medications. Of note patient has been here 3 times for high blood pressure in the past and was admitted actually during of this month secondary to encephalopathy secondary to probable hypertensive urgency. Per patient his chest discomfort feels like a pressure and the pain is 4 out of 10. He denies any urinary or bowel movement issues. Has not taken anything for this. Denies any recent travel. No history of heart disease. Denies having a stress test recently. PFSH Past Medical History Hx Anticoagulant Therapy: No Arthritis: Yes (GENERALIZED) Asthma: No Autoimmune Disease: No Blood Disorders: No Anxiety: No Depression: No Heart Rhythm Problems: Yes Cancer: Yes (colon cancer) Cardiac Catheterization: No Cardiovascular Problems: Yes High Cholesterol: No Chemotherapy: Yes Chest Pain: Yes Congestive Heart Failure: No COPD: Yes Cerebrovascular Accident: Yes (CVA ) Diabetes: No Diminished Hearing: No Endocrine: No Gastrointestinal Disorders: Yes GERD: No Glaucoma: No Genitourinary: No Headaches: Yes Hepatitis: No Hiatal Hernia: No Heparin Induced Thrombocytopen: No Hypertension: Yes Immune Disorder: No Implanted Vascular Access Dvce: No Kidney Stones: No Musculoskeletal: No Neurologic: Yes Psychiatric: No Reproductive: No Respiratory: Yes Immunizations Current: Yes Migraines: No Myocardial Infarction: No Pancreatitis: Yes Radiation Therapy: Yes Renal Failure: No Seizures: Yes Sickle Cell Disease: No Sleep Apnea: No Thyroid Disease: No Ulcer: No PNEUMOCCOCAL Vaccine (Year): 1 ?: Not Past Surgical History Abdominal Surgery: Yes (deepti cancer) AICD: No Appendectomy: Yes Arteriovenous Shunt: No Cardiac Surgery: No Cholecystectomy: No Coronary Artery Bypass Graft: No Ear Surgery: No Endocrine Surgery: No Eye Surgery: Yes (BILAT MUSCLES CUT) Genitourinary Surgery: No Gynecologic Surgery: No Insulin Pump: No Joint Replacement: No Neurologic Surgery: No Oral Surgery: No Pacemaker: No Thoracic Surgery: No Tonsillectomy: Yes Other Surgery: Yes (colon cancer.tonsilts, eyes,) Family History Family Myocardial Infarction: Yes (FATHER) Social History Alcohol Use: Yes (OCCASIONALLY) Tobacco Use: Yes (1/2 PPD) Substance Use: Yes (marijuana) Allergies-Medications (Allergen,Severity, Reaction): Coded Allergies: amlodipine (Verified Allergy, Severe, Swelling, 12/20/17) UNALBE TO CONFIRM PT IS INTUBATED amoxicillin (Verified Allergy, Severe, "LIPS SWELL", 12/20/17) PT IS INTUBATED UNABLE TO CONFIRM clavulanic acid (Verified Allergy, Severe, "LIPS SWELL", 12/20/17) PT IS INTUBATED UNABLE TO CONFIRM diatrizoate meglumine (Verified Allergy, Severe, Anaphylaxis; 06/04/09: PT TOLERATES ORAL CONTRAST W/O AE, 12/20/17) PT INTUBATED UNABLE TO CONFIRM 06/04/09: PER RN, PT TOLERATES ORAL CONTRAST MEDIA WITHOUT ADVERSE EFFECTS; HE HAS HAD ORAL CONTRAST PREVIOUSLY. diazepam (Verified Allergy, Severe, RESPIRATORY DISTRESS, 12/20/17) UNALBE TO CONFIRM PT IS INTUBATED enalaprilat (Verified Allergy, Severe, 12/20/17) UNALBE TO CONFIRM PT IS INTUBATED erythromycin base (Verified Allergy, Severe, RASH, 12/20/17) gadobenic acid (Verified Allergy, Severe, Anaphylaxis; 06/04/09: PT TOLERATES ORAL CONTRAST W/O AE, 12/20/17) PT INTUBATED UNABLE TO CONFIRM 06/04/09: PER RN, PT TOLERATES ORAL CONTRAST MEDIA WITHOUT ADVERSE EFFECTS; HE HAS HAD ORAL CONTRAST PREVIOUSLY. gadodiamide (Verified Allergy, Severe, Anaphylaxis; 06/04/09: PT TOLERATES ORAL CONTRAST W/O AE, 12/20/17) PT INTUBATED UNABLE TO CONFIRM 06/04/09: PER RN, PT TOLERATES ORAL CONTRAST MEDIA WITHOUT ADVERSE EFFECTS; HE HAS HAD ORAL CONTRAST PREVIOUSLY. gadoteridol (Verified Allergy, Severe, Anaphylaxis; 06/04/09: PT TOLERATES ORAL CONTRAST W/O AE, 12/20/17) PT INTUBATED UNABLE TO CONFIRM 06/04/09: PER RN, PT TOLERATES ORAL CONTRAST MEDIA WITHOUT ADVERSE EFFECTS; HE HAS HAD ORAL CONTRAST PREVIOUSLY. haloperidol (Verified Allergy, Severe, "TIGHT JAW", 12/20/17) UNABLE TO CONFIRM PT IS INTUBATED iodixanol (Verified Allergy, Severe, Anaphylaxis; 06/04/09: PT TOLERATES ORAL CONTRAST W/O AE, 12/20/17) PT INTUBATED UNABLE TO CONFIRM 06/04/09: PER RN, PT TOLERATES ORAL CONTRAST MEDIA WITHOUT ADVERSE EFFECTS; HE HAS HAD ORAL CONTRAST PREVIOUSLY. iohexol (Verified Allergy, Severe, PT NEEDS PREMED/DOESN'T KNOW REACTION, 12/20/17) UNABLE TO CONFIRM PT IS INTUBATED 06/04/09: PER RN, PT TOLERATES ORAL CONTRAST MEDIA WITHOUT ADVERSE EFFECTS; HE HAS HAD ORAL CONTRAST PREVIOUSLY. morphine (Verified Allergy, Mild, Itching, 12/20/17) UNABLE TO CONFIRM PT IS INTUBATED benazepril (Verified Allergy, Unknown, UNKNOWN REACTION, 12/20/17) UNABLE TO CONFIRM PT IS INTUBATED captopril (Verified Allergy, Unknown, UNKNOWN REACTION, 12/20/17) UNABLE TO CONFIRM PT IS INTUBATED fosinopril (Verified Allergy, Unknown, UNKNOWN REACTION, 12/20/17) UNABLE TO CONFIRM PT IS INTUBATED lisinopril (Verified Allergy, Unknown, UNKNOWN REACTION, 12/20/17) UNABLE TO CONFIRM PT IS INTUBATED quinapril (Verified Allergy, Unknown, UNKNOWN REACTION, 12/20/17) UNABLE TO CONFIRM PT IS INTUBATED prochlorperazine (Verified Adverse Reaction, Severe, "LOCKJAW", 12/20/17) UNABLE TO CONFIRM PT IS INTUBATED Uncoded Allergies: DYE (Allergy, Severe, CARDIAC ARREST, 04/11/17) UNABLE TO CONFIRM PT IS INTUBATED Reported Meds & Prescriptions Reported Meds & Active Scripts Active Hydrochlorothiazide 12.5 Mg Cap 12.5 Mg PO QD Labetalol (Labetalol HCl) 100 Mg Tab 100 Mg PO BID 14 Days Potassium Chloride ER (Potassium Chloride) 20 Meq Tab 20 Meq PO DAILY Ventolin Hfa 18 GM Inh (Albuterol Sulfate) 90 Mcg/Act Aer 2 Puff INH Q4-6H PRN Reported Depakote DR (Divalproex Sodium) 500 Mg Tabdr 500 Mg PO BID Keppra (Levetiracetam) 500 Mg Tab 500 Mg PO BID Review of Systems Except as stated in HPI: all other systems reviewed are Neg Physical Exam Narrative GENERAL: SKIN: Warm and dry. HEAD: Atraumatic. Normocephalic. EYES: Pupils equal and round. No scleral icterus. No injection or drainage. ENT: No nasal bleeding or discharge. Mucous membranes pink and moist. Tongue is midline. No uvula deviation. NECK: Trachea midline. No JVD. CARDIOVASCULAR: Regular rate and rhythm. No murmurs, S3, S4. RESPIRATORY: No accessory muscle use. Mild wheezing heard. Breath sounds equal bilaterally. GASTROINTESTINAL: Abdomen soft, non-tender, nondistended. Hepatic and splenic margins not palpable. MUSCULOSKELETAL: Extremities without clubbing, cyanosis, or edema. No obvious deformities. Full range of motion of the upper and lower extremities bilaterally. 2+ pulses bilaterally. NEUROLOGICAL: Awake and alert. No obvious cranial nerve deficits. Motor grossly within normal limits. Five out of 5 muscle strength in the arms and legs. Normal speech. PSYCHIATRIC: Appropriate mood and affect; insight and judgment normal. Data Data Last Documented VS Vital Signs Date Time Temp Pulse Resp B/P (MAP) Pulse Ox O2 Delivery O2 Flow Rate FiO2 12/20/17 16:24 93 21 12/20/17 15:15 74 12/20/17 15:13 18 174/89 (117) Orders Orders Electrocardiogram (12/20/17 15:51) Ckmb (Isoenzyme) Profile (12/20/17 15:51) Complete Blood Count With Diff (12/20/17 15:51) Comprehensive Metabolic Panel (12/20/17 15:51) D-Dimer (12/20/17 15:51) Prothrombin Time / Inr (Pt) (12/20/17 15:51) Act Partial Throm Time (Ptt) (12/20/17 15:51) Troponin I (12/20/17 15:51) Lipase (12/20/17 15:51) Chest, Single Ap (12/20/17 15:51) Ecg Monitoring (12/20/17 15:51) Bilateral Bp Monitoring (12/20/17 15:51) Iv Access Insert/Monitor (12/20/17 15:51) Oximetry (12/20/17 15:51) Aspirin (Aspirin) (12/20/17 16:00) Albuterol-Ipratropium Neb (Duoneb Neb) (12/20/17 16:00) Clonidine (Catapres) (12/20/17 16:00) Nitroglycerin Sl (Nitrostat Sl) (12/20/17 16:15) MDM Medical Decision Making Medical Screen Exam Complete: Yes Emergency Medical Condition: Yes Medical Record Reviewed: Yes Differential Diagnosis Hypertension versus hypertensive urgency versus chest pain versus ACS versus COPD versus pneumonia Narrative Course 62-year-old male that presents to the ED for evaluation of high blood pressure and chest pain. Patient was properly examined and was found to have signs and symptoms of unclear etiology at this time. Labs and imaging order. Patient was given aspirin as well as nitroglycerin and DuoNeb. Labs and imaging showed Aubrey Angulo Dec 20, 2017 16:39
[2017-12-20 16:51] LABS: AUTOMATED NEUTROPHIL # 4.7 TH/MM3 (1.8-7.7); BASOPHIL # 0.1 TH/MM3 (0-0.2); BASOPHIL % 1.1 % (0.0-2.0); EOSINOPHIL # 0.1 TH/MM3 (0-0.4); EOSINOPHIL % 1.1 % (0.0-4.0); HEMATOCRIT 37.1 % (39.0-51.0); HEMOGLOBIN 12.8 GM/DL (13.0-17.0); LYMPH % 8.6 % (9.0-44.0); LYMPHOCYTE # 0.5 TH/MM3 (1.0-4.8); MEAN CELL VOLUME 92.7 FL (80.0-100.0); MEAN CORPUSCULAR HEMOGLOBIN 31.9 PG (27.0-34.0); MEAN CORPUSCULAR HGB CONC 34.4 % (32.0-36.0); MEAN PLATELET VOLUME 7.5 FL (7.0-11.0); MONO % 10.7 % (0.0-8.0); MONOCYTE # 0.6 TH/MM3 (0-0.9); NEUT % 78.5 % (16.0-70.0); PLATELET COUNT 238 TH/MM3 (150-450); RED CELL DISTRIBUTION WIDTH 14.2 % (11.6-17.2)
[2017-12-20 17:08] LABS: D-DIMER 0.74 MG/L FEU (0.00-0.50)
--- NOTE | 2017-12-20 17:11 | RADRPT ---
EXAM DATE/TIME: 12/20/2017 16:12 [facility] COMPARISON: CHEST SINGLE AP, December 08, 2017, 2:04. INDICATIONS : Chest pain. MEDICAL HISTORY : Hypertension. Chronic obstructive pulmonary disease. Irregular heart beat. SURGICAL HISTORY : None. ENCOUNTER: Initial ACUITY: 1 day PAIN SCORE: 5/10 LOCATION: Bilateral chest FINDINGS: A single view of the chest demonstrates the lungs to be symmetrically aerated without evidence of mas s, infiltrate or effusion. The cardiomediastinal contours are unremarkable. Osseous structures are intact. Multiple air shadows project in the left upper abdominal quadrant, one just subjacent to the left hem idiaphragm. This area is incompletely evaluated on the radiograph of the chest. CONCLUSION: 1. No acute cardiopulmonary process. Lungs are clear. 2. Air densities in the left upper abdominal quadrant could represent adjacent air filled hollow visc us like the stomach and adjacent bowel. If the patient does not complain of abdominal discomfort, no further imaging is probably necessary. Otherwise, dedicated views of the abdomen could be performed f or further characterization Gm Brunson MD on December 20, 2017 at 17:04 Board Certified Radiologist. This report was verified electronically.
[2017-12-20 17:19] LABS: ALBUMIN 3.4 GM/DL (3.4-5.0); ALT (GPT) 20 U/L (12-78); AST (GOT) 18 U/L (15-37); BICARBONATE 27.8 MEQ/L (21.0-32.0); BLOOD UREA NITROGEN 13 MG/DL (7-18); CALCIUM 8.2 MG/DL (8.5-10.1); CHLORIDE 105 MEQ/L (98-107); CREATININE 1.26 MG/DL (0.60-1.30); GLOMERULAR FILTRATION RATE 58 ML/MIN (>89); GLUCOSE,RANDOM 78 MG/DL (74-106); SODIUM (NA) 142 MEQ/L (136-145)
[2017-12-20 17:24] LABS: ALKALINE PHOSPHATASE 88 U/L (45-117); TOTAL BILIRUBIN ADULT 0.4 MG/DL (0.2-1.0); TOTAL PROTEIN 7.1 GM/DL (6.4-8.2); TROPONIN I LESS THAN 0.02 NG/ML (0.02-0.05)
--- NOTE | 2017-12-20 19:34 | PD ---
Physical Exam Date Seen by Provider: Dec 20, 2017 Time Seen by Provider: 17:30 Narrative I, Dr. Lopez, have reviewed the advance practice practitioner's documentation and am in agreement, met with the patient face to face, made the diagnosis, and the medical decision making was done by me. *My assessment and Findings: EKG did not show any signs of acute dysrhythmias or ST changes. Patient is here because he is having elevated blood pressures and chest discomfort. Cardiac and pulmonary exam was unremarkable. Abdomen is fairly benign and not suspecting acute intra-abdominal process. Laboratory Tests Test 12/20/17 16:18 Red Blood Count 4.00 MIL/MM3 (4.50-5.90) Hemoglobin 12.8 GM/DL (13.0-17.0) Hematocrit 37.1 % (39.0-51.0) Neutrophils (%) (Auto) 78.5 % (16.0-70.0) Lymphocytes (%) (Auto) 8.6 % (9.0-44.0) Monocytes (%) (Auto) 10.7 % (0.0-8.0) Lymphocytes # (Auto) 0.5 TH/MM3 (1.0-4.8) D-Dimer Quantitative (PE/DVT) 0.74 MG/L FEU (0.00-0.50) Calcium Level 8.2 MG/DL (8.5-10.1) Estimat Glomerular Filtration Rate 58 ML/MIN (>89) Troponin I LESS THAN 0.02 NG/ML Last 24 hours Impressions Chest X-Ray 12/20/17 1551 Signed Impressions: Service Date/Time: Wednesday, December 20, 2017 16:12 - CONCLUSION: 1. No acute cardiopulmonary process. Lungs are clear. 2. Air densities in the left upper abdominal quadrant could represent adjacent air filled hollow viscus like the stomach and adjacent bowel. If the patient does not complain of abdominal discomfort, no further imaging is probably necessary. Otherwise, dedicated views of the abdomen could be performed for further characterization Gm Brunson MD Initial chest x-ray is concerning for possible free air. CT of the abdomen was ordered for further evaluation. In addition, his d-dimer is elevated and VQ scan was ordered because the patient is allergic to contrast. If both negative , planning to admit patient for chest pain center for further evaluation of atypical chest pain. Data Data Last Documented VS Vital Signs Date Time Temp Pulse Resp B/P (MAP) Pulse Ox O2 Delivery O2 Flow Rate FiO2 12/20/17 17:02 74 18 166/88 (114) 96 Room Air 12/20/17 16:24 21 Orders Orders Electrocardiogram (12/20/17 15:51) Ckmb (Isoenzyme) Profile (12/20/17 15:51) Complete Blood Count With Diff (12/20/17 15:51) Comprehensive Metabolic Panel (12/20/17 15:51) D-Dimer (12/20/17 15:51) Prothrombin Time / Inr (Pt) (12/20/17 15:51) Act Partial Throm Time (Ptt) (12/20/17 15:51) Troponin I (12/20/17 15:51) Lipase (12/20/17 15:51) Chest, Single Ap (12/20/17 15:51) Ecg Monitoring (12/20/17 15:51) Bilateral Bp Monitoring (12/20/17 15:51) Iv Access Insert/Monitor (12/20/17 15:51) Oximetry (12/20/17 15:51) Aspirin (Aspirin) (12/20/17 16:00) Albuterol-Ipratropium Neb (Duoneb Neb) (12/20/17 16:00) Clonidine (Catapres) (12/20/17 16:00) Nitroglycerin Sl (Nitrostat Sl) (12/20/17 16:15) Ct Abd/Pel W/O Iv Contrast (12/20/17 ) Ventilation & Perfusion Scan (12/20/17 ) CKMB (12/20/17 16:18) CKMB% (12/20/17 16:18) Labs Laboratory Tests Test 12/20/17 16:18 White Blood Count 6.0 TH/MM3 Red Blood Count 4.00 MIL/MM3 Hemoglobin 12.8 GM/DL Hematocrit 37.1 % Mean Corpuscular Volume 92.7 FL Mean Corpuscular Hemoglobin 31.9 PG Mean Corpuscular Hemoglobin Concent 34.4 % Red Cell Distribution Width 14.2 % Platelet Count 238 TH/MM3 Mean Platelet Volume 7.5 FL Neutrophils (%) (Auto) 78.5 % Lymphocytes (%) (Auto) 8.6 % Monocytes (%) (Auto) 10.7 % Eosinophils (%) (Auto) 1.1 % Basophils (%) (Auto) 1.1 % Neutrophils # (Auto) 4.7 TH/MM3 Lymphocytes # (Auto) 0.5 TH/MM3 Monocytes # (Auto) 0.6 TH/MM3 Eosinophils # (Auto) 0.1 TH/MM3 Basophils # (Auto) 0.1 TH/MM3 CBC Comment DIFF FINAL Differential Comment Prothrombin Time 10.0 SEC Prothromb Time International Ratio 1.0 RATIO Activated Partial Thromboplast Time 25.9 SEC D-Dimer Quantitative (PE/DVT) 0.74 MG/L FEU Blood Urea Nitrogen 13 MG/DL Creatinine 1.26 MG/DL Random Glucose 78 MG/DL Total Protein 7.1 GM/DL Albumin 3.4 GM/DL Calcium Level 8.2 MG/DL Alkaline Phosphatase 88 U/L Aspartate Amino Transf (AST/SGOT) 18 U/L Alanine Aminotransferase (ALT/SGPT) 20 U/L Total Bilirubin 0.4 MG/DL Sodium Level 142 MEQ/L Potassium Level 3.5 MEQ/L Chloride Level 105 MEQ/L Carbon Dioxide Level 27.8 MEQ/L Anion Gap 9 MEQ/L Estimat Glomerular Filtration Rate 58 ML/MIN Total Creatine Kinase 127 U/L Creatine Kinase MB 1.2 NG/ML Troponin I LESS THAN 0.02 NG/ML Lipase 221 U/L [facility] Medical Record Reviewed: Yes Supervised Visit with DIANE: Yes Diagnosis Primary Impression: Atypical chest pain Admitting Information Admitting Physician Requests: Admit Manuel Lopez MD Dec 20, 2017 19:34
--- NOTE | 2017-12-20 19:46 | RADRPT ---
EXAM DATE/TIME: 12/20/2017 18:56 [facility] COMPARISON: No previous studies available for comparison. INDICATIONS : Chest pressure. DOSE: 8.1 mCi Tc99m MAA IV 1.5 mCi Tc99m DTPA aerosol MEDICAL HISTORY : Hypertension. Seizures. Carcinoma, colon. COPD. SURGICAL HISTORY : None. ENCOUNTER: Initial ACUITY: 1 day PAIN SCALE: 5/10 LOCATION: Bilateral chest TECHNIQUE: Following five minutes of tidal breathing of DTPA aerosol, planar images of the lungs were performed in eight projections. The patient was then injected with MAA, and eight-view perfusion scan was perf ormed. FINDINGS: There is a homogeneous pattern of aerosol delivery to the periphery of both lungs. No focal ventilat ory defects are seen. The perfusion lung scan demonstrates a homogenous pattern of uptake in both lungs. No segmental or s ubsegmental defects are seen. CONCLUSION: Low probability study for pulmonary embolus. Arden Nicholas MD on December 20, 2017 at 19:44 Board Certified Radiologist. This report was verified electronically.
--- NOTE | 2017-12-20 20:20 | RADRPT ---
EXAM DATE/TIME: 12/20/2017 17:37 [facility] COMPARISON: CT ABDOMEN & PELVIS W/O CONTRAST, December 02, 2015, 18:40. CT ABDOMEN & PELVIS W/O CONTRAST, January 16, 016, 21:32. INDICATIONS : Abdomen pain. ORAL CONTRAST: No oral contrast ingested. RADIATION DOSE: 5.66 CTDIvol (mGy) ; Patient motion MEDICAL HISTORY : Stroke. Cardiovascular disease Pancreatitis.Carcinoma; colon. SURGICAL HISTORY : Appendectomy. ENCOUNTER: Initial ACUITY: 1 day PAIN SCALE: 5/10 LOCATION: abdomen TECHNIQUE: Volumetric scanning of the abdomen and pelvis was performed. Using automated exposure control and ad justment of the mA and/or kV according to patient size, radiation dose was kept as low as reasonably achievable to obtain optimal diagnostic quality images. DICOM format image data is available electro nically for review and comparison. FINDINGS: Scattered small hepatic cysts are again noted. CT appearance of the gallbladder within normal limits. Noncontrast appearance of the pancreas, spleen, adrenal glands and kidneys within normal limits. Moderate to large stool in the rectum. There is generalized colonic distention and similar findings h ave been seen on prior studies. There is a left lower quadrant anastomosis that appears patent. No free fluid or lymphadenopathy. Visualized lung bases are clear. Scoliosis and degenerative changes again seen of the spine. CONCLUSION: 1. Chronic colonic ileus/non-mechanical obstruction or. Similar findings have been seen on prior CTs. 2. No obstruction, inflammation or other acute abnormalities are seen. Arden Nicholas MD on December 20, 2017 at 20:13 Board Certified Radiologist. This report was verified electronically.
[2017-12-20] MEDS ORDERED: ONDANSETRON HCL 4 MG/2 ML VIAL IV PUSH PRN (21:00)
[2017-12-20] MEDS ORDERED: SODIUM CHLORIDE 0.9% FLUSH 10 ML FLUSH IV FLUSH PRN (21:00)
[2017-12-20] MEDS ORDERED: ACETAMINOPHEN 500 MG CPLT PO PRN (21:00)
--- NOTE | 2017-12-20 21:11 | PD ---
Physical Exam Date Seen by Provider: Dec 20, 2017 Time Seen by Provider: 21:08 Narrative 62-year-old male presents to the ED for evaluation of chest pain and high blood pressure. Please refer to my previous note. My attending unfortunately sent my note before I could finish the note. This is a continuation of my previous note. Data Data Last Documented VS Vital Signs Date Time Temp Pulse Resp B/P (MAP) Pulse Ox O2 Delivery O2 Flow Rate FiO2 12/20/17 17:02 74 18 166/88 (114) 96 Room Air 12/20/17 16:24 21 Orders Orders Electrocardiogram (12/20/17 15:51) Ckmb (Isoenzyme) Profile (12/20/17 15:51) Complete Blood Count With Diff (12/20/17 15:51) Comprehensive Metabolic Panel (12/20/17 15:51) D-Dimer (12/20/17 15:51) Prothrombin Time / Inr (Pt) (12/20/17 15:51) Act Partial Throm Time (Ptt) (12/20/17 15:51) Troponin I (12/20/17 15:51) Lipase (12/20/17 15:51) Chest, Single Ap (12/20/17 15:51) Ecg Monitoring (12/20/17 15:51) Bilateral Bp Monitoring (12/20/17 15:51) Iv Access Insert/Monitor (12/20/17 15:51) Oximetry (12/20/17 15:51) Aspirin (Aspirin) (12/20/17 16:00) Albuterol-Ipratropium Neb (Duoneb Neb) (12/20/17 16:00) Clonidine (Catapres) (12/20/17 16:00) Nitroglycerin Sl (Nitrostat Sl) (12/20/17 16:15) Ct Abd/Pel W/O Iv Contrast (12/20/17 ) Ventilation & Perfusion Scan (12/20/17 ) CKMB (12/20/17 16:18) CKMB% (12/20/17 16:18) Admit Order (Ed Use Only) (12/20/17 20:57) Albuterol-Ipratropium Neb (Duoneb Neb) (12/20/17 21:00) Labs Laboratory Tests Test 12/20/17 16:18 White Blood Count 6.0 TH/MM3 Red Blood Count 4.00 MIL/MM3 Hemoglobin 12.8 GM/DL Hematocrit 37.1 % Mean Corpuscular Volume 92.7 FL Mean Corpuscular Hemoglobin 31.9 PG Mean Corpuscular Hemoglobin Concent 34.4 % Red Cell Distribution Width 14.2 % Platelet Count 238 TH/MM3 Mean Platelet Volume 7.5 FL Neutrophils (%) (Auto) 78.5 % Lymphocytes (%) (Auto) 8.6 % Monocytes (%) (Auto) 10.7 % Eosinophils (%) (Auto) 1.1 % Basophils (%) (Auto) 1.1 % Neutrophils # (Auto) 4.7 TH/MM3 Lymphocytes # (Auto) 0.5 TH/MM3 Monocytes # (Auto) 0.6 TH/MM3 Eosinophils # (Auto) 0.1 TH/MM3 Basophils # (Auto) 0.1 TH/MM3 CBC Comment DIFF FINAL Differential Comment Prothrombin Time 10.0 SEC Prothromb Time International Ratio 1.0 RATIO Activated Partial Thromboplast Time 25.9 SEC D-Dimer Quantitative (PE/DVT) 0.74 MG/L FEU Blood Urea Nitrogen 13 MG/DL Creatinine 1.26 MG/DL Random Glucose 78 MG/DL Total Protein 7.1 GM/DL Albumin 3.4 GM/DL Calcium Level 8.2 MG/DL Alkaline Phosphatase 88 U/L Aspartate Amino Transf (AST/SGOT) 18 U/L Alanine Aminotransferase (ALT/SGPT) 20 U/L Total Bilirubin 0.4 MG/DL Sodium Level 142 MEQ/L Potassium Level 3.5 MEQ/L Chloride Level 105 MEQ/L Carbon Dioxide Level 27.8 MEQ/L Anion Gap 9 MEQ/L Estimat Glomerular Filtration Rate 58 ML/MIN Total Creatine Kinase 127 U/L Creatine Kinase MB 1.2 NG/ML Troponin I LESS THAN 0.02 NG/ML Lipase 221 U/L [facility] Medical Record Reviewed: Yes Supervised Visit with DIANE: No Interpretation(s) EKG shows sinus rhythm with no sign of acute ischemia or arrhythmia read by me and attending. Troponin and CK-MB negative. D-dimer slightly elevated Coags within normal limits otherwise. Last Impressions Chest X-Ray 12/20/17 1551 Signed Impressions: Service Date/Time: Wednesday, December 20, 2017 16:12 - CONCLUSION: 1. No acute cardiopulmonary process. Lungs are clear. 2. Air densities in the left upper abdominal quadrant could represent adjacent air filled hollow viscus like the stomach and adjacent bowel. If the patient does not complain of abdominal discomfort, no further imaging is probably necessary. Otherwise, dedicated views of the abdomen could be performed for further characterization Gm Brunson MD Lung Scan-[facility] 12/20/17 0000 Signed Impressions: Service Date/Time: Wednesday, December 20, 2017 18:56 - CONCLUSION: Low probability study for pulmonary embolus. Arden Nicholas MD Abdomen/Pelvis CT 12/20/17 0000 Signed Impressions: Service Date/Time: Wednesday, December 20, 2017 17:37 - CONCLUSION: 1. Chronic colonic ileus/non-mechanical obstruction or. Similar findings have been seen on prior CTs. 2. No obstruction, inflammation or other acute abnormalities are seen. Arden Nicholas MD Differential Diagnosis Chest pain versus atypical chest pain versus ACS versus PE versus COPD Narrative Course 62-year-old male that presents to the ED for evaluation of chest pain and hypertension. Patient was properly examined and was found to have signs and symptoms of unclear etiology. This is a continuation of my previous note. Labs and imaging were essentially unremarkable. My attending Dr. Alcala evaluate the patient herself and recommends admission to the chest pain center if everything is negative. Labs and imaging here were essentially unremarkable. Patient will be admitted to chest pain center for chest pain center rule out. Patient does have abnormality on his abdomen which appears to be chronic from the previous CAT scan findings. Patient has no abdominal pain at this time. Diagnosis Primary Impression: Chest pain Qualified Codes: R07.9 - Chest pain, unspecified Admitting Information Admitting Physician Requests: Aubrey Diego Dec 20, 2017 21:11
[2017-12-20] MEDS: SODIUM CHLORIDE 0.9% FLUSH 10 ML FLUSH IV FLUSH SCH (21:47)
[2017-12-21] MEDS ORDERED: LABETALOL HCL 100 MG TAB PO SCH (00:15)
[2017-12-21 00:59] VITALS: BP 178/98; PULSE 84; RESP 16; TEMP 98.8; O2SAT 96
[2017-12-21 04:00] VITALS: PULSE 65
[2017-12-21 04:04] LABS: TROPONIN I LESS THAN 0.02 NG/ML (0.02-0.05)
[2017-12-21 04:23] VITALS: BP 175/96; PULSE 64; RESP 16; TEMP 97.9; O2SAT 94
[2017-12-21 04:34] VITALS: BP 166/88
[2017-12-21 07:22] VITALS: BP 136/84; PULSE 78; RESP 18; TEMP 97.8; O2SAT 94
[2017-12-21] MEDS ORDERED: RESP: ALBUTEROL 2.5 MG/IPRATROPIUM 0.5 MG NEB (PRN) INH (08:15)
[2017-12-21] MEDS ORDERED: RESP: ALBUTEROL 2.5 MG/IPRATROPIUM 0.5 MG NEB (SCH) INH ONE (08:15)
--- NOTE | 2017-12-21 08:17 | HHI.HP ---
[facility] Primary Care Physician Arden Ma MD Chief Complaint Cough and high blood pressure History of Present Illness This is a 62-year-old male with history of hypertension,, seizure disorder, tobacco abuse, colon cancer 20 years ago status post resection and chemo/ radiation therapy, pancreatitis, CVA, hypertensive encephalopathy December 08, 2017 , and COPD that presents to ED complaining of high blood pressure and a cough. Patient states he has been coughing up a yellowish color mucus. No fevers or chills. States has been a little short of breath but has not really unusual for him. No hemoptysis. No inspirational discomfort. He wheezes but states he has an inhaler for that. Also complains of high blood pressure. He has been here many times for hypertension and as recently as December 08 was admitted with a diagnosis of a hypertensive encephalopathy. I asked him how he knows when his blood pressure was high and he replies "my hands will swell up." The coughing and his hypertension concerned him yesterday. He was admitted to the chest pain center. He denies repetitively after being asked several times any discomfort in his chest. States he never had chest discomfort. He came in for cough and high blood pressure. Denies recent travel. Upon reviewing records, patient has had nonischemic Lexiscan's December 2016, March 2015, August 2014, and March 2013. Review of Systems General: Patient denies fevers, chills, and recent travel. HEENT: Patient denies headache, sore throat, difficulty swallowing. Cardiovascular: Denies chest discomfort as mentioned above. He was asked this several times, completely denies having any chest discomfort. Denies sensation of heart beating rapidly or irregularly. No syncope. Denies diaphoresis. Respiratory: Mild shortness of breath. States this is chronic. He has had a yellowish color productive cough. Occasional wheezing which he states is not unusual for him. States he has an inhaler for that. Denies inspirational chest discomfort. Denies hemoptysis. GI: Patient denies nausea, vomiting, diarrhea, constipation, abdominal pain, bloody stools. Musculoskeletal: Patient denies joint pain or edema. Denies calf pain or edema. Neurovascular: Patient denies numbness, tingling, weakness in extremities. Denies headache. Endocrine: Denies polyuria and polydipsia. Hematologic: Denies easy bruising. Skin: Denies rash or itching. Past Family Social History Allergies: Coded Allergies: amlodipine (Verified Allergy, Severe, Swelling, 12/20/17) UNALBE TO CONFIRM PT IS INTUBATED amoxicillin (Verified Allergy, Severe, "LIPS SWELL", 12/20/17) PT IS INTUBATED UNABLE TO CONFIRM clavulanic acid (Verified Allergy, Severe, "LIPS SWELL", 12/20/17) PT IS INTUBATED UNABLE TO CONFIRM diatrizoate meglumine (Verified Allergy, Severe, Anaphylaxis; 06/04/09: PT TOLERATES ORAL CONTRAST W/O AE, 12/20/17) PT INTUBATED UNABLE TO CONFIRM 06/04/09: PER RN, PT TOLERATES ORAL CONTRAST MEDIA WITHOUT ADVERSE EFFECTS; HE HAS HAD ORAL CONTRAST PREVIOUSLY. diazepam (Verified Allergy, Severe, RESPIRATORY DISTRESS, 12/20/17) UNALBE TO CONFIRM PT IS INTUBATED enalaprilat (Verified Allergy, Severe, 12/20/17) UNALBE TO CONFIRM PT IS INTUBATED erythromycin base (Verified Allergy, Severe, RASH, 12/20/17) gadobenic acid (Verified Allergy, Severe, Anaphylaxis; 06/04/09: PT TOLERATES ORAL CONTRAST W/O AE, 12/20/17) PT INTUBATED UNABLE TO CONFIRM 06/04/09: PER RN, PT TOLERATES ORAL CONTRAST MEDIA WITHOUT ADVERSE EFFECTS; HE HAS HAD ORAL CONTRAST PREVIOUSLY. gadodiamide (Verified Allergy, Severe, Anaphylaxis; 06/04/09: PT TOLERATES ORAL CONTRAST W/O AE, 12/20/17) PT INTUBATED UNABLE TO CONFIRM 06/04/09: PER RN, PT TOLERATES ORAL CONTRAST MEDIA WITHOUT ADVERSE EFFECTS; HE HAS HAD ORAL CONTRAST PREVIOUSLY. gadoteridol (Verified Allergy, Severe, Anaphylaxis; 06/04/09: PT TOLERATES ORAL CONTRAST W/O AE, 12/20/17) PT INTUBATED UNABLE TO CONFIRM 06/04/09: PER RN, PT TOLERATES ORAL CONTRAST MEDIA WITHOUT ADVERSE EFFECTS; HE HAS HAD ORAL CONTRAST PREVIOUSLY. haloperidol (Verified Allergy, Severe, "TIGHT JAW", 12/20/17) UNABLE TO CONFIRM PT IS INTUBATED iodixanol (Verified Allergy, Severe, Anaphylaxis; 06/04/09: PT TOLERATES ORAL CONTRAST W/O AE, 12/20/17) PT INTUBATED UNABLE TO CONFIRM 06/04/09: PER RN, PT TOLERATES ORAL CONTRAST MEDIA WITHOUT ADVERSE EFFECTS; HE HAS HAD ORAL CONTRAST PREVIOUSLY. iohexol (Verified Allergy, Severe, PT NEEDS PREMED/DOESN'T KNOW REACTION, 12/20/17) UNABLE TO CONFIRM PT IS INTUBATED 06/04/09: PER RN, PT TOLERATES ORAL CONTRAST MEDIA WITHOUT ADVERSE EFFECTS; HE HAS HAD ORAL CONTRAST PREVIOUSLY. morphine (Verified Allergy, Mild, Itching, 12/20/17) UNABLE TO CONFIRM PT IS INTUBATED benazepril (Verified Allergy, Unknown, UNKNOWN REACTION, 12/20/17) UNABLE TO CONFIRM PT IS INTUBATED captopril (Verified Allergy, Unknown, UNKNOWN REACTION, 12/20/17) UNABLE TO CONFIRM PT IS INTUBATED fosinopril (Verified Allergy, Unknown, UNKNOWN REACTION, 12/20/17) UNABLE TO CONFIRM PT IS INTUBATED lisinopril (Verified Allergy, Unknown, UNKNOWN REACTION, 12/20/17) UNABLE TO CONFIRM PT IS INTUBATED quinapril (Verified Allergy, Unknown, UNKNOWN REACTION, 12/20/17) UNABLE TO CONFIRM PT IS INTUBATED prochlorperazine (Verified Adverse Reaction, Severe, "LOCKJAW", 12/20/17) UNABLE TO CONFIRM PT IS INTUBATED Uncoded Allergies: DYE (Allergy, Severe, CARDIAC ARREST, 04/11/17) UNABLE TO CONFIRM PT IS INTUBATED Past Medical History Hypertension, recently diagnosed and admitted December 08, 2017 for hypertensive encephalopathy, seizure disorder, colon resection status post colon resection followed by chemotherapy and radiation therapy approximately 20 years ago, pancreatitis, CVA, tobacco abuse. Denies hyperlipidemia, diabetes, and CAD. Past Surgical History Colon resection secondary to colon cancer 20 years ago. Reported Medications Reported Meds & Active Scripts Active Hydrochlorothiazide 12.5 Mg Cap 12.5 Mg PO QD Labetalol (Labetalol HCl) 100 Mg Tab 100 Mg PO BID 14 Days Potassium Chloride ER (Potassium Chloride) 20 Meq Tab 20 Meq PO DAILY Ventolin Hfa 18 GM Inh (Albuterol Sulfate) 90 Mcg/Act Aer 2 Puff INH Q4-6H PRN Reported Depakote DR (Divalproex Sodium) 500 Mg Tabdr 500 Mg PO BID Keppra (Levetiracetam) 500 Mg Tab 500 Mg PO BID Active Ordered Medications Current Medications Medications (Trade) Dose Ordered Sig/Dorothy Route Start Time Stop Time Status Last Admin (NS Flush) 2 ml UNSCH PRN IV FLUSH 12/20/17 21:00 (NS Flush) 2 ml BID IV FLUSH 12/20/17 21:00 12/20/17 21:47 (Tylenol) 500 mg Q4H PRN PO 12/20/17 21:00 (Zofran Inj) 4 mg Q6H PRN IV PUSH 12/20/17 21:00 Family History His father in his 70s of a myocardial infarction. Social History Patient continues to smoke cigarettes. He has been down to about a half pack a day for several months but for the most part he smoked 1 pack of cigarettes daily for 45 years. Rarely has alcohol. Smokes marijuana regularly. He works in a [employer]. Physical Exam Vital Signs Vital Signs Date Time Temp Pulse Resp B/P (MAP) Pulse Ox O2 Delivery O2 Flow Rate FiO2 12/21/17 07:22 97.8 78 18 136/84 (101) 94 12/21/17 06:15 21 12/21/17 04:34 166/88 (114) 12/21/17 04:23 97.9 64 16 175/96 (122) 94 12/21/17 04:00 65 12/21/17 00:59 98.8 84 16 178/98 (124) 96 12/20/17 23:44 182/105 (130) 12/20/17 23:33 185/99 (127) 12/20/17 23:28 98.2 77 18 181/112 (135) 95 12/20/17 21:51 70 18 169/76 (107) 96 Room Air 12/20/17 21:09 98 21 12/20/17 21:04 64 16 173/91 (118) 98 Room Air 12/20/17 20:00 77 12/20/17 17:02 74 18 166/88 (114) 96 Room Air 12/20/17 17:00 18 12/20/17 16:42 99 Room Air 12/20/17 16:24 93 21 12/20/17 15:15 74 12/20/17 15:13 70 18 174/89 (117) 95 Physical Exam GENERAL: This is a well-nourished, well-developed patient, in no apparent distress. Patient speaks in clear complete sentences. Patient is pleasant. HEENT: Head is atraumatic and normocephalic. Neck is supple without lymphadenopathy and trachea is midline. No JVD or carotid bruits. CARDIOVASCULAR: Regular rate and rhythm without murmurs, gallops, or rubs. RESPIRATORY: Somewhat diminished breath sounds bases. Scattered wheezing. Breath sounds equal bilaterally. No rhonchi. Chest wall is nontender. No use of accessory muscles. GASTROINTESTINAL: Abdomen is nontender, nondistended. Abdomen soft. No obvious pulsatile mass or bruit. No CVA tenderness. Strong femoral pulses bilaterally. Normal bowel sounds in all quadrants. Healed abdominal scar from prior incision MUSCULOSKELETAL: Patient is moving upper and lower extremities freely. No calf tenderness or edema, no Homans sign. Strong pulses in upper and lower extremities. NEUROLOGICAL: Patient is alert and oriented. Cranial nerves 2-12 are grossly intact. No focal deficits and speech is clear. SKIN: No rash and turgor is normal. Laboratory Laboratory Tests Test 12/20/17 16:18 12/21/17 03:35 White Blood Count 6.0 Red Blood Count 4.00 Hemoglobin 12.8 Hematocrit 37.1 Mean Corpuscular Volume 92.7 Mean Corpuscular Hemoglobin 31.9 Mean Corpuscular Hemoglobin Concent 34.4 Red Cell Distribution Width 14.2 Platelet Count 238 Mean Platelet Volume 7.5 Neutrophils (%) (Auto) 78.5 Lymphocytes (%) (Auto) 8.6 Monocytes (%) (Auto) 10.7 Eosinophils (%) (Auto) 1.1 Basophils (%) (Auto) 1.1 Neutrophils # (Auto) 4.7 Lymphocytes # (Auto) 0.5 Monocytes # (Auto) 0.6 Eosinophils # (Auto) 0.1 Basophils # (Auto) 0.1 CBC Comment DIFF FINAL Differential Comment Prothrombin Time 10.0 Prothromb Time International Ratio 1.0 Activated Partial Thromboplast Time 25.9 D-Dimer Quantitative (PE/DVT) 0.74 Blood Urea Nitrogen 13 Creatinine 1.26 Random Glucose 78 Total Protein 7.1 Albumin 3.4 Calcium Level 8.2 Alkaline Phosphatase 88 Aspartate Amino Transf (AST/SGOT) 18 Alanine Aminotransferase (ALT/SGPT) 20 Total Bilirubin 0.4 Sodium Level 142 Potassium Level 3.5 Chloride Level 105 Carbon Dioxide Level 27.8 Anion Gap 9 Estimat Glomerular Filtration Rate 58 Total Creatine Kinase 127 183 Creatine Kinase MB 1.2 1.1 Troponin I LESS THAN 0.02 LESS THAN 0.02 Lipase 221 Result Diagram: 12/20/17 1618 12/20/17 1618 Imaging Last 48 hours Impressions Chest X-Ray 12/20/17 1551 Signed Impressions: Service Date/Time: Wednesday, December 20, 2017 16:12 - CONCLUSION: 1. No acute cardiopulmonary process. Lungs are clear. 2. Air densities in the left upper abdominal quadrant could represent adjacent air filled hollow viscus like the stomach and adjacent bowel. If the patient does not complain of abdominal discomfort, no further imaging is probably necessary. Otherwise, dedicated views of the abdomen could be performed for further characterization Gm Brunson MD Lung Scan-[facility] Nuclear Medicine 12/20/17 0000 Signed Impressions: Service Date/Time: Wednesday, December 20, 2017 18:56 - CONCLUSION: Low probability study for pulmonary embolus. Arden Nicholas MD Abdomen/Pelvis CT 12/20/17 0000 Signed Impressions: Service Date/Time: Wednesday, December 20, 2017 17:37 - CONCLUSION: 1. Chronic colonic ileus/non-mechanical obstruction or. Similar findings have been seen on prior CTs. 2. No obstruction, inflammation or other acute abnormalities are seen. Arden Nicholas MD Course EKGs are sinus rhythm without significant ST segment depressions or elevations. Caprini VTE Risk Assessment Caprini VTE Risk Assessment: No/Low Risk (score <= 1) Caprini Risk Assessment Model Point Value = 1 Point Value = 2 Point Value = 3 Point Value = 5 Age 41-60 Minor surgery BMI > 25 kg/m2 Swollen legs Varicose veins or History of unexplained or recurrent spontaneous Oral contraceptives or hormone replacement Sepsis (< 1 month) Serious lung disease, including pneumonia (< 1 month) Abnormal pulmonary function Acute myocardial infarction Congestive heart failure (< 1 month) History of inflammatory bowel disease Medical patient at bed rest Age 61-74 Arthroscopic surgery Major open surgery (> 45 min) Laparoscopic surgery (> 45 min) Malignancy Confined to bed (> 72 hours) Immobilizing plaster cast Central venous access Age >= 75 History of VTE Family history of VTE Factor V Leiden Prothrombin [id number] Lupus anticoagulant Anticardiolipin antibodies Elevated serum homocysteine Heparin-induced thrombocytopenia Other congenital or acquired thrombophilia Stroke (< 1 month) Elective arthroplasty Hip, pelvis, or leg fracture Acute spinal cord injury (< 1 month) Prophylaxis Regimen Total Risk Factor Score Risk Level Prophylaxis Regimen 0-1 Low Early ambulation 2 Moderate Order ONE of the following: *Sequential Compression Device (SCD) *Heparin 5000 units SQ BID 3-4 Higher Order ONE of the following medications: *Heparin 5000 units SQ TID *Enoxaparin/Lovenox 40 mg SQ daily (WT < 150 kg, CrCl > 30 mL/min) *Enoxaparin/Lovenox 30 mg SQ daily (WT < 150 kg, CrCl > 10-29 mL/min) *Enoxaparin/Lovenox 30 mg SQ BID (WT < 150 kg, CrCl > 30 mL/min) AND/OR *Sequential Compression Device (SCD) 5 or more Highest Order ONE of the following medications: *Heparin 5000 units SQ TID (Preferred with Epidurals) *Enoxaparin/Lovenox 40 mg SQ daily (WT < 150 kg, CrCl > 30 mL/min) *Enoxaparin/Lovenox 30 mg SQ daily (WT < 150 kg, CrCl > 10-29 mL/min) *Enoxaparin/Lovenox 30 mg SQ BID (WT < 150 kg, CrCl > 30 mL/min) AND *Sequential Compression Device (SCD) Assessment and Plan Assessment and Plan * Hypertension: We will resume his medication and continue to monitor. Will likely be adding an ARB to his list of medications. He has not allergy to joelle inhibitors but I do not see an allergy to ARBs. He will need to follow-up with his physician. Return to ED for interval issues. * Bronchitis: Patient has had a productive cough. He is wheezing which he states is not unusual. He will be given duo nebs. Chest x-ray does not reveal pneumonia. He does not have a elevated white count. No fever. Patient be told to quit smoking and follow-up with physician. Uses inhaler. * Seizure disorder: Continue medication. * Tobacco abuse: Patient has been counseled on importance of smoking cessation. * Chest x-ray in the emergency department was read by radiologist as "no acute cardiopulmonary process. Lungs are clear. Air densities in left upper abdominal quadrant could represent adjacent air-filled hollow viscus like the stomach and adjacent bowel. If the patient does not complain of abdominal discomfort, no further imaging is probably necessary. Otherwise dedicated views of the abdomen could be performed for further characterization." Patient denied abdominal discomfort to me. The ED physician obtained a CT abdomen and pelvis without IV contrast and report was read by radiologist as "chronic colonic ileus/nonmechanical obstruction. Similar findings have been seen on prior CTs. No obstruction inflammation or other acute maladies are seen." Again patient denies abdominal pain to me. On examination he has no tenderness. There is no guarding rebound. Abdomen is soft. Patient will follow up with his PCP. Patient is stable at this time. He is agreeable to this plan. Brendon Mejía Dec 21, 2017 08:17
[2017-12-21] MEDS: SODIUM CHLORIDE 0.9% FLUSH 10 ML FLUSH IV FLUSH SCH (09:00)
--- NOTE | 2017-12-21 10:42 | HHI.DCPOC ---
Discharge Care Plan Diagnosis: (1) Hypertension (2) Bronchitis (3) Tobacco abuse Goals to Promote Your Health OVER THE COUNTER ROBITUSSIN DM. * To prevent worsening of your condition and complications * To maintain your health at the optimal level Directions to Meet Your Goals Take your medications as prescribed Follow your dietary instruction Follow activity as directed Keep your appointments as scheduled Take your immunizations and boosters as scheduled If your symptoms worsen call your PCP, if no PCP go to Urgent Care Center or Emergency Room Smoking is Dangerous to Your Health. Avoid second hand smoke Call the 24-hour hour crisis hotline for domestic abuse at Brendon Mejía Dec 21, 2017 10:42
[2017-12-21 12:05] VITALS: BP 195/94; PULSE 92; RESP 18; TEMP 98.5; O2SAT 97
--- NOTE | 2017-12-21 12:37 | EKG ---
Date Performed: 12/20/2017 Time Performed: 21:42:33 PTAGE: 62 years EKG: Sinus rhythm MODERATE INTRAVENTRICULAR CONDUCTION DELAY BORDERLINE ECG Since PREVIOUS TRACING , no significant change noted DOCTOR: Stephen Ulloa Interpretating Date/Time 12/21/2017 12:35:15
--- NOTE | 2017-12-21 12:37 | EKG ---
Date Performed: 12/20/2017 Time Performed: 15:38:11 PTAGE: 62 years EKG: Sinus rhythm MODERATE INTRAVENTRICULAR CONDUCTION DELAY BORDERLINE ECG Since PREVIOUS TRACING , no significant change noted DOCTOR: Stephen Ulloa Interpretating Date/Time 12/21/2017 12:36:41
--- NOTE | 2017-12-21 12:40 | EKG ---
Date Performed: 12/21/2017 Time Performed: 00:25:48 PTAGE: 62 years EKG: Sinus rhythm MODERATE INTRAVENTRICULAR CONDUCTION DELAY BORDERLINE ECG PREVIOUS TRACING : 12/20/2017 15.38 Since previous tracing, no significant change noted DOCTOR: Stephen Ulloa Interpretating Date/Time 12/21/2017 12:38:42
== END 2017-12-21 14:18 | disposition home or self-care (01) ==
LOC: NEPE 15:05 → NEDA 20:59 → NEPHCDU 22:32
PROVIDERS: ADMIT Internal Medicine Cardiovascular Disease; ATTEND Internal Medicine Cardiovascular Disease
DX: I10 Essential (primary) hypertension (principal); J40 Bronchitis, not specified as acute or chronic; J44.9 Chronic obstructive pulmonary disease, unspecified; G40.909 Epilepsy, unspecified, not intractable, without status epilepticus; F12.90 Cannabis use, unspecified, uncomplicated; F17.210 Nicotine dependence, cigarettes, uncomplicated; Z85.038 Personal history of other malignant neoplasm of large intestine; Z90.49 Acquired absence of other specified parts of digestive tract; Z86.73 Personal history of transient ischemic attack (TIA), and cerebral infarction without residual deficits; Z82.49 Family history of ischemic heart disease and other diseases of the circulatory system
CPT/HCPCS: 71045; 74176; 78582; 80053; 82550; 82552; 83690; 84484; 85025; 85379; 85610; 85730; 93005; 94640; 94664; 99285; A9540; A9567; G0378

== ENCOUNTER 2018-01-01 22:49 | Emergency (ER) | payer OTHER ==
[~2018-01-01] VITALS: Ht 177.8 cm; Wt 61.0 kg
[2018-01-01 22:53] VITALS: BP 179/104; PULSE 66; RESP 17; O2SAT 96
[2018-01-01 23:26] VITALS: BP 134/93; PULSE 66; RESP 15; TEMP 98.4; O2SAT 95
[2018-01-01] MEDS ORDERED: TETANUS/DIPHTHERIA TOXOID ADULT 0.5 ML VIAL IM ONE (23:30)
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
--- NOTE | 2018-01-02 00:58 | PD ---
Physical Exam Date Seen by Provider: January 02, 2018 Time Seen by Provider: 00:57 Narrative For full history and physical examination please see previous providers note. I was asked to repair laceration to patient's left scalp. Data Data Last Documented VS Vital Signs Date Time Temp Pulse Resp B/P (MAP) Pulse Ox O2 Delivery O2 Flow Rate FiO2 01/01/18 23:26 66 15 134/93 (107) 95 Room Air Orders Orders Ct Brain W/O Iv Contrast(Rout) (01/01/18 ) Hand, Limited (2vws) (01/01/18 ) Tetanus/Diphtheria Tox Adult (Tetanus/Di (01/01/18 23:30) MDM Medical Record Reviewed: Yes Supervised Visit with DIANE: Yes Procedures Procedure Narrative LACERATION LOCATION: Left scalp LENGTH: 1.5 cm NUMBER OF STITCHES/MARCI: 2 marci REPAIR: The area of the laceration was prepped with Betadine and sterilely draped. The laceration was infiltrated with 1% lidocaine. The wound was copiously irrigated and explored without evidence of foreign body, tendon injury or neurovascular injury. The wound was closed using marci. This was a 1 layer repair. A sterile dressing was applied. The patient was advised to keep the dressing clean and dry. Patient tolerated the procedure well. Rhonda Cunha January 02, 2018 00:58
[2018-01-02] MEDS ORDERED: TYLE325T PO (01:05)
[2018-01-02] MEDS ORDERED: ACETAMINOPHEN 325 MG TAB PO ONE (01:15)
[2018-01-12] MEDS ORDERED: CIPR-9 PO (04:45)
== END 2018-01-02 06:28 | disposition home or self-care (01) ==
LOC: NEPD 22:49
DX: S01.01XA Laceration without foreign body of scalp, initial encounter (principal); S50.312A Abrasion of left elbow, initial encounter; M79.644 Pain in right finger(s); Y09 Assault by unspecified means; Z23 Encounter for immunization; I11.0 Hypertensive heart disease with heart failure; I50.9 Heart failure, unspecified; J44.9 Chronic obstructive pulmonary disease, unspecified; F17.210 Nicotine dependence, cigarettes, uncomplicated; Z85.038 Personal history of other malignant neoplasm of large intestine; Z86.73 Personal history of transient ischemic attack (TIA), and cerebral infarction without residual deficits; Z88.0 Allergy status to penicillin; Z88.1 Allergy status to other antibiotic agents; Z88.8 Allergy status to other drugs, medicaments and biological substances; Z79.899 Other long term (current) drug therapy
CPT/HCPCS: 12001; 70450; 73120; 90471; 90714; 96372

== ENCOUNTER 2018-01-11 11:25 | Emergency (ER) | payer OTHER ==
[~2018-01-11] VITALS: Ht 170.2 cm; Wt 60.0 kg
[~2018-01-11 11:25] MED LIST changes: +TYLE325T PO
[2018-01-11 11:29] VITALS: BP 176/97; PULSE 55; RESP 18; TEMP 97.8; O2SAT 100
--- NOTE | 2018-01-11 11:52 | PD ---
HPI Chief Complaint: Skin Problem Time Seen by Provider: 11:44 Travel History International Travel<30 days: No Contact w/Intl Traveler<30days: No Traveled to known affect area: No History of Present Illness HPI 62-year-old male presents to the emergency department for staple removal. Patient had 2 brittany placed to the left scalp 10 days ago. He denies any symptoms or complaints. No pain. He denies redness, drainage. Mild severity. PFSH Past Medical History Hx Anticoagulant Therapy: No Arthritis: Yes Asthma: No Autoimmune Disease: No Blood Disorders: No Anxiety: No Depression: No Heart Rhythm Problems: No Cancer: Yes (colon cancer) Cardiac Catheterization: No Cardiovascular Problems: Yes High Cholesterol: No Chemotherapy: Yes Chest Pain: Yes Congestive Heart Failure: Yes COPD: Yes Cerebrovascular Accident: Yes (CVA ) Diabetes: No Diminished Hearing: No Endocrine: No Gastrointestinal Disorders: Yes GERD: No Glaucoma: No Genitourinary: No Headaches: Yes Hepatitis: No Hiatal Hernia: No Heparin Induced Thrombocytopen: No Hypertension: Yes Immune Disorder: No Implanted Vascular Access Dvce: No Kidney Stones: No Musculoskeletal: No Neurologic: Yes Psychiatric: No Reproductive: No Respiratory: Yes Immunizations Current: Yes Migraines: No Myocardial Infarction: No Pancreatitis: Yes Radiation Therapy: Yes Renal Failure: No Seizures: Yes Sickle Cell Disease: No Sleep Apnea: No Thyroid Disease: No Ulcer: No PNEUMOCCOCAL Vaccine (Year): 1 Past Surgical History Abdominal Surgery: Yes (deepti cancer) AICD: No Appendectomy: Yes Arteriovenous Shunt: No Cardiac Surgery: No Cholecystectomy: No Coronary Artery Bypass Graft: No Ear Surgery: No Endocrine Surgery: No Eye Surgery: Yes (BILAT MUSCLES CUT) Genitourinary Surgery: No Gynecologic Surgery: No Insulin Pump: No Joint Replacement: No Neurologic Surgery: No Oral Surgery: No Pacemaker: No Thoracic Surgery: No Tonsillectomy: Yes Other Surgery: Yes (colon cancer.tonsilts, eyes,) Social History Alcohol Use: Yes (OCCASIONALLY) Tobacco Use: Yes (1/2 PPD) Substance Use: Yes (marijuana) Allergies-Medications (Allergen,Severity, Reaction): Coded Allergies: amlodipine (Verified Allergy, Severe, Swelling, 01/11/18) UNALBE TO CONFIRM PT IS INTUBATED amoxicillin (Verified Allergy, Severe, "LIPS SWELL", 01/11/18) PT IS INTUBATED UNABLE TO CONFIRM clavulanic acid (Verified Allergy, Severe, "LIPS SWELL", 01/11/18) PT IS INTUBATED UNABLE TO CONFIRM diatrizoate meglumine (Verified Allergy, Severe, Anaphylaxis; 06/04/09: PT TOLERATES ORAL CONTRAST W/O AE, 01/11/18) PT INTUBATED UNABLE TO CONFIRM 06/04/09: PER RN, PT TOLERATES ORAL CONTRAST MEDIA WITHOUT ADVERSE EFFECTS; HE HAS HAD ORAL CONTRAST PREVIOUSLY. diazepam (Verified Allergy, Severe, RESPIRATORY DISTRESS, 01/11/18) UNALBE TO CONFIRM PT IS INTUBATED enalaprilat (Verified Allergy, Severe, 01/11/18) UNALBE TO CONFIRM PT IS INTUBATED erythromycin base (Verified Allergy, Severe, RASH, 01/11/18) gadobenic acid (Verified Allergy, Severe, Anaphylaxis; 06/04/09: PT TOLERATES ORAL CONTRAST W/O AE, 01/11/18) PT INTUBATED UNABLE TO CONFIRM 06/04/09: PER RN, PT TOLERATES ORAL CONTRAST MEDIA WITHOUT ADVERSE EFFECTS; HE HAS HAD ORAL CONTRAST PREVIOUSLY. gadodiamide (Verified Allergy, Severe, Anaphylaxis; 06/04/09: PT TOLERATES ORAL CONTRAST W/O AE, 01/11/18) PT INTUBATED UNABLE TO CONFIRM 06/04/09: PER RN, PT TOLERATES ORAL CONTRAST MEDIA WITHOUT ADVERSE EFFECTS; HE HAS HAD ORAL CONTRAST PREVIOUSLY. gadoteridol (Verified Allergy, Severe, Anaphylaxis; 06/04/09: PT TOLERATES ORAL CONTRAST W/O AE, 01/11/18) PT INTUBATED UNABLE TO CONFIRM 06/04/09: PER RN, PT TOLERATES ORAL CONTRAST MEDIA WITHOUT ADVERSE EFFECTS; HE HAS HAD ORAL CONTRAST PREVIOUSLY. haloperidol (Verified Allergy, Severe, "TIGHT JAW", 01/11/18) UNABLE TO CONFIRM PT IS INTUBATED iodixanol (Verified Allergy, Severe, Anaphylaxis; 06/04/09: PT TOLERATES ORAL CONTRAST W/O AE, 01/11/18) PT INTUBATED UNABLE TO CONFIRM 06/04/09: PER RN, PT TOLERATES ORAL CONTRAST MEDIA WITHOUT ADVERSE EFFECTS; HE HAS HAD ORAL CONTRAST PREVIOUSLY. iohexol (Verified Allergy, Severe, PT NEEDS PREMED/DOESN'T KNOW REACTION, 01/11/18) UNABLE TO CONFIRM PT IS INTUBATED 06/04/09: PER RN, PT TOLERATES ORAL CONTRAST MEDIA WITHOUT ADVERSE EFFECTS; HE HAS HAD ORAL CONTRAST PREVIOUSLY. morphine (Verified Allergy, Mild, Itching, 01/11/18) UNABLE TO CONFIRM PT IS INTUBATED benazepril (Verified Allergy, Unknown, UNKNOWN REACTION, 01/11/18) UNABLE TO CONFIRM PT IS INTUBATED captopril (Verified Allergy, Unknown, UNKNOWN REACTION, 01/11/18) UNABLE TO CONFIRM PT IS INTUBATED fosinopril (Verified Allergy, Unknown, UNKNOWN REACTION, 01/11/18) UNABLE TO CONFIRM PT IS INTUBATED lisinopril (Verified Allergy, Unknown, UNKNOWN REACTION, 01/11/18) UNABLE TO CONFIRM PT IS INTUBATED quinapril (Verified Allergy, Unknown, UNKNOWN REACTION, 01/11/18) UNABLE TO CONFIRM PT IS INTUBATED prochlorperazine (Verified Adverse Reaction, Severe, "LOCKJAW", 01/11/18) UNABLE TO CONFIRM PT IS INTUBATED Uncoded Allergies: DYE (Allergy, Severe, CARDIAC ARREST, 04/11/17) UNABLE TO CONFIRM PT IS INTUBATED Reported Meds & Prescriptions Reported Meds & Active Scripts Active Tylenol (Acetaminophen) 325 Mg Tab 650 Mg PO Q6H PRN Hydrochlorothiazide 12.5 Mg Cap 12.5 Mg PO QD Labetalol (Labetalol HCl) 100 Mg Tab 100 Mg PO BID 14 Days Potassium Chloride ER (Potassium Chloride) 20 Meq Tab 20 Meq PO DAILY Ventolin Hfa 18 GM Inh (Albuterol Sulfate) 90 Mcg/Act Aer 2 Puff INH Q4-6H PRN Reported Depakote DR (Divalproex Sodium) 500 Mg Tabdr 500 Mg PO BID Keppra (Levetiracetam) 500 Mg Tab 500 Mg PO BID Review of Systems Except as stated in HPI: all other systems reviewed are Neg Physical Exam Narrative GENERAL: Well-nourished, well-developed male patient, ambulatory. Afebrile. SKIN: Focused skin assessment warm/dry. Patient has [address] to the left scalp without erythema or any evidence of infection. HEAD: Normocephalic. Atraumatic. EYES: No scleral icterus. No injection or drainage. NECK: Supple, trachea midline. RESPIRATORY: No accessory muscle use. MUSCULOSKELETAL: No cyanosis, or edema. Data Data Last Documented VS Vital Signs Date Time Temp Pulse Resp B/P (MAP) Pulse Ox O2 Delivery O2 Flow Rate FiO2 01/11/18 12:00 16 01/11/18 11:29 97.8 55 176/97 (123) 100 Orders Orders Ed Discharge Order (01/11/18 11:52) MDM Medical Decision Making Medical Screen Exam Complete: Yes Emergency Medical Condition: Yes Medical Record Reviewed: Yes Differential Diagnosis Staple removal versus cellulitis versus dehiscence Narrative Course 62-year-old male presents to the emergency department for staple removal. Brittany are removed without difficulty. Patient instructed to gently clean area. He is to follow-up with his primary care physician and return the emergency department as needed The patient was discharged in stable condition with instructions, including return instructions and follow up instructions. Diagnosis Primary Impression: Removal of brittany Referrals: Primary Care Physician call for appointment Patient Instructions: General Instructions, Stitches Removal (ED) Additional Instructions: Follow-up with your primary care physician as needed. Clean area gently. Return to the emergency department for any emergent symptoms. Med/Other Pt SpecificInfo: No Change to Meds Disposition: 01 DISCHARGE HOME Condition: Stable TrayAnita GUY January 11, 2018 11:51
[2018-01-12] MEDS ORDERED: CIPR-9 PO (04:45)
== END 2018-01-11 19:18 | disposition home or self-care (01) ==
LOC: NEPK 11:25
DX: S01.00XD Unspecified open wound of scalp, subsequent encounter (principal); X58.XXXD Exposure to other specified factors, subsequent encounter; Z48.02 Encounter for removal of sutures
CPT/HCPCS: 99281

== ENCOUNTER 2018-01-12 01:54 | Emergency (ER) | END 2018-01-12 05:32 | disposition home or self-care (01) | DX: C18.9 Malignant neoplasm of colon, unspecified (principal); R07.89 Other chest pain; F17.210 Nicotine dependence, cigarettes, uncomplicated; J44.9 Chronic obstructive pulmonary disease, unspecified; I11.0 Hypertensive heart disease with heart failure; I50.9 Heart failure, unspecified ==

== ENCOUNTER 2018-01-13 02:24 | Emergency (ER) | payer OTHER ==
[~2018-01-13] VITALS: Ht 165.1 cm; Wt 60.0 kg
[~2018-01-13 02:24] MED LIST changes: +CIPR-9 PO
[2018-01-13 02:33] VITALS: BP 179/106; PULSE 67; RESP 18; O2SAT 98
[2018-01-13 03:22] LABS: ALBUMIN 3.3 GM/DL (3.4-5.0); ALT (GPT) 18 U/L (12-78); AST (GOT) 13 U/L (15-37); BICARBONATE 24.9 MEQ/L (21.0-32.0); BLOOD UREA NITROGEN 18 MG/DL (7-18); CALCIUM 7.9 MG/DL (8.5-10.1); CHLORIDE 106 MEQ/L (98-107); CREATININE 0.97 MG/DL (0.60-1.30); GLOMERULAR FILTRATION RATE 79 ML/MIN (>89); GLUCOSE,RANDOM 86 MG/DL (74-106); SODIUM (NA) 140 MEQ/L (136-145)
[2018-01-13 03:26] LABS: ALKALINE PHOSPHATASE 84 U/L (45-117); TOTAL BILIRUBIN ADULT 0.4 MG/DL (0.2-1.0); TOTAL PROTEIN 6.9 GM/DL (6.4-8.2); TROPONIN I LESS THAN 0.02 NG/ML (0.02-0.05)
[2018-01-13 04:00] VITALS: BP 195/87; PULSE 63; RESP 16; O2SAT 96
[2018-01-13 05:26] VITALS: BP 161/78
--- NOTE | 2018-01-13 05:35 | PD ---
HPI Chief Complaint: Chest Pain Time Seen by Provider: 02:35 Travel History International Travel<30 days: No Contact w/Intl Traveler<30days: No Traveled to known affect area: No History of Present Illness HPI Patient is a 62-year-old male who was in our ER 3 times this week with chest pain. He lives alone comes for chest pain was ruled out sent home comes back within 24 hours tonight chest pain brought in by EMS . Patient states the pain is sharp pain stabbing pain localized to left anterior chest wall. Patient denies any pain radiation. Patient denies palpitation nausea diaphoresis. Patient was seen in emergency room with chest pain last night and 1wweek ago. and has prior rule outs in ER He had Serial EKG cardiac enzymes were normal. Patient has history of hypertension, seizure disorder, hypertensive encephalopathy, status post CVA, colon cancer status post resection and chemoradiation therapy. PFSH Past Medical History Hx Anticoagulant Therapy: No Arthritis: Yes Asthma: No Autoimmune Disease: No Blood Disorders: No Anxiety: No Depression: No Heart Rhythm Problems: No Cancer: Yes (colon cancer) Cardiac Catheterization: No Cardiovascular Problems: Yes High Cholesterol: No Chemotherapy: Yes Chest Pain: Yes Congestive Heart Failure: Yes COPD: Yes Cerebrovascular Accident: Yes (CVA ) Diabetes: No Diminished Hearing: No Endocrine: No Gastrointestinal Disorders: Yes GERD: No Glaucoma: No Genitourinary: No Headaches: Yes Hepatitis: No Hiatal Hernia: No Heparin Induced Thrombocytopen: No Hypertension: Yes Immune Disorder: No Implanted Vascular Access Dvce: No Kidney Stones: No Musculoskeletal: No Neurologic: Yes Psychiatric: No Reproductive: No Respiratory: Yes Immunizations Current: Yes Migraines: No Myocardial Infarction: No Pancreatitis: Yes Radiation Therapy: Yes Renal Failure: No Seizures: Yes Sickle Cell Disease: No Sleep Apnea: No Thyroid Disease: No Ulcer: No Tetanus Vaccination: < 5 Years Influenza Vaccination: Yes PNEUMOCCOCAL Vaccine (Year): 1 ?: Not Past Surgical History Abdominal Surgery: Yes (deepti cancer) AICD: No Appendectomy: Yes Arteriovenous Shunt: No Cardiac Surgery: No Cholecystectomy: No Coronary Artery Bypass Graft: No Ear Surgery: No Endocrine Surgery: No Eye Surgery: Yes (BILAT MUSCLES CUT) Genitourinary Surgery: No Gynecologic Surgery: No Insulin Pump: No Joint Replacement: No Neurologic Surgery: No Oral Surgery: No Pacemaker: No Thoracic Surgery: No Tonsillectomy: Yes Other Surgery: Yes (colon cancer.tonsilts, eyes,) Family History Family Myocardial Infarction: Yes Social History Alcohol Use: Yes (OCCASIONALLY) Tobacco Use: Yes (1/2 PPD) Substance Use: Yes (marijuana) Allergies-Medications (Allergen,Severity, Reaction): Coded Allergies: amlodipine (Verified Allergy, Severe, Swelling, 01/13/18) UNALBE TO CONFIRM PT IS INTUBATED amoxicillin (Verified Allergy, Severe, "LIPS SWELL", 01/13/18) PT IS INTUBATED UNABLE TO CONFIRM clavulanic acid (Verified Allergy, Severe, "LIPS SWELL", 01/13/18) PT IS INTUBATED UNABLE TO CONFIRM diatrizoate meglumine (Verified Allergy, Severe, Anaphylaxis; 06/04/09: PT TOLERATES ORAL CONTRAST W/O AE, 01/13/18) PT INTUBATED UNABLE TO CONFIRM 06/04/09: PER RN, PT TOLERATES ORAL CONTRAST MEDIA WITHOUT ADVERSE EFFECTS; HE HAS HAD ORAL CONTRAST PREVIOUSLY. diazepam (Verified Allergy, Severe, RESPIRATORY DISTRESS, 01/13/18) UNALBE TO CONFIRM PT IS INTUBATED enalaprilat (Verified Allergy, Severe, 01/13/18) UNALBE TO CONFIRM PT IS INTUBATED erythromycin base (Verified Allergy, Severe, RASH, 01/13/18) gadobenic acid (Verified Allergy, Severe, Anaphylaxis; 06/04/09: PT TOLERATES ORAL CONTRAST W/O AE, 01/13/18) PT INTUBATED UNABLE TO CONFIRM 06/04/09: PER RN, PT TOLERATES ORAL CONTRAST MEDIA WITHOUT ADVERSE EFFECTS; HE HAS HAD ORAL CONTRAST PREVIOUSLY. gadodiamide (Verified Allergy, Severe, Anaphylaxis; 06/04/09: PT TOLERATES ORAL CONTRAST W/O AE, 01/13/18) PT INTUBATED UNABLE TO CONFIRM 06/04/09: PER RN, PT TOLERATES ORAL CONTRAST MEDIA WITHOUT ADVERSE EFFECTS; HE HAS HAD ORAL CONTRAST PREVIOUSLY. gadoteridol (Verified Allergy, Severe, Anaphylaxis; 06/04/09: PT TOLERATES ORAL CONTRAST W/O AE, 01/13/18) PT INTUBATED UNABLE TO CONFIRM 06/04/09: PER RN, PT TOLERATES ORAL CONTRAST MEDIA WITHOUT ADVERSE EFFECTS; HE HAS HAD ORAL CONTRAST PREVIOUSLY. haloperidol (Verified Allergy, Severe, "TIGHT JAW", 01/13/18) UNABLE TO CONFIRM PT IS INTUBATED iodixanol (Verified Allergy, Severe, Anaphylaxis; 06/04/09: PT TOLERATES ORAL CONTRAST W/O AE, 01/13/18) PT INTUBATED UNABLE TO CONFIRM 06/04/09: PER RN, PT TOLERATES ORAL CONTRAST MEDIA WITHOUT ADVERSE EFFECTS; HE HAS HAD ORAL CONTRAST PREVIOUSLY. iohexol (Verified Allergy, Severe, PT NEEDS PREMED/DOESN'T KNOW REACTION, 01/13/18) UNABLE TO CONFIRM PT IS INTUBATED 06/04/09: PER RN, PT TOLERATES ORAL CONTRAST MEDIA WITHOUT ADVERSE EFFECTS; HE HAS HAD ORAL CONTRAST PREVIOUSLY. morphine (Verified Allergy, Mild, Itching, 01/13/18) UNABLE TO CONFIRM PT IS INTUBATED benazepril (Verified Allergy, Unknown, UNKNOWN REACTION, 01/13/18) UNABLE TO CONFIRM PT IS INTUBATED captopril (Verified Allergy, Unknown, UNKNOWN REACTION, 01/13/18) UNABLE TO CONFIRM PT IS INTUBATED fosinopril (Verified Allergy, Unknown, UNKNOWN REACTION, 01/13/18) UNABLE TO CONFIRM PT IS INTUBATED lisinopril (Verified Allergy, Unknown, UNKNOWN REACTION, 01/13/18) UNABLE TO CONFIRM PT IS INTUBATED quinapril (Verified Allergy, Unknown, UNKNOWN REACTION, 01/13/18) UNABLE TO CONFIRM PT IS INTUBATED prochlorperazine (Verified Adverse Reaction, Severe, "LOCKJAW", 01/13/18) UNABLE TO CONFIRM PT IS INTUBATED Uncoded Allergies: DYE (Allergy, Severe, CARDIAC ARREST, 04/11/17) UNABLE TO CONFIRM PT IS INTUBATED Reported Meds & Prescriptions Reported Meds & Active Scripts Active Cipro (Ciprofloxacin HCl) 500 Mg Tab 500 Mg PO BID Hydrochlorothiazide 12.5 Mg Cap 12.5 Mg PO QD Labetalol (Labetalol HCl) 100 Mg Tab 100 Mg PO BID 14 Days Ventolin Hfa 18 GM Inh (Albuterol Sulfate) 90 Mcg/Act Aer 2 Puff INH Q4-6H PRN Reported Depakote DR (Divalproex Sodium) 500 Mg Tabdr 500 Mg PO BID Keppra (Levetiracetam) 500 Mg Tab 500 Mg PO BID Review of Systems Except as stated in HPI: all other systems reviewed are Neg Physical Exam Narrative GENERAL: SKIN: Warm and dry. HEAD: Atraumatic. Normocephalic. EYES: Pupils equal and round. No scleral icterus. No injection or drainage. ENT: No nasal bleeding or discharge. Mucous membranes pink and moist. NECK: Trachea midline. No JVD. CARDIOVASCULAR: Regular rate and rhythm. RESPIRATORY: No accessory muscle use. Clear to auscultation. Breath sounds equal bilaterally. GASTROINTESTINAL: Abdomen soft, non-tender, nondistended. Hepatic and splenic margins not palpable. MUSCULOSKELETAL: Extremities without clubbing, cyanosis, or edema. No obvious deformities. NEUROLOGICAL: Awake and alert. No obvious cranial nerve deficits. Motor grossly within normal limits. Five out of 5 muscle strength in the arms and legs. Normal speech. PSYCHIATRIC: Appropriate mood and affect; insight and judgment normal. Data Data Last Documented VS Orders Orders Comprehensive Metabolic Panel (01/13/18 02:36) Troponin I (01/13/18 02:36) Lipase (01/13/18 02:36) Alcohol (Ethanol) (01/13/18 02:36) Electrocardiogram (01/13/18 ) Ed Discharge Order (01/13/18 05:41) Labs Laboratory Tests Test 01/13/18 02:54 Blood Urea Nitrogen 18 MG/DL Creatinine 0.97 MG/DL Random Glucose 86 MG/DL Total Protein 6.9 GM/DL Albumin 3.3 GM/DL Calcium Level 7.9 MG/DL Alkaline Phosphatase 84 U/L Aspartate Amino Transf (AST/SGOT) 13 U/L Alanine Aminotransferase (ALT/SGPT) 18 U/L Total Bilirubin 0.4 MG/DL Sodium Level 140 MEQ/L Potassium Level 3.6 MEQ/L Chloride Level 106 MEQ/L Carbon Dioxide Level 24.9 MEQ/L Anion Gap 9 MEQ/L Estimat Glomerular Filtration Rate 79 ML/MIN Troponin I LESS THAN 0.02 NG/ML Lipase 335 U/L Ethyl Alcohol Level LESS THAN 3 MG/DL MDM Medical Decision Making Medical Screen Exam Complete: Yes Emergency Medical Condition: Yes Medical Record Reviewed: Yes Differential Diagnosis CAD CP vs anxiety vs bronchitis vs PNA other Narrative Course EKG NSR and trop negative had other trop with in the last 24 hrs so ruled out and d/c home Diagnosis Primary Impression: Atypical chest pain Patient Instructions: Chest Wall Pain (ED), General Instructions Disposition: 01 DISCHARGE HOME Condition: Good Arsalan Mcgill MD January 13, 2018 05:35
--- NOTE | 2018-01-13 11:20 | EKG ---
Date Performed: 01/13/2018 Time Performed: 02:36:51 PTAGE: 62 years EKG: Sinus rhythm POSSIBLE INFERIOR MYOCARDIAL INFARCTION ABNORMAL ECG INTERPRETATION BASED ON A DEFAULT AGE OF 41 ELVIS MCCOY PREVIOUS TRACING : 01/12/2018 02.07 Since the previous tracing, no significant change not ed DOCTOR: Ulisses Ramos Interpretating Date/Time 01/13/2018 11:17:58
== END 2018-01-13 05:46 | disposition home or self-care (01) ==
LOC: NEPE 02:24
DX: R07.89 Other chest pain (principal); R94.31 Abnormal electrocardiogram [ECG] [EKG]; F17.210 Nicotine dependence, cigarettes, uncomplicated; F12.90 Cannabis use, unspecified, uncomplicated; G40.909 Epilepsy, unspecified, not intractable, without status epilepticus; I50.9 Heart failure, unspecified; I67.4 Hypertensive encephalopathy; J44.9 Chronic obstructive pulmonary disease, unspecified; Z85.038 Personal history of other malignant neoplasm of large intestine; Z88.0 Allergy status to penicillin; Z88.5 Allergy status to narcotic agent; Z88.1 Allergy status to other antibiotic agents; Z88.8 Allergy status to other drugs, medicaments and biological substances
CPT/HCPCS: 80053; 80307; 83690; 84484; 93005; 99284

== ENCOUNTER 2018-01-17 16:23 | Emergency (ER) | payer OTHER ==
[~2018-01-17] VITALS: Ht 170.2 cm; Wt 74.0 kg
[~2018-01-17 16:23] MED LIST changes: -POTA-163 PO; -TYLE325T PO
[2018-01-17 16:32] VITALS: BP 194/111; PULSE 67; RESP 16; TEMP 98.2; O2SAT 96
[2018-01-17 16:40] VITALS: RESP 16; O2SAT 96
[2018-01-17] MEDS ORDERED: MORPHINE SULFATE 4 MG/ML INJ IV PUSH ONE (16:45)
[2018-01-17] MEDS ORDERED: SODIUM CHLORIDE 0.9% FLUSH 10 ML FLUSH IV FLUSH PRN (16:45)
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
[2018-01-17 17:01] LABS: AUTOMATED NEUTROPHIL # 2.8 TH/MM3 (1.8-7.7); BASOPHIL # 0.1 TH/MM3 (0-0.2); BASOPHIL % 1.1 % (0.0-2.0); EOSINOPHIL # 0.2 TH/MM3 (0-0.4); EOSINOPHIL % 4.4 % (0.0-4.0); HEMATOCRIT 40.2 % (39.0-51.0); HEMOGLOBIN 14.1 GM/DL (13.0-17.0); LYMPHOCYTE # 1.3 TH/MM3 (1.0-4.8); MEAN CELL VOLUME 93.8 FL (80.0-100.0); MEAN CORPUSCULAR HEMOGLOBIN 32.8 PG (27.0-34.0); MEAN PLATELET VOLUME 7.6 FL (7.0-11.0); MONO % 9.3 % (0.0-8.0); MONOCYTE # 0.4 TH/MM3 (0-0.9); NEUT % 58.2 % (16.0-70.0); PLATELET COUNT 265 TH/MM3 (150-450); RED BLOOD COUNT 4.29 MIL/MM3 (4.50-5.90); RED CELL DISTRIBUTION WIDTH 14.5 % (11.6-17.2); WHITE BLOOD COUNT 4.8 TH/MM3 (4.0-11.0)
--- NOTE | 2018-01-17 17:06 | RADRPT ---
EXAM DATE: 01/17/2018 5:03 PM EDT AGE/SEX: 62 years / Male INDICATIONS: Left sided chest pain. CLINICAL DATA: This is the patient's initial encounter. Patient reports that signs and symptoms have been present for 2 weeks and indicates a pain score of 7/10. MEDICAL/SURGICAL HISTORY: Chronic obstructive pulmonary disease. None. [place] [facility] [place]. . FINDINGS: A single AP view of the chest demonstrates the lungs to be symmetrically aerated without evidence of mass, infiltrate or effusion. The cardiomediastinal contours are unremarkable. Osseous structures a re intact. CONCLUSION: No acute cardiopulmonary process to explain current clinical symptoms. Electronically signed by: Gm Brunson MD 01/17/2018 5:05 PM EDT
[2018-01-17 17:20] LABS: ALBUMIN 3.9 GM/DL (3.4-5.0); ALT (GPT) 19 U/L (12-78); AST (GOT) 19 U/L (15-37); BLOOD UREA NITROGEN 10 MG/DL (7-18); CALCIUM 8.6 MG/DL (8.5-10.1); CHLORIDE 106 MEQ/L (98-107); CREATININE 1.22 MG/DL (0.60-1.30); GLOMERULAR FILTRATION RATE 60 ML/MIN (>89); GLUCOSE,RANDOM 82 MG/DL (74-106); SODIUM (NA) 139 MEQ/L (136-145)
[2018-01-17 17:22] LABS: ALKALINE PHOSPHATASE 98 U/L (45-117); TOTAL BILIRUBIN ADULT 0.5 MG/DL (0.2-1.0); TOTAL PROTEIN 7.9 GM/DL (6.4-8.2)
[2018-01-17 17:49] VITALS: BP 176/105
[2018-01-17 18:19] LABS: BILIRUBIN, URINE NEG (NEG); BLOOD, URINE NEG (NEG); GLUCOSE,URINE NEG (NEG); KETONE, URINE NEG (NEG); NITRITE,URINE NEG (NEG); URINE COLOR LIGHT-YELLOW (YELLW/STRAW); URINE LEUKOCYTE ESTERASE TRACE (NEG)
--- NOTE | 2018-01-17 19:10 | RADRPT ---
EXAM DATE: 01/17/2018 6:52 PM EDT AGE/SEX: 62 years / Male INDICATIONS: Left flank pain. CLINICAL DATA: This is the patient's initial encounter. Patient reports that signs and symptoms have been present for 1 day and indicates a pain score of 5/10. MEDICAL/SURGICAL HISTORY: Hypertension. Stroke. Pancreatitis. Colon cancer. Appendectomy. RADIATION DOSE: 7.49 CTDI (mGy) COMPARISON: [facility] [place], [place] ABDOMEN & PELVIS W/O CONTRAST, 12/20/2017. . TECHNIQUE: Multiple contiguous axial images were obtained through the abdomen. Images were obtained using multiple row detector helical technique. Using dose reduction techniques, radiation dose was ke pt as low as reasonably achievable to obtain optimal diagnostic quality images. Lower Lungs: There is mild scarring left costophrenic angle. No evidence of pleural effusion. Liver: There are several low density lesions measuring up to 13 mm in size located in the right lobe, similar to prior CT and characteristic of cysts. No calcified gallstones. Spleen: Homogeneous density without enlargement. Pancreas: Unremarkable without mass or calcification. Kidneys: Normal in size and shape. No evidence of mass or hydronephrosis. Adrenal Glands: Unremarkable. Aorta: The aorta and proximal iliac vessels are grossly unremarkable without aneurysmal dilation. Bowel/Mesentery: Marked distention of multiple loops of colon measuring up to 8.5 cm in dimension. T he degree of distention is similar to prior examination. The distended loops include the area of anas tomosis suture. There is a moderate amount of stool in the distal colon which has increased from prio r examination. Small bowel loops are not dilated. Abdominal Wall: Intact. Retroperitoneum: No evidence of adenopathy in the retrocrural, para-aortic, or deep pelvic regions. Bladder: Contours are smooth. Reproductive Organs: Enlarged prostate Inguinal: Change configuration to the right inguinal hernia, now containing a portion of the urinary bladder. Bony Structures: Moderate curvature of the lumbar spine convex towards the right. CONCLUSION: 1. Changed configuration to the right inguinal hernia, now containing a portion of the urinary bladd er. 2. No evidence of hydronephrosis. 3. Diffuse distention of colon, similar to prior CT. Increasing stool in the sigmoid and rectum. Electronically signed by: Augusto Jeong MD 01/17/2018 7:08 PM EDT
[2018-01-17] MEDS ORDERED: TYLE325T PO (19:30)
== END 2018-01-17 19:58 | disposition home or self-care (01) ==
LOC: NEPE 16:23
DX: I11.0 Hypertensive heart disease with heart failure (principal); I50.9 Heart failure, unspecified; F12.90 Cannabis use, unspecified, uncomplicated; F17.200 Nicotine dependence, unspecified, uncomplicated
CPT/HCPCS: 71045; 74176; 80053; 81001; 85025; 96374; 99285; J2270

== ENCOUNTER 2018-01-29 00:07 | Observation (INO) | payer OTHER ==
[2018-01-29] VITALS (7 sets, daily range): BP systolic 120–177; BP diastolic 71–98; PULSE 48–63; RESP 15–20; TEMP 95.3–98.3; O2SAT 67–98
[~2018-01-29] VITALS: Ht 172.7 cm; Wt 70.0 kg
[~2018-01-29 00:07] MED LIST changes: -CIPR-9 PO; +TYLE325T PO
[2018-01-29] MEDS ORDERED: SODIUM CHLOR 0.9% 1000 ML INJ 1,000 ML IV SCH ×2 (00:34→04:13)
[2018-01-29] MEDS ORDERED: SODIUM CHLORIDE 0.9% FLUSH 10 ML FLUSH IV FLUSH PRN ×2 (00:45→04:15)
--- NOTE | 2018-01-29 01:18 | RADRPT ---
EXAM DATE: 01/29/2018 1:16 AM EDT AGE/SEX: 62 years / Male INDICATIONS: Syncopal episode with altered mental status. CLINICAL DATA: This is the patient's initial encounter. Patient reports that signs and symptoms have been present for 1 day and indicates a pain score of Nonresponsive. MEDICAL/SURGICAL HISTORY: Chronic obstructive pulmonary disease. Non-responsive. COMPARISON: [facility] [place], CHEST SINGLE AP, 01/17/2018. . FINDINGS: A single AP view of the chest demonstrates the lungs to be symmetrically aerated without evidence of mass, infiltrate or effusion. The cardiomediastinal contours are unremarkable. Osseous structures a re intact. CONCLUSION: No acute intrathoracic disease. Stable exam. Electronically signed by: Lincoln Meng MD 01/29/2018 1:17 AM EDT
--- NOTE | 2018-01-29 01:41 | PD ---
HPI Chief Complaint: Altered Mental Status Time Seen by Provider: 00:34 Travel History International Travel<30 days: No Contact w/Intl Traveler<30days: No Traveled to known affect area: No History of Present Illness HPI This is a 62-year-old male with a history of pancreatitis, seizure disorder, hypertension, who presents here from work with altered sensorium. According to the paramedics, the patient was found repeating the phrase "it is happening". Patient is unable to give any history. There was no other history elicited by bystanders per paramedics. PFSH Past Medical History Hx Anticoagulant Therapy: No Arthritis: Yes Asthma: No Autoimmune Disease: No Blood Disorders: No Anxiety: No Depression: No Heart Rhythm Problems: No Cancer: Yes (colon cancer) Cardiac Catheterization: No Cardiovascular Problems: Yes High Cholesterol: No Chemotherapy: Yes Chest Pain: Yes Congestive Heart Failure: Yes COPD: Yes Cerebrovascular Accident: Yes (CVA ) Diabetes: No Diminished Hearing: No Endocrine: No Gastrointestinal Disorders: Yes GERD: No Glaucoma: No Genitourinary: No Headaches: Yes Hepatitis: No Hiatal Hernia: No Heparin Induced Thrombocytopen: No Hypertension: Yes Immune Disorder: No Implanted Vascular Access Dvce: No Kidney Stones: No Musculoskeletal: No Neurologic: Yes Psychiatric: No Reproductive: No Respiratory: Yes Immunizations Current: Yes Migraines: No Myocardial Infarction: No Pancreatitis: Yes Radiation Therapy: Yes Renal Failure: No Seizures: Yes Sickle Cell Disease: No Sleep Apnea: No Thyroid Disease: No Ulcer: No Tetanus Vaccination: < 5 Years Influenza Vaccination: Yes PNEUMOCCOCAL Vaccine (Year): 1 Past Surgical History Abdominal Surgery: Yes (deepti cancer) AICD: No Appendectomy: Yes Arteriovenous Shunt: No Cardiac Surgery: No Cholecystectomy: No Coronary Artery Bypass Graft: No Ear Surgery: No Endocrine Surgery: No Eye Surgery: Yes (BILAT MUSCLES CUT) Genitourinary Surgery: No Gynecologic Surgery: No Insulin Pump: No Joint Replacement: No Neurologic Surgery: No Oral Surgery: No Pacemaker: No Thoracic Surgery: No Tonsillectomy: Yes Other Surgery: Yes (colon cancer.tonsilts, eyes,) Family History Family Myocardial Infarction: Yes Social History Alcohol Use: Yes (OCCASIONALLY) Tobacco Use: Yes (1/2 PPD) Substance Use: Yes (marijuana) Allergies-Medications (Allergen,Severity, Reaction): Coded Allergies: amlodipine (Verified Allergy, Severe, Swelling, 01/17/18) UNALBE TO CONFIRM PT IS INTUBATED amoxicillin (Verified Allergy, Severe, "LIPS SWELL", 01/17/18) PT IS INTUBATED UNABLE TO CONFIRM clavulanic acid (Verified Allergy, Severe, "LIPS SWELL", 01/17/18) PT IS INTUBATED UNABLE TO CONFIRM diatrizoate meglumine (Verified Allergy, Severe, Anaphylaxis; 06/04/09: PT TOLERATES ORAL CONTRAST W/O AE, 01/17/18) PT INTUBATED UNABLE TO CONFIRM 06/04/09: PER RN, PT TOLERATES ORAL CONTRAST MEDIA WITHOUT ADVERSE EFFECTS; HE HAS HAD ORAL CONTRAST PREVIOUSLY. diazepam (Verified Allergy, Severe, RESPIRATORY DISTRESS, 01/17/18) UNALBE TO CONFIRM PT IS INTUBATED enalaprilat (Verified Allergy, Severe, 01/17/18) UNALBE TO CONFIRM PT IS INTUBATED erythromycin base (Verified Allergy, Severe, RASH, 01/17/18) gadobenic acid (Verified Allergy, Severe, Anaphylaxis; 06/04/09: PT TOLERATES ORAL CONTRAST W/O AE, 01/17/18) PT INTUBATED UNABLE TO CONFIRM 06/04/09: PER RN, PT TOLERATES ORAL CONTRAST MEDIA WITHOUT ADVERSE EFFECTS; HE HAS HAD ORAL CONTRAST PREVIOUSLY. gadodiamide (Verified Allergy, Severe, Anaphylaxis; 06/04/09: PT TOLERATES ORAL CONTRAST W/O AE, 01/17/18) PT INTUBATED UNABLE TO CONFIRM 06/04/09: PER RN, PT TOLERATES ORAL CONTRAST MEDIA WITHOUT ADVERSE EFFECTS; HE HAS HAD ORAL CONTRAST PREVIOUSLY. gadoteridol (Verified Allergy, Severe, Anaphylaxis; 06/04/09: PT TOLERATES ORAL CONTRAST W/O AE, 01/17/18) PT INTUBATED UNABLE TO CONFIRM 06/04/09: PER RN, PT TOLERATES ORAL CONTRAST MEDIA WITHOUT ADVERSE EFFECTS; HE HAS HAD ORAL CONTRAST PREVIOUSLY. haloperidol (Verified Allergy, Severe, "TIGHT JAW", 01/17/18) UNABLE TO CONFIRM PT IS INTUBATED iodixanol (Verified Allergy, Severe, Anaphylaxis; 06/04/09: PT TOLERATES ORAL CONTRAST W/O AE, 01/17/18) PT INTUBATED UNABLE TO CONFIRM 06/04/09: PER RN, PT TOLERATES ORAL CONTRAST MEDIA WITHOUT ADVERSE EFFECTS; HE HAS HAD ORAL CONTRAST PREVIOUSLY. iohexol (Verified Allergy, Severe, PT NEEDS PREMED/DOESN'T KNOW REACTION, 01/17/18) UNABLE TO CONFIRM PT IS INTUBATED 06/04/09: PER RN, PT TOLERATES ORAL CONTRAST MEDIA WITHOUT ADVERSE EFFECTS; HE HAS HAD ORAL CONTRAST PREVIOUSLY. morphine (Verified Allergy, Mild, Itching, 01/17/18) UNABLE TO CONFIRM PT IS INTUBATED benazepril (Verified Allergy, Unknown, UNKNOWN REACTION, 01/17/18) UNABLE TO CONFIRM PT IS INTUBATED captopril (Verified Allergy, Unknown, UNKNOWN REACTION, 01/17/18) UNABLE TO CONFIRM PT IS INTUBATED fosinopril (Verified Allergy, Unknown, UNKNOWN REACTION, 01/17/18) UNABLE TO CONFIRM PT IS INTUBATED lisinopril (Verified Allergy, Unknown, UNKNOWN REACTION, 01/17/18) UNABLE TO CONFIRM PT IS INTUBATED quinapril (Verified Allergy, Unknown, UNKNOWN REACTION, 01/17/18) UNABLE TO CONFIRM PT IS INTUBATED prochlorperazine (Verified Adverse Reaction, Severe, "LOCKJAW", 01/17/18) UNABLE TO CONFIRM PT IS INTUBATED Uncoded Allergies: DYE (Allergy, Severe, CARDIAC ARREST, 04/11/17) UNABLE TO CONFIRM PT IS INTUBATED Reported Meds & Prescriptions Reported Meds & Active Scripts Active Tylenol (Acetaminophen) 325 Mg Tab 650 Mg PO Q6H PRN Hydrochlorothiazide 12.5 Mg Cap 12.5 Mg PO QD Labetalol (Labetalol HCl) 100 Mg Tab 100 Mg PO BID 14 Days Ventolin Hfa 18 GM Inh (Albuterol Sulfate) 90 Mcg/Act Aer 2 Puff INH Q4-6H PRN Reported Depakote DR (Divalproex Sodium) 500 Mg Tabdr 500 Mg PO BID Keppra (Levetiracetam) 500 Mg Tab 500 Mg PO BID Review of Systems ROS Limitations: Clinical Condition, Altered Mental Status Except as stated in HPI: all other systems reviewed are Neg Physical Exam Narrative GENERAL: Well-developed well-nourished male who is unable to give history of why he is here. He is awake however is not answering questions. SKIN: Focused skin assessment warm/dry. HEAD: Atraumatic. Normocephalic. EYES: No scleral icterus. No injection or drainage. ENT: No nasal bleeding or discharge. Mucous membranes pink and moist. NECK: Trachea midline. Supple. CARDIOVASCULAR: Regular rate and rhythm. No murmur appreciated. RESPIRATORY: No accessory muscle use. Clear to auscultation. Breath sounds equal bilaterally. GASTROINTESTINAL: Abdomen soft, non-tender, nondistended. Multiple healed scars across his abdomen. MUSCULOSKELETAL: No obvious deformities. No clubbing. No cyanosis. No edema. NEUROLOGICAL: Awake and altered. The patient is not answering questions. He does mumble phrases but not appropriate answers to questions. No obvious cranial nerve deficits. Motor grossly within normal limits. Data Data Last Documented VS Vital Signs Date Time Temp Pulse Resp B/P (MAP) Pulse Ox O2 Delivery O2 Flow Rate FiO2 01/29/18 01:00 15 95 Room Air 01/29/18 00:15 63 01/29/18 00:13 98.3 172/94 (120) Orders Orders Electrocardiogram (01/29/18 00:34) Ammonia (01/29/18 00:34) Complete Blood Count With Diff (01/29/18:34) Comprehensive Metabolic Panel (01/29/18:34) Creatine Kinase (Cpk) (01/29/18 00:34) Prothrombin Time / Inr (Pt) (01/29/18:34) Act Partial Throm Time (Ptt) (01/29/18:34) Troponin I (01/29/18:34) Thyroid Stimulating Hormone (01/29/18:34) Urinalysis - C+S If Indicated (01/29/18 00:34) Lactic Acid Sepsis Protocol (01/29/18:34) Blood Culture (01/29/18:34) Chest, Single Ap (01/29/18 00:34) Ct Brain W/O Iv Contrast(Rout) (01/29/18 00:34) Blood Glucose (01/29/18:34) Ecg Monitoring (01/29/18:34) Iv Access Insert/Monitor (01/29/18:34) Oximetry (01/29/18:34) Sodium Chloride 0.9% Flush (Ns Flush) (01/29/18 00:45) Sodium Chlor 0.9% 1000 Ml Inj (Ns 1000 M (01/29/18 00:34) Drug Screen, Random Urine (01/29/18 00:34) Alcohol (Ethanol) (01/29/18 00:34) Place In Observation (01/29/18 ) Vital Signs (Adult) Q4H (01/29/18 04:13) Neuro Checks Q4H (01/29/18 04:13) Activity Oob With Assistance (01/29/18 04:13) Intake + Output VALENTINO.QSHIFT (01/29/18 04:13) Diet Npo (01/29/18 Breakfast) Sodium Chlor 0.9% 1000 Ml Inj (Ns 1000 M (01/29/18 04:13) Sodium Chloride 0.9% Flush (Ns Flush) (01/29/18 04:15) Sodium Chloride 0.9% Flush (Ns Flush) (01/29/18 09:00) Comprehensive Metabolic Panel (01/30/18 06:00) Complete Blood Count With Diff (01/30/18 06:00) Pt Request For Service (01/29/18 04:13) Case Management Consult (01/29/18 04:13) Scd Bilateral/Knee High VALENTINO.BID (01/29/18 04:13) Brian Bilateral/Knee High VALENTINO.QSHIFT (01/29/18 04:15) Docusate Sodium-Senna (Yoly-Colace) (01/29/18 09:00) Magnesium Hydroxide Liq (Milk Of Magnesi (01/29/18 04:15) Sennosides (Senokot) (01/29/18 04:15) Bisacodyl Supp (Dulcolax Supp) (01/29/18 04:15) Lactulose Liq (Lactulose Liq) (01/29/18 04:15) ^ Seizure Precautions (01/29/18 04:13) Divalproex Dr (Depakoalonzo Mon) (01/29/18 09:00) Labetalol (Trandate) (01/29/18 09:00) Levetiracetam (Keppra) (01/29/18 09:00) Mri Brain W/O Contrast (01/29/18 ) Admit Order (Ed Use Only) (01/29/18 04:49) Labs Laboratory Tests Test 01/29/18 01:30 01/29/18 01:35 White Blood Count 6.5 TH/MM3 Red Blood Count 3.92 MIL/MM3 Hemoglobin 12.5 GM/DL Hematocrit 36.8 % Mean Corpuscular Volume 93.8 FL Mean Corpuscular Hemoglobin 31.9 PG Mean Corpuscular Hemoglobin Concent 34.0 % Red Cell Distribution Width 15.2 % Platelet Count 262 TH/MM3 Mean Platelet Volume 7.8 FL Neutrophils (%) (Auto) 65.6 % Lymphocytes (%) (Auto) 19.2 % Monocytes (%) (Auto) 9.7 % Eosinophils (%) (Auto) 4.5 % Basophils (%) (Auto) 1.0 % Neutrophils # (Auto) 4.2 TH/MM3 Lymphocytes # (Auto) 1.2 TH/MM3 Monocytes # (Auto) 0.6 TH/MM3 Eosinophils # (Auto) 0.3 TH/MM3 Basophils # (Auto) 0.1 TH/MM3 CBC Comment DIFF FINAL Differential Comment Prothrombin Time 9.9 SEC Prothromb Time International Ratio 1.0 RATIO Activated Partial Thromboplast Time 26.1 SEC Blood Urea Nitrogen 18 MG/DL Creatinine 1.12 MG/DL Random Glucose 89 MG/DL Total Protein 6.6 GM/DL Albumin 3.3 GM/DL Calcium Level 7.9 MG/DL Alkaline Phosphatase 78 U/L Aspartate Amino Transf (AST/SGOT) 14 U/L Alanine Aminotransferase (ALT/SGPT) 18 U/L Total Bilirubin 0.2 MG/DL Sodium Level 141 MEQ/L Potassium Level 3.7 MEQ/L Chloride Level 107 MEQ/L Carbon Dioxide Level 24.2 MEQ/L Anion Gap 10 MEQ/L Estimat Glomerular Filtration Rate 67 ML/MIN Total Creatine Kinase 87 U/L Troponin I LESS THAN 0.02 NG/ML Thyroid Stimulating Hormone 3rd Gen 1.570 uIU/ML Ethyl Alcohol Level LESS THAN 3 MG/DL Lactic Acid Level 0.9 mmol/L Ammonia 16 MCMOL/L [facility] Medical Decision Making Medical Screen Exam Complete: Yes Emergency Medical Condition: Yes Differential Diagnosis CVA versus metabolic disturbance versus sepsis Narrative Course 62-year-old male presents with altered mental status. Patient's well-known to this emergency department. Patient has extensive cardiac history as well as seizure disorder. Patient also has a history of pancreatitis. CT brain is negative for acute process. Chest x-ray is negative for acute process. Laboratory tests show no obvious cause of the patient's mental status changes. Given this, patient will be admitted for further workup. He will likely need an MRI. Case was discussed with Dr. Ida Christian, who will admit the patient to her service. Diagnosis Primary Impression: Altered mental status Additional Impressions: History of pancreatitis Hypertension Admitting Information Admitting Physician Requests: Admit Ian Melissa MD Jan 29, 2018 01:41
[2018-01-29 01:53] LABS: AUTOMATED NEUTROPHIL # 4.2 TH/MM3 (1.8-7.7); BASOPHIL # 0.1 TH/MM3 (0-0.2); EOSINOPHIL # 0.3 TH/MM3 (0-0.4); EOSINOPHIL % 4.5 % (0.0-4.0); HEMATOCRIT 36.8 % (39.0-51.0); HEMOGLOBIN 12.5 GM/DL (13.0-17.0); LYMPH % 19.2 % (9.0-44.0); LYMPHOCYTE # 1.2 TH/MM3 (1.0-4.8); MEAN CELL VOLUME 93.8 FL (80.0-100.0); MEAN CORPUSCULAR HEMOGLOBIN 31.9 PG (27.0-34.0); MEAN PLATELET VOLUME 7.8 FL (7.0-11.0); MONO % 9.7 % (0.0-8.0); MONOCYTE # 0.6 TH/MM3 (0-0.9); NEUT % 65.6 % (16.0-70.0); PLATELET COUNT 262 TH/MM3 (150-450); RED BLOOD COUNT 3.92 MIL/MM3 (4.50-5.90); RED CELL DISTRIBUTION WIDTH 15.2 % (11.6-17.2); WHITE BLOOD COUNT 6.5 TH/MM3 (4.0-11.0)
[2018-01-29 02:10] LABS: PROTHROMBIN TIME - PATIENT 9.9 SEC (9.8-11.6)
[2018-01-29 02:13] LABS: ALKALINE PHOSPHATASE 78 U/L (45-117); TOTAL PROTEIN 6.6 GM/DL (6.4-8.2); TROPONIN I LESS THAN 0.02 NG/ML (0.02-0.05)
[2018-01-29 02:14] LABS: ALBUMIN 3.3 GM/DL (3.4-5.0); ALT (GPT) 18 U/L (12-78); AST (GOT) 14 U/L (15-37); BICARBONATE 24.2 MEQ/L (21.0-32.0); BLOOD UREA NITROGEN 18 MG/DL (7-18); CALCIUM 7.9 MG/DL (8.5-10.1); CHLORIDE 107 MEQ/L (98-107); CREATININE 1.12 MG/DL (0.60-1.30); GLOMERULAR FILTRATION RATE 67 ML/MIN (>89); GLUCOSE,RANDOM 89 MG/DL (74-106); SODIUM (NA) 141 MEQ/L (136-145); TOTAL BILIRUBIN ADULT 0.2 MG/DL (0.2-1.0)
--- NOTE | 2018-01-29 02:56 | RADRPT ---
EXAM DATE: 01/29/2018 2:14 AM EDT AGE/SEX: 62 years / Male INDICATIONS: Altered mental status. CLINICAL DATA: This is the patient's initial encounter. Patient reports that signs and symptoms have been present for 1 day and indicates a pain score of 0/10. MEDICAL/SURGICAL HISTORY: Cardiovascular disease. Hypertension. Chronic obstructive pulmonary dis ease. Seizures pancreatitis Colon Cancer Pacemaker. RADIATION DOSE: 56.35 CTDI (mGy) COMPARISON: [facility] [place], CT BRAIN W/O CONTRAST, 01/01/2018. . TECHNIQUE: CT of the head without contrast. Using automated exposure control and adjustment of the mA and/or kV according to patient size, radiation dose was kept as low as reasonably achievable to ob tain optimal diagnostic quality images. FINDINGS: Cerebrum: The ventricles are normal for age. No evidence of midline shift, mass lesion, hemorrhage or acute infarction. No extraaxial fluid collections are seen. Posterior Fossa: The cerebellum and brainstem are intact. The 4th ventricle is midline. The cerebe llopontine angle is unremarkable. Extracranial: The visualized portion of the orbits is intact. Skull: The calvaria is intact. No evidence of skull fracture. CONCLUSION: 1. Unremarkable and stable CT scan of the brain compared to the prior study. Electronically signed by: Lincoln Meng MD 01/29/2018 2:55 AM EDT
[2018-01-29] MEDS ORDERED: BISACODYL 10 MG SUPP RECTAL PRN (04:15)
[2018-01-29] MEDS ORDERED: SENNOSIDES 8.6 MG TAB PO PRN (04:15)
[2018-01-29] MEDS ORDERED: LACTULOSE SYRUP 20 GM/30 ML CUP PO PRN (04:15)
[2018-01-29] MEDS ORDERED: MAGNESIUM HYDROXIDE SUSP 30 ML CUP PO PRN (04:15)
--- NOTE | 2018-01-29 04:52 | HHI.HP ---
HPI Service [facility] Primary Care Physician Unknown Admission Diagnosis Diagnoses: (1) Encephalopathy Diagnosis: Principal (2) Seizure disorder Diagnosis: Principal (3) HTN (hypertension) Diagnosis: Principal Travel History International Travel<30 Days: No Contact w/Intl Traveler <30 Da: No Traveled to Known Affected Are: No History of Present Illness This is a 62-year-old male with a PMH of HTN, Colon CA, Seizure Disorder and h/ o Recurrent Pancreatitis who was brought to the ER by EMS for AMS. Pt unable to provide any history at this time due to AMS. Per EMS, pt kept repeating "it is happening". On my exam, pt keeps mumbling softly and repeating "up, up, up" . Not answering questions appropriately. Unclear if pt had episode of seizure activity. On arrival, BP 172/94, HR 63, O2 sat 95% on RA, Afebrile. CBC essentially at baseline. Chemistry unremarkable. Troponin negative. Ammonia 16. Lactic Acid normal. INR 1.0. UA and Urine Drug Screen pending. CT Head unremarkable. CXR with no acute findings. Review of Systems Except as stated in HPI: all other systems reviewed are Neg ROS: Unable to obtain secondary to AMS per Past Family Social History Past Medical History PMH: HTN, Colon CA, Seizure Disorder and h/o Recurrent Pancreatitis Past Surgical History PAST SURGICAL HISTORY: Appendectomy, Eye Surgery, Colon Resection, Tonsillectomy Allergies: Coded Allergies: amlodipine (Verified Allergy, Severe, Swelling, 01/17/18) UNALBE TO CONFIRM PT IS INTUBATED amoxicillin (Verified Allergy, Severe, "LIPS SWELL", 01/17/18) PT IS INTUBATED UNABLE TO CONFIRM clavulanic acid (Verified Allergy, Severe, "LIPS SWELL", 01/17/18) PT IS INTUBATED UNABLE TO CONFIRM diatrizoate meglumine (Verified Allergy, Severe, Anaphylaxis; 06/04/09: PT TOLERATES ORAL CONTRAST W/O AE, 01/17/18) PT INTUBATED UNABLE TO CONFIRM 06/04/09: PER RN, PT TOLERATES ORAL CONTRAST MEDIA WITHOUT ADVERSE EFFECTS; HE HAS HAD ORAL CONTRAST PREVIOUSLY. diazepam (Verified Allergy, Severe, RESPIRATORY DISTRESS, 01/17/18) UNALBE TO CONFIRM PT IS INTUBATED enalaprilat (Verified Allergy, Severe, 01/17/18) UNALBE TO CONFIRM PT IS INTUBATED erythromycin base (Verified Allergy, Severe, RASH, 01/17/18) gadobenic acid (Verified Allergy, Severe, Anaphylaxis; 06/04/09: PT TOLERATES ORAL CONTRAST W/O AE, 01/17/18) PT INTUBATED UNABLE TO CONFIRM 06/04/09: PER RN, PT TOLERATES ORAL CONTRAST MEDIA WITHOUT ADVERSE EFFECTS; HE HAS HAD ORAL CONTRAST PREVIOUSLY. gadodiamide (Verified Allergy, Severe, Anaphylaxis; 06/04/09: PT TOLERATES ORAL CONTRAST W/O AE, 01/17/18) PT INTUBATED UNABLE TO CONFIRM 06/04/09: PER RN, PT TOLERATES ORAL CONTRAST MEDIA WITHOUT ADVERSE EFFECTS; HE HAS HAD ORAL CONTRAST PREVIOUSLY. gadoteridol (Verified Allergy, Severe, Anaphylaxis; 06/04/09: PT TOLERATES ORAL CONTRAST W/O AE, 01/17/18) PT INTUBATED UNABLE TO CONFIRM 06/04/09: PER RN, PT TOLERATES ORAL CONTRAST MEDIA WITHOUT ADVERSE EFFECTS; HE HAS HAD ORAL CONTRAST PREVIOUSLY. haloperidol (Verified Allergy, Severe, "TIGHT JAW", 01/17/18) UNABLE TO CONFIRM PT IS INTUBATED iodixanol (Verified Allergy, Severe, Anaphylaxis; 06/04/09: PT TOLERATES ORAL CONTRAST W/O AE, 01/17/18) PT INTUBATED UNABLE TO CONFIRM 06/04/09: PER RN, PT TOLERATES ORAL CONTRAST MEDIA WITHOUT ADVERSE EFFECTS; HE HAS HAD ORAL CONTRAST PREVIOUSLY. iohexol (Verified Allergy, Severe, PT NEEDS PREMED/DOESN'T KNOW REACTION, 01/17/18) UNABLE TO CONFIRM PT IS INTUBATED 06/04/09: PER RN, PT TOLERATES ORAL CONTRAST MEDIA WITHOUT ADVERSE EFFECTS; HE HAS HAD ORAL CONTRAST PREVIOUSLY. morphine (Verified Allergy, Mild, Itching, 01/17/18) UNABLE TO CONFIRM PT IS INTUBATED benazepril (Verified Allergy, Unknown, UNKNOWN REACTION, 01/17/18) UNABLE TO CONFIRM PT IS INTUBATED captopril (Verified Allergy, Unknown, UNKNOWN REACTION, 01/17/18) UNABLE TO CONFIRM PT IS INTUBATED fosinopril (Verified Allergy, Unknown, UNKNOWN REACTION, 01/17/18) UNABLE TO CONFIRM PT IS INTUBATED lisinopril (Verified Allergy, Unknown, UNKNOWN REACTION, 01/17/18) UNABLE TO CONFIRM PT IS INTUBATED quinapril (Verified Allergy, Unknown, UNKNOWN REACTION, 01/17/18) UNABLE TO CONFIRM PT IS INTUBATED prochlorperazine (Verified Adverse Reaction, Severe, "LOCKJAW", 01/17/18) UNABLE TO CONFIRM PT IS INTUBATED Uncoded Allergies: DYE (Allergy, Severe, CARDIAC ARREST, 04/11/17) UNABLE TO CONFIRM PT IS INTUBATED Family History PAST FAMILY HISTORY: Reviewed, positive for CAD Social History PAST SOCIAL HISTORY: Occasional alcohol. Positive for tobacco. + Marijuana per Physical Exam Vital Signs Vital Signs Date Time Temp Pulse Resp B/P (MAP) Pulse Ox O2 Delivery O2 Flow Rate FiO2 01/29/18 01:00 15 95 Room Air 01/29/18 00:15 63 15 95 Room Air 01/29/18 00:13 98.3 63 15 172/94 (120) 95 Physical Exam PE: GENERAL: Middle-aged white male in no acute distress. Opens eyes to name, speaking very softly, muttering "up, up, up" HEENT: PERRLA, EOMI. No scleral icterus or conjunctival pallor. No lid lag or facial droop. CARDIOVASCULAR: Regular rate and rhythm. No obvious murmurs to auscultation. No chest tenderness to palpation. RESPIRATORY: No obvious rhonchi or wheezing. Clear to auscultation. Breath sounds equal bilaterally. GASTROINTESTINAL: Abdomen soft, non-tender, nondistended. BS normal. MUSCULOSKELETAL: Extremities without clubbing, cyanosis, or edema. No obvious deformities. NEUROLOGICAL: Awake, alert, altered, not following commands, difficult to assess strength. No focal neurologic deficits. Moving both upper and lower extremities spontaneously. Laboratory Laboratory Tests Test 01/29/18 01:30 01/29/18 01:35 White Blood Count 6.5 Red Blood Count 3.92 Hemoglobin 12.5 Hematocrit 36.8 Mean Corpuscular Volume 93.8 Mean Corpuscular Hemoglobin 31.9 Mean Corpuscular Hemoglobin Concent 34.0 Red Cell Distribution Width 15.2 Platelet Count 262 Mean Platelet Volume 7.8 Neutrophils (%) (Auto) 65.6 Lymphocytes (%) (Auto) 19.2 Monocytes (%) (Auto) 9.7 Eosinophils (%) (Auto) 4.5 Basophils (%) (Auto) 1.0 Neutrophils # (Auto) 4.2 Lymphocytes # (Auto) 1.2 Monocytes # (Auto) 0.6 Eosinophils # (Auto) 0.3 Basophils # (Auto) 0.1 CBC Comment DIFF FINAL Differential Comment Prothrombin Time 9.9 Prothromb Time International Ratio 1.0 Activated Partial Thromboplast Time 26.1 Blood Urea Nitrogen 18 Creatinine 1.12 Random Glucose 89 Total Protein 6.6 Albumin 3.3 Calcium Level 7.9 Alkaline Phosphatase 78 Aspartate Amino Transf (AST/SGOT) 14 Alanine Aminotransferase (ALT/SGPT) 18 Total Bilirubin 0.2 Sodium Level 141 Potassium Level 3.7 Chloride Level 107 Carbon Dioxide Level 24.2 Anion Gap 10 Estimat Glomerular Filtration Rate 67 Total Creatine Kinase 87 Troponin I LESS THAN 0.02 Thyroid Stimulating Hormone 3rd Gen 1.570 Ethyl Alcohol Level LESS THAN 3 Lactic Acid Level 0.9 Ammonia 16 Date/Time Source Procedure Growth Status 01/29/18 01:35 Blood Peripheral Aerobic Blood Culture Pending Received 01/29/18 01:35 Blood Peripheral Anaerobic Blood Culture Pending Received Result Diagram: 01/29/1812901/29/180 Caprini VTE Risk Assessment Caprini VTE Risk Assessment: No/Low Risk (score <= 1) Caprini Risk Assessment Model Point Value = 1 Point Value = 2 Point Value = 3 Point Value = 5 Age 41-60 Minor surgery BMI > 25 kg/m2 Swollen legs Varicose veins or History of unexplained or recurrent spontaneous Oral contraceptives or hormone replacement Sepsis (< 1 month) Serious lung disease, including pneumonia (< 1 month) Abnormal pulmonary function Acute myocardial infarction Congestive heart failure (< 1 month) History of inflammatory bowel disease Medical patient at bed rest Age 61-74 Arthroscopic surgery Major open surgery (> 45 min) Laparoscopic surgery (> 45 min) Malignancy Confined to bed (> 72 hours) Immobilizing plaster cast Central venous access Age >= 75 History of VTE Family history of VTE Factor V Leiden Prothrombin [id number] Lupus anticoagulant Anticardiolipin antibodies Elevated serum homocysteine Heparin-induced thrombocytopenia Other congenital or acquired thrombophilia Stroke (< 1 month) Elective arthroplasty Hip, pelvis, or leg fracture Acute spinal cord injury (< 1 month) Prophylaxis Regimen Total Risk Factor Score Risk Level Prophylaxis Regimen 0-1 Low Early ambulation 2 Moderate Order ONE of the following: *Sequential Compression Device (SCD) *Heparin 5000 units SQ BID 3-4 Higher Order ONE of the following medications: *Heparin 5000 units SQ TID *Enoxaparin/Lovenox 40 mg SQ daily (WT < 150 kg, CrCl > 30 mL/min) *Enoxaparin/Lovenox 30 mg SQ daily (WT < 150 kg, CrCl > 10-29 mL/min) *Enoxaparin/Lovenox 30 mg SQ BID (WT < 150 kg, CrCl > 30 mL/min) AND/OR *Sequential Compression Device (SCD) 5 or more Highest Order ONE of the following medications: *Heparin 5000 units SQ TID (Preferred with Epidurals) *Enoxaparin/Lovenox 40 mg SQ daily (WT < 150 kg, CrCl > 30 mL/min) *Enoxaparin/Lovenox 30 mg SQ daily (WT < 150 kg, CrCl > 10-29 mL/min) *Enoxaparin/Lovenox 30 mg SQ BID (WT < 150 kg, CrCl > 30 mL/min) AND *Sequential Compression Device (SCD) Assessment and Plan Problem List: (1) Encephalopathy ICD Code: G93.40 - Encephalopathy, unspecified Status: Acute (2) Seizure disorder ICD Code: G40.909 - Seizure disorder Status: Chronic (3) HTN (hypertension) ICD Code: I10 - HTN (hypertension) Status: Chronic Assessment and Plan A/P: 1. Encephalopathy: unclear etiology, acute AMS, noted by EMS to be repeating "it is happening", now mumbling unintelligibly, repeating "up, up, up". No witnessed seizure activity. CT Head w/ no acute findings, check MRI Brain to eval for possible CVA. Neuro Checks. Neuro consult as needed for further recommendation. 2. Seizure Disorder: unclear if pt had seizure activity or if compliant w/ meds, Seizure Precautions, resume home medications. 3. HTN: Uncontrolled, previous admits for hypertensive encephalopathy, BP 170' s systolic at this time, will monitor closely, antihypertensives as needed. 4. DVT Prophylaxis: SCD/Teds 5. Social work for d/c planning as needed. 6. Case discussed w/ ER physician at length, labs/records/imaging reviewed by me. Ida Ny MD Jan 29, 2018 04:52
[2018-01-29] MEDS ORDERED: LABETALOL HCL 100 MG TAB PO SCH (09:00)
[2018-01-29] MEDS ORDERED: SODIUM CHLORIDE 0.9% FLUSH 10 ML FLUSH IV FLUSH SCH (09:00)
[2018-01-29] MEDS ORDERED: levETIRAcetam 500 MG TAB PO SCH (09:00)
[2018-01-29] MEDS ORDERED: DOCUSATE SODIUM 50 MG/SENNA 8.6 MG TAB PO SCH (09:00)
[2018-01-29] MEDS ORDERED: DIVALPROEX DR 500 MG TABEC PO SCH (09:00)
--- NOTE | 2018-01-29 11:00 | RADRPT ---
EXAM DATE: 01/29/2018 10:18 AM EDT AGE/SEX: 62 years / Male INDICATIONS: Altered mental status. CLINICAL DATA: This is the patient's initial encounter. Patient reports that signs and symptoms have been present for 2 days and indicates a pain score of 0/10. MEDICAL/SURGICAL HISTORY: Hypertension. Chronic obstructive pulmonary disease. Carcinoma, col on. Seizures. Colon resection. Tonsillectomy. COMPARISON: [facility] – [place], CT BRAIN W/O CONTRAST, 01/29/2018. . TECHNIQUE: Multiplanar, multisequence examination of the brain was performed without contrast. FINDINGS: Cerebrum: The ventricles are normal for age. No evidence of midline shift, mass lesion, hemorrhage or acute infarction. No extraaxial fluid collections are seen. The pituitary gland and suprasellar cistern are normal in configuration. White Matter: Scattered punctate areas of white matter T2 prolongation, mainly in the periventricula r regions which appear benign Posterior Fossa: The cerebellum and brainstem are intact. The 4th ventricle is midline. The cerebel lopontine angle is unremarkable. The cerebellar tonsils are normal in position. Diffusion Imaging: No focal areas of restricted diffusion are seen. No evidence of acute infarction . Extracranial: The visualized portions of the orbits are unremarkable. Mild polypoid disease in the m axillary sinuses bilaterally.. CONCLUSION: 1. No acute intracranial findings. 2. Chronic-appearing white matter signal changes. Electronically signed by: Arden Lauren MD 01/29/2018 10:57 AM EDT
--- NOTE | 2018-01-29 13:15 | HHI.PR ---
Subjective Remarks Follow-up for encephalopathy. Patient is currently awake, alert, oriented to person, place, month/year, president. He has no recollection of events leading up to admission. He states he was at work yesterday, and the next thing he knows is he ended up at [facility]. He states this has never happened before. He denies any alcohol or illicit drug use. He denies any recent seizure that he is aware of. He lives alone in an apartment. Wants to go home. He denies any recent illness and denies any fever/chills, headache, cough , chest pain, shortness of breath, abdominal pain, nausea/vomiting, diarrhea, constipation, or urinary complaints. He denies any history of psychiatric illnesses. Objective Vitals Vital Signs Date Time Temp Pulse Resp B/P (MAP) Pulse Ox O2 Delivery O2 Flow Rate FiO2 01/29/18 12:00 96.4 54 20 125/82 (96) 98 01/29/18 08:00 95.3 50 20 120/71 (87) 97 01/29/18 06:41 97.7 48 16 177/98 (124) 96 01/29/18 05:00 53 16 168/84 (112) 97 Room Air 01/29/18 02:00 55 16 174/83 (113) 98 Room Air 01/29/18 01:00 15 95 Room Air 01/29/18 00:15 63 15 95 Room Air 01/29/18 00:13 98.3 63 15 172/94 (120) 95 I/O 01/28/18 01/28/18 01/28/18 01/29/18 01/29/18 01/29/18 07:00 15:00 23:00 07:00 15:00 23:00 Output Total 600 ml Balance -600 ml Output Urine Total 600 ml Result Diagram: 01/29/18 0130 01/29/18 0130 Imaging Last Impressions Head CT 01/29/1833 Signed Impressions: CONCLUSION: 1. Unremarkable and stable CT scan of the brain compared to the prior study. Chest X-Ray 01/29/1833 Signed Impressions: CONCLUSION: No acute intrathoracic disease. Stable exam. Brain MRI 01/29/18 0000 Signed Impressions: CONCLUSION: 1. No acute intracranial findings. 2. Chronic-appearing white matter signal changes. Objective Remarks GENERAL: Well-nourished, well-developed middle-age male patient in [facility]. SKIN: Warm and dry. No rash. HEENT: Normocephalic. Atraumatic. Pupils equal and round. Mucous membranes pink and moist. NECK: Supple. Trachea midline. CARDIOVASCULAR: Regular rate and rhythm. No murmur appreciated. RESPIRATORY: No accessory muscle use. Clear to auscultation. Breath sounds equal bilaterally. GASTROINTESTINAL: Abdomen soft, non-tender, nondistended. Normoactive bowel sounds x4. Vertical midline abdominal scarring. MUSCULOSKELETAL: No obvious deformities. Trace bilateral lower extremity anterior tibial edema. NEUROLOGICAL: AAO 4. No obvious cranial nerve deficits. Motor grossly within normal limits. Moving all extremities spontaneously. Normal speech. PSYCHIATRIC: Appropriate mood and affect; insight and judgment normal. Medications and IVs Current Medications Medications (Trade) Dose Ordered Sig/Dorothy Route Start Time Stop Time Status Last Admin (NS Flush) 2 ml UNSCH PRN IV FLUSH 01/29/18 00:45 Sodium Chloride 1,000 ml @ 100 mls/hr Q10H IV 01/29/18 04:13 01/29/18 05:32 (NS Flush) 2 ml UNSCH PRN IV FLUSH 01/29/18 04:15 (NS Flush) 2 ml BID IV FLUSH 01/29/18 09:00 (Yoly-Colace) 1 tab BID PO 01/29/18 09:00 01/29/18 08:40 (Milk Of Magnesia Liq) 30 ml Q12H PRN PO 01/29/18 04:15 (Senokot) 17.2 mg Q12H PRN PO 01/29/18 04:15 (Dulcolax Supp) 10 mg DAILY PRN RECTAL 01/29/18 04:15 (Lactulose Liq) 30 ml DAILY PRN PO 01/29/18 04:15 (Depakote Dr) 500 mg BID PO 01/29/18 09:00 01/29/18 08:40 (Trandate) 100 mg BID PO 01/29/18 09:00 01/29/18 08:40 (Keppra) 500 mg BID PO 01/29/18 09:00 01/29/18 08:40 A/P Problem List: (1) Encephalopathy ICD Code: G93.40 - Encephalopathy, unspecified Status: Acute (2) Seizure disorder ICD Code: G40.909 - Seizure disorder Status: Chronic (3) HTN (hypertension) ICD Code: I10 - HTN (hypertension) Status: Chronic Assessment and Plan 62-year-old male with a PMH of HTN, Colon CA, Seizure Disorder and h/o Recurrent Pancreatitis who was brought to the ER by EMS for AMS. Encephalopathy: unclear etiology, acute AMS, noted by EMS to be repeating "it is happening", now mumbling unintelligibly, repeating "up, up, up". No witnessed seizure activity. -CT Head and brain MRI reviewed, no acute findings -CXR reviewed and unremarkable -CBC, CMP, ammonia, CPK, TSH, lactic acid all within normal limits -Monitor neuro checks -EtOH 3, check UA and UDS -Hx of hypertensive encephalopathy, possible etiology of AMS, BP now controlled and AMS resolved -Patient appears back to normal, AAO 4, symptoms resolved. Seizure Disorder: unclear if pt had seizure activity or if compliant w/ meds -Seizure Precautions -resume home medications including Keppra and Depakote -No seizure activity reported HTN: Uncontrolled, previous admits for hypertensive encephalopathy, BP 170's systolic upon arrival. -Restart patient's home medications including labetalol 100 mg twice daily -Holding HCTZ for now with evidence of mild dehydration Dehydration: BMP with Cr 1.12, GFR 67 -suspect dehydration, given IVF hydration DVT Prophylaxis: SCD/Teds Discharge Planning Await UA and UDS. Possible discharge today if unremarkable. 1515 hrs.: UA unremarkable. UDS negative. Vitamin B12 low, will replace. Patient refusing any further labs, and wants to go home. Will discharge. Discharge patient to home Condition on discharge: stable Heart healthy diet as tolerated Ad Nataliya activity Rx written: cyanocobalamin 1000mcg tab daily Follow-up with primary care physician in 1 week Ambika Nolan PA-C Jan 29, 2018 13:15
[2018-01-29 13:26] LABS: BILIRUBIN, URINE NEG (NEG); BLOOD, URINE NEG (NEG); GLUCOSE,URINE NEG (NEG); KETONE, URINE NEG (NEG); MUCUS URINE FEW /lpf (OCC); NITRITE,URINE NEG (NEG); PH, URINE 6.5 (5.0-8.5); SQUAMOUS EPITHELIAL CELL URINE 2 /hpf (0-5); URINE COLOR LIGHT-YELLOW (YELLW/STRAW); URINE LEUKOCYTE ESTERASE TRACE (NEG)
--- NOTE | 2018-01-29 15:20 | HHI.DCPOC ---
Discharge Care Plan Diagnosis: (1) Altered mental status (2) Hypertension (3) Hx of seizure disorder Goals to Promote Your Health * To prevent worsening of your condition and complications * To maintain your health at the optimal level Directions to Meet Your Goals Take your medications as prescribed Follow your dietary instruction Follow activity as directed Keep your appointments as scheduled Take your immunizations and boosters as scheduled If your symptoms worsen call your PCP, if no PCP go to Urgent Care Center or Emergency Room Smoking is Dangerous to Your Health. Avoid second hand smoke Call the 24-hour hour crisis hotline for domestic abuse at Ambika Nolan PA-C Jan 29, 2018 3:20 pm
[2018-01-29] MEDS ORDERED: CYAN1TAB24 PO (15:42)
[2018-01-29] MEDS ORDERED: CYANOCOBALAMIN 1000 MCG/ML VIAL IM ONE (16:00)
== END 2018-01-29 17:09 | disposition home or self-care (01) ==
LOC: NEPE 00:07 → NEDA 04:54 → NEPHCDU 06:07
PROVIDERS: ADMIT Family Medicine; ATTEND Family Medicine
DX: G93.40 Encephalopathy, unspecified (principal); G40.909 Epilepsy, unspecified, not intractable, without status epilepticus; I11.0 Hypertensive heart disease with heart failure; I50.9 Heart failure, unspecified; J44.9 Chronic obstructive pulmonary disease, unspecified; R55 Syncope and collapse; Z85.038 Personal history of other malignant neoplasm of large intestine; Z86.73 Personal history of transient ischemic attack (TIA), and cerebral infarction without residual deficits
CPT/HCPCS: 70450; 70551; 71045; 80053; 80307; 81001; 82140; 82550; 82607; 83605; 84443; 84484; 85025; 85610; 85730; 86403; 87040; 87205; 96360; 96361; 96372; 97161; 99285; G0378; G8987; G8988; J3420; J7030

== ENCOUNTER 2018-02-03 02:20 | Observation (INO) | payer OTHER ==
[~2018-02-03] VITALS: Ht 170.2 cm; Wt 59.1 kg
[2018-02-03] VITALS (8 sets, daily range): BP systolic 129–187; BP diastolic 85–102; PULSE 50–57; RESP 16–20; TEMP 95.4–98.7; O2SAT 94–99
[~2018-02-03 02:20] MED LIST changes: +CYAN1TAB24 PO; -HYDR12.57 PO
--- NOTE | 2018-02-03 02:49 | PD ---
HPI Chief Complaint: Altered Mental Status Time Seen by Provider: 02:41 Travel History International Travel<30 days: No Contact w/Intl Traveler<30days: No Traveled to known affect area: No History of Present Illness HPI 62yo M with PMH of HTN, Colon CA, seizure disorder, pancreatitis presents to the ED with altered mental status after calling [facility] himself. As per my nurses , he is a chronic alcohol drinker and has presented like this before. Pt mumbles to himself and does not follow directions. Unable to obtain further information from patient. Pt was just admitted for similar altered mental status on 01/29/[address] brain and negative MRI brain. Pt was discharge after becoming AAOx4. PFSH Past Medical History Hx Anticoagulant Therapy: No Arthritis: Yes Asthma: No Autoimmune Disease: No Blood Disorders: No Anxiety: No Depression: No Heart Rhythm Problems: No Cancer: Yes (colon cancer) Cardiac Catheterization: No Cardiovascular Problems: Yes High Cholesterol: No Chemotherapy: Yes Chest Pain: Yes Congestive Heart Failure: Yes COPD: Yes Cerebrovascular Accident: Yes (CVA ) Diabetes: No Diminished Hearing: No Endocrine: No Gastrointestinal Disorders: Yes GERD: No Glaucoma: No Genitourinary: No Headaches: Yes Hepatitis: No Hiatal Hernia: No Heparin Induced Thrombocytopen: No Hypertension: Yes Immune Disorder: No Implanted Vascular Access Dvce: No Kidney Stones: No Musculoskeletal: No Neurologic: Yes Psychiatric: No Reproductive: No Respiratory: Yes Immunizations Current: Yes Migraines: No Myocardial Infarction: No Pancreatitis: Yes Radiation Therapy: Yes Renal Failure: No Seizures: Yes Sickle Cell Disease: No Sleep Apnea: No Thyroid Disease: No Ulcer: No PNEUMOCCOCAL Vaccine (Year): 1 Past Surgical History Abdominal Surgery: Yes (deepti cancer) AICD: No Appendectomy: Yes Arteriovenous Shunt: No Cardiac Surgery: No Cholecystectomy: No Coronary Artery Bypass Graft: No Ear Surgery: No Endocrine Surgery: No Eye Surgery: Yes (BILAT MUSCLES CUT) Genitourinary Surgery: No Gynecologic Surgery: No Insulin Pump: No Joint Replacement: No Neurologic Surgery: No Oral Surgery: No Pacemaker: No Thoracic Surgery: No Tonsillectomy: Yes Other Surgery: Yes (colon cancer.tonsilts, eyes,) Family History Family Myocardial Infarction: Yes Social History Alcohol Use: Yes (OCCASIONALLY) Tobacco Use: Yes (1/2 PPD) Substance Use: Yes (marijuana) Allergies-Medications (Allergen,Severity, Reaction): Coded Allergies: amlodipine (Verified Allergy, Severe, Swelling, 01/17/18) UNALBE TO CONFIRM PT IS INTUBATED amoxicillin (Verified Allergy, Severe, "LIPS SWELL", 01/17/18) PT IS INTUBATED UNABLE TO CONFIRM clavulanic acid (Verified Allergy, Severe, "LIPS SWELL", 01/17/18) PT IS INTUBATED UNABLE TO CONFIRM diatrizoate meglumine (Verified Allergy, Severe, Anaphylaxis; 06/04/09: PT TOLERATES ORAL CONTRAST W/O AE, 01/17/18) PT INTUBATED UNABLE TO CONFIRM 06/04/09: PER RN, PT TOLERATES ORAL CONTRAST MEDIA WITHOUT ADVERSE EFFECTS; HE HAS HAD ORAL CONTRAST PREVIOUSLY. diazepam (Verified Allergy, Severe, RESPIRATORY DISTRESS, 01/17/18) UNALBE TO CONFIRM PT IS INTUBATED enalaprilat (Verified Allergy, Severe, 01/17/18) UNALBE TO CONFIRM PT IS INTUBATED erythromycin base (Verified Allergy, Severe, RASH, 01/17/18) gadobenic acid (Verified Allergy, Severe, Anaphylaxis; 06/04/09: PT TOLERATES ORAL CONTRAST W/O AE, 01/17/18) PT INTUBATED UNABLE TO CONFIRM 06/04/09: PER RN, PT TOLERATES ORAL CONTRAST MEDIA WITHOUT ADVERSE EFFECTS; HE HAS HAD ORAL CONTRAST PREVIOUSLY. gadodiamide (Verified Allergy, Severe, Anaphylaxis; 06/04/09: PT TOLERATES ORAL CONTRAST W/O AE, 01/17/18) PT INTUBATED UNABLE TO CONFIRM 06/04/09: PER RN, PT TOLERATES ORAL CONTRAST MEDIA WITHOUT ADVERSE EFFECTS; HE HAS HAD ORAL CONTRAST PREVIOUSLY. gadoteridol (Verified Allergy, Severe, Anaphylaxis; 06/04/09: PT TOLERATES ORAL CONTRAST W/O AE, 01/17/18) PT INTUBATED UNABLE TO CONFIRM 06/04/09: PER RN, PT TOLERATES ORAL CONTRAST MEDIA WITHOUT ADVERSE EFFECTS; HE HAS HAD ORAL CONTRAST PREVIOUSLY. haloperidol (Verified Allergy, Severe, "TIGHT JAW", 01/17/18) UNABLE TO CONFIRM PT IS INTUBATED iodixanol (Verified Allergy, Severe, Anaphylaxis; 06/04/09: PT TOLERATES ORAL CONTRAST W/O AE, 01/17/18) PT INTUBATED UNABLE TO CONFIRM 06/04/09: PER RN, PT TOLERATES ORAL CONTRAST MEDIA WITHOUT ADVERSE EFFECTS; HE HAS HAD ORAL CONTRAST PREVIOUSLY. iohexol (Verified Allergy, Severe, PT NEEDS PREMED/DOESN'T KNOW REACTION, 01/17/18) UNABLE TO CONFIRM PT IS INTUBATED 06/04/09: PER RN, PT TOLERATES ORAL CONTRAST MEDIA WITHOUT ADVERSE EFFECTS; HE HAS HAD ORAL CONTRAST PREVIOUSLY. morphine (Verified Allergy, Mild, Itching, 01/17/18) UNABLE TO CONFIRM PT IS INTUBATED benazepril (Verified Allergy, Unknown, UNKNOWN REACTION, 01/17/18) UNABLE TO CONFIRM PT IS INTUBATED captopril (Verified Allergy, Unknown, UNKNOWN REACTION, 01/17/18) UNABLE TO CONFIRM PT IS INTUBATED fosinopril (Verified Allergy, Unknown, UNKNOWN REACTION, 01/17/18) UNABLE TO CONFIRM PT IS INTUBATED lisinopril (Verified Allergy, Unknown, UNKNOWN REACTION, 01/17/18) UNABLE TO CONFIRM PT IS INTUBATED quinapril (Verified Allergy, Unknown, UNKNOWN REACTION, 01/17/18) UNABLE TO CONFIRM PT IS INTUBATED prochlorperazine (Verified Adverse Reaction, Severe, "LOCKJAW", 01/17/18) UNABLE TO CONFIRM PT IS INTUBATED Uncoded Allergies: DYE (Allergy, Severe, CARDIAC ARREST, 04/11/17) UNABLE TO CONFIRM PT IS INTUBATED Reported Meds & Prescriptions Reported Meds & Active Scripts Active B12 (Cyanocobalamin) 1,000 Mcg Tab 1 Tab PO DAILY 30 Days Tylenol (Acetaminophen) 325 Mg Tab 650 Mg PO Q6H PRN Labetalol (Labetalol HCl) 100 Mg Tab 100 Mg PO BID 14 Days Ventolin Hfa 18 GM Inh (Albuterol Sulfate) 90 Mcg/Act Aer 2 Puff INH Q4-6H PRN Reported Depakote DR (Divalproex Sodium) 500 Mg Tabdr 500 Mg PO BID Keppra (Levetiracetam) 500 Mg Tab 500 Mg PO BID Review of Systems ROS Limitations: Clinical Condition Physical Exam Narrative GENERAL: 62yo M not in distress. SKIN: Focused skin assessment warm/dry. HEAD: Atraumatic. Normocephalic. EYES: Pupils equal and round at 3mm bilaterally. ENT: No nasal bleeding or discharge. Mucous membranes pink and moist. NECK: Trachea midline. No JVD. CARDIOVASCULAR: Regular rate and rhythm. No murmur appreciated. RESPIRATORY: No accessory muscle use. Clear to auscultation. Breath sounds equal bilaterally. GASTROINTESTINAL: Abdomen soft, non-tender, nondistended. MUSCULOSKELETAL: No obvious deformities. No clubbing. No cyanosis. No edema. NEUROLOGICAL: Awake and opens eyes. Mumbles to himself and does not follow commands. Data Data Last Documented VS Vital Signs Date Time Temp Pulse Resp B/P (MAP) Pulse Ox O2 Delivery O2 Flow Rate FiO2 02/03/18 02:25 97.8 57 16 175/89 (117) 94 Orders Orders Ammonia (02/03/18 02:44) Complete Blood Count With Diff (02/03/18 02:44) Comprehensive Metabolic Panel (02/03/18 02:44) Creatine Kinase (Cpk) (02/03/18 02:44) Prothrombin Time / Inr (Pt) (02/03/18 02:44) Act Partial Throm Time (Ptt) (02/03/18 02:44) Troponin I (02/03/18 02:44) Thyroid Stimulating Hormone (02/03/18 02:44) Urinalysis - C+S If Indicated (02/03/18 02:44) Ct Brain W/O Iv Contrast(Rout) (02/03/18 02:44) Blood Glucose (02/03/18 02:44) Ecg Monitoring (02/03/18 02:44) Iv Access Insert/Monitor (02/03/18 02:44) Drug Screen, Random Urine (02/03/18 02:44) Alcohol (Ethanol) (02/03/18 02:44) Tylenol (Acetaminophen) (02/03/18 02:44) Salicylates (Aspirin) (02/03/18 02:44) Labs Laboratory Tests Test 02/03/18 02:51 02/03/18 04:20 White Blood Count 7.2 TH/MM3 Red Blood Count 4.44 MIL/MM3 Hemoglobin 14.4 GM/DL Hematocrit 41.7 % Mean Corpuscular Volume 93.9 FL Mean Corpuscular Hemoglobin 32.5 PG Mean Corpuscular Hemoglobin Concent 34.6 % Red Cell Distribution Width 14.9 % Platelet Count 255 TH/MM3 Mean Platelet Volume 7.9 FL Neutrophils (%) (Auto) 65.5 % Lymphocytes (%) (Auto) 22.3 % Monocytes (%) (Auto) 8.6 % Eosinophils (%) (Auto) 2.7 % Basophils (%) (Auto) 0.9 % Neutrophils # (Auto) 4.7 TH/MM3 Lymphocytes # (Auto) 1.6 TH/MM3 Monocytes # (Auto) 0.6 TH/MM3 Eosinophils # (Auto) 0.2 TH/MM3 Basophils # (Auto) 0.1 TH/MM3 CBC Comment AUTO DIFF Differential Comment AUTO DIFF CONFIRMED Platelet Estimate NORMAL Platelet Morphology Comment NORMAL Prothrombin Time 10.1 SEC Prothromb Time International Ratio 1.0 RATIO Activated Partial Thromboplast Time 24.2 SEC Blood Urea Nitrogen 22 MG/DL Creatinine 1.35 MG/DL Random Glucose 79 MG/DL Total Protein 7.9 GM/DL Albumin 3.8 GM/DL Calcium Level 8.3 MG/DL Alkaline Phosphatase 88 U/L Aspartate Amino Transf (AST/SGOT) 15 U/L Alanine Aminotransferase (ALT/SGPT) 18 U/L Total Bilirubin 0.4 MG/DL Sodium Level 137 MEQ/L Potassium Level 3.5 MEQ/L Chloride Level 103 MEQ/L Carbon Dioxide Level 23.3 MEQ/L Anion Gap 11 MEQ/L Estimat Glomerular Filtration Rate 54 ML/MIN Ammonia 26 MCMOL/L Total Creatine Kinase 110 U/L Troponin I LESS THAN 0.02 NG/ML Thyroid Stimulating Hormone 3rd Gen 1.980 uIU/ML Salicylates Level 7.3 MG/DL Acetaminophen Level LESS THAN 2.0 MCG/ML Ethyl Alcohol Level LESS THAN 3 MG/DL Urine Color LIGHT-YELLOW Urine Turbidity CLEAR Urine pH 5.5 Urine Specific [place] 1.003 Urine Protein NEG mg/dL Urine Glucose (UA) NEG mg/dL Urine Ketones NEG mg/dL Urine Occult Blood NEG Urine Nitrite NEG Urine Bilirubin NEG Urine Urobilinogen LESS THAN 2.0 MG/DL Urine Leukocyte Esterase NEG Urine WBC LESS THAN 1 /hpf Microscopic Urinalysis Comment CATH-CULT NOT IND Urine Opiates Screen NEG Urine Barbiturates Screen NEG Urine Amphetamines Screen NEG Urine Benzodiazepines Screen NEG Urine Cocaine Screen NEG Urine Cannabinoids Screen POS [facility] Medical Decision Making Medical Screen Exam Complete: Yes Emergency Medical Condition: Yes Interpretation(s) EKG: Sinus bradycardia at 58bpm. Normal axis. No significant ST elevation or depression. Differential Diagnosis Drug use vs. Hepatic encephalopathy vs. ICH vs. electrolyte abnormality Narrative Course 62yo M is here for altered mental status. Labs reviewed, no leukocytosis. H/H normal. Ammonia normal. BUN/creatinine is mildly elevated at 22/1.35, given NS IVF. Troponin negative. TSH normal. Alcohol negative. Acetaminophen negative. U tox positive for cannabinoids. CT brain negative. Pt reevaluated at bedside and still just mumbles. Pt's mental status is unchanged and may be drug related. However, it has been three hours and he is still not following commands and altered. Discussed with resident physicians and accepted to their service. Diagnosis Primary Impression: Altered mental status Qualified Codes: R41.82 - Altered mental status, unspecified Additional Impression: Dehydration Admitting Information Admitting Physician Requests: Wendy Dumont DO Feb 03, 2018 02:49
[2018-02-03 03:03] LABS: AUTOMATED NEUTROPHIL # 4.7 TH/MM3 (1.8-7.7); BASOPHIL # 0.1 TH/MM3 (0-0.2); BASOPHIL % 0.9 % (0.0-2.0); EOSINOPHIL # 0.2 TH/MM3 (0-0.4); EOSINOPHIL % 2.7 % (0.0-4.0); HEMATOCRIT 41.7 % (39.0-51.0); HEMOGLOBIN 14.4 GM/DL (13.0-17.0); LYMPH % 22.3 % (9.0-44.0); LYMPHOCYTE # 1.6 TH/MM3 (1.0-4.8); MEAN CELL VOLUME 93.9 FL (80.0-100.0); MEAN CORPUSCULAR HEMOGLOBIN 32.5 PG (27.0-34.0); MEAN CORPUSCULAR HGB CONC 34.6 % (32.0-36.0); MEAN PLATELET VOLUME 7.9 FL (7.0-11.0); MONO % 8.6 % (0.0-8.0); MONOCYTE # 0.6 TH/MM3 (0-0.9); NEUT % 65.5 % (16.0-70.0); PLATELET COUNT 255 TH/MM3 (150-450); RED BLOOD COUNT 4.44 MIL/MM3 (4.50-5.90); RED CELL DISTRIBUTION WIDTH 14.9 % (11.6-17.2); WHITE BLOOD COUNT 7.2 TH/MM3 (4.0-11.0)
[2018-02-03 03:13] LABS: PROTHROMBIN TIME - PATIENT 10.1 SEC (9.8-11.6)
[2018-02-03 03:20] LABS: ALBUMIN 3.8 GM/DL (3.4-5.0); ALT (GPT) 18 U/L (12-78); AST (GOT) 15 U/L (15-37); BICARBONATE 23.3 MEQ/L (21.0-32.0); BLOOD UREA NITROGEN 22 MG/DL (7-18); CALCIUM 8.3 MG/DL (8.5-10.1); CHLORIDE 103 MEQ/L (98-107); CREATININE 1.35 MG/DL (0.60-1.30); GLOMERULAR FILTRATION RATE 54 ML/MIN (>89); GLUCOSE,RANDOM 79 MG/DL (74-106); SODIUM (NA) 137 MEQ/L (136-145)
[2018-02-03 03:30] LABS: ALKALINE PHOSPHATASE 88 U/L (45-117); TOTAL BILIRUBIN ADULT 0.4 MG/DL (0.2-1.0); TOTAL PROTEIN 7.9 GM/DL (6.4-8.2); TROPONIN I LESS THAN 0.02 NG/ML (0.02-0.05)
[2018-02-03 03:31] LABS: ACETAMINOPHEN LESS THAN 2.0 MCG/ML (10.0-30.0)
--- NOTE | 2018-02-03 03:33 | RADRPT ---
EXAM DATE: 02/03/2018 3:09 AM EDT AGE/SEX: 62 years / Male INDICATIONS: Altered mental status. CLINICAL DATA: This is the patient's initial encounter. Patient reports that signs and symptoms have been present for 1 day and indicates a pain score of 0/10. MEDICAL/SURGICAL HISTORY: Cerebrovascular disease. Carcinoma, colon. Cardiovascular disease. . RADIATION DOSE: 29.17 CTDI (mGy) COMPARISON: [facility] [place], CT BRAIN W/O CONTRAST, 01/29/2018. . TECHNIQUE: CT of the head without contrast. Using automated exposure control and adjustment of the mA and/or kV according to patient size, radiation dose was kept as low as reasonably achievable to ob tain optimal diagnostic quality images. FINDINGS: Cerebrum: The ventricles are normal for age. No evidence of midline shift, mass lesion, hemorrhage or acute infarction. No extraaxial fluid collections are seen. Posterior Fossa: The cerebellum and brainstem are intact. The 4th ventricle is midline. The cerebe llopontine angle is unremarkable. Extracranial: The visualized portion of the orbits is intact. Skull: The calvaria is intact. No evidence of skull fracture. CONCLUSION: 1. Electronically signed by: Jori Reece MD 02/03/2018 3:31 AM EDT
[2018-02-03 04:32] LABS: BILIRUBIN, URINE NEG (NEG); BLOOD, URINE NEG (NEG); GLUCOSE,URINE NEG (NEG); KETONE, URINE NEG (NEG); NITRITE,URINE NEG (NEG); PH, URINE 5.5 (5.0-8.5); URINE COLOR LIGHT-YELLOW (YELLW/STRAW); URINE LEUKOCYTE ESTERASE NEG (NEG)
[2018-02-03] MEDS ORDERED: SODIUM CHLOR 0.9% 1000 ML INJ 1,000 ML IV ONE (05:45)
[2018-02-03] MEDS ORDERED: RESP: ALBUTEROL 2.5 MG/IPRATROPIUM 0.5 MG NEB (PRN) NEB (06:15)
[2018-02-03] MEDS ORDERED: ONDANSETRON HCL 4 MG/2 ML VIAL IVP PRN (06:15)
[2018-02-03] MEDS ORDERED: SODIUM CHLORIDE 0.9% FLUSH 10 ML FLUSH IV FLUSH PRN (06:15)
[2018-02-03] MEDS ORDERED: ACETAMINOPHEN 325 MG TAB PO PRN (06:15)
[2018-02-03] MEDS: HEPARIN SODIUM - SQ 10,000 UNITS/ML VIAL SQ SCH ×3 (06:32→20:11)
[2018-02-03] MEDS: SODIUM CHLOR 0.9% 1000 ML INJ 1,000 ML IV SCH ×2 (06:33→16:21)
--- NOTE | 2018-02-03 07:00 | HHI.HP ---
[facility] Service Family Medicine Primary Care Physician No Primary Care Physician Admission Diagnosis Altered mental status Diagnoses: International Travel<30 Days: No Contact w/Intl Traveler<30days: No Known Affected Area: No History of Present Illness Mr. Tan is a 62-year-old male presenting to the ED with altered mental status. Per ED staff, patient is a chronic alcohol abuser and has had multiple presentations for altered mental status. Today he presents after calling [facility] himself. Upon arrival to the ED he is unable to communicate and mumbles throughout his initial interview. During my interview he is able to perform very short sentences and answer intermittent yes/no questioning, however he is unable to provide a detailed history on what events transpired prior to him presenting to the ED. The only information he is able to discloses that he felt "his blood pressure was too high because his hands and feet started to swell." During his review of systems, he initially reports a whittington positive review endorsing he has had fevers, chills, headaches, blurred vision, chest pain, shortness of breath, NVD, abdominal pain, and calf tenderness. During neurologic evaluation he is unable to provide his full name, the year, or reported that he is currently in the hospital. He goes on to state that he has been compliant with his medication, however cannot provide the name of the medications or dosages until he is prompted. Of note, patient recently admitted on 01/29/18 and discharged the same day for altered mental status. (Isauro Parada MD R2) Review of Systems ROS Limitations: Clinical Condition, Altered Mental Status Constitutional: COMPLAINS OF: Fever, Chills, Dizziness Eyes: COMPLAINS OF: Blurred vision, Double Vision Ears, nose, mouth, throat: COMPLAINS OF: Throat pain, Running Nose Respiratory: COMPLAINS OF: Cough, Shortness of breath Cardiovascular: COMPLAINS OF: Chest pain, Palpitations Gastrointestinal: COMPLAINS OF: Abdominal pain, Diarrhea, Nausea, Vomiting Genitourinary: COMPLAINS OF: Dysuria Musculoskeletal: COMPLAINS OF: Joint pain, Back pain Integumentary: COMPLAINS OF: Rash Hematologic/lymphatic: COMPLAINS OF: Lymphadenopathy Immunologic/allergic: COMPLAINS OF: Urticaria Neurologic: COMPLAINS OF: Headache Psychiatric: COMPLAINS OF: Mood changes (Isauro Parada MD R2) Past Family Social History Past Medical History Per chart review: Hypertension Colon cancer Seizure disorder Recurrent pancreatitis Past Surgical History Per chart review: Appendectomy Eye surgery Colon resection Tonsillectomy (Isauro Parada MD R2) Allergies: Coded Allergies: amlodipine (Verified Allergy, Severe, Swelling, 01/17/18) UNALBE TO CONFIRM PT IS INTUBATED amoxicillin (Verified Allergy, Severe, "LIPS SWELL", 01/17/18) PT IS INTUBATED UNABLE TO CONFIRM clavulanic acid (Verified Allergy, Severe, "LIPS SWELL", 01/17/18) PT IS INTUBATED UNABLE TO CONFIRM diatrizoate meglumine (Verified Allergy, Severe, Anaphylaxis; 06/04/09: PT TOLERATES ORAL CONTRAST W/O AE, 01/17/18) PT INTUBATED UNABLE TO CONFIRM 06/04/09: PER RN, PT TOLERATES ORAL CONTRAST MEDIA WITHOUT ADVERSE EFFECTS; HE HAS HAD ORAL CONTRAST PREVIOUSLY. diazepam (Verified Allergy, Severe, RESPIRATORY DISTRESS, 01/17/18) UNALBE TO CONFIRM PT IS INTUBATED enalaprilat (Verified Allergy, Severe, 01/17/18) UNALBE TO CONFIRM PT IS INTUBATED erythromycin base (Verified Allergy, Severe, RASH, 01/17/18) gadobenic acid (Verified Allergy, Severe, Anaphylaxis; 06/04/09: PT TOLERATES ORAL CONTRAST W/O AE, 01/17/18) PT INTUBATED UNABLE TO CONFIRM 06/04/09: PER RN, PT TOLERATES ORAL CONTRAST MEDIA WITHOUT ADVERSE EFFECTS; HE HAS HAD ORAL CONTRAST PREVIOUSLY. gadodiamide (Verified Allergy, Severe, Anaphylaxis; 06/04/09: PT TOLERATES ORAL CONTRAST W/O AE, 01/17/18) PT INTUBATED UNABLE TO CONFIRM 06/04/09: PER RN, PT TOLERATES ORAL CONTRAST MEDIA WITHOUT ADVERSE EFFECTS; HE HAS HAD ORAL CONTRAST PREVIOUSLY. gadoteridol (Verified Allergy, Severe, Anaphylaxis; 06/04/09: PT TOLERATES ORAL CONTRAST W/O AE, 01/17/18) PT INTUBATED UNABLE TO CONFIRM 06/04/09: PER RN, PT TOLERATES ORAL CONTRAST MEDIA WITHOUT ADVERSE EFFECTS; HE HAS HAD ORAL CONTRAST PREVIOUSLY. haloperidol (Verified Allergy, Severe, "TIGHT JAW", 01/17/18) UNABLE TO CONFIRM PT IS INTUBATED iodixanol (Verified Allergy, Severe, Anaphylaxis; 06/04/09: PT TOLERATES ORAL CONTRAST W/O AE, 01/17/18) PT INTUBATED UNABLE TO CONFIRM 06/04/09: PER RN, PT TOLERATES ORAL CONTRAST MEDIA WITHOUT ADVERSE EFFECTS; HE HAS HAD ORAL CONTRAST PREVIOUSLY. iohexol (Verified Allergy, Severe, PT NEEDS PREMED/DOESN'T KNOW REACTION, 01/17/18) UNABLE TO CONFIRM PT IS INTUBATED 06/04/09: PER RN, PT TOLERATES ORAL CONTRAST MEDIA WITHOUT ADVERSE EFFECTS; HE HAS HAD ORAL CONTRAST PREVIOUSLY. morphine (Verified Allergy, Mild, Itching, 01/17/18) UNABLE TO CONFIRM PT IS INTUBATED benazepril (Verified Allergy, Unknown, UNKNOWN REACTION, 01/17/18) UNABLE TO CONFIRM PT IS INTUBATED captopril (Verified Allergy, Unknown, UNKNOWN REACTION, 01/17/18) UNABLE TO CONFIRM PT IS INTUBATED fosinopril (Verified Allergy, Unknown, UNKNOWN REACTION, 01/17/18) UNABLE TO CONFIRM PT IS INTUBATED lisinopril (Verified Allergy, Unknown, UNKNOWN REACTION, 01/17/18) UNABLE TO CONFIRM PT IS INTUBATED quinapril (Verified Allergy, Unknown, UNKNOWN REACTION, 01/17/18) UNABLE TO CONFIRM PT IS INTUBATED prochlorperazine (Verified Adverse Reaction, Severe, "LOCKJAW", 01/17/18) UNABLE TO CONFIRM PT IS INTUBATED Uncoded Allergies: DYE (Allergy, Severe, CARDIAC ARREST, 04/11/17) UNABLE TO CONFIRM PT IS INTUBATED Family History Patient is unable to provide a family medical history due to clinical status Per chart review: Positive for coronary artery disease Social History Patient is unable to provide a social history Per chart review: Patient has previously reported tobacco use, alcohol use, and marijuana use (Isauro Parada MD R2) Physical Exam Vital Signs Vital Signs Date Time Temp Pulse Resp B/P (MAP) Pulse Ox O2 Delivery O2 Flow Rate FiO2 02/03/18 02:25 97.8 57 16 175/89 (117) 94 Physical Exam GENERAL: Disheveled male appearing older than his stated age lying in bed in no acute distress but appears disoriented. EYES: PERRLA. EOMI. Lids and conjunctivae reveal no gross abnormality. No scleral icterus. Patient currently wearing corrective lenses. ENT: Hearing adequate. NCAT. MMM. OP/OC clear. No visible LAD or JVD appreciated. RESPIRATORY: CTAB, no wheezing, crackles, or increased WOB. CARDIOVASCULAR: Bradycardic rate with regular rhythm. No MGR appreciated. 2+ pulses in all 4 extremities. ABDOMEN: Soft, nondistended with positive bowel sounds. Patient mildly tender to palpation in the left 2 quadrants. No masses appreciated. EXTREMITIES: No remarkable dependent edema or varicosities. No cyanosis or edema. MUSCULOSKELETAL: No calf tenderness. Unable to evaluate ambulation. SKIN: Cool and dry. Delayed capillary refill. NEUROLOGICAL: Speech-severely slowed, but without dysarthria or dysphasia. Poor focus, attention, and comprehension. Cranial nerves- 2 through 12 intact. Motor/sensory/reflexes- Face- No facial droop. No tongue deviation. RUE- 5/5 strength in all musc groups, sensation intact. Reflexes 2+. LUE- 5/5 strength in all musc groups, sensation intact. Reflexes 2+. RLE- 5/5 strength in all musc groups, sensation intact. Reflexes 2+. LLE- 5/5 strength in all musc groups, sensation intact. Reflexes 2+. Babinski-negative Rapid alternating movements-patient does not comply during exam Unable to evaluate for hemispatial neglect due to poor patient compliance Unable to repeat phrases. Able to name simple objects such as pen, chair, keys. Shot term memory currently not intact. PSYCHIATRIC: Unable to fully evaluate due to clinical condition Laboratory Laboratory Tests Test 02/03/18 02:51 02/03/18 04:20 White Blood Count 7.2 Red Blood Count 4.44 Hemoglobin 14.4 Hematocrit 41.7 Mean Corpuscular Volume 93.9 Mean Corpuscular Hemoglobin 32.5 Mean Corpuscular Hemoglobin Concent 34.6 Red Cell Distribution Width 14.9 Platelet Count 255 Mean Platelet Volume 7.9 Neutrophils (%) (Auto) 65.5 Lymphocytes (%) (Auto) 22.3 Monocytes (%) (Auto) 8.6 Eosinophils (%) (Auto) 2.7 Basophils (%) (Auto) 0.9 Neutrophils # (Auto) 4.7 Lymphocytes # (Auto) 1.6 Monocytes # (Auto) 0.6 Eosinophils # (Auto) 0.2 Basophils # (Auto) 0.1 CBC Comment AUTO DIFF Differential Comment AUTO DIFF CONFIRMED Platelet Estimate NORMAL Platelet Morphology Comment NORMAL Prothrombin Time 10.1 Prothromb Time International Ratio 1.0 Activated Partial Thromboplast Time 24.2 Blood Urea Nitrogen 22 Creatinine 1.35 Random Glucose 79 Total Protein 7.9 Albumin 3.8 Calcium Level 8.3 Alkaline Phosphatase 88 Aspartate Amino Transf (AST/SGOT) 15 Alanine Aminotransferase (ALT/SGPT) 18 Total Bilirubin 0.4 Sodium Level 137 Potassium Level 3.5 Chloride Level 103 Carbon Dioxide Level 23.3 Anion Gap 11 Estimat Glomerular Filtration Rate 54 Ammonia 26 Total Creatine Kinase 110 Troponin I LESS THAN 0.02 Thyroid Stimulating Hormone 3rd Gen 1.980 Salicylates Level 7.3 Acetaminophen Level LESS THAN 2.0 Ethyl Alcohol Level LESS THAN 3 Urine Color LIGHT-YELLOW Urine Turbidity CLEAR Urine pH 5.5 Urine Specific [place] 1.003 Urine Protein NEG Urine Glucose (UA) NEG Urine Ketones NEG Urine Occult Blood NEG Urine Nitrite NEG Urine Bilirubin NEG Urine Urobilinogen LESS THAN 2.0 Urine Leukocyte Esterase NEG Urine WBC LESS THAN 1 Microscopic Urinalysis Comment CATH-CULT NOT IND Urine Opiates Screen NEG Urine Barbiturates Screen NEG Urine Amphetamines Screen NEG Urine Benzodiazepines Screen NEG Urine Cocaine Screen NEG Urine Cannabinoids Screen POS (Isauro Parada MD R2) Result Diagram: 02/03/18 0251 02/03/18 0251 Imaging Last [address] 02/03/18 0244 Signed Impressions: CONCLUSION: 1. (Isauro Parada MD R2) Caprini VTE Risk Assessment Caprini VTE Risk Assessment: Mod/High Risk (score >= 2) Caprini Risk Assessment Model Point Value = 1 Point Value = 2 Point Value = 3 Point Value = 5 Age 41-60 Minor surgery BMI > 25 kg/m2 Swollen legs Varicose veins or History of unexplained or recurrent spontaneous Oral contraceptives or hormone replacement Sepsis (< 1 month) Serious lung disease, including pneumonia (< 1 month) Abnormal pulmonary function Acute myocardial infarction Congestive heart failure (< 1 month) History of inflammatory bowel disease Medical patient at bed rest Age 61-74 Arthroscopic surgery Major open surgery (> 45 min) Laparoscopic surgery (> 45 min) Malignancy Confined to bed (> 72 hours) Immobilizing plaster cast Central venous access Age >= 75 History of VTE Family history of VTE Factor V Leiden Prothrombin [id number] Lupus anticoagulant Anticardiolipin antibodies Elevated serum homocysteine Heparin-induced thrombocytopenia Other congenital or acquired thrombophilia Stroke (< 1 month) Elective arthroplasty Hip, pelvis, or leg fracture Acute spinal cord injury (< 1 month) Prophylaxis Regimen Total Risk Factor Score Risk Level Prophylaxis Regimen 0-1 Low Early ambulation 2 Moderate Order ONE of the following: *Sequential Compression Device (SCD) *Heparin 5000 units SQ BID 3-4 Higher Order ONE of the following medications: *Heparin 5000 units SQ TID *Enoxaparin/Lovenox 40 mg SQ daily (WT < 150 kg, CrCl > 30 mL/min) *Enoxaparin/Lovenox 30 mg SQ daily (WT < 150 kg, CrCl > 10-29 mL/min) *Enoxaparin/Lovenox 30 mg SQ BID (WT < 150 kg, CrCl > 30 mL/min) AND/OR *Sequential Compression Device (SCD) 5 or more Highest Order ONE of the following medications: *Heparin 5000 units SQ TID (Preferred with Epidurals) *Enoxaparin/Lovenox 40 mg SQ daily (WT < 150 kg, CrCl > 30 mL/min) *Enoxaparin/Lovenox 30 mg SQ daily (WT < 150 kg, CrCl > 10-29 mL/min) *Enoxaparin/Lovenox 30 mg SQ BID (WT < 150 kg, CrCl > 30 mL/min) AND *Sequential Compression Device (SCD) (Isauro Parada MD R2) Assessment and Plan Assessment and Plan Mr. Tan is a 62-year-old male presenting to the ED with altered mental status. Code Status Full code Discussed Condition With Dr. Larios, ED physician (Isauro Parada MD R2) Problem List: (1) Altered mental status ICD Codes: R41.82 - Altered mental status, unspecified Status: Acute Plan: -Head CT: Negative -Brain MRI 01/29/18: No acute findings -CBC: No acute abnormalities -CMP: Creatinine 1.35, otherwise within normal limits -UA: Negative -TSH: 1.9 (within normal limits) -Ammonia: 26 -Lactic acid: Pending -Alcohol: Less than 3 -UDS: Positive for cannabinoids, otherwise negative -Acetaminophen: Less than 2 -Salicylates: 7.3 (within normal limits) -Vitamin B12: Pending -Vitamin B1: Pending -RPR: Pending -Depakote level: Pending -Keppra level: Pending (2) Creatinine elevation ICD Codes: R79.89 - Other specified abnormal findings of blood chemistry Status: Resolved Plan: -CMP: Creatinine 1.35 (per chart review baseline approximately 1.0) -Likely secondary to dehydration per exam Medications: -1 L normal saline bolus given in ED -Normal saline at 100 mL/h (3) Bradycardia ICD Codes: R00.1 - Bradycardia, unspecified Status: Acute Plan: -Per chart review patient with history of bradycardia -EKG ordered -Hold labetalol at this time due to heart rate in the upper 40s -Troponin: Negative repeat 2 (4) Seizure disorder ICD Codes: G40.909 - Epilepsy, unspecified, not intractable, without status epilepticus Status: Chronic (5) HTN (hypertension) ICD Codes: I10 - Essential (primary) hypertension Status: Chronic Plan: Medications: -Hold labetalol due to bradycardia -Clonidine as needed for blood pressure greater than 180/110 (6) Nutrition, metabolism, and development symptoms ICD Codes: R63.8 - Other symptoms and signs concerning food and fluid intake Status: Acute Plan: -Diet: N.p.o. until swallow evaluation -Fluids: Normal saline at 100 mL/h -Electrolytes: Within normal limits, continue to monitor -Prophylaxis: Clonidine as needed for blood pressure greater than 180/110, DuoNeb's as needed for shortness of breath, Zofran as needed for nausea/vomiting , Tylenol as needed for fever/pain, docusate as needed for constipation -Physical therapy consulted (7) DVT prophylaxis Status: Acute Plan: -Heparin 5000 units every 8 hours -SCDs (Isauro Parada MD R2) Problem List: (1) Altered mental status ICD Codes: R41.82 - Altered mental status, unspecified Status: Acute Plan: -Head CT: Negative -Brain MRI 01/29/18: No acute findings -CBC: No acute abnormalities -CMP: Creatinine 1.35, otherwise within normal limits -UA: Negative -TSH: 1.9 (within normal limits) -Ammonia: 26 -Lactic acid: Pending -Alcohol: Less than 3 -UDS: Positive for cannabinoids, otherwise negative -Acetaminophen: Less than 2 -Salicylates: 7.3 (within normal limits) -Vitamin B12: Pending -Vitamin B1: Pending -RPR: Pending -Depakote level: Pending -Keppra level: Pending (2) Creatinine elevation ICD Codes: R79.89 - Other specified abnormal findings of blood chemistry Status: Resolved Plan: -CMP: Creatinine 1.35 (per chart review baseline approximately 1.0) -Likely secondary to dehydration per exam Medications: -1 L normal saline bolus given in ED -Normal saline at 100 mL/h (3) Bradycardia ICD Codes: R00.1 - Bradycardia, unspecified Status: Acute Plan: -Per chart review patient with history of bradycardia -EKG ordered -Hold labetalol at this time due to heart rate in the upper 40s -Troponin: Negative repeat 2 (4) Seizure disorder ICD Codes: G40.909 - Epilepsy, unspecified, not intractable, without status epilepticus Status: Chronic (5) HTN (hypertension) ICD Codes: I10 - Essential (primary) hypertension Status: Chronic Plan: Medications: -Hold labetalol due to bradycardia -Clonidine as needed for blood pressure greater than 180/110 (6) Nutrition, metabolism, and development symptoms ICD Codes: R63.8 - Other symptoms and signs concerning food and fluid intake Status: Acute Plan: -Diet: N.p.o. until swallow evaluation -Fluids: Normal saline at 100 mL/h -Electrolytes: Within normal limits, continue to monitor -Prophylaxis: Clonidine as needed for blood pressure greater than 180/110, DuoNeb's as needed for shortness of breath, Zofran as needed for nausea/vomiting , Tylenol as needed for fever/pain, docusate as needed for constipation -Physical therapy consulted (7) DVT prophylaxis Status: Acute Plan: -Heparin 5000 units every 8 hours -SCDs See the residents documentation for details. I saw and evaluated the patient regarding the warner portions of this evaluation and agree with the residents findings and plans as written. Parts of this note were created using [employer] voice recognition software program. While efforts were made to correct any mistakes made by this software, some mistakes, errors, and omissions may remain in the final note that were not caught when the note was originally created. Plan of care was discussed and agreed upon with the patient as specifically documented in the above note. An opportunity to ask questions with explanation was provided. Patient voiced understanding on all information reviewed and discussed. (Kurt Chan MD) Problem Qualifiers (1) Altered mental status: Qualified Codes: R41.82 - Altered mental status, unspecified (2) HTN (hypertension): Qualified Codes: I10 - Essential (primary) hypertension Isauro Parada MD R2 Feb 03, 2018 07:00 Kurt Chan MD Feb 05, 2018 11:23
[2018-02-03] MEDS: cloNIDine HCL 0.1 MG TAB PO PRN ×2 (08:52→20:10)
[2018-02-03] MEDS ORDERED: DOCUSATE SODIUM 50 MG/SENNA 8.6 MG TAB PO SCH (09:00)
[2018-02-03] MEDS ORDERED: LABETALOL HCL 100 MG TAB PO SCH (09:00)
[2018-02-03] MEDS ORDERED: DOCUSATE SODIUM 50 MG/SENNA 8.6 MG TAB PO PRN (09:00)
[2018-02-03] MEDS: SODIUM CHLORIDE 0.9% FLUSH 10 ML FLUSH IV FLUSH SCH ×2 (09:00→20:25)
--- NOTE | 2018-02-03 09:40 | RADRPT ---
EXAM DATE: 02/03/2018 9:31 AM EDT AGE/SEX: 62 years / Male INDICATIONS: Altered mental status. CLINICAL DATA: This is the patient's initial encounter. Patient reports that signs and symptoms have been present for 2 days and indicates a pain score of 0/10. MEDICAL/SURGICAL HISTORY: Cerebrovascular disease. Hypertension. Congestive heart failure. C OPD, pancreatitis, arthritis, colon cancer Colon resection. Tonsillectomy. COMPARISON: [facility] [place], MRI BRAIN W/O CONTRAST, 02/03/2018. [facility] [place], CT BRAIN W/O CONTRAST, 02/03/2018. . TECHNIQUE: 3D [id number] MRA was performed. Source images, multiplanar STS MIP, and 3D volum e MIP reconstructions were reviewed. FINDINGS: There is excellent visualization of the major intracranial arteries out to the second-order branch ve ssels. There is no evidence for aneurysm, vessel truncation or stenosis, and no evidence for vascula r malformation. CONCLUSION: 1. Negative MRA [place] ([place]) non contrast. Electronically signed by: Shanu Martinez MD 02/03/2018 9:38 AM EDT
--- NOTE | 2018-02-03 09:49 | RADRPT ---
EXAM DATE: 02/03/2018 9:38 AM EDT AGE/SEX: 62 years / Male INDICATIONS: Altered mental status. CLINICAL DATA: This is the patient's initial encounter. Patient reports that signs and symptoms have been present for 2 days and indicates a pain score of 0/10. MEDICAL/SURGICAL HISTORY: Cerebrovascular disease. Hypertension. Congestive heart failure. V [id number] Colon resection. Tonsillectomy. COMPARISON: [facility] [place], MRI BRAIN W/O CONTRAST, 01/29/2018. [facility] [place], MRA BRAIN W/O CONTRAST, 02/03/2018. [facility] [place], CT BRAIN W/O CONTRAST, 02/03/2018. C, CT BRAIN W/O CONTRAST, 01/29/2018. . TECHNIQUE: Multiplanar, multisequence examination of the brain was performed without contrast. FINDINGS: Diffusion weighted images demonstrate no evidence for acute infarction. There is no hemorrhage. There is mild widening loss and mild increased signal in the periventricular white matter and centrum semi ovale, characteristic of mild chronic microvascular ischemic disease. CONCLUSION: 1. No acute findings. Electronically signed by: Shaun Martinez MD 02/03/2018 9:48 AM EDT
[2018-02-03] MEDS: HYDROCHLOROTHIAZIDE 25 MG TAB PO SCH (10:03)
[2018-02-03] MEDS: CYANOCOBALAMIN 1,000 MCG TAB PO SCH (10:03)
[2018-02-03] MEDS: THIAMINE HCL 100 MG TAB PO SCH (10:03)
[2018-02-03] MEDS: FOLIC ACID 1 MG TAB PO SCH (10:03)
[2018-02-03] MEDS: MULTIVITAMINS/MINERALS THERAPEUTIC TAB PO SCH (10:03)
[2018-02-03 13:02] LABS: CHOLESTEROL/ HDL RATIO 4.25 RATIO; HDL CHOLESTEROL 44.7 MG/DL (40.0-60.0)
--- NOTE | 2018-02-03 13:30 | RADRPT ---
EXAM DATE: 02/03/2018 1:25 PM EDT AGE/SEX: 62 years / Male INDICATIONS: TIA. CLINICAL DATA: This is the patient's initial encounter. Patient reports that signs and symptoms have been present for 1 day and indicates a pain score of 0/10. MEDICAL/SURGICAL HISTORY: Hypertension. Congestive heart failure. Pancreatitis. Seizures. CV A. MCA. Colon cancer. COPD. Arthritis. Appendectomy. Tonsillectomy. Colon surgery. COMPARISON: No prior exams available for comparison. VELOCITY PARAMETERS: ICA/CCA Ratio: Right 1.4 , Left 0.9 ICA: Right 63 cm/sec, Left 78 cm/sec CCA: Right 44 cm/sec, Left 82 cm/sec ECA: Right 81 cm/sec, Left 66 cm/sec Vertebral: Right 41 cm/sec antegrade, Left 58 cm/sec antegrade FINDINGS: Right Carotid: Mild plaque formation in the carotid bulb and internal carotid artery. No significant stenosis is visualized. The waveforms are within normal limits. Left Carotid: Mild plaque formation in the carotid bulb and internal carotid artery. No significant s tenosis is visualized. The waveforms are within normal limits. Other: None. CONCLUSION: 1. Right Internal Carotid Artery: Findings indicate <50% stenosis. 2. Left Internal Carotid Artery: Findings indicate <50% stenosis. Electronically signed by: Augusto Jeong MD 02/03/2018 1:29 PM EDT
[2018-02-03 14:10] LABS: TROPONIN I LESS THAN 0.02 NG/ML (0.02-0.05)
--- NOTE | 2018-02-03 14:50 | HHI.FPPN ---
Addendum to progress note ADDENDUM Reason for addendum: Additonal documentation Additional information Subjective: Patient was seen and evaluated this morning. He is now oriented to person and place. Patient denies chest pain, heart palpitations, shortness of breath, nausea/vomiting, diarrhea and constipation. All questions were answered. Objective: T 97. Hr 50. RR 20. BP 129/85. GENERAL: Disheveled male appearing older than his stated age lying in bed in no acute distress. SKIN: Cool and dry. EYES: EOMI. Lids and conjunctivae reveal no gross abnormality. No scleral icterus. ENT: No visible LAD or JVD appreciated. RESPIRATORY: No increased work of breathing. Clear to auscultation. CARDIOVASCULAR: Bradycardic rate with regular rhythm. No murmurs, rubs or gallops. ABDOMEN: Positive bowel sounds. Soft, nondistended. EXTREMITIES: No cyanosis or edema. MUSCULOSKELETAL: No calf tenderness. NEUROLOGICAL: Alert. Oriented x2. Speech normal. Cranial nerves- 2 through 12 intact. Motor/sensory grossly intact. Assessment and Plan: Patient is a 62-year-old male presenting to the ED with altered mental status. Initiated TIA/stroke and seizure work-up. Neurology consulted. Haley Juarez MD R1 Feb 03, 2018 14:50
--- NOTE | 2018-02-03 14:55 | EKG ---
Date Performed: 02/03/2018 Time Performed: 02:26:32 PTAGE: 62 years EKG: SINUS BRADYCARDIA PROBABLE INFERIOR MYOCARDIAL INFARCTION ABNORMAL ECG PREVIOUS TRACING : 01/13/2018 02.36 Since the previous tracing, no significant change noted DOCTOR: Ulisses Ramos Interpretating Date/Time 02/03/2018 14:53:11
--- NOTE | 2018-02-03 18:03 | MG ---
cc: Noman Worrell MD, PhD Noman Worrell MD PhD TEST NUMBER [id number] TECHNIQUE: A 17-channel EEG. DESCRIPTION: The background rhythm reveals symmetrical alpha rhythm, frequency is 8-10 Hz, amplitude 20-30 microvolts. During drowsiness, there is slowing in the theta range. There is occasional muscle artifact. No lateralizing features are identified. There are no epileptiform features identified. Hyperventilation was not done. Photic stimulation is done in a stepwise fashion with a normal driving response. INTERPRETATION: This is a normal electroencephalogram. Noman Worrell MD, PhD REGLA/ , 05:52 PM , 06:03 PM
--- NOTE | 2018-02-03 19:01 | MB ---
cc: Noman Worrell MD, PhD Noman Worrell MD PhD DATE: 02/03/2018 REASON FOR CONSULTATION: Mental status change. HISTORY OF PRESENT ILLNESS: This is a 62-year-old man who presented to the ER with alteration in mental status. He has a history of chronic alcohol abuse. He has presented in the past for alteration in mental status. In the ER, he was unable to communicate, had no focal symptoms. No seizure activity was identified. PAST MEDICAL HISTORY: Remarkable for hypertension, colon cancer, seizure, pancreatitis, appendectomy, eye surgery, colon resection. CURRENT MEDICATIONS: 1. Depakote 500 mg b.i.d. 2. Keppra 500 mg b.i.d. 3. Vitamin B12 1000 mg daily. 4. Yoly-Colace, 5. Folate, 6. Vitamin B1, 7. Theragran. 8. Tylenol 9. Zofran 10. Catapres p.r.n. PHYSICAL EXAMINATION: VITAL SIGNS: Blood pressure 159/91, pulse is 50, respiratory rate is 20, temperature 96.9 degrees Higher cortical function: He is alert and oriented x3. He has poor recent memory. He follows commands. Speech is normal. Cranial nerves are intact. Motor exam shows 5/5 strength of all groups in both upper and lower extremities. There is no drift. Fine motor skills are normal. Reflexes are symmetric. IMAGING STUDIES: MRI of the brain is within normal limits for age. CT brain is normal. MRA of the brain is normal. CARDIOLOGY STUDIES: His EEG does not reveal any seizure activity. Carotid ultrasound is normal. LABORATORY DATA: White count 7200, hemoglobin 14.4, hematocrit 41%, platelets 255,000. Sodium is 137, potassium 3.5, chloride is 103, CO2 of 23.3, BUN is 22, creatinine is 1.35. Ammonia 26. B12 level 441. Tox screen positive for cannabis. Valproic acid level 3. IMPRESSION: Probable metabolic encephalopathy related to alcohol abuse. RECOMMENDATIONS: Continue thiamine. Noman Worrell MD, PhD REGLA/ , 05:57 PM , 07:00 PM
[2018-02-03] MEDS: DIVALPROEX DR 500 MG TABEC PO SCH (20:10)
[2018-02-03] MEDS: levETIRAcetam 500 MG TAB PO SCH (20:10)
[2018-02-03 23:18] LABS: TROPONIN I LESS THAN 0.02 NG/ML (0.02-0.05)
[2018-02-04 00:05] VITALS: BP 156/98; PULSE 52; RESP 17; TEMP 98.2; O2SAT 94
[2018-02-04 04:25] VITALS: BP 153/93; PULSE 46; RESP 17; TEMP 98.5; O2SAT 96
[2018-02-04] MEDS: HEPARIN SODIUM - SQ 10,000 UNITS/ML VIAL SQ SCH (06:32)
[2018-02-04] MEDS: SODIUM CHLOR 0.9% 1000 ML INJ 1,000 ML IV SCH ×2 (06:32→12:03)
[2018-02-04 08:00] VITALS: BP 170/99; PULSE 44; RESP 20; TEMP 96.4; O2SAT 95
[2018-02-04] MEDS: SODIUM CHLORIDE 0.9% FLUSH 10 ML FLUSH IV FLUSH SCH (09:00)
[2018-02-04] MEDS: MULTIVITAMINS/MINERALS THERAPEUTIC TAB PO SCH (09:20)
[2018-02-04] MEDS: CYANOCOBALAMIN 1,000 MCG TAB PO SCH (09:20)
[2018-02-04] MEDS: levETIRAcetam 500 MG TAB PO SCH (09:20)
[2018-02-04] MEDS: DIVALPROEX DR 500 MG TABEC PO SCH (09:20)
[2018-02-04] MEDS: HYDROCHLOROTHIAZIDE 25 MG TAB PO SCH (09:21)
[2018-02-04] MEDS: THIAMINE HCL 100 MG TAB PO SCH (09:21)
[2018-02-04] MEDS: FOLIC ACID 1 MG TAB PO SCH (09:21)
[2018-02-04 10:13] LABS: AUTOMATED NEUTROPHIL # 2.2 TH/MM3 (1.8-7.7); BASOPHIL # 0.1 TH/MM3 (0-0.2); BASOPHIL % 1.3 % (0.0-2.0); EOSINOPHIL # 0.2 TH/MM3 (0-0.4); EOSINOPHIL % 4.9 % (0.0-4.0); HEMATOCRIT 41.5 % (39.0-51.0); HEMOGLOBIN 14.1 GM/DL (13.0-17.0); LYMPH % 31.4 % (9.0-44.0); LYMPHOCYTE # 1.3 TH/MM3 (1.0-4.8); MEAN CELL VOLUME 93.4 FL (80.0-100.0); MEAN CORPUSCULAR HEMOGLOBIN 31.8 PG (27.0-34.0); MEAN CORPUSCULAR HGB CONC 34.1 % (32.0-36.0); MEAN PLATELET VOLUME 7.7 FL (7.0-11.0); MONO % 9.8 % (0.0-8.0); MONOCYTE # 0.4 TH/MM3 (0-0.9); NEUT % 52.6 % (16.0-70.0); PLATELET COUNT 249 TH/MM3 (150-450); RED BLOOD COUNT 4.44 MIL/MM3 (4.50-5.90); RED CELL DISTRIBUTION WIDTH 14.6 % (11.6-17.2); WHITE BLOOD COUNT 4.2 TH/MM3 (4.0-11.0)
[2018-02-04 10:38] LABS: ALBUMIN 3.5 GM/DL (3.4-5.0); ALT (GPT) 18 U/L (12-78); AST (GOT) 13 U/L (15-37); BICARBONATE 27.6 MEQ/L (21.0-32.0); BLOOD UREA NITROGEN 13 MG/DL (7-18); CALCIUM 8.6 MG/DL (8.5-10.1); CHLORIDE 103 MEQ/L (98-107); CREATININE 1.08 MG/DL (0.60-1.30); GLOMERULAR FILTRATION RATE 70 ML/MIN (>89); GLUCOSE,RANDOM 92 MG/DL (74-106); SODIUM (NA) 139 MEQ/L (136-145)
[2018-02-04 10:40] LABS: ALKALINE PHOSPHATASE 85 U/L (45-117); TOTAL BILIRUBIN ADULT 0.5 MG/DL (0.2-1.0); TOTAL PROTEIN 7.2 GM/DL (6.4-8.2)
[2018-02-04] MEDS ORDERED: THERM PO (10:53)
[2018-02-04] MEDS ORDERED: HYDR50TA3 PO (10:53)
[2018-02-04] MEDS ORDERED: THIA100 PO (10:53)
--- NOTE | 2018-02-04 10:56 | HHI.DCPOC ---
Discharge Care Plan Diagnosis: (1) HTN (hypertension) (2) Bradycardia (3) Seizure disorder (4) Altered mental status Goals to Promote Your Health * To prevent worsening of your condition and complications * To maintain your health at the optimal level Directions to Meet Your Goals Take your medications as prescribed Follow your dietary instruction Follow activity as directed Keep your appointments as scheduled Take your immunizations and boosters as scheduled If your symptoms worsen call your PCP, if no PCP go to Urgent Care Center or Emergency Room Smoking is Dangerous to Your Health. Avoid second hand smoke Call the 24-hour hour crisis hotline for domestic abuse at Haley Juarez MD R1 Feb 04, 2018 10:56
--- NOTE | 2018-02-04 10:58 | HHI.FPPN ---
Subjective Remarks Patient was seen and evaluated this morning. He is oriented x3. Patient denies chest pain, heart palpitations, shortness of breath, nausea/vomiting, diarrhea and constipation. He denies confusion. All questions were answered. (Haley Juarez MD R1) Objective Vitals Vital Signs Date Time Temp Pulse Resp B/P (MAP) Pulse Ox O2 Delivery O2 Flow Rate FiO2 02/04/18 08:00 96.4 44 20 170/99 (122) 95 02/04/18 04:25 98.5 46 17 153/93 (113) 96 02/04/18 00:05 98.2 52 17 156/98 (117) 94 02/03/18 19:53 98.7 52 17 186/92 (123) 95 02/03/18 16:00 96.9 50 20 159/91 (113) 95 02/03/18 12:00 97.0 50 20 129/85 (100) 97 I/O 02/03/18 02/03/18 02/03/18 02/04/18 02/04/18 02/04/18 07:00 15:00 23:00 07:00 15:00 23:00 Intake Total 5746 ml 500 ml 1300 ml Output Total 450 ml 500 ml Balance 5296 ml 500 ml 800 ml Intake Oral 720 ml 200 ml 300 ml IV Total 5026 ml 300 ml 1000 ml Output Urine Total 450 ml 500 ml # Voids 3 # Bowel Movements 1 (Haley Juarez MD R1) Result Diagram: 02/04/18 1000 02/04/18 1000 Imaging Last Impressions Head CT 02/03/18 0244 Signed Impressions: CONCLUSION: 1. Head Magnetic Resonance Angiography 02/03/18 0000 Signed Impressions: CONCLUSION: 1. Negative MRA Cow ([place]) non contrast. Carotid Artery Ultrasound 02/03/18 0000 Signed Impressions: CONCLUSION: 1. Right Internal Carotid Artery: Findings indicate <50% stenosis. 2. Left Internal Carotid Artery: Findings indicate <50% stenosis. Brain MRI 02/03/18 0000 Signed Impressions: CONCLUSION: 1. No acute findings. Objective Remarks GENERAL: Patient lying in bed in no acute distress. SKIN: Cool and dry. EYES: Extraocular motion intact. Lids and conjunctivae reveal no gross abnormality. No scleral icterus. ENT: No visible LAD or JVD appreciated. RESPIRATORY: No increased work of breathing. Clear to auscultation. CARDIOVASCULAR: Bradycardic rate with regular rhythm. No murmurs, rubs or gallops. ABDOMEN: Positive bowel sounds. Soft, nondistended, nontender. EXTREMITIES: No cyanosis or edema. MUSCULOSKELETAL: No calf tenderness. NEUROLOGICAL: Alert. Oriented x3. Speech normal. Cranial nerves- 2 through 12 intact. Motor/sensory grossly intact. Medications and IVs Current Medications Medications (Trade) Dose Ordered Sig/Dorothy Route Start Time Stop Time Status Last Admin (NS Flush) 2 ml UNSCH PRN IV FLUSH 02/03/18 06:15 (NS Flush) 2 ml BID IV FLUSH 02/03/18 09:00 (Heparin Inj) 5,000 units Q8H SQ 02/03/18 06:00 02/04/18 06:32 Sodium Chloride 1,000 ml @ 100 mls/hr Q10H IV 02/03/18 06:03 02/04/18 06:32 (Tylenol) 650 mg Q4H PRN PO 02/03/18 06:15 (Zofran Inj) 4 mg Q6H PRN IVP 02/03/18 06:15 (Catapres) 0.1 mg Q6H PRN PO 02/03/18 06:15 02/03/18 20:10 (Duoneb Neb) 1 ampule Q6HR NEB PRN NEB 02/03/18 06:15 (Vitamin B12) 1,000 mcg DAILY PO 02/03/18 09:00 02/04/18 09:20 (Yoly-Colace) 1 tab BID PRN PO 02/03/18 09:00 (Folate) 1 mg DAILY PO 02/03/18 09:00 02/08/18 08:59 02/04/18 09:21 (Vitamin B1) 100 mg DAILY PO 02/03/18 09:00 02/04/18 09:21 (Theragran M Tab) 1 tab DAILY PO 02/03/18 09:00 02/08/18 08:59 02/04/18 09:20 (Hydrodiuril) 25 mg DAILY PO 02/03/18 09:00 02/04/18 09:21 (Depakote Dr) 500 mg BID PO 02/03/18 21:00 02/04/18 09:20 (Keppra) 500 mg BID PO 02/03/18 21:00 02/04/18 09:20 (Haley Juarez MD R1) Urinary Catheter: No (Haley Juarez MD R1) Vascular Central Line Catheter: No (Haley Juarez MD R1) A/P Assessment and Plan Patient is a 62-year-old male presenting to the ED with altered mental status. Discharge Planning Today pending completion of ECHO. (Haley Juarez MD R1) Problem List: (1) Altered mental status ICD Codes: R41.82 - Altered mental status, unspecified Status: Acute Plan: Patient with altered mental status. Repeated hospitalizations for AMS. 02/04: Patient alert and oriented x3. Admission Labs: * CBC grossly wnl. * Creatinine 1.35. * TSH: 1.980. * Lipid panel wnl, except LDL 126. * Ammonia: 26 * Lactic acid: 1.0. * Troponin x3: negative. * Alcohol: Less than 3. * Acetaminophen: Less than 2. * Salicylates: 7.3. * Valproic acid level 3L. * Levetiracetam pending. * Thiamine pending. * B12 441. * RPR: Pending * UA: Negative * UDS: Positive for cannabinoids. Imaging: * Head CT: Negative. * Brain MRI 01/29/18: No acute findings. * Brain MRI 02/03: No acute findings. * Head MRA 02/03: Negative MRA. * Carotid US 02/03: Right Internal Carotid Artery: <50% stenosis. Left Internal Carotid Artery: <50% stenosis. Studies: * EEG: This is a normal electroencephalogram. * ECHO pending. Consults: * Neurology: Probable metabolic encephalopathy related to alcohol abuse. Continue thiamine. Medications: * Folic acid 1mg PO daily. * Vitamin B1 100mg PO daily. * Vitamin B12 1,000mcg PO daily. * Multivitamin 1 tab PO daily. * Restarted home seizure medications on 02/03. (2) Creatinine elevation ICD Codes: R79.89 - Other specified abnormal findings of blood chemistry Status: Resolved Plan: Resolved 02/04. On admission, creatinine 1.35 (per chart review baseline approximately 1.0). Likely secondary to dehydration. Medications: * 1 L normal saline bolus given in ED. * NS at 100 mL/h. (3) Bradycardia ICD Codes: R00.1 - Bradycardia, unspecified Status: Acute Plan: Per chart review patient with history of bradycardia. Patient denies chest pain. Labs: * Troponin x3 negative. Studies: * EKG: SINUS BRADYCARDIA PROBABLE INFERIOR MYOCARDIAL INFARCTION ABNORMAL. * ECHO pending. Medications: * Hold labetalol at this time due to heart rate in the 50/40s. (4) Seizure disorder ICD Codes: G40.909 - Epilepsy, unspecified, not intractable, without status epilepticus Status: Chronic Plan: Patient with history of seizure disorder. * Continue home medications. (5) HTN (hypertension) ICD Codes: I10 - Essential (primary) hypertension Status: Chronic Plan: Patient with history of Hypertension. Elevated pressures during hospitalization. Medications: * Hold home labetalol due to bradycardia. * HCTZ 25mg to 50mg PO daily. * Clonidine PRN for blood pressure greater than 180/110. (6) Nutrition, metabolism, and development symptoms ICD Codes: R63.8 - Other symptoms and signs concerning food and fluid intake Status: Acute Plan: Diet: * Heart healthy diet. Fluids: * Normal saline at 100 mL/h. Electrolytes: * Monitor and replete as necessary. DVT prophylaxis: * Heparin 5,000 units SQ q8hr. (Haley Juarez MD R1) Problem List: (1) Altered mental status ICD Codes: R41.82 - Altered mental status, unspecified Status: Acute Plan: Patient with altered mental status. Repeated hospitalizations for AMS. 02/04: Patient alert and oriented x3. Admission Labs: * CBC grossly wnl. * Creatinine 1.35. * TSH: 1.980. * Lipid panel wnl, except LDL 126. * Ammonia: 26 * Lactic acid: 1.0. * Troponin x3: negative. * Alcohol: Less than 3. * Acetaminophen: Less than 2. * Salicylates: 7.3. * Valproic acid level 3L. * Levetiracetam pending. * Thiamine pending. * B12 441. * RPR: Pending * UA: Negative * UDS: Positive for cannabinoids. Imaging: * Head CT: Negative. * Brain MRI 01/29/18: No acute findings. * Brain MRI 02/03: No acute findings. * Head MRA 02/03: Negative MRA. * Carotid US 02/03: Right Internal Carotid Artery: <50% stenosis. Left Internal Carotid Artery: <50% stenosis. Studies: * EEG: This is a normal electroencephalogram. * ECHO pending. Consults: * Neurology: Probable metabolic encephalopathy related to alcohol abuse. Continue thiamine. Medications: * Folic acid 1mg PO daily. * Vitamin B1 100mg PO daily. * Vitamin B12 1,000mcg PO daily. * Multivitamin 1 tab PO daily. * Restarted home seizure medications on 02/03. (2) Creatinine elevation ICD Codes: R79.89 - Other specified abnormal findings of blood chemistry Status: Resolved Plan: Resolved 02/04. On admission, creatinine 1.35 (per chart review baseline approximately 1.0). Likely secondary to dehydration. Medications: * 1 L normal saline bolus given in ED. * NS at 100 mL/h. (3) Bradycardia ICD Codes: R00.1 - Bradycardia, unspecified Status: Acute Plan: Per chart review patient with history of bradycardia. Patient denies chest pain. Labs: * Troponin x3 negative. Studies: * EKG: SINUS BRADYCARDIA PROBABLE INFERIOR MYOCARDIAL INFARCTION ABNORMAL. * ECHO pending. Medications: * Hold labetalol at this time due to heart rate in the 50/40s. (4) Seizure disorder ICD Codes: G40.909 - Epilepsy, unspecified, not intractable, without status epilepticus Status: Chronic Plan: Patient with history of seizure disorder. * Continue home medications. (5) HTN (hypertension) ICD Codes: I10 - Essential (primary) hypertension Status: Chronic Plan: Patient with history of Hypertension. Elevated pressures during hospitalization. Medications: * Hold home labetalol due to bradycardia. * HCTZ 25mg to 50mg PO daily. * Clonidine PRN for blood pressure greater than 180/110. (6) Nutrition, metabolism, and development symptoms ICD Codes: R63.8 - Other symptoms and signs concerning food and fluid intake Status: Acute Plan: Diet: * Heart healthy diet. Fluids: * Normal saline at 100 mL/h. Electrolytes: * Monitor and replete as necessary. DVT prophylaxis: * Heparin 5,000 units SQ q8hr. See the residents documentation for details. I saw and evaluated the patient regarding the warner portions of this evaluation and agree with the residents findings and plans as written. Parts of this note were created using [employer] voice recognition software program. While efforts were made to correct any mistakes made by this software, some mistakes, errors, and omissions may remain in the final note that were not caught when the note was originally created. Plan of care was discussed and agreed upon with the patient as specifically documented in the above note. An opportunity to ask questions with explanation was provided. Patient voiced understanding on all information reviewed and discussed. (Kurt Chan MD) Problem Qualifiers (1) Altered mental status: Qualified Codes: R41.82 - Altered mental status, unspecified (2) HTN (hypertension): Qualified Codes: I10 - Essential (primary) hypertension Haley Juarez MD R1 Feb 04, 2018 10:58 Kurt Chan MD Feb 05, 2018 11:41
[2018-02-04 12:00] VITALS: BP 165/86; PULSE 44; RESP 20; TEMP 96.9; O2SAT 95
--- NOTE | 2018-02-04 13:30 | ECHRPT ---
Indication: vegetations CONCLUSIONS The left ventricular systolic function is normal with an estimated ejection fraction in the range of 55-60%. Doppler parameters are consistent with impaired left ventricular relaxtion (grade 1 diastolic dysfun ction). There is trace tricuspid valve regurgitation. BP: / HR: Rhythm: MEASUREMENTS (Male / Female) Normal Values Technical Quality: 2D ECHO LV Diastolic Diameter PLAX 4.0 cm 4.2 - 5.9 / 3.9 - 5.3 cm LV Systolic Diameter PLAX 3.1 cm IVS Diastolic Thickness 0.9 cm 0.6 - 1.0 / 0.6 - 0.9 cm LVPW Diastolic Thickness 0.8 cm 0.6 - 1.0 / 0.6 - 0.9 cm LV Relative Wall Thickness 0.4 RV Internal Dim ED PLAX 2.3 cm DOPPLER Mitral E Point Velocity 57.8 cm/s Mitral A Point Velocity 74.5 cm/s Mitral E to A Ratio 0.8 TR Peak Velocity 183.0 cm/s TR Peak Gradient 13.4 mmHg FINDINGS LEFT VENTRICLE Normal left ventricular size. Wall thickness is normal. The left ventricular systolic function is normal with an estimated ejection fraction in the range of 55-60%. There was limited left ventricular wall motion assessment due to poor endocardial visualization. Doppler parameters are consistent with impaired left ventricular relaxtion (grade 1 diastolic dysfun ction). RIGHT VENTRICLE Normal right ventricular size and systolic function. LEFT ATRIUM The left atrial size is normal. RIGHT ATRIUM The right atrial size is normal. ATRIAL SEPTUM Normal atrial septal thickness AORTA The aortic root and proximal ascending aorta are normal in size on limited imaging. MITRAL VALVE Structurally normal mitral valve. No mitral valve stenosis or regurgitation. AORTIC VALVE Grossly normal aortic valve. No aortic valve regurgitation. No aortic valve stenosis. TRICUSPID VALVE Structurally normal tricuspid valve. There is trace tricuspid valve regurgitation. No tricuspid valve stenosis. PULMONARY VALVE The pulmonary valve is not well visualized. VESSELS The inferior vena cava is normal in size. PERICARDIUM No pericardial effusion. Tristan Cook DO (Electronically Signed) Final Date:04 February 2018 13:30
[2018-02-07 12:45] LABS: LEVETIRACETAM <2.0 mcg/mL (12.0 - 46.0)
== END 2018-02-04 15:00 | disposition home or self-care (01) ==
LOC: NEPC 02:20 → NEDA 05:43 → NEPHCDU 07:54
PROVIDERS: ADMIT Family Medicine; ATTEND Family Medicine
DX: R41.82 Altered mental status, unspecified (principal); E86.0 Dehydration; R50.9 Fever, unspecified; H53.8 Other visual disturbances; R07.89 Other chest pain; R10.9 Unspecified abdominal pain; R06.02 Shortness of breath; R00.1 Bradycardia, unspecified; G40.909 Epilepsy, unspecified, not intractable, without status epilepticus; I11.0 Hypertensive heart disease with heart failure; I50.9 Heart failure, unspecified; J44.9 Chronic obstructive pulmonary disease, unspecified; F17.200 Nicotine dependence, unspecified, uncomplicated; F10.10 Alcohol abuse, uncomplicated; F12.90 Cannabis use, unspecified, uncomplicated; M19.90 Unspecified osteoarthritis, unspecified site; Z85.038 Personal history of other malignant neoplasm of large intestine; Z86.73 Personal history of transient ischemic attack (TIA), and cerebral infarction without residual deficits; Z82.49 Family history of ischemic heart disease and other diseases of the circulatory system; Y90.0 Blood alcohol level of less than 20 mg/100 ml
CPT/HCPCS: 70450; 70544; 70551; 80053; 80061; 80164; 80177; 80307; 81001; 82140; 82550; 82607; 83605; 84425; 84443; 84484; 85025; 85610; 85730; 86592; 92610; 93005; 93308; 93880; 95819; 96360; 96361; 96372; 97161; 99285; G0378; G8987; G8988; G8996; G8997; G8998; J1644; J7030

== ENCOUNTER 2018-02-14 14:03 | Observation (INO) | payer OTHER ==
[~2018-02-14] VITALS: Ht 170.2 cm; Wt 60.0 kg
[~2018-02-14 14:03] MED LIST changes: +HYDR50TA3 PO; -LABE100T2 PO; +THERM PO; +THIA100 PO; -TYLE325T PO
[2018-02-14 14:11] VITALS: BP 134/91; PULSE 57; RESP 18; TEMP 98.9; O2SAT 97
--- NOTE | 2018-02-14 15:46 | PD ---
HPI Chief Complaint: Dizziness Time Seen by Provider: 15:26 Travel History International Travel<30 days: No Contact w/Intl Traveler<30days: No Traveled to known affect area: No History of Present Illness HPI Patient presents to the emergency department complaining of blood pressure. States its been 167/116. Reports high blood pressure for the past few days. Also had left-sided chest pain that began a few hours ago, constant, 7 out of 10 , radiates down the left side, dull/aching pain, no alleviating/aggravating factors. He vomiting, recent travel, no report of bilateral ankle edema, nausea , dyspnea on exertion, and dizziness. Patient denies any active bleeding, any bleeding any major trauma, no invasive procedures, no intracranial spinal tumor , no neuraxial anesthesia, states prior ICH from trauma approx 31 years ago. PFSH Past Medical History Hx Anticoagulant Therapy: No Arthritis: Yes Asthma: No Autoimmune Disease: No Blood Disorders: No Anxiety: No Depression: No Heart Rhythm Problems: No Cancer: Yes (colon cancer) Cardiac Catheterization: No Cardiovascular Problems: Yes (HTN) High Cholesterol: No Chemotherapy: Yes Chest Pain: Yes Congestive Heart Failure: Yes COPD: Yes Cerebrovascular Accident: Yes (CVA ) Diabetes: No Diminished Hearing: No Endocrine: No Gastrointestinal Disorders: No GERD: No Glaucoma: No Genitourinary: No Headaches: Yes Hepatitis: No Hiatal Hernia: No Heparin Induced Thrombocytopen: No Hypertension: Yes Immune Disorder: No Implanted Vascular Access Dvce: No Kidney Stones: No Musculoskeletal: No Neurologic: Yes Psychiatric: No Reproductive: No Respiratory: Yes Immunizations Current: Yes Migraines: No Myocardial Infarction: No Pancreatitis: Yes Radiation Therapy: Yes Renal Failure: No Seizures: Yes Sickle Cell Disease: No Sleep Apnea: No Thyroid Disease: No Ulcer: No PNEUMOCCOCAL Vaccine (Year): 1 Past Surgical History Abdominal Surgery: Yes (deepti cancer) AICD: No Appendectomy: Yes Arteriovenous Shunt: No Cardiac Surgery: No Cholecystectomy: No Coronary Artery Bypass Graft: No Ear Surgery: No Endocrine Surgery: No Eye Surgery: Yes (BILAT MUSCLES CUT) Genitourinary Surgery: No Gynecologic Surgery: No Insulin Pump: No Joint Replacement: No Neurologic Surgery: No Oral Surgery: No Pacemaker: No Thoracic Surgery: No Tonsillectomy: Yes Other Surgery: Yes (colon cancer.tonsilts, eyes,) Family History Family Myocardial Infarction: Yes Social History Alcohol Use: Yes (OCCASIONALLY) Tobacco Use: Yes (1/2 PPD) Substance Use: Yes (marijuana) Allergies-Medications (Allergen,Severity, Reaction): Coded Allergies: amlodipine (Verified Allergy, Severe, Swelling, 01/17/18) UNALBE TO CONFIRM PT IS INTUBATED amoxicillin (Verified Allergy, Severe, "LIPS SWELL", 01/17/18) PT IS INTUBATED UNABLE TO CONFIRM clavulanic acid (Verified Allergy, Severe, "LIPS SWELL", 01/17/18) PT IS INTUBATED UNABLE TO CONFIRM diatrizoate meglumine (Verified Allergy, Severe, Anaphylaxis; 06/04/09: PT TOLERATES ORAL CONTRAST W/O AE, 01/17/18) PT INTUBATED UNABLE TO CONFIRM 06/04/09: PER RN, PT TOLERATES ORAL CONTRAST MEDIA WITHOUT ADVERSE EFFECTS; HE HAS HAD ORAL CONTRAST PREVIOUSLY. diazepam (Verified Allergy, Severe, RESPIRATORY DISTRESS, 01/17/18) UNALBE TO CONFIRM PT IS INTUBATED enalaprilat (Verified Allergy, Severe, 01/17/18) UNALBE TO CONFIRM PT IS INTUBATED erythromycin base (Verified Allergy, Severe, RASH, 01/17/18) gadobenic acid (Verified Allergy, Severe, Anaphylaxis; 06/04/09: PT TOLERATES ORAL CONTRAST W/O AE, 01/17/18) PT INTUBATED UNABLE TO CONFIRM 06/04/09: PER RN, PT TOLERATES ORAL CONTRAST MEDIA WITHOUT ADVERSE EFFECTS; HE HAS HAD ORAL CONTRAST PREVIOUSLY. gadodiamide (Verified Allergy, Severe, Anaphylaxis; 06/04/09: PT TOLERATES ORAL CONTRAST W/O AE, 01/17/18) PT INTUBATED UNABLE TO CONFIRM 06/04/09: PER RN, PT TOLERATES ORAL CONTRAST MEDIA WITHOUT ADVERSE EFFECTS; HE HAS HAD ORAL CONTRAST PREVIOUSLY. gadoteridol (Verified Allergy, Severe, Anaphylaxis; 06/04/09: PT TOLERATES ORAL CONTRAST W/O AE, 01/17/18) PT INTUBATED UNABLE TO CONFIRM 06/04/09: PER RN, PT TOLERATES ORAL CONTRAST MEDIA WITHOUT ADVERSE EFFECTS; HE HAS HAD ORAL CONTRAST PREVIOUSLY. haloperidol (Verified Allergy, Severe, "TIGHT JAW", 01/17/18) UNABLE TO CONFIRM PT IS INTUBATED iodixanol (Verified Allergy, Severe, Anaphylaxis; 06/04/09: PT TOLERATES ORAL CONTRAST W/O AE, 01/17/18) PT INTUBATED UNABLE TO CONFIRM 06/04/09: PER RN, PT TOLERATES ORAL CONTRAST MEDIA WITHOUT ADVERSE EFFECTS; HE HAS HAD ORAL CONTRAST PREVIOUSLY. iohexol (Verified Allergy, Severe, PT NEEDS PREMED/DOESN'T KNOW REACTION, 01/17/18) UNABLE TO CONFIRM PT IS INTUBATED 06/04/09: PER RN, PT TOLERATES ORAL CONTRAST MEDIA WITHOUT ADVERSE EFFECTS; HE HAS HAD ORAL CONTRAST PREVIOUSLY. morphine (Verified Allergy, Mild, Itching, 01/17/18) UNABLE TO CONFIRM PT IS INTUBATED benazepril (Verified Allergy, Unknown, UNKNOWN REACTION, 01/17/18) UNABLE TO CONFIRM PT IS INTUBATED captopril (Verified Allergy, Unknown, UNKNOWN REACTION, 01/17/18) UNABLE TO CONFIRM PT IS INTUBATED fosinopril (Verified Allergy, Unknown, UNKNOWN REACTION, 01/17/18) UNABLE TO CONFIRM PT IS INTUBATED lisinopril (Verified Allergy, Unknown, UNKNOWN REACTION, 01/17/18) UNABLE TO CONFIRM PT IS INTUBATED quinapril (Verified Allergy, Unknown, UNKNOWN REACTION, 01/17/18) UNABLE TO CONFIRM PT IS INTUBATED prochlorperazine (Verified Adverse Reaction, Severe, "LOCKJAW", 01/17/18) UNABLE TO CONFIRM PT IS INTUBATED Uncoded Allergies: DYE (Allergy, Severe, CARDIAC ARREST, 04/11/17) UNABLE TO CONFIRM PT IS INTUBATED Reported Meds & Prescriptions Reported Meds & Active Scripts Active Hydrochlorothiazide 50 Mg Tab 50 Mg PO DAILY Thera M Plus (Multivitamins/Minerals Therapeutic) 1 Tab 1 Tab PO DAILY Gnp Vitamin B-1 (Thiamine HCl) 100 Mg Tab 100 Mg PO DAILY B12 (Cyanocobalamin) 1,000 Mcg Tab 1 Tab PO DAILY 30 Days Ventolin Hfa 18 GM Inh (Albuterol Sulfate) 90 Mcg/Act Aer 2 Puff INH Q4-6H PRN Reported Parveen CONNER (Divalproex Sodium) 500 Mg Tabdr 500 Mg PO BID Keppra (Levetiracetam) 500 Mg Tab 500 Mg PO BID Review of Systems Except as stated in HPI: all other systems reviewed are Neg Physical Exam Narrative GENERAL: No acute distress. SKIN: Focused skin assessment warm/dry. HEAD: Atraumatic. Normocephalic. EYES: Pupils equal and round. No scleral icterus. No injection or drainage. ENT: No nasal bleeding or discharge. Mucous membranes pink and moist. NECK: Trachea midline. No JVD. CARDIOVASCULAR: Regular rate and rhythm. No murmur appreciated. Chest wall nontender to palpation. RESPIRATORY: No accessory muscle use. Clear to auscultation. Breath sounds equal bilaterally. GASTROINTESTINAL: Abdomen soft, nontender, nondistended. Surgical scar (from colon ca) MUSCULOSKELETAL: No obvious deformities. No clubbing. No cyanosis. Left lower extremity edema. NEUROLOGICAL: Awake and alert. No obvious cranial nerve deficits. Motor grossly within normal limits. Normal speech. PSYCHIATRIC: Appropriate mood and affect; insight and judgment normal. Data Data Last Documented VS Vital Signs Date Time Temp Pulse Resp B/P (MAP) Pulse Ox O2 Delivery O2 Flow Rate FiO2 02/14/18 15:50 99 Room Air 02/14/18 14:11 98.9 57 18 134/91 (105) Orders Orders Electrocardiogram (02/14/18 15:35) B-Type Natriuretic Peptide (02/14/18 15:35) Ckmb (Isoenzyme) Profile (02/14/18 15:35) Complete Blood Count With Diff (02/14/18 15:35) Comprehensive Metabolic Panel (02/14/18 15:35) Magnesium (Mg) (02/14/18 15:35) Prothrombin Time / Inr (Pt) (02/14/18 15:35) Act Partial Throm Time (Ptt) (02/14/18 15:35) Troponin I (02/14/18 15:35) Chest, Single Ap (02/14/18 15:35) Ecg Monitoring (02/14/18 15:35) Iv Access Insert/Monitor (02/14/18 15:35) Oximetry (02/14/18 15:35) Ct Brain W/O Iv Contrast(Rout) (02/14/18 15:35) Us Leg Venous Doppler Bilat (02/14/18 15:35) Aspirin (Aspirin) (02/14/18 16:00) Ventilation & Perfusion Scan (02/14/18 16:30) Abdomen, Flat & Upright (02/14/18 17:17) CKMB (02/14/18 16:10) CKMB% (02/14/18 16:10) Enoxaparin Inj (Lovenox Inj) (02/14/18 18:15) Admit Order (Ed Use Only) (02/14/18 18:13) Labs Laboratory Tests Test 02/14/18 16:10 White Blood Count 5.8 TH/MM3 Red Blood Count 4.73 MIL/MM3 Hemoglobin 15.0 GM/DL Hematocrit 44.3 % Mean Corpuscular Volume 93.7 FL Mean Corpuscular Hemoglobin 31.7 PG Mean Corpuscular Hemoglobin Concent 33.8 % Red Cell Distribution Width 14.9 % Platelet Count 277 TH/MM3 Mean Platelet Volume 8.9 FL Neutrophils (%) (Auto) 64.0 % Lymphocytes (%) (Auto) 22.9 % Monocytes (%) (Auto) 7.4 % Eosinophils (%) (Auto) 4.1 % Basophils (%) (Auto) 1.6 % Neutrophils # (Auto) 3.7 TH/MM3 Lymphocytes # (Auto) 1.3 TH/MM3 Monocytes # (Auto) 0.4 TH/MM3 Eosinophils # (Auto) 0.2 TH/MM3 Basophils # (Auto) 0.1 TH/MM3 CBC Comment DIFF FINAL Differential Comment Prothrombin Time 9.4 SEC Prothromb Time International Ratio 0.9 RATIO Activated Partial Thromboplast Time 24.1 SEC Blood Urea Nitrogen 13 MG/DL Creatinine 1.14 MG/DL Random Glucose 76 MG/DL Total Protein 8.4 GM/DL Albumin 3.9 GM/DL Calcium Level 8.4 MG/DL Magnesium Level 2.3 MG/DL Alkaline Phosphatase 103 U/L Aspartate Amino Transf (AST/SGOT) 32 U/L Alanine Aminotransferase (ALT/SGPT) 22 U/L Total Bilirubin 0.7 MG/DL Sodium Level 138 MEQ/L Potassium Level 4.9 MEQ/L Chloride Level 106 MEQ/L Carbon Dioxide Level 24.6 MEQ/L Anion Gap 7 MEQ/L Estimat Glomerular Filtration Rate 65 ML/MIN Total Creatine Kinase 155 U/L Creatine Kinase MB 0.9 NG/ML Troponin I LESS THAN 0.02 NG/ML B-Type Natriuretic Peptide 112 PG/ML MDM Medical Decision Making Medical Screen Exam Complete: Yes Emergency Medical Condition: Yes Interpretation(s) ECG: Sinus bradycardia QTC 493,prolonged QT Labs: Normal CBC and coags, BNP increased Last Impressions Lower Extremity Ultrasound 02/14/181534 Signed Impressions: CONCLUSION: Thrombus seen bilaterally as described above. Head CT 02/14/181534 Signed Impressions: CONCLUSION: Negative noncontrast head CT. Chest X-Ray 02/14/181534 Signed Impressions: CONCLUSION: No acute cardiopulmonary process. Distended bowel in the upper abdomen. Abd series FINDINGS: Supine and upright views of the abdomen were performed. Bowel marci are seen in the left lateral lower abdomen/upper pelvic region. There is dilated bowel in the upper abdomen which all appears to be related to the colon. Free air is not clearly seen. There is a dextrocurvature of the thoracic lumbar region. CONCLUSION: Dilated bowel in the upper abdomen. This most closely resembles the colon. This is nonspecific. Differential Diagnosis ACS,PE, DVT, costochondritis, pneumonia, bronchitis, COPD exacerbation Narrative Course Patient presents to the emergency department complaining of dizziness, left- sided chest pain, shortness of breath, and hypertension. Patient placed on the lace stripper, IV access obtained, and EKG/chest x-ray/labs/ultrasound/head CT ordered. Patient has h/o colon ca and has had colon surgeries and bowel obstructions per him. Asked about whether he's having abdominal pain currently, he denies. States that he doesn't want a CT scan of his abdomen and pelvis, he wants to eat. Finally agreed to CT abd/pelvis. It's pending at time of admission in addition to the VQ scan. Admit team to followup. Diagnosis Primary Impression: Deep venous thrombosis Qualified Codes: I82.403 - Acute embolism and thrombosis of unspecified deep veins of lower extremity, bilateral Additional Impression: Chest pain Qualified Codes: R07.9 - Chest pain, unspecified Admitting Information Admitting Physician Requests: Observation Condition: Stable Rayne Jaimes MD Feb 14, 2018 15:46
[2018-02-14 15:50] VITALS: O2SAT 99
[2018-02-14] MEDS ORDERED: ASPIRIN 325 MG TAB PO ONE (16:00)
--- NOTE | 2018-02-14 16:42 | RADRPT ---
EXAM DATE: 02/14/2018 4:06 PM EDT AGE/SEX: 62 years / Male INDICATIONS: Chest pain. CLINICAL DATA: This is the patient's initial encounter. Patient reports that signs and symptoms have been present for 1 day and indicates a pain score of 5/10. MEDICAL/SURGICAL HISTORY: None. None. COMPARISON: [facility] – [place], CHEST SINGLE AP, 01/29/2018. . FINDINGS: A single AP view of the chest demonstrates the lungs to be symmetrically aerated without evidence of mass, infiltrate or effusion. The cardiomediastinal contours are unremarkable. Osseous structures a re intact. There does appear to be distended bowel in the upper abdomen. CONCLUSION: No acute cardiopulmonary process. Distended bowel in the upper abdomen. Electronically signed by: Arden Shrestha MD 02/14/2018 4:41 PM EDT
[2018-02-14 16:44] LABS: AUTOMATED NEUTROPHIL # 3.7 TH/MM3 (1.8-7.7); BASOPHIL # 0.1 TH/MM3 (0-0.2); BASOPHIL % 1.6 % (0.0-2.0); EOSINOPHIL # 0.2 TH/MM3 (0-0.4); EOSINOPHIL % 4.1 % (0.0-4.0); HEMATOCRIT 44.3 % (39.0-51.0); LYMPH % 22.9 % (9.0-44.0); LYMPHOCYTE # 1.3 TH/MM3 (1.0-4.8); MEAN CELL VOLUME 93.7 FL (80.0-100.0); MEAN CORPUSCULAR HEMOGLOBIN 31.7 PG (27.0-34.0); MEAN CORPUSCULAR HGB CONC 33.8 % (32.0-36.0); MEAN PLATELET VOLUME 8.9 FL (7.0-11.0); MONO % 7.4 % (0.0-8.0); MONOCYTE # 0.4 TH/MM3 (0-0.9); PLATELET COUNT 277 TH/MM3 (150-450); RED BLOOD COUNT 4.73 MIL/MM3 (4.50-5.90); RED CELL DISTRIBUTION WIDTH 14.9 % (11.6-17.2); WHITE BLOOD COUNT 5.8 TH/MM3 (4.0-11.0)
[2018-02-14 16:59] LABS: INTERNATIONAL NORMALIZED RATIO 0.9 RATIO; PROTHROMBIN TIME - PATIENT 9.4 SEC (9.8-11.6)
--- NOTE | 2018-02-14 17:02 | RADRPT ---
EXAM DATE: 02/14/2018 4:53 PM EDT AGE/SEX: 62 years / Male INDICATIONS: Chest pain and shortness of breath with bilateral lower extremity swelling. CLINICAL DATA: This is the patient's initial encounter. Patient reports that signs and symptoms have been present for 3 weeks and indicates a pain score of 1/10. MEDICAL/SURGICAL HISTORY: Carcinoma, colon. Congestive heart failure. Chronic obstructive pul monary disease. Seizures. Hypertension. Pancreatitis. MRSA. Tonsillectomy. Appendectomy. Chemot herapy. Radiation Therapy. Abdominal surgery for Colon Cancer. COMPARISON: No prior exams available for comparison. TECHNIQUE: Venous ultrasound of both lower extremities was performed from the inguinal ligament to t he proximal calf. Real-time, color Doppler and spectral tracing, compression and augmentation techni ques were used. FINDINGS: Right Leg: There is nonocclusive thrombus seen throughout the venous system extending from the exter nal iliac vein to the popliteal and peroneal veins. Left Leg: There is nonocclusive thrombus within the left common femoral vein. Other: None. CONCLUSION: Thrombus seen bilaterally as described above. Electronically signed by: Arden Shrestha MD 02/14/2018 5:01 PM EDT
--- NOTE | 2018-02-14 17:12 | RADRPT ---
EXAM DATE: 02/14/2018 4:49 PM EDT AGE/SEX: 62 years / Male INDICATIONS: Posterior headache and hypertension with dizziness. CLINICAL DATA: This is the patient's initial encounter. Patient reports that signs and symptoms have been present for 1 day and indicates a pain score of 7/10. MEDICAL/SURGICAL HISTORY: Cerebrovascular disease. Chronic obstructive pulmonary disease. Carcino ma, colon. Seizure. Hypertension. None. RADIATION DOSE: 38.13 CTDI (mGy) COMPAR[place]: [facility] [place], 02/03/2018. . TECHNIQUE: CT of the head without contrast. Using automated exposure control and adjustment of the mA and/or kV according to patient size, radiation dose was kept as low as reasonably achievable to ob tain optimal diagnostic quality images. DICOM format image data is available electronically for revi ew and comparison. FINDINGS: Cerebrum: The ventricles are normal for age. No evidence of midline shift, mass lesion, hemorrhage or acute infarction. No extraaxial fluid collections are seen. Posterior Fossa: The cerebellum and brainstem are intact. The 4th ventricle is midline. The cerebe llopontine angle is unremarkable. Extracranial: The visualized portion of the orbits is intact. Skull: The calvaria is intact. No evidence of skull fracture. CONCLUSION: Negative noncontrast head CT. Electronically signed by: Arden Shrestha MD 02/14/2018 5:11 PM EDT
[2018-02-14 17:16] LABS: ALBUMIN 3.9 GM/DL (3.4-5.0); ALKALINE PHOSPHATASE 103 U/L (45-117); ALT (GPT) 22 U/L (12-78); AST (GOT) 32 U/L (15-37); BICARBONATE 24.6 MEQ/L (21.0-32.0); BLOOD UREA NITROGEN 13 MG/DL (7-18); CALCIUM 8.4 MG/DL (8.5-10.1); CHLORIDE 106 MEQ/L (98-107); CREATININE 1.14 MG/DL (0.60-1.30); GLOMERULAR FILTRATION RATE 65 ML/MIN (>89); GLUCOSE,RANDOM 76 MG/DL (74-106); MAGNESIUM 2.3 MG/DL (1.5-2.5); SODIUM (NA) 138 MEQ/L (136-145); TOTAL BILIRUBIN ADULT 0.7 MG/DL (0.2-1.0); TOTAL PROTEIN 8.4 GM/DL (6.4-8.2); TROPONIN I LESS THAN 0.02 NG/ML (0.02-0.05)
--- NOTE | 2018-02-14 18:01 | RADRPT ---
EXAM DATE: 02/14/2018 5:53 PM EDT AGE/SEX: 62 years / Male INDICATIONS: Abdominal distention. CLINICAL DATA: This is the patient's initial encounter. Patient reports that signs and symptoms have been present for 3 days and indicates a pain score of 2/10. MEDICAL/SURGICAL HISTORY: Carcinoma, colon. Colon resection. [place] [facility] [place]. . FINDINGS: Supine and upright views of the abdomen were performed. Bowel marci are seen in the left lateral lo wer abdomen/upper pelvic region. There is dilated bowel in the upper abdomen which all appears to be related to the colon. Free air is not clearly seen. There is a dextrocurvature of the thoracic lumbar region. CONCLUSION: Dilated bowel in the upper abdomen. This most closely resembles the colon. This is nonspecific. Electronically signed by: Arden Shrestha MD 02/14/2018 6:00 PM EDT
[2018-02-14] MEDS ORDERED: ENOXAPARIN SODIUM 60 MG/0.6 ML SYRINGE SQ ONE (18:15)
--- NOTE | 2018-02-14 19:22 | RADRPT ---
EXAM DATE: 02/14/2018 7:06 PM EDT AGE/SEX: 62 years / Male INDICATIONS: Abnormal x-ray. CLINICAL DATA: This is the patient's initial encounter. Patient reports that signs and symptoms have been present for 1 day and indicates a pain score of 0/10. MEDICAL/SURGICAL HISTORY: Cerebrovascular disease. Cardiovascular disease. Chronic obstructiv e pulmonary disease. Pancreatitis. Colon cancer. Appendectomy. RADIATION DOSE: 4.55 CTDI (mGy) [place] [facility] [place], [place]2018. [facility] [place]. . TECHNIQUE: Multiple contiguous axial images were obtained through the abdomen. Images were obtained using multiple row detector helical technique. Using automated exposure control and adjustment of the mA and/or kV according to patient size, radiation dose was kept as low as reasonably achievable to o btain optimal diagnostic quality images. DICOM format image data is available electronically for rev iew and comparison. FINDINGS: Lower Lungs: The visualized lower lungs are clear. Liver: The liver has a homogeneous density with multiple low-density lesions. There is no dilation of the biliary tree. Spleen: Homogeneous density without enlargement. Pancreas: Unremarkable without mass or calcification. Kidneys: Normal in size and shape. No evidence of mass or hydronephrosis. Adrenal Glands: Unremarkable. Aorta: Atherosclerotic changes right without aneurysmal dilation. Bowel/Mesentery: Gaseous distention of multiple large bowel loops. Copious amount stool in the rectum . There is wall thickening of multiple small bowel loops in the left abdomen. Abdominal Wall: Intact . Retroperitoneum: No evidence of adenopathy in the retrocrural, para-aortic, or deep pelvic regions. Bladder: Contours are smooth. Reproductive Organs: No abnormal masses or calcifications seen. Inguinal: The inguinal region is unremarkable without evidence of adenopathy. Bony Structures: Dextroscoliosis. CONCLUSION: 1. . Gaseous distention of multiple bowel loops. 2. Mild nonspecific wall thickening small bowel loops in left abdomen. 3. Multiple low densities in the liver, stable. Electronically signed by: Deo Bethea MD 02/14/2018 7:21 PM EDT
[2018-02-14] MEDS ORDERED: NALOXONE HCL 0.4 MG/ML AMP IV PUSH PRN (19:45)
[2018-02-14] MEDS ORDERED: ACETAMINOPHEN 325 MG TAB PO PRN (19:45)
[2018-02-14] MEDS ORDERED: SODIUM CHLORIDE 0.9% FLUSH 10 ML FLUSH IV FLUSH PRN (19:45)
[2018-02-14] MEDS: SODIUM CHLOR 0.9% 1000 ML INJ 1,000 ML IV SCH (20:13)
--- NOTE | 2018-02-14 20:20 | RADRPT ---
EXAM DATE: 02/14/2018 8:16 PM EDT AGE/SEX: 62 years / Male INDICATIONS: Left sided chest pain. CLINICAL DATA: This is the patient's initial encounter. Patient reports that signs and symptoms have been present for 1 day and indicates a pain score of 7/10. MEDICAL/SURGICAL HISTORY: Hypertension. Carcinoma, colon. Smoker. None. COMPARISON: [facility] – [place], LUNG VENTILATION - AEROSOL, 03/19/2013. . DOSE: 1.0 mCi Tc99m DTPA aerosol TECHNIQUE: Following five minutes of tidal breathing of DTPA aerosol, planar images of the lungs wer e performed in eight projections. FINDINGS: Patchy distribution bilaterally. This is unchanged. This may be related to air trapping. Perfusion im ages not performed. CONCLUSION: 1. Patchy ventilation suggests air trapping. Electronically signed by: Deo Bethea MD 02/14/2018 8:19 PM EDT
[2018-02-14] MEDS: SODIUM CHLORIDE 0.9% FLUSH 10 ML FLUSH IV FLUSH SCH (21:00)
[2018-02-14 21:04] VITALS: BP 204/101; PULSE 48; RESP 16; TEMP 98; O2SAT 95
--- NOTE | 2018-02-14 21:51 | HHI.HP ---
[facility] Arden Ma MD Admission Diagnosis DVT, chest pain Diagnoses: Chief Complaint: chest pain Travel History International Travel<30 Days: No Contact w/Intl Traveler <30 Da: No Traveled to Known Affected Are: No History of Present Illness 62-year-old male with a history of hypertension, seizures, colon cancer status post resection and chemo/radiation, chronic pancreatitis, CVA, hypertensive encephalopathy and COPD presents to the ED with complaints of elevated blood pressure and left-sided chest pain. Patient states the chest pain is a 7/10 that radiates down his left arm, dull in nature, no associated symptoms. He states the chest pain is not worse then his every day pain he has. He states he has been compliant with his home BP Meds. Patient has had multiple visits over the past 6 months for chest pain and hypertension. He also states he has mild pain in his left calf and mild bilateral lower extremity edema. He denies any abdominal pain, constipation, diarrhea, nausea or vomiting. He has taken Coumadin in the past and Lovenox and states he will decide at discharge what he would like to take at home. Review of Systems Except as stated in HPI: all other systems reviewed are Neg Past Family Social History Past Medical History Hypertension Hypertensive encephalopathy Seizures Colon cancer status post resection with chemo and radiation Chronic pancreatitis CVA Tobacco abuse Past Surgical History Colon resection 20 years ago Allergies: Coded Allergies: amlodipine (Verified Allergy, Severe, Swelling, 01/17/18) UNALBE TO CONFIRM PT IS INTUBATED amoxicillin (Verified Allergy, Severe, "LIPS SWELL", 01/17/18) PT IS INTUBATED UNABLE TO CONFIRM clavulanic acid (Verified Allergy, Severe, "LIPS SWELL", 01/17/18) PT IS INTUBATED UNABLE TO CONFIRM diatrizoate meglumine (Verified Allergy, Severe, Anaphylaxis; 06/04/09: PT TOLERATES ORAL CONTRAST W/O AE, 01/17/18) PT INTUBATED UNABLE TO CONFIRM 06/04/09: PER RN, PT TOLERATES ORAL CONTRAST MEDIA WITHOUT ADVERSE EFFECTS; HE HAS HAD ORAL CONTRAST PREVIOUSLY. diazepam (Verified Allergy, Severe, RESPIRATORY DISTRESS, 01/17/18) UNALBE TO CONFIRM PT IS INTUBATED enalaprilat (Verified Allergy, Severe, 01/17/18) UNALBE TO CONFIRM PT IS INTUBATED erythromycin base (Verified Allergy, Severe, RASH, 01/17/18) gadobenic acid (Verified Allergy, Severe, Anaphylaxis; 06/04/09: PT TOLERATES ORAL CONTRAST W/O AE, 01/17/18) PT INTUBATED UNABLE TO CONFIRM 06/04/09: PER RN, PT TOLERATES ORAL CONTRAST MEDIA WITHOUT ADVERSE EFFECTS; HE HAS HAD ORAL CONTRAST PREVIOUSLY. gadodiamide (Verified Allergy, Severe, Anaphylaxis; 06/04/09: PT TOLERATES ORAL CONTRAST W/O AE, 01/17/18) PT INTUBATED UNABLE TO CONFIRM 06/04/09: PER RN, PT TOLERATES ORAL CONTRAST MEDIA WITHOUT ADVERSE EFFECTS; HE HAS HAD ORAL CONTRAST PREVIOUSLY. gadoteridol (Verified Allergy, Severe, Anaphylaxis; 06/04/09: PT TOLERATES ORAL CONTRAST W/O AE, 01/17/18) PT INTUBATED UNABLE TO CONFIRM 06/04/09: PER RN, PT TOLERATES ORAL CONTRAST MEDIA WITHOUT ADVERSE EFFECTS; HE HAS HAD ORAL CONTRAST PREVIOUSLY. haloperidol (Verified Allergy, Severe, "TIGHT JAW", 01/17/18) UNABLE TO CONFIRM PT IS INTUBATED iodixanol (Verified Allergy, Severe, Anaphylaxis; 06/04/09: PT TOLERATES ORAL CONTRAST W/O AE, 01/17/18) PT INTUBATED UNABLE TO CONFIRM 06/04/09: PER RN, PT TOLERATES ORAL CONTRAST MEDIA WITHOUT ADVERSE EFFECTS; HE HAS HAD ORAL CONTRAST PREVIOUSLY. iohexol (Verified Allergy, Severe, PT NEEDS PREMED/DOESN'T KNOW REACTION, 01/17/18) UNABLE TO CONFIRM PT IS INTUBATED 06/04/09: PER RN, PT TOLERATES ORAL CONTRAST MEDIA WITHOUT ADVERSE EFFECTS; HE HAS HAD ORAL CONTRAST PREVIOUSLY. morphine (Verified Allergy, Mild, Itching, 01/17/18) UNABLE TO CONFIRM PT IS INTUBATED benazepril (Verified Allergy, Unknown, UNKNOWN REACTION, 01/17/18) UNABLE TO CONFIRM PT IS INTUBATED captopril (Verified Allergy, Unknown, UNKNOWN REACTION, 01/17/18) UNABLE TO CONFIRM PT IS INTUBATED fosinopril (Verified Allergy, Unknown, UNKNOWN REACTION, 01/17/18) UNABLE TO CONFIRM PT IS INTUBATED lisinopril (Verified Allergy, Unknown, UNKNOWN REACTION, 01/17/18) UNABLE TO CONFIRM PT IS INTUBATED quinapril (Verified Allergy, Unknown, UNKNOWN REACTION, 01/17/18) UNABLE TO CONFIRM PT IS INTUBATED prochlorperazine (Verified Adverse Reaction, Severe, "LOCKJAW", 01/17/18) UNABLE TO CONFIRM PT IS INTUBATED Uncoded Allergies: DYE (Allergy, Severe, CARDIAC ARREST, 04/11/17) UNABLE TO CONFIRM PT IS INTUBATED Active Ordered Medications Current Medications Medications (Trade) Dose Ordered Sig/Dorothy Route Start Time Stop Time Status Last Admin (NS Flush) 2 ml UNSCH PRN IV FLUSH 02/14/18 19:45 (NS Flush) 2 ml BID IV FLUSH 02/14/18 21:00 (Tylenol) 650 mg Q4H PRN PO 02/14/18 19:45 (Narcan Inj) 0.4 mg UNSCH PRN IV PUSH 02/14/18 19:45 Sodium Chloride 1,000 ml @ 100 mls/hr Q10H IV 02/14/18 20:00 02/14/18 20:13 (Lovenox Inj) 60 mg Q12H SQ 02/15/18 06:00 Family History Dad: [place] Social History Tobacco use: 1/2 PPD, prior to this he was a one pack a day smoker for 45 years Alcohol use: Rarely Illicit drug use: Marijuana Physical Exam Vital Signs Vital Signs Date Time Temp Pulse Resp B/P (MAP) Pulse Ox O2 Delivery O2 Flow Rate FiO2 02/14/18 21:04 98.0 48 16 204/101 (135) 95 02/14/18 15:50 99 Room Air 02/14/18 14:11 98.9 57 18 134/91 (105) 97 Physical Exam GENERAL: This is a well-nourished, well-developed patient, in no apparent distress. SKIN: No rashes, ecchymoses or lesions. Cool and dry. HEAD: Atraumatic. Normocephalic. EYES: Pupils equal round and reactive. Extraocular motions intact. No scleral icterus. CARDIOVASCULAR: Regular rate and rhythm without murmurs, gallops, or rubs. RESPIRATORY: Clear to auscultation. Breath sounds equal bilaterally. No wheezes , rales, or rhonchi. GASTROINTESTINAL: Abdomen soft, non-tender, nondistended. No hepato-splenomegaly , or palpable masses. No guarding. MUSCULOSKELETAL: Extremities without clubbing, cyanosis, or edema. Left calf pain, bilateral lower extremity edema NEUROLOGICAL: Awake and alert. Motor and sensory grossly within normal limits. Normal speech. Laboratory Laboratory Tests Test 02/14/18 16:10 White Blood Count 5.8 Red Blood Count 4.73 Hemoglobin 15.0 Hematocrit 44.3 Mean Corpuscular Volume 93.7 Mean Corpuscular Hemoglobin 31.7 Mean Corpuscular Hemoglobin Concent 33.8 Red Cell Distribution Width 14.9 Platelet Count 277 Mean Platelet Volume 8.9 Neutrophils (%) (Auto) 64.0 Lymphocytes (%) (Auto) 22.9 Monocytes (%) (Auto) 7.4 Eosinophils (%) (Auto) 4.1 Basophils (%) (Auto) 1.6 Neutrophils # (Auto) 3.7 Lymphocytes # (Auto) 1.3 Monocytes # (Auto) 0.4 Eosinophils # (Auto) 0.2 Basophils # (Auto) 0.1 CBC Comment DIFF FINAL Differential Comment Prothrombin Time 9.4 Prothromb Time International Ratio 0.9 Activated Partial Thromboplast Time 24.1 Blood Urea Nitrogen 13 Creatinine 1.14 Random Glucose 76 Total Protein 8.4 Albumin 3.9 Calcium Level 8.4 Magnesium Level 2.3 Alkaline Phosphatase 103 Aspartate Amino Transf (AST/SGOT) 32 Alanine Aminotransferase (ALT/SGPT) 22 Total Bilirubin 0.7 Sodium Level 138 Potassium Level 4.9 Chloride Level 106 Carbon Dioxide Level 24.6 Anion Gap 7 Estimat Glomerular Filtration Rate 65 Total Creatine Kinase 155 Creatine Kinase MB 0.9 Troponin I LESS THAN 0.02 B-Type Natriuretic Peptide 112 Result Diagram: 02/14/18 1610 02/14/18 1610 Imaging Last Impressions Abdomen/Pelvis CT 02/14/18 1815 Signed Impressions: CONCLUSION: 1. . Gaseous distention of multiple bowel loops. 2. Mild nonspecific wall thickening small bowel loops in left abdomen. 3. Multiple low densities in the liver, stable. Abdomen X-Ray 02/14/18 1717 Signed Impressions: CONCLUSION: Dilated bowel in the upper abdomen. This most closely resembles the colon. This is nonspecific. Lung Scan Nuclear Medicine 02/14/18 1780 Signed Impressions: CONCLUSION: 1. Patchy ventilation suggests air trapping. Lower Extremity Ultrasound 02/14/18 1535 Signed Impressions: CONCLUSION: Thrombus seen bilaterally as described above. Head CT 02/14/18 6445 Signed Impressions: CONCLUSION: Negative noncontrast head CT. Chest X-Ray 02/14/185 Signed Impressions: CONCLUSION: No acute cardiopulmonary process. Distended bowel in the upper abdomen. Caprini VTE Risk Assessment Caprini VTE Risk Assessment: Mod/High Risk (score >= 2) Caprini Risk Assessment Model Point Value = 1 Point Value = 2 Point Value = 3 Point Value = 5 Age 41-60 Minor surgery BMI > 25 kg/m2 Swollen legs Varicose veins or History of unexplained or recurrent spontaneous Oral contraceptives or hormone replacement Sepsis (< 1 month) Serious lung disease, including pneumonia (< 1 month) Abnormal pulmonary function Acute myocardial infarction Congestive heart failure (< 1 month) History of inflammatory bowel disease Medical patient at bed rest Age 61-74 Arthroscopic surgery Major open surgery (> 45 min) Laparoscopic surgery (> 45 min) Malignancy Confined to bed (> 72 hours) Immobilizing plaster cast Central venous access Age >= 75 History of VTE Family history of VTE Factor V Leiden Prothrombin [id number] Lupus anticoagulant Anticardiolipin antibodies Elevated serum homocysteine Heparin-induced thrombocytopenia Other congenital or acquired thrombophilia Stroke (< 1 month) Elective arthroplasty Hip, pelvis, or leg fracture Acute spinal cord injury (< 1 month) Prophylaxis Regimen Total Risk Factor Score Risk Level Prophylaxis Regimen 0-1 Low Early ambulation 2 Moderate Order ONE of the following: *Sequential Compression Device (SCD) *Heparin 5000 units SQ BID 3-4 Higher Order ONE of the following medications: *Heparin 5000 units SQ TID *Enoxaparin/Lovenox 40 mg SQ daily (WT < 150 kg, CrCl > 30 mL/min) *Enoxaparin/Lovenox 30 mg SQ daily (WT < 150 kg, CrCl > 10-29 mL/min) *Enoxaparin/Lovenox 30 mg SQ BID (WT < 150 kg, CrCl > 30 mL/min) AND/OR *Sequential Compression Device (SCD) 5 or more Highest Order ONE of the following medications: *Heparin 5000 units SQ TID (Preferred with Epidurals) *Enoxaparin/Lovenox 40 mg SQ daily (WT < 150 kg, CrCl > 30 mL/min) *Enoxaparin/Lovenox 30 mg SQ daily (WT < 150 kg, CrCl > 10-29 mL/min) *Enoxaparin/Lovenox 30 mg SQ BID (WT < 150 kg, CrCl > 30 mL/min) AND *Sequential Compression Device (SCD) Assessment and Plan Assessment and Plan 62-year-old male with a history of hypertension, seizures, colon cancer status post resection and chemo/radiation, chronic pancreatitis, CVA, hypertensive encephalopathy and COPD presents to the ED with complaints of elevated blood pressure and left-sided chest pain. Chest pain, atypical, rule out ACS Troponin 0.02 -Serial troponin and EKGs ordered -Monitor telemetry DVT, bilateral US doppler reviewed and shows Right Leg nonocclusive thrombus seen throughout the venous system extending from the external iliac vein to the popliteal and peroneal veins. Left Leg: nonocclusive thrombus within the left common femoral vein. -Lovenox BID, patient will decide at discharge which anticoagulation to be discharged on -Elevate lower extremities HTN, chronic -Resume home medications -Clonidine PRN Seizures, chronic -Resume home medications DVT prophylaxis: LovenoValeria Triplett Feb 14, 2018 21:51
[2018-02-14] MEDS ORDERED: SODIUM CHLOR 0.9% 1000 ML INJ 1,000 ML IV SCH (22:00)
[2018-02-14 23:00] VITALS: BP 142/89
[2018-02-15 03:52] LABS: AUTOMATED NEUTROPHIL # 4.2 TH/MM3 (1.8-7.7); BASOPHIL # 0.1 TH/MM3 (0-0.2); BASOPHIL % 1.1 % (0.0-2.0); EOSINOPHIL # 0.2 TH/MM3 (0-0.4); EOSINOPHIL % 3.7 % (0.0-4.0); HEMATOCRIT 40.1 % (39.0-51.0); HEMOGLOBIN 13.6 GM/DL (13.0-17.0); LYMPH % 21.9 % (9.0-44.0); LYMPHOCYTE # 1.4 TH/MM3 (1.0-4.8); MEAN CELL VOLUME 92.8 FL (80.0-100.0); MEAN CORPUSCULAR HEMOGLOBIN 31.5 PG (27.0-34.0); MEAN CORPUSCULAR HGB CONC 33.9 % (32.0-36.0); MEAN PLATELET VOLUME 8.4 FL (7.0-11.0); MONO % 9.5 % (0.0-8.0); MONOCYTE # 0.6 TH/MM3 (0-0.9); NEUT % 63.8 % (16.0-70.0); PLATELET COUNT 252 TH/MM3 (150-450); RED BLOOD COUNT 4.32 MIL/MM3 (4.50-5.90); RED CELL DISTRIBUTION WIDTH 14.7 % (11.6-17.2); WHITE BLOOD COUNT 6.6 TH/MM3 (4.0-11.0)
[2018-02-15 04:15] VITALS: BP 174/107; PULSE 57; RESP 16; TEMP 98.3; O2SAT 91
[2018-02-15 04:17] LABS: BICARBONATE 24.8 MEQ/L (21.0-32.0); CALCIUM 8.3 MG/DL (8.5-10.1); CREATININE 0.94 MG/DL (0.60-1.30)
[2018-02-15 04:20] LABS: TROPONIN I LESS THAN 0.02 NG/ML (0.02-0.05)
[2018-02-15] MEDS: ENOXAPARIN SODIUM 60 MG/0.6 ML SYRINGE SQ SCH ×2 (06:00→18:36)
[2018-02-15] MEDS: SODIUM CHLOR 0.9% 1000 ML INJ 1,000 ML IV SCH ×3 (06:00→22:13)
[2018-02-15 07:56] VITALS: PULSE 53
[2018-02-15] MEDS: SODIUM CHLORIDE 0.9% FLUSH 10 ML FLUSH IV FLUSH SCH ×2 (08:47→21:00)
[2018-02-15 09:01] VITALS: BP 168/103; PULSE 48; RESP 18; TEMP 98.1; O2SAT 96
[2018-02-15] MEDS ORDERED: DIVALPROEX DR 500 MG TABEC PO ONE (11:15)
[2018-02-15 12:30] VITALS: BP 191/108; PULSE 49; RESP 18; TEMP 97.5; O2SAT 96
[2018-02-15] MEDS ORDERED: levETIRAcetam 500 MG TAB PO ONE (12:30)
--- NOTE | 2018-02-15 12:38 | HHI.PR ---
Subjective Remarks Patient denies having any chest pain this morning. He himself does not recall complaining of chest pains anybody yesterday. Yet there were 2 provider documents from yesterday where he stated he did complain of chest pain at which point the patient says he has had chest pain for quite some time that comes and goes. He had a Lexiscan done about 13 months ago. Objective Vital Signs Date Time Temp Pulse Resp B/P (MAP) Pulse Ox O2 Delivery O2 Flow Rate FiO2 02/15/18 09:01 98.1 48 18 168/103 (124) 96 02/15/18 04:15 98.3 57 16 174/107 (129) 91 02/14/18 23:00 142/89 (106) 02/14/18 21:04 98.0 48 16 204/101 (135) 95 02/14/18 15:50 99 Room Air 02/14/18 14:11 98.9 57 18 134/91 (105) 97 I/O 02/14/18 02/14/18 02/14/18 02/15/18 02/15/18 02/15/18 07:00 15:00 23:00 07:00 15:00 23:00 Output Total 1000 ml Balance -1000 ml Output Urine Total 1000 ml # Voids 1 Result Diagram: 02/15/18 0339 02/15/18 0339 A/P Assessment and Plan 62-year-old male with a history of hypertension, seizures, colon cancer status post resection and chemo/radiation, chronic pancreatitis, CVA, hypertensive encephalopathy and COPD presents to the ED with complaints of elevated blood pressure and left-sided chest pain. Chest pain, atypical, rule out ACS Troponin 0.02 -Troponins are negative, will perform Lexiscan stress test -VQ scan suggests air trapping at best. DVT, bilateral US doppler reviewed and shows Right Leg nonocclusive thrombus seen throughout the venous system extending from the external iliac vein to the popliteal and peroneal veins. Left Leg: nonocclusive thrombus within the left common femoral vein. -Lovenox BID, patient will decide at discharge which anticoagulation to be discharged on -Elevate lower extremities. Patient willing to try novel oral anticoagulants upon discharge. HTN, chronic - home medications -Clonidine PRN Seizures, chronic - home medications lovenox Mart Jackson MD Feb 15, 2018 12:38
[2018-02-15] MEDS: THIAMINE HCL 100 MG TAB PO SCH (13:17)
[2018-02-15 16:50] VITALS: BP 137/96; PULSE 51; RESP 18; TEMP 98; O2SAT 96
--- NOTE | 2018-02-15 18:35 | EKG ---
Date Performed: 02/14/2018 Time Performed: 14:28:26 PTAGE: 62 years EKG: SINUS BRADYCARDIA MODERATE INTRAVENTRICULAR CONDUCTION DELAY PROLONGED QT INTERVAL ABNORMAL ECG Since the PREVIOUS TRACING , no significant change noted PREVIOUS TRACIN02/03/2018 02.26.32 DOCTOR: Mariya Moore Interpretating Date/Time 02/15/2018 18:34:20
--- NOTE | 2018-02-15 18:35 | EKG ---
Date Performed: 02/15/2018 Time Performed: 04:11:58 PTAGE: 62 years EKG: SINUS BRADYCARDIA POSSIBLE INFERIOR MYOCARDIAL INFARCTION ABNORMAL ECG Since the PREVIOUS TRACING , no significant change noted PREVIOUS TRACIN02/14/2018 14.28 DOCTOR: Mariya Moore Interpretating Date/Time 02/15/2018 18:34:32
[2018-02-15 20:01] VITALS: BP 166/88; PULSE 53; RESP 16; TEMP 97.6; O2SAT 94
[2018-02-15] MEDS: DIVALPROEX DR 500 MG TABEC PO SCH (22:46)
[2018-02-15] MEDS: levETIRAcetam 500 MG TAB PO SCH (22:46)
[2018-02-16 01:15] VITALS: BP 141/99; PULSE 50; RESP 16; TEMP 98; O2SAT 95
[2018-02-16] MEDS: ENOXAPARIN SODIUM 60 MG/0.6 ML SYRINGE SQ SCH (06:32)
--- NOTE | 2018-02-16 08:14 | HHI.PR ---
Subjective Remarks Nursing denies any deterioration since last night. Patient denies having any chest pain this morning. Has no complaints about his leg swelling today. Objective Vital Signs Date Time Temp Pulse Resp B/P (MAP) Pulse Ox O2 Delivery O2 Flow Rate FiO2 02/16/18 01:15 98.0 50 16 141/99 (113) 95 02/15/18 20:01 97.6 53 16 166/88 (114) 94 02/15/18 16:50 98.0 51 18 137/96 (110) 96 02/15/18 12:30 97.5 49 18 191/108 (135) 96 02/15/18 09:01 98.1 48 18 168/103 (124) 96 I/O 02/15/18 02/15/18 02/15/18 02/16/18 02/16/18 02/16/18 07:00 15:00 23:00 07:00 15:00 23:00 Output Total 1000 ml 600 ml Balance -1000 ml -600 ml Output Urine Total 1000 ml 600 ml # Voids 1 Result Diagram: 02/15/18 0339 02/15/18 0339 Objective Remarks Heart sounds regular rate rhythm, no murmurs Unlabored breathing, clear lungs bilaterally, Lower extremities bilaterally show no significant edema A/P Assessment and Plan 62-year-old male with a history of hypertension, seizures, colon cancer status post resection and chemo/radiation, chronic pancreatitis, CVA, hypertensive encephalopathy and COPD presents to the ED with complaints of elevated blood pressure and left-sided chest pain. Chest pain, atypical, rule out ACS Troponin 0.02 -Troponins are negative, pending nuclear medicine stress test, was unable to do yesterday since the patient had a VQ scan the day before -VQ scan suggests air trapping at best. DVT, bilateral US doppler reviewed and shows Right Leg nonocclusive thrombus seen throughout the venous system extending from the external iliac vein to the popliteal and peroneal veins. Left Leg: nonocclusive thrombus within the left common femoral vein. -Lovenox BID, will discharge on Xarelto if workup otherwise above is unremarkable HTN, chronic - home medications -Clonidine PRN Seizures, chronic - home medications lovenox Mart Jackson MD Feb 16, 2018 08:14
[2018-02-16] MEDS: levETIRAcetam 500 MG TAB PO SCH (08:18)
[2018-02-16] MEDS: DIVALPROEX DR 500 MG TABEC PO SCH (08:18)
[2018-02-16] MEDS: THIAMINE HCL 100 MG TAB PO SCH (08:18)
[2018-02-16] MEDS: SODIUM CHLORIDE 0.9% FLUSH 10 ML FLUSH IV FLUSH SCH (08:19)
[2018-02-16] MEDS ORDERED: HYDROCHLOROTHIAZIDE 50 MG TAB PO SCH (09:00)
[2018-02-16] MEDS: SODIUM CHLOR 0.9% 1000 ML INJ 1,000 ML IV SCH (12:00)
[2018-02-16] MEDS ORDERED: REGADENOSON INJ 0.4 MG/5 ML SYR ONE (12:05)
--- NOTE | 2018-02-16 14:44 | RADRPT ---
EXAM DATE: 02/16/2018 1:44 PM EDT AGE/SEX: 62 years / Male INDICATIONS:Angina. Congestive heart failure Left chest pain radiating to left side with vomiting. CLINICAL DATA: This is the patient's initial encounter. Patient reports that signs and symptoms have been present for 1 day and indicates a pain score of 0/10. MEDICAL/SURGICAL HISTORY: Hypertension. Chronic obstructive pulmonary disease. Carcinoma, col on. Smoker. Tonsillectomy. COMPARISON: No prior exams available for comparison. DOSE: 8.5 mCi Tc 99m Myoview at rest 25.4 mCi [id number] at stress 0.4 mg Lexiscan STRESS SYMPTOMS: Dyspnea. EJECTION FRACTION: 68 % TECHNIQUE: The patient underwent pharmacologic stress with infusion of prescribed dose. Continuous ECG tracing was monitored during stress. Gated SPECT imaging was performed after stress and conventi onal SPECT imaging was performed at rest. The examination was performed on a SPECT/CT scanner, both attenuation and non-corrected datasets were reviewed. FINDINGS: Distribution: The maximum perfused segment at stress is in the septal wall. Perfusion Study: There is mild decreased activity in the apical portion of the anterior wall in the order of 10% over the rest images which is likely within normal variability. A significant area of i schemia is not seen on the perfusion maps. Gated Study: There are intact wall motion and wall thickening without hypokinetic or dyskinetic segm ents. The ejection fraction is calculated at 68%. RISK CATEGORY: Low (<1% Annual Motality Rate) CONCLUSION: No definite area of ischemia seen. Electronically signed by: Arden Shrestha MD 02/16/2018 2:43 PM EDT
[2018-02-16] MEDS ORDERED: XARE15TA PO (15:34)
[2018-02-16] MEDS ORDERED: XARE20TA PO (15:34)
--- NOTE | 2018-02-16 15:39 | HHI.DCPOC ---
Discharge Care Plan Diagnosis: (1) Deep venous embolism and thrombosis of both lower extremities (2) Atypical chest pain (3) HTN (hypertension) (4) Seizure disorder Goals to Promote Your Health * To prevent worsening of your condition and complications * To maintain your health at the optimal level Directions to Meet Your Goals Take Xarelto 15mg twice a day for 21 days then stop and begin Xarelto 20mg once a day Take your medications as prescribed Follow your dietary instruction Follow activity as directed Keep your appointments as scheduled Take your immunizations and boosters as scheduled If your symptoms worsen call your PCP, if no PCP go to Urgent Care Center or Emergency Room Smoking is Dangerous to Your Health. Avoid second hand smoke Call the 24-hour hour crisis hotline for domestic abuse at Odette Cedeno Feb 16, 2018 15:39
== END 2018-02-16 16:07 | disposition home or self-care (01) ==
LOC: NEPE 14:03 → NEDA 18:14 → NEPFCDU 20:12
PROVIDERS: ADMIT Hospitalist; ATTEND Hospitalist
DX: R07.89 Other chest pain (principal); I82.412 Acute embolism and thrombosis of left femoral vein; I82.421 Acute embolism and thrombosis of right iliac vein; I82.431 Acute embolism and thrombosis of right popliteal vein; G40.909 Epilepsy, unspecified, not intractable, without status epilepticus; I11.0 Hypertensive heart disease with heart failure; I50.9 Heart failure, unspecified; J44.9 Chronic obstructive pulmonary disease, unspecified; K86.1 Other chronic pancreatitis; I45.81 Long QT syndrome; R00.1 Bradycardia, unspecified; R14.0 Abdominal distension (gaseous); F12.90 Cannabis use, unspecified, uncomplicated; F17.200 Nicotine dependence, unspecified, uncomplicated; Z85.038 Personal history of other malignant neoplasm of large intestine; Z86.73 Personal history of transient ischemic attack (TIA), and cerebral infarction without residual deficits
CPT/HCPCS: 70450; 71045; 74019; 74176; 76937; 78452; 78579; 80048; 80053; 82550; 82552; 83735; 83880; 84484; 85025; 85610; 85730; 87640; 87641; 93005; 93017; 93970; 96360; 96361; 96372; 99285; A9502; A9567; G0378; J1650; J2785; J7030

== ENCOUNTER 2018-04-09 05:01 | Observation (INO) ==
--- NOTE | 2018-04-09 06:37 | ED ---
HPI General Chief complaint: Extremity Injury, Upper Stated complaint: Leg pain Time Seen by Provider: 04/09/18 05:16 Source: patient and EMS Mode of arrival: EMS Limitations: no limitations History of Present Illness HPI narrative: The patient is a 62 year old male who presents to the [facility] emergency department with a history of right lower extremity pain that he reports is been present since he was diagnosed with a DVT. He reports that he is currently under treatment with Xarelto. He reports that he has been taking this every day as prescribed. He reports that he took the last dose last night. The patient denies having any increased swelling or redness to the leg. He denies having any open wounds. He reports that he last saw his primary care physician, Dr. Ma last week. He reports that his primary care physician did not prescribe anything for pain. He reports that he was last prescribed [place] by Dr. Mcgill. He reports that he is now out of the medication. He denies having any chest pain, chest pressure, or shortness of breath. He denies having any fevers or chills. On review of systems otherwise , he denies having any cough, congestion, neck pain, abdominal pain, vomiting, diarrhea, urinary symptoms, or neurologic symptoms. Related Data Home Medications Medication Instructions Recorded Confirmed divalproex [Depakote] 500 mg PO DAILY 03/05/18 04/02/18 hydrochlorothiazide 25 mg PO DAILY 03/05/18 04/02/18 levetiracetam [Keppra] 500 mg PO Q12H 03/05/18 04/02/18 rivaroxaban [Xarelto] 15 mg PO QPM 03/05/18 04/02/18 Allergies Allergy/AdvReac Type Severity Reaction Status Date / Time amlodipine Allergy Severe Swelling Verified 03/26/18 17:16 amoxicillin Allergy Severe "LIPS Verified 03/26/18 17:16 SWELL" clavulanic acid Allergy Severe "LIPS Verified 03/26/18 17:16 SWELL" diatrizoate meglumine Allergy Severe Anaphylaxis; Verified 03/26/18 17:16 06/04/09: PT TOLERATES ORAL CONTRAST W/O AE diazepam Allergy Severe RESPIRATORY Verified 03/26/18 17:16 DISTRESS enalaprilat Allergy Severe Swelling Verified 03/26/18 17:16 of Lip/Tongue/Throat erythromycin base Allergy Severe RASH Verified 03/26/18 17:16 gadobenic acid Allergy Severe Anaphylaxis; Verified 03/26/18 17:16 06/04/09: PT TOLERATES ORAL CONTRAST W/O AE gadodiamide Allergy Severe Anaphylaxis; Verified 03/26/18 17:16 06/04/09: PT TOLERATES ORAL CONTRAST W/O AE gadoteridol Allergy Severe Anaphylaxis; Verified 03/26/18 17:16 06/04/09: PT TOLERATES ORAL CONTRAST W/O AE haloperidol Allergy Severe "TIGHT JAW" Verified 03/26/18 17:16 iodixanol Allergy Severe Anaphylaxis; Verified 03/26/18 17:16 06/04/09: PT TOLERATES ORAL CONTRAST W/O AE iohexol Allergy Severe PT NEEDS Verified 03/26/18 17:16 PREMED/DOESN'T KNOW REACTION morphine Allergy Mild Itching Verified 03/26/18 17:16 benazepril Allergy Unknown UNKNOWN Verified 03/26/18 17:16 REACTION captopril Allergy Unknown UNKNOWN Verified 03/26/18 17:16 REACTION fosinopril Allergy Unknown UNKNOWN Verified 03/26/18 17:16 REACTION lisinopril Allergy Unknown UNKNOWN Verified 03/26/18 17:16 REACTION quinapril Allergy Unknown UNKNOWN Verified 03/26/18 17:16 REACTION prochlorperazine AdvReac Severe "LOCKJAW" Verified 03/26/18 17:16 DYE Allergy Severe CARDIAC Uncoded 04/11/17 16:33 ARREST Review of Systems ROS: all other systems reviewed are negative (Except for that which was mentioned in the HPI) [facility] Medical History Medical History CVA (cerebral vascular accident) (Acute) Seizures (Acute) Tobacco abuse (Acute) Colon cancer (Acute) DVT (deep venous thrombosis) (Acute) Hypertension (Acute) Surgical History Surgical History History of colon resection (Acute) Social History Social History Substance History: No History of Abuse Second Hand Smoke Exposure: Yes Smoking Status: Current every day smoker Tobacco Type: Cigarettes Packs Per Day: 1 Cigarettes Per Day: 20.0 How Often Do You Have a Drink Containing Alcohol: Never Recent Travel in [facility] within the Last 8 Weeks: No Recent Out of Country Travel within the Last 8 Weeks: No Immunization History Tetanus Immunization: <5 Years Hx Influenza Vaccine This Season: Yes Exam Const General: cooperative, no acute distress and well developed Nutritional Appearance: well nourished Orientation: alert, awake and oriented x3 [facility] Head: normocephalic and atraumatic Nose: no nasal discharge and no epistaxis Mouth: moist mucous membranes Throat: posterior oropharynx normal and uvula midline Eyes Sclera: normal sclerae Pupils: PERRL Neck Neck: no meningeal signs, trachea midline and no JVD Resp Effort & Inspection: no use of accessory muscles Auscultation: clear to auscultation bilaterally Cardio Rate: regular rate Rhythm: regular rhythm Heart Sounds: no murmurs GI Inspection: non-distended Palpation: soft, no hepatosplenomegaly and nontender Auscultation: normal bowel sounds Back/Spine/Pelvis Back: no CVA tenderness Skin General: dry skin (warm) Neuro General: alert, awake and oriented x3 Cranial Nerves: other (No facial asymmetry.) Speech: speech normal Motor: no movement abnormalities noted Extrem General: normal to inspection (The patient reports calf tenderness on palpation over bilateral calves, worse on the right compared to the left. No skin breakdown, erythema, or warmth on palpation. No rashes noted.), no clubbing, no cyanosis and edema (Trace pedal edema.) Laterality: bilaterally Psych Mood: congruent mood Affect: normal affect Judgment: judgment good Course Initial Documented Vital Signs Temperature 98.1 F 04/09/18 05:11 Pulse Rate 75 04/09/18 05:11 Respiratory Rate 18 04/09/18 05:11 Blood Pressure 145/79 H 04/09/18 05:11 Pulse Oximetry 98 04/09/18 05:11 Last Documented Vital Signs Temperature 98.1 F 04/09/18 05:11 Pulse Rate 50 L 04/09/18 10:13 Respiratory Rate 15 04/09/18 10:13 Blood Pressure 146/85 H 04/09/18 06:15 Pulse Oximetry 98 04/09/18 10:13 Sign Out Sign Out Data: Patient Sign Out occurred on 04/09/18 at 08:23. Patient's care was discussed, and care was transferred from Macie Santoyo MD to Rayne Jaimes MD. Sign Out Comment: The patient's case will be checked out to the oncoming emergency physician to disposition the patient based on the conclusion of his workup. The patient is pending ultrasound of bilateral lower extremities worsening DVT, versus recurrent DVT. Last updated by Macie Santoyo MD at 04/09/18 07:15 Post-Handoff Eval: Patient currently getting ultrasound of nik LISA at the time of my assessment. Labs and official read of u/s pending. Patient requesting pain meds, given 4mg IM morphine (states he doesn't have an allergy to morphine despite computer documentation). He does not have an IV, vascular access team consulted as nurse unable to place with ultrasound. BUn increased on labs, u/s: 1. The venous thrombosis right lower extremity similar to what was seen on the study of 2017.2. There is no deep venous thrombosis in the left leg. Patient reports compliance with xarelto yet has a persistent DVT. [facility]. Admit team aware that he has no IV yet, but likely needs heparin gtt. They will order in admission orders. Medical Decision Making MDM Narrative Medical decision making narrative: During the course of the patient's emergency department visit, the patient's history, examination, and differential diagnosis were reviewed with the patient. The patient was placed on a conveyor monitor with oximetry and frequent blood pressure monitoring. The patient had a diagnostic evaluation started regarding the patient's chronic extremity pain. The patient last had an ultrasound done at this facility of bilateral lower extremities on March 26, 2018. At that time the patient was noted to have no blood clot in the left lower extremity, a DVT was noted in the right lower extremity that was a nonocclusive thrombus in the right proximal superficial femoral vein and an occlusive thrombus in the right mid superficial femoral vein consistent with DVT. This was compared to the prior reading from the ultrasound done on February 14, 2018 which revealed thrombus in bilateral lower extremities. At that time the patient had a nonocclusive thrombus within the left common femoral vein and in the right leg nonocclusive thrombus seen within the venous system extending from the external iliac vein to the popliteal and peroneal veins. Given the changes in these ultrasound readings and the patient' s reported compliance with Xarelto. An ultrasound will again be ordered today of bilateral lower extremities. There is a concern that the patient either is not responding to Xarelto or is noncompliant with the medication regimen. If the patient has progression of clot, the patient would require admission for change in his medication regimen. The patient was initially provided hydrocodone 10 mg p.o. 1 for pain. The patient's case will be checked out to the oncoming emergency physician to disposition the patient based on the conclusion of the patient's workup. The patient is pending ultrasound results. Differential Diagnosis Differential Diagnosis: Chronic lower extremity pain related to prior DVT, versus worsening DVT related to medication noncompliance, versus poor response to Xarelto anticoagulation Medical Records Medical records reviewed: Yes I reviewed the patient's medical records. Lab Data Result diagrams: 04/09/18 08:25 04/09/18 08:25 Lab Results 04/09/18 04/09/18 04/09/18 Range/Units 08:25 08:25 09:00 WBC 5.7 (4.0-11.0) th/mm3 RBC 4.14 L (4.50-5.90) mil/mm3 Hgb 13.8 (13.0-17.0) gm/dL Hct 39.3 (39.0-51.0) % MCV 94.9 (80.0-100.0) fL MCH 33.4 (27.0-34.0) pg MCHC 35.2 (32.0-36.0) % RDW 14.7 (11.6-17.2) % Plt Count 225 (150-450) th/mm3 MPV 8.0 (7.0-11.0) fL Neut % (Auto) 59.8 (16.0-70.0) % Lymph % (Auto) 26.5 (9.0-44.0) % [place] % (Auto) 9.5 H (0.0-8.0) % Eos % (Auto) 3.2 (0.0-4.0) % Baso % (Auto) 1.0 (0.0-2.0) % Neut # (Auto) 3.4 (1.8-7.7) th/mm3 Lymph # (Auto) 1.5 (1.0-4.8) th/mm3 Collier # (Auto) 0.5 (0.0-0.9) th/mm3 Eos # (Auto) 0.2 (0.0-0.4) th/mm3 Baso # (Auto) 0.1 (0.0-0.2) th/mm3 WBC Differential . Differential Comment Auto diff final PT 10.0 (9.8-11.6) sec INR 1.0 Ratio APTT 26.8 (24.3-30.1) sec Sodium 139 (136-145) meq/L Potassium 4.3 (3.5-5.1) meq/L Chloride 108 H (98-107) meq/L Carbon Dioxide 24.4 (21.0-32.0) meq/L Anion Gap 7 (5-15) meq/L BUN 21 H (7-18) mg/dL Creatinine 1.11 (0.60-1.30) mg/dL Estimated GFR 67 L (>89) mL/min Random Glucose 93 (74-106) mg/dL Calcium 8.1 L (8.5-10.1) mg/dL Total Bilirubin 0.3 (0.2-1.0) mg/dL AST 24 (15-37) U/L ALT 20 (12-78) U/L Alkaline Phosphatase 81 (45-117) U/L Total Protein 7.1 (6.4-8.2) g/dL Albumin 3.5 (3.4-5.0) g/dL Imaging Data Radiologist's impression: Venous Doppler Study 04/09/18 05:42 CONCLUSION: 1. The venous thrombosis right lower extremity similar to what was seen on the study of 03/26/2018. 2. There is no deep venous thrombosis in the left leg. Discharge Plan Physicians Team ED Provider: Rayne Jaimes Primary Care Provider: UNKNOWN, Rxs /Orders / Referrals /Forms Prescriptions: No Action rivaroxaban [Xarelto] 15 mg Tablet 15 mg PO QPM RF: 0 hydrochlorothiazide 25 mg Tablet 25 mg PO DAILY RF: 0 levetiracetam [Keppra] 500 mg Tablet 500 mg PO Q12H RF: 0 divalproex [Depakote] 500 mg Tablet,Delayed Release (Dr/Ec) 500 mg PO DAILY RF: 0 Discharge Interventions Interventions: Vital Signs Last Done: 04/09/18 10:13 Status ED Status: Admitted Patient
[2018-04-09 08:55] LABS: Baso # (Auto) 0.1 th/mm3 (0.0-0.2); Eos # (Auto) 0.2 th/mm3 (0.0-0.4); Eos % (Auto) 3.2 % (0.0-4.0); Hematocrit 39.3 % (39.0-51.0); Hemoglobin 13.8 gm/dL (13.0-17.0); Lymph # (Auto) 1.5 th/mm3 (1.0-4.8); Lymph % (Auto) 26.5 % (9.0-44.0); Mean Corpuscular HGB Conc 35.2 % (32.0-36.0); Mean Corpuscular Hemoglobin 33.4 pg (27.0-34.0); Mean Corpuscular Volume 94.9 fL (80.0-100.0); Mono # (Auto) 0.5 th/mm3 (0.0-0.9); Mono % (Auto) 9.5 % (0.0-8.0); Neut # (Auto) 3.4 th/mm3 (1.8-7.7); Neut % (Auto) 59.8 % (16.0-70.0); Platelet Count 225 th/mm3 (150-450); Red Blood Count 4.14 mil/mm3 (4.50-5.90); Red Cell Distribution Width 14.7 % (11.6-17.2); White Blood Count 5.7 th/mm3 (4.0-11.0)
--- NOTE | 2018-04-09 09:07 | US ---
EXAM DATE: 04/09/2018 8:30 AM EDT AGE/SEX: 62 years / Male INDICATIONS: Right lower extremity pain. Thrombosis. CLINICAL DATA: This is the patient's initial encounter. Patient reports that signs and symptoms have been present for 1 month and indicates a pain score of 8/10. MEDICAL/SURGICAL HISTORY: Deep venous thrombosis. Hypertension. Colon cancer. Cerebral vascula r accident. Seizures. Tobacco abuse. Xarelto use. Colon resection. COMPARISON: [facility], [place] VENOUS DOPPLER LEG BI, 03/26/2018. . TECHNIQUE: Venous ultrasound of both lower extremities was performed from the inguinal ligament to t he proximal calf. Real-time, color Doppler and spectral tracing, compression and augmentation techni ques were used. FINDINGS: Right Leg: There is a mixture of nonocclusive occlusive thrombus within the right common femoral vei n and right superficial femoral vein. Left Leg: Normal compression of the deep venous system from the inguinal region to the proximal bill f. No echogenic clot is seen. Normal response of the venous system to augmentation and respiration. Other: None. CONCLUSION: 1. The venous thrombosis right lower extremity similar to what was seen on the study of 03/26/2018. 2. There is no deep venous thrombosis in the left leg. Electronically signed by: Mohinder Navarrete MD 04/09/2018 9:06 AM EDT
[2018-04-09 09:10] LABS: Alanine Aminotransferase 20 U/L (12-78); Albumin 3.5 g/dL (3.4-5.0); Anion Gap 7 meq/L (5-15); Aspartate Aminotransferase 24 U/L (15-37); Blood Urea Nitrogen 21 mg/dL (7-18); Calcium 8.1 mg/dL (8.5-10.1); Carbon Dioxide 24.4 meq/L (21.0-32.0); Chloride 108 meq/L (98-107); Glomerular Filtration Rate 67 mL/min (>89); Glucose,Random 93 mg/dL (74-106); Sodium 139 meq/L (136-145)
[2018-04-09 09:12] LABS: Alkaline Phosphatase 81 U/L (45-117); Potassium 4.3 meq/L (3.5-5.1); Total Protein 7.1 g/dL (6.4-8.2)
[2018-04-09] MEDS ORDERED: Morphine Inj 4 MG/ML Vial IM ONE (09:22)
[2018-04-09 09:32] LABS: Activated Partial Thrombo Time 26.8 sec (24.3-30.1)
[2018-04-09] MEDS ORDERED: Bisacodyl 10 MG Supp RECTAL PRN (10:25)
[2018-04-09] MEDS ORDERED: Heparin Drip 25,000 UNIT/250 ML BAG IV.CONT PRN (10:41)
[2018-04-09] MEDS ORDERED: Heparin 10,000 UNITS/10 ML Vial (for IV use) IV.PUSH STA (10:41)
--- NOTE | 2018-04-09 10:52 | P.HPFP ---
History of Present Illness Primary Care Physician: UNKNOWN Chief Complaint: Right leg pain History of Present Illness: 62-year-old male with persistent right leg pain. He has had this pain for 2-3 months and was told back in January that he had a DVT. He was started on Xarelto. He says he has been taking 15 mg daily since January. He states he has only missed one day. He said he took the medication yesterday and today. He said the pain has not gotten any better or worse. He feels the swelling has gone down slightly. It is a sharp pain that is in the back of his right calf and radiates to his groin. It is constant sharp. At one point he was taking [place] 5 mg 1-2 a day but he has been out for a couple of weeks. He states that he had a previous DVT in his right leg and was on coumadin fo 6 months 30 years ago. Denies any family history of blood clots or bleeding disorders. Otherwise he does not report any other symptoms or illnesses. He lives alone in an apartment. Reviewing records he was discharged on with DVT of bilateral lower extremities and a prescription for Xarelto 15 mg for 21 days and then 20 mg. On March 03 return to the ED with persistent leg pain ultrasound showed persistent DVT of right external iliac to right superficial femoral vein. Was told to increase Xarelto to 50 mg twice daily until March 09. He came back on 26 March with pain. Ultrasound showed DVT of his right femoral vein. No pain medication was given and was told to continue on his Xarelto. He was then seen on 02 April for his leg pain. No repeat imaging but was given 1 dose of pain medication. - Diagnosis (1) Right leg pain (2) Right leg DVT (3) Hypertension (4) Seizures (5) COPD (chronic obstructive pulmonary disease) (6) Nutrition, metabolism, and development symptoms Review of Systems Constitutional: Denies chills, Denies fever(s) Eyes: Denies change in vision Cardiovascular: Denies chest pain, Denies shortness of breath Respiratory: Denies chest congestion, Denies shortness of breath Gastrointestinal: Denies abdominal pain, Denies loose stools, Denies nausea, Denies vomiting, Denies vomiting blood Genitourinary: Denies painful urination, Denies urinary frequency Comments: right calf and thigh pain Neurologic: Denies headache(s), Denies seizure-like activity Hematologic/Lymphatic: Denies easy bleeding, Denies easy bruising Allergic/Immunologic: Denies wheezing PMFSH - History History 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 - Medical History Medical History: Medical History (Last Updated 04/09/18 @ 06:31 by Macie Santoyo MD) CVA (cerebral vascular accident) Seizures Tobacco abuse Colon cancer DVT (deep venous thrombosis) Hypertension - Surgical History Surgical History: Surgical History (Last Updated 04/09/18 @ 06:30 by Macie Santoyo MD) History of colon resection - Tobacco History Second Hand Smoke Exposure: Yes Tobacco Use In Past 30 Days: Yes Smoking Status: Current every day smoker Tobacco Type: Cigarettes Packs Per Day: 1 Cigarettes Per Day: 20.0 - Alcohol History How Often Do You Have a Drink Containing Alcohol: Never - Substance Use History Substance History: No History of Abuse - Travel History Recent Travel in the [place] Within the Last 8 Weeks: No Recent Travel Out of the Country Within the Last 8 Weeks: No - Immunization History Tetanus Immunization: <5 Years Hx Influenza Vaccine This Season: Yes Medications and Allergies Allergies Allergy/AdvReac Type Severity Reaction Status Date / Time amlodipine Allergy Severe Swelling Verified 03/26/18 17:16 amoxicillin Allergy Severe "LIPS Verified 03/26/18 17:16 SWELL" clavulanic acid Allergy Severe "LIPS Verified 03/26/18 17:16 SWELL" diatrizoate meglumine Allergy Severe Anaphylaxis; Verified 03/26/18 17:16 06/04/09: PT TOLERATES ORAL CONTRAST W/O AE diazepam Allergy Severe RESPIRATORY Verified 03/26/18 17:16 DISTRESS enalaprilat Allergy Severe Swelling Verified 03/26/18 17:16 of Lip/Tongue/Throat erythromycin base Allergy Severe RASH Verified 03/26/18 17:16 gadobenic acid Allergy Severe Anaphylaxis; Verified 03/26/18 17:16 06/04/09: PT TOLERATES ORAL CONTRAST W/O AE gadodiamide Allergy Severe Anaphylaxis; Verified 03/26/18 17:16 06/04/09: PT TOLERATES ORAL CONTRAST W/O AE gadoteridol Allergy Severe Anaphylaxis; Verified 03/26/18 17:16 06/04/09: PT TOLERATES ORAL CONTRAST W/O AE haloperidol Allergy Severe "TIGHT JAW" Verified 03/26/18 17:16 iodixanol Allergy Severe Anaphylaxis; Verified 03/26/18 17:16 06/04/09: PT TOLERATES ORAL CONTRAST W/O AE iohexol Allergy Severe PT NEEDS Verified 03/26/18 17:16 PREMED/DOESN'T KNOW REACTION morphine Allergy Mild Itching Verified 03/26/18 17:16 benazepril Allergy Unknown UNKNOWN Verified 03/26/18 17:16 REACTION captopril Allergy Unknown UNKNOWN Verified 03/26/18 17:16 REACTION fosinopril Allergy Unknown UNKNOWN Verified 03/26/18 17:16 REACTION lisinopril Allergy Unknown UNKNOWN Verified 03/26/18 17:16 REACTION quinapril Allergy Unknown UNKNOWN Verified 03/26/18 17:16 REACTION prochlorperazine AdvReac Severe "LOCKJAW" Verified 03/26/18 17:16 DYE Allergy Severe CARDIAC Uncoded 04/11/17 16:33 ARREST Home Medications Medication Instructions Recorded Confirmed Type divalproex [Depakote] 500 mg PO BID 03/05/18 04/09/18 History levetiracetam [Keppra] 500 mg PO BID 03/05/18 04/09/18 History rivaroxaban [Xarelto] 15 mg PO BID 03/05/18 04/09/18 History hydrochlorothiazide 12.5 mg PO DAILY 04/09/18 04/09/18 History labetalol 100 mg PO BID 04/09/18 04/09/18 History Exam Vital signs: Vital Signs 04/09/18 05:11 04/09/18 06:15 04/09/18 07:00 Temperature 98.1 F Pulse Rate 75 66 Respiratory Rate 18 16 15 Blood Pressure 145/79 H 146/85 H Pulse Oximetry 98 96 04/09/18 10:13 Temperature Pulse Rate 50 L Respiratory Rate 15 Blood Pressure Pulse Oximetry 98 Intake & Output 04/08/18 04/09/18 04/09/18 18:59 06:59 18:59 Weight 58.967 kg - Constitutional no acute distress - Detailed Respiratory Exam bilateral Present: clear to auscultation. Absent: rales, rhonchi, wheezes - Routine Cardiovascular Exam Present: RRR, S1, S2. Absent: murmur - Routine Abdominal Exam Present: soft. Absent: tenderness, distended - Detailed Lower Extremity Exam Lower leg: Bilateral swelling (No swelling bilateral legs), Bilateral erythema ( No erythema of bilateral legs), Bilateral warmth (No warmth of bilateral legs) Comments: Right leg + Hommer sign, tenderness to palpation of Right upper calf and lateral side of thigh; 2+ tibialis posterior and dorsalis pulses bilaterally Results - Labs Result diagrams: 04/09/18 08:25 04/09/18 08:25 Abnormal lab results 04/09/18 04/09/18 Range/Units 08:25 08:25 RBC 4.14 L (4.50-5.90) mil/mm3 [place] % (Auto) 9.5 H (0.0-8.0) % Chloride 108 H (98-107) meq/L BUN 21 H (7-18) mg/dL Estimated GFR 67 L (>89) mL/min Calcium 8.1 L (8.5-10.1) mg/dL Short CBC 04/09/18 Range/Units 08:25 WBC 5.7 (4.0-11.0) th/mm3 Hgb 13.8 (13.0-17.0) gm/dL Hct 39.3 (39.0-51.0) % Plt Count 225 (150-450) th/mm3 BMP 04/09/18 08:25 Sodium 139 Potassium 4.3 Chloride 108 H Carbon Dioxide 24.4 BUN 21 H Creatinine 1.11 Calcium 8.1 L Liver Function 04/09/18 Range/Units 08:25 Total Bilirubin 0.3 (0.2-1.0) mg/dL AST 24 (15-37) U/L ALT 20 (12-78) U/L Alkaline Phosphatase 81 (45-117) U/L Albumin 3.5 (3.4-5.0) g/dL - Imaging Impressions Venous Doppler Study 04/09/18 05:42 CONCLUSION: 1. The venous thrombosis right lower extremity similar to what was seen on the study of 03/26/2018. 2. There is no deep venous thrombosis in the left leg. Caprini VTE Risk Assessment Caprini VTE Risk Assessment: Moderate/High Risk (score >= 2) Caprini Risk Assessment Model: Point Value = 1 Point Value = 2 Point Value = 3 Point Value = 5 Age 41-60 Minor surgery BMI > 25 kg/m2 Swollen legs Varicose veins or History of unexplained or recurrent spontaneous Oral contraceptives or hormone replacement Sepsis (< 1 month) Serious lung disease, including pneumonia (< 1 month) Abnormal pulmonary function Acute myocardial infarction Congestive heart failure (< 1 month) History of inflammatory bowel disease Medical patient at bed rest Age 61-74 Arthroscopic surgery Major open surgery (> 45 min) Laparoscopic surgery (> 45 min) Malignancy Confined to bed (> 72 hours) Immobilizing plaster cast Central venous access Age >= 75 History of VTE Family history of VTE Factor V Leiden Prothrombin [id number] Lupus anticoagulant Anticardiolipin antibodies Elevated serum homocysteine Heparin-induced thrombocytopenia Other congenital or acquired thrombophilia Stroke (< 1 month) Elective arthroplasty Hip, pelvis, or leg fracture Acute spinal cord injury (< 1 month) Prophylaxis Regimen: Total Risk Factor Score Risk Level Prophylaxis Regimen 0-1 Low Early ambulation 2 Moderate Order ONE of the following: *Sequential Compression Device (SCD) *Heparin 5000 units SQ BID 3-4 Higher Order ONE of the following medications: *Heparin 5000 units SQ TID *Enoxaparin/Lovenox 40 mg SQ daily (WT < 150 kg, CrCl > 30 mL/min) *Enoxaparin/Lovenox 30 mg SQ daily (WT < 150 kg, CrCl > 10-29 mL/min) *Enoxaparin/Lovenox 30 mg SQ BID (WT < 150 kg, CrCl > 30 mL/min) AND/OR *Sequential Compression Device (SCD) 5 or more Highest Order ONE of the following medications: *Heparin 5000 units SQ TID (Preferred with Epidurals) *Enoxaparin/Lovenox 40 mg SQ daily (WT < 150 kg, CrCl > 30 mL/min) *Enoxaparin/Lovenox 30 mg SQ daily (WT < 150 kg, CrCl > 10-29 mL/min) *Enoxaparin/Lovenox 30 mg SQ BID (WT < 150 kg, CrCl > 30 mL/min) AND *Sequential Compression Device (SCD) Assessment and Plan - Assessment (1) Right leg pain Code(s): M79.604 - Pain in right leg Status: Acute Plan: Diagnoses DVT of right leg 02/14. Previously on [place]. -In ED given [place] 2 tabs 5/325 and morphine 4mg IV (2) Right leg DVT Code(s): I82.401 - Acute embolism and thrombosis of unspecified deep veins of right lower extremity Status: Acute Plan: Right common femoral and superficial femoral vein DVT diagnoses on 02/14. Was started on Xarelto 50mg. -Venous Doppler Study 04/09/18: venous thrombosis right lower extremity similar to what was seen on the study of 03/26/2018; no deep venous thrombosis in the left leg. -Discussed case with radiology and usually interventional tpa given with DVT diagnoses within 2 weeks and possibly month if favorable candidate. Given duration of the clot and resolving swelling and erythema patient not a good candidate -Start on Xarelto 50mg tomorrow; already took morning dose today (3) Hypertension Code(s): I10 - Essential (primary) hypertension Status: Acute Plan: BP on admission 146/80 - Continue on home medications HCTZ 12.5 mg and labetalol 100 mg BID (4) Seizures Code(s): R56.9 - Unspecified convulsions Status: Acute Plan: Last seizure was years ago. Currently on Depakote and Kepra at home -Continue home Depakote 500mg BID and Kepra 500mg BID (5) COPD (chronic obstructive pulmonary disease) Code(s): J44.9 - Chronic obstructive pulmonary disease, unspecified Status: Acute Plan: Denies any SOB at this time. Continue to monitor -Continue home albuterol PRN SOB (6) Nutrition, metabolism, and development symptoms Code(s): R63.8 - Other symptoms and signs concerning food and fluid intake Status: Acute Plan: Diet: regular DVT: heparin 25,000 drip Code: full Electrolytes: Replete as needed
--- NOTE | 2018-04-09 13:37 | P.PNFP ---
Subjective Interval history: Attending note: 62-year-old gentleman seen in the emergency room with a chief complaint of right time of this previously diagnosed DVT in the right lower extremity as well as the left lower extremity dating back over the last [address] Arden Ma, his physician has been on Xarelto regularly, stating he has not missed any doses. Notable that 30 years ago the patient also had a DVT in the right leg history, pulmonary emboli. Does not have any shortness of breath or pleuritic pain on this presentation. The patient states he woke this morning, had pain in his right leg, presented to the emergency room. He denies that his right leg swells toward the end of the day, he was seen in the [facility] emergency room on 02/15/1980 for chest pain, bilateral upper extremity thrombi were diagnosed at that time the patient was placed on Xarelto. Subsequent presentation to the emergency room on 03/26/2018 was notable for a Doppler venogram revealing a right nonocclusive proximal superficial femoral vein thrombus and a right mid superficial vein thrombus. Patient has a history of seizure disorder, pancreatitis, colon cancer status post surgery, radiation chemotherapy, COPD and reports a history of a CVA affecting his left side. Is referred to the resident history and physical or complete discussion of possible medications, social history of systems. Results - Labs Result diagrams: 04/09/18 08:25 04/09/18 08:25 Abnormal lab results 04/09/18 04/09/18 Range/Units 08:25 08:25 RBC 4.14 L (4.50-5.90) mil/mm3 [place] % (Auto) 9.5 H (0.0-8.0) % Chloride 108 H (98-107) meq/L BUN 21 H (7-18) mg/dL Estimated GFR 67 L (>89) mL/min Calcium 8.1 L (8.5-10.1) mg/dL Short CBC 04/09/18 Range/Units 08:25 WBC 5.7 (4.0-11.0) th/mm3 Hgb 13.8 (13.0-17.0) gm/dL Hct 39.3 (39.0-51.0) % Plt Count 225 (150-450) th/mm3 BMP 04/09/18 08:25 Sodium 139 Potassium 4.3 Chloride 108 H Carbon Dioxide 24.4 BUN 21 H Creatinine 1.11 Calcium 8.1 L Liver Function 04/09/18 Range/Units 08:25 Total Bilirubin 0.3 (0.2-1.0) mg/dL AST 24 (15-37) U/L ALT 20 (12-78) U/L Alkaline Phosphatase 81 (45-117) U/L Albumin 3.5 (3.4-5.0) g/dL - Imaging Impressions Venous Doppler Study 04/09/18 05:42 CONCLUSION: 1. The venous thrombosis right lower extremity similar to what was seen on the study of 03/26/2018. 2. There is no deep venous thrombosis in the left leg. Physical Exam Vital signs: Vital Signs 04/09/18 05:11 04/09/18 06:15 04/09/18 07:00 Temperature 98.1 F Pulse Rate 75 66 Respiratory Rate 18 16 15 Blood Pressure 145/79 H 146/85 H Pulse Oximetry 98 96 04/09/18 10:05 04/09/18 10:13 04/09/18 11:20 Temperature Pulse Rate 50 L Respiratory Rate 15 15 Blood Pressure Pulse Oximetry 98 99 Intake & Output 04/08/18 04/09/18 04/09/18 18:59 06:59 18:59 Weight 58.967 kg Narrative: Vital signs stable General appearance: Middle-age gentleman who is alert, conversive, in no acute distress. HEENT: Grossly nonlocalizing. Lungs: Diminished clear breath sounds. Cardiac: S1-S2, no S3 or significant murmurs appreciated. Abdomen: Soft, benign, no tenderness. Extremities: Bilateral lower extremities are without edema, thighs and calves are supple, 3+ hospice pulse bilaterally, decreased hygiene around the toes. Refer to resident history and physical for complete discussion of physical exam. Assessment and Plan - Assessment (1) Right leg pain Code(s): M79.604 - Pain in right leg Status: Acute (2) Right leg DVT Code(s): I82.401 - Acute embolism and thrombosis of unspecified deep veins of right lower extremity Status: Acute (3) Hypertension Code(s): I10 - Essential (primary) hypertension Status: Acute Plan: BP on admission 146/80 - Continue on home medications HCTZ 12.5 mg and labetalol 100 mg BID (4) Seizures Code(s): R56.9 - Unspecified convulsions Status: Acute Plan: Last seizure was years ago. Currently on Depakote and Kepra at home -Continue home Depakote 500mg BID and Kepra 500mg BID (5) COPD (chronic obstructive pulmonary disease) Code(s): J44.9 - Chronic obstructive pulmonary disease, unspecified Status: Acute Plan: Denies any SOB at this time. Continue to monitor -Continue home albuterol PRN SOB - Assessment and Plan Assessment/plan: Reviewed history, physical exam, discussed with interventional radiology and review the actual films with the interventional radiologist. The patient has no daily edema indicate persistent symptomatic occlusive disease, it can be to do suspect patient has established circulatory collaterals to both lower extremities. Patient's primary complaint of pain on awakening today. Normal record that he does states [place] does help the pain. Discussed with the resident team calling his family physician, Dr. Ma, the patient does have access to primary care, he does have the ability to history, appears that this patient could be managed outpatient. There is consideration discharge from the emergency room, case discussed in detail with the resident and agree with resident orders as recorded. Chepe Stein MD 04/09/2018.
[2018-04-09] MEDS ORDERED: Acetaminophen 325 MG Tablet PO PRN (20:16)
[2018-04-09] MEDS ORDERED: Naloxone Inj 0.4 MG/ML Vial IV.PUSH PRN (20:24)
[2018-04-09] MEDS: Senna/Docusate Sodium 8.6/50 MG Tablet PO SCH (21:13)
[2018-04-09] MEDS: Divalproex 500 MG DR Tablet PO SCH (21:13)
[2018-04-09] MEDS: levETIRAcetam 500 MG Tablet PO SCH (21:13)
[2018-04-09] MEDS: Labetalol 100 MG Tablet PO SCH (21:14)
[2018-04-10 09:06] VITALS: BP 156/100; PULSE 47; RESP 20; TEMP 97.7
[2018-04-10] MEDS: Labetalol 100 MG Tablet PO SCH (09:22)
[2018-04-10] MEDS: Divalproex 500 MG DR Tablet PO SCH (09:22)
[2018-04-10] MEDS: Senna/Docusate Sodium 8.6/50 MG Tablet PO SCH (09:22)
[2018-04-10] MEDS: levETIRAcetam 500 MG Tablet PO SCH (09:23)
[2018-04-10 09:34] LABS: Hematocrit 38.3 % (39.0-51.0); Mean Corpuscular HGB Conc 33.9 % (32.0-36.0); Mean Corpuscular Hemoglobin 32.1 pg (27.0-34.0); Mean Corpuscular Volume 94.6 fL (80.0-100.0); Mean Platelet Volume 8.2 fL (7.0-11.0); Platelet Count 192 th/mm3 (150-450); Red Blood Count 4.05 mil/mm3 (4.50-5.90); Red Cell Distribution Width 14.2 % (11.6-17.2); White Blood Count 4.7 th/mm3 (4.0-11.0)
[2018-04-10 10:07] VITALS: O2SAT 93
--- NOTE | 2018-04-10 11:25 | P.PNFP ---
Subjective Interval history: No acute events overnight. Patient states that his leg pain is stable compared to yesterday. Has been well-controlled on p.o. [place]. He states that his entire right leg is painful and is not affected by position or weightbearing. He states that he has not been taking anything for pain at home in the past. Denies any chest pain, shortness of breath, worsening leg swelling. Results - Labs Result diagrams: 04/10/18 08:05 04/09/18 08:25 Abnormal lab results 04/10/18 Range/Units 08:05 RBC 4.05 L (4.50-5.90) mil/mm3 Hct 38.3 L (39.0-51.0) % Short CBC 04/10/18 Range/Units 08:05 WBC 4.7 (4.0-11.0) th/mm3 Hgb 13.0 (13.0-17.0) gm/dL Hct 38.3 L (39.0-51.0) % Plt Count 192 (150-450) th/mm3 Physical Exam Vital signs: Vital Signs 04/09/18 11:20 04/09/18 16:00 04/09/18 20:00 Temperature 97.7 F 97.8 F Pulse Rate 54 L 51 L Respiratory Rate 20 18 Blood Pressure 157/78 H 188/115 H Pulse Oximetry 99 96 95 04/10/18 00:00 04/10/18 04:00 04/10/18 08:00 Temperature 97.8 F 97.6 F 97.7 F Pulse Rate 47 L 45 L 47 L Respiratory Rate 18 18 20 Blood Pressure 157/100 H 158/100 H 156/100 H Pulse Oximetry 94 L 96 95 04/10/18 10:07 Temperature Pulse Rate Respiratory Rate Blood Pressure Pulse Oximetry 93 L Intake & Output 04/09/18 04/10/18 04/10/18 18:59 06:59 18:59 Weight 60 kg Narrative: Vital signs stable General appearance: Middle-age gentleman who is alert, conversive, in no acute distress. HEENT: Grossly nonlocalizing. Lungs: Diminished clear breath sounds. Cardiac: S1-S2, no S3 or significant murmurs appreciated. Abdomen: Soft, benign, no tenderness. Extremities: Bilateral lower extremities are without edema, thighs and calves are supple, distal pulses intact bilaterally. Right calf and thigh are tender to palpation Assessment and Plan - Assessment (1) Right leg DVT Code(s): I82.401 - Acute embolism and thrombosis of unspecified deep veins of right lower extremity Status: Acute Plan: Right common femoral and superficial femoral vein DVT diagnoses on 02/14. Was started on Xarelto 15 mg twice daily. -Venous Doppler Study 04/09/18: venous thrombosis right lower extremity similar to what was seen on the study of 03/26/2018; no deep venous thrombosis in the left leg. -Discussed case with radiology and usually interventional tpa given with DVT diagnoses within 2 weeks and possibly month if favorable candidate. Given duration of the clot and resolving swelling and erythema patient not a good candidate -Has been on Xarelto 15 mg twice daily for over 21 days now. Will discharge on Xarelto 20 mg once daily (2) Right leg pain Code(s): M79.604 - Pain in right leg Status: Acute Plan: Diagnoses DVT of right leg 02/14. Previously on [place]. Will give 3 day prescription for 5 mg [place] every 6 hours. Will need follow-up with PCP Discussed taking [id number] Tylenol if needed for pain (3) Hypertension Code(s): I10 - Essential (primary) hypertension Status: Acute Plan: - Continue on home medications HCTZ 12.5 mg and labetalol 100 mg BID (4) Seizures Code(s): R56.9 - Unspecified convulsions Status: Acute Plan: Last seizure was years ago. Currently on Depakote and Kepra at home -Continue home Depakote 500mg BID and Kepra 500mg BID (5) COPD (chronic obstructive pulmonary disease) Code(s): J44.9 - Chronic obstructive pulmonary disease, unspecified Status: Acute Plan: Denies any SOB at this time. Continue to monitor -Continue home albuterol PRN SOB (6) Nutrition, metabolism, and development symptoms Code(s): R63.8 - Other symptoms and signs concerning food and fluid intake Status: Acute Plan: Diet: regular DVT: Xarelto Code: full Electrolytes: Replete as needed - Assessment and Plan 62-year-old male with history of hypertension, COPD, seizure disorder and a known right leg DVT admitted for pain control. Will continue on p.o. Xarelto. Will prescribe 3 days worth of [place] for pain. Patient will need to follow-up with PCP for further pain management Discussed Condition With: Dr. Stein
== END 2018-04-10 12:20 | disposition home or self-care (01) ==
LOC: NEPE 05:01 → N04 05:01 → NEDH 09:55 → INTOOBSV 09:55 → NEDH 14:00 → N04 15:21
PROVIDERS: ADMIT Family Medicine; ATTEND Family Medicine
DX: I82.411 Acute embolism and thrombosis of right femoral vein; Z86.711 Personal history of pulmonary embolism; F17.210 Nicotine dependence, cigarettes, uncomplicated; Z85.038 Personal history of other malignant neoplasm of large intestine; Z86.73 Personal history of transient ischemic attack (TIA), and cerebral infarction without residual deficits; I10 Essential (primary) hypertension; Z79.899 Other long term (current) drug therapy; Z79.01 Long term (current) use of anticoagulants; J44.9 Chronic obstructive pulmonary disease, unspecified; G40.909 Epilepsy, unspecified, not intractable, without status epilepticus; Z86.718 Personal history of other venous thrombosis and embolism

== ENCOUNTER 2018-06-06 04:31 | Observation (INO) ==
--- NOTE | 2018-06-06 05:11 | ED ---
HPI General Chief complaint: Weakness Stated complaint: medical Time Seen by Provider: 06/06/18 05:22 History of Present Illness HPI narrative: Patient is a 62 yo male with a h/o CHF, hypertension, seizures, colon cancer status post resection and chemo/radiation, chronic pancreatitis, CVA, hypertensive encephalopathy and COPD who presents with several hours of generalized weakness and nausea. w/o vomiting. 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 Patient describes feeling "very bad" and has never felt like this before, feels as if his "blood pressure is low ". Mild occipital headache without tingling, numbness, slurring of speech, facial droop, difficulty swallowing, or vision changes. Mild left sided chest pain without radiation. No abd pain, diarrhea, constipation, back pain, trauma, recent travel, animal or insect bites. He smokes 2 ppd along with occasional marijuana and drinks occasional alcohol. Denies other drug use. Related Data Home Medications Medication Instructions Recorded Confirmed divalproex [Depakote] 500 mg PO BID 03/05/18 06/06/18 levetiracetam [Keppra] 500 mg PO DAILY 03/05/18 06/06/18 hydrochlorothiazide 12.5 mg PO DAILY 04/09/18 06/06/18 labetalol 100 mg PO BID 04/09/18 06/06/18 Previous Rx's Medication Instructions Recorded rivaroxaban [Xarelto] 20 mg PO DAILY #30 tab 04/10/18 Allergies Allergy/AdvReac Type Severity Reaction Status Date / Time amlodipine Allergy Severe Swelling Verified 06/06/18 04:36 amoxicillin Allergy Severe "LIPS Verified 06/06/18 04:36 SWELL" clavulanic acid Allergy Severe "LIPS Verified 06/06/18 04:36 SWELL" diatrizoate meglumine Allergy Severe Anaphylaxis; Verified 06/06/18 04:36 06/04/09: PT TOLERATES ORAL CONTRAST W/O AE diazepam Allergy Severe RESPIRATORY Verified 06/06/18 04:36 DISTRESS enalaprilat Allergy Severe Swelling Verified 06/06/18 04:36 of Lip/Tongue/Throat erythromycin base Allergy Severe RASH Verified 06/06/18 04:36 gadobenic acid Allergy Severe Anaphylaxis; Verified 06/06/18 04:36 06/04/09: PT TOLERATES ORAL CONTRAST W/O AE gadodiamide Allergy Severe Anaphylaxis; Verified 06/06/18 04:36 06/04/09: PT TOLERATES ORAL CONTRAST W/O AE gadoteridol Allergy Severe Anaphylaxis; Verified 06/06/18 04:36 06/04/09: PT TOLERATES ORAL CONTRAST W/O AE haloperidol Allergy Severe "TIGHT JAW" Verified 06/06/18 04:36 iodixanol Allergy Severe Anaphylaxis; Verified 06/06/18 04:36 06/04/09: PT TOLERATES ORAL CONTRAST W/O AE iohexol Allergy Severe PT NEEDS Verified 06/06/18 04:36 PREMED/DOESN'T KNOW REACTION benazepril Allergy Intermediate Hives Verified 06/06/18 04:36 captopril Allergy Intermediate Hives Verified 06/06/18 04:36 fosinopril Allergy Intermediate Hives Verified 06/06/18 04:36 lisinopril Allergy Intermediate Itching Verified 06/06/18 04:36 morphine Allergy Intermediate Itching Verified 06/06/18 04:36 quinapril Allergy Unknown UNKNOWN Verified 06/06/18 04:36 REACTION prochlorperazine AdvReac Severe Hives Verified 06/06/18 04:36 Review of Systems ROS: all other systems reviewed are negative PMFSH Medical History Medical History CHF (congestive heart failure) (Acute) CVA (cerebral vascular accident) (Acute) Colon cancer (Acute) DVT (deep venous thrombosis) (Acute) Hypertension (Acute) Seizures (Acute) Tobacco abuse (Acute) Surgical History Surgical History History of colon resection (Acute) History of colon surgery (Acute) Social History Social History Substance History: Active Abuse Second Hand Smoke Exposure: Yes Smoking Status: Current every day smoker Tobacco Type: Cigarettes Packs Per Day: 1 Cigarettes Per Day: 20.0 How Often Do You Have a Drink Containing Alcohol: Never Recent Travel in [place] within the Last 8 Weeks: No Recent Out of Country Travel within the Last 8 Weeks: No Substance Abuse Detail Marijuana: Substance Use Status: Active Substance Frequency: OCCASIONAL Immunization History Tetanus Immunization: <5 Years Tetanus Immunization Year if Known: 2016 Exam Const General: cooperative, no acute distress and well developed Nutritional Appearance: well nourished Orientation: alert, awake and oriented x3 HENMT Head: normocephalic and atraumatic Nose: no nasal discharge and no epistaxis Mouth: moist mucous membranes Eyes Sclera: normal sclerae Pupils: PERRL Neck Neck: no meningeal signs, trachea midline and no JVD Resp Effort & Inspection: no use of accessory muscles Auscultation: clear to auscultation bilaterally Cardio Rate: bradycardic Rhythm: regular rhythm Heart Sounds: no murmurs GI Inspection: non-distended Palpation: soft, no hepatosplenomegaly and nontender Back/Spine/Pelvis Back: no CVA tenderness Skin General: dry skin (warm) and scars (midline vertical post-surgical scar of abdomen) Neuro General: alert, awake and oriented x3 Cranial Nerves: CN's II-XI intact bilaterally Speech: other (The patient does not have slurred speech, however he is very slow to answer questions. No aphasia.) Motor: no movement abnormalities noted and strength abnormal (3/5 muscle strength in LE bilaterally, 4/5 in bilateral upper extremities.) lower extremity Sensory Exam: no sensory deficits noted Extrem General: normal to inspection, no clubbing, no cyanosis and no edema Psych Mood: congruent mood Affect: blunted Judgment: judgment good Course Initial Documented Vital Signs Temperature 98.1 F 06/06/18 04:33 Pulse Rate 53 L 06/06/18 04:33 Respiratory Rate 18 06/06/18 04:33 Pulse Oximetry 99 06/06/18 04:33 Last Documented Vital Signs Temperature 98.1 F 06/06/18 04:33 Pulse Rate 53 L 06/06/18 04:33 Respiratory Rate 18 06/06/18 04:33 Pulse Oximetry 99 06/06/18 04:33 Sign Out Sign Out Data: Patient Sign Out occurred on 06/06/18 at 07:16. Patient's care was discussed, and care was transferred from Macie Santoyo MD to Anibal Verde MD. Sign Out Comment: The patient's case was checked out to the oncoming emergency physician at the conclusion of my shift. The patient is pending laboratory studies and imaging. Last updated by Macie Santoyo MD at 06/06/18 07:07 Medical Decision Making MDM Narrative Medical decision making narrative: Patient arrived via ambulance. During the course of the patient's emergency department visit, the patient's history, examination, and differential diagnosis were reviewed with the patient. The patient was placed on a software engineering supervisor with oximetry and frequent blood pressure monitoring. The patient had IV access obtained and blood work sent for analysis. Diagnostic evaluation was started regarding this patient's generalized weakness associated with left-sided chest pain and headache since last night. The patient's examination is remarkable for bradycardia in the 40s- 50s, generalized weakness. No nuchal rigidity. No focal findings on his neurologic exam. The patient was initially provided normal saline 500 mL bolus. The patient was given Zofran 4 mg IV for nausea. The patient's diagnostic evaluation is remarkable for a chest x-ray that shows no acute cardiopulmonary disease. The patient's laboratory studies and CT scan of the brain are pending at the conclusion of my shift. The patient's case will be checked out to the oncoming emergency physician to disposition the patient based on the conclusion of his workup. Medical Screen Exam Complete: Yes Emergency Medical Condition: Yes Differential Diagnosis Differential Diagnosis: Acute coronary syndrome, versus electrolyte derangements such as hypo-or hyperkalemia, versus dehydration, versus intracranial abnormality, versus encephalopathy Medical Records Medical records reviewed: Yes I reviewed the patient's medical records. Lab Data Result diagrams: 06/06/18 05:35 Lab Results 06/06/18 06/06/18 06/06/18 Range/Units 05:35 05:35 05:35 WBC 5.7 (4.0-11.0) th/mm3 RBC 4.39 L (4.50-5.90) mil/mm3 Hgb 14.5 (13.0-17.0) gm/dL Hct 42.2 (39.0-51.0) % MCV 96.1 (80.0-100.0) fL MCH 33.0 (27.0-34.0) pg MCHC 34.4 (32.0-36.0) % RDW 14.4 (11.6-17.2) % Plt Count 260 (150-450) th/mm3 MPV 7.8 (7.0-11.0) fL Neut % (Auto) 61.1 (16.0-70.0) % Lymph % (Auto) 27.6 (9.0-44.0) % [place] % (Auto) 8.4 H (0.0-8.0) % Eos % (Auto) 2.2 (0.0-4.0) % Baso % (Auto) 0.7 (0.0-2.0) % Neut # (Auto) 3.5 (1.8-7.7) th/mm3 Lymph # (Auto) 1.6 (1.0-4.8) th/mm3 [place] # (Auto) 0.5 (0.0-0.9) th/mm3 Eos # (Auto) 0.1 (0.0-0.4) th/mm3 Baso # (Auto) 0.0 (0.0-0.2) th/mm3 WBC Differential . Differential Comment Auto diff final PT 10.2 (9.8-11.6) sec INR 1.0 Ratio APTT 27.6 (24.3-30.1) sec Urine Color Straw (Yellw/Straw) Urine Clarity Clear (Clear) Urine pH 5.0 (5.0-8.5) Ur Specific [place] 1.003 (1.002-1.035) Urine Protein Negative (Neg-Trace) mg/dL Urine Glucose (UA) Negative (Negative) mg/dL Urine Ketones Negative (Negative) mg/dL Urine Occult Blood Negative (Negative) Urine Nitrate Negative (Negative) Urine Bilirubin Negative (Negative) Urine Urobilinogen Less than 2 (Less than 2) mg/dL Ur Leukocyte Esterase Negative (Negative) Urine RBC Less than 1 (0-3) /hpf Urine WBC Less than 1 (0-5) /hpf Ur Squamous Epith Cells <1 (0-5) /hpf Urine Mucus Few H (Occasional) /lpf Micro UA Comment Culture not ind Ur Microscopic Review Not Reportable Urine Culture Comments Culture not ind Imaging Data Radiologist's impression: Chest X-Ray 06/06/18 05:25 CONCLUSION: No acute cardiopulmonary abnormality is identified. ECG Data Attestation: I personally reviewed and interpreted this ECG as follows: Interpretation: The patient had an EKG done on arrival that shows a sinus bradycardia with occasional ventricular premature complexes, heart rate of 58, QRS duration is 114 ms, QTC [address] segment elevation, T waves are inverted in V1 and aVL. Discharge Plan Discharge Disposition Patient Disposition: 30 Still Patient Discharge Details Diagnosis: Generalized weakness, Chest pain Physicians Team ED Provider: Anibal Verde Primary Care Provider: UNKNOWN, Rxs /Orders / Referrals /Forms Prescriptions: No Action levetiracetam [Keppra] 500 mg Tablet 500 mg PO DAILY RF: 0 divalproex [Depakote] 500 mg Tablet,Delayed Release (Dr/Ec) 500 mg PO BID RF: 0 hydrochlorothiazide 12.5 mg Capsule 12.5 mg PO DAILY RF: 0 labetalol 100 mg Tablet 100 mg PO BID RF: 0 rivaroxaban [Xarelto] 20 mg Tablet 20 mg PO DAILY Qty: 30 RF: 0 Status ED Status: With Doctor
[2018-06-06] MEDS ORDERED: Sodium Chlor 0.9% Inj 500 ML IV.SIG ONE (05:25)
--- NOTE | 2018-06-06 06:14 | XR ---
EXAM DATE: 06/06/2018 5:25 AM EDT AGE/SEX: 62 years / Male INDICATIONS: Chest pain. CLINICAL DATA: This is the patient's initial encounter. Patient reports that signs and symptoms have been present for 1 day and indicates a pain score of 4/10. MEDICAL/SURGICAL HISTORY: Cardiovascular disease. CABG. COMPARISON: [facility] [place] 1[place] SING[place] AP, 05/17/2018. . FINDINGS: Portable AP view of the chest demonstrates a normal-sized cardiac silhouette. No effusion, consolidat ion, or pneumothorax is identified. The bones and soft tissues demonstrate no acute finding. Lungs ar e mildly underinflated. EKG lines overlie the patient. There is persistent gaseous distention of the bowel in the upper abdomen. CONCLUSION: No acute cardiopulmonary abnormality is identified. Electronically signed by: Arden Amaya MD 06/06/2018 6:13 AM EDT
[2018-06-06 06:53] LABS: Baso % (Auto) 0.7 % (0.0-2.0); Eos # (Auto) 0.1 th/mm3 (0.0-0.4); Eos % (Auto) 2.2 % (0.0-4.0); Hematocrit 42.2 % (39.0-51.0); Hemoglobin 14.5 gm/dL (13.0-17.0); Lymph # (Auto) 1.6 th/mm3 (1.0-4.8); Lymph % (Auto) 27.6 % (9.0-44.0); Mean Corpuscular HGB Conc 34.4 % (32.0-36.0); Mean Corpuscular Volume 96.1 fL (80.0-100.0); Mean Platelet Volume 7.8 fL (7.0-11.0); Mono # (Auto) 0.5 th/mm3 (0.0-0.9); Mono % (Auto) 8.4 % (0.0-8.0); Neut # (Auto) 3.5 th/mm3 (1.8-7.7); Neut % (Auto) 61.1 % (16.0-70.0); Platelet Count 260 th/mm3 (150-450); Red Blood Count 4.39 mil/mm3 (4.50-5.90); Red Cell Distribution Width 14.4 % (11.6-17.2); White Blood Count 5.7 th/mm3 (4.0-11.0)
[2018-06-06 06:54] LABS: Bilirubin,Urine Negative (Negative); Clarity,Urine Clear (Clear); Color,Urine Straw (Yellw/Straw); Glucose,Urine (UA) Negative (Negative); Leukocyte Esterase,Urine Negative (Negative); Mucus,Urine Few /lpf (Occasional); Nitrite,Urine Negative (Negative); Specific Gravity,Urine 1.003 (1.002-1.035); Squamous Epithelial Cell,Urine <1 /hpf (0-5)
[2018-06-06 06:59] LABS: Activated Partial Thrombo Time 27.6 sec (24.3-30.1); Prothrombin Time 10.2 sec (9.8-11.6)
[2018-06-06 07:23] LABS: Alanine Aminotransferase 28 U/L (12-78); Albumin 3.7 g/dL (3.4-5.0); Anion Gap 12 meq/L (5-15); Aspartate Aminotransferase 24 U/L (15-37); Blood Urea Nitrogen 25 mg/dL (7-18); Calcium 8.3 mg/dL (8.5-10.1); Carbon Dioxide 25.5 meq/L (21.0-32.0); Chloride 98 meq/L (98-107); Glomerular Filtration Rate 45 mL/min (>89); Glucose,Random 88 mg/dL (74-106); Lipase 305 U/L (73-393); Potassium 3.6 meq/L (3.5-5.1); Sodium 135 meq/L (136-145)
[2018-06-06 07:26] LABS: Alkaline Phosphatase 85 U/L (45-117); Total Protein 7.3 g/dL (6.4-8.2)
--- NOTE | 2018-06-06 07:29 | CT ---
EXAM DATE: 06/06/2018 6:51 AM EDT AGE/SEX: 62 years / Male INDICATIONS: Weakness. CLINICAL DATA: This is the patient's initial encounter. Patient reports that signs and symptoms have been present for 1 day and indicates a pain score of 0/10. MEDICAL/SURGICAL HISTORY: Carcinoma, colon. Hypertension. Stroke. Seizures. Colon resection. RADIATION DOSE: 37.93 CTDI (mGy) COMPARISON: [facility] – [place], [place] HEAD W/O CONTRAST, 05/27/2018. . TECHNIQUE: CT of the head without contrast. Using automated exposure control and adjustment of the mA and/or kV according to patient size, radiation dose was kept as low as reasonably achievable to ob tain optimal diagnostic quality images. DICOM format image data is available electronically for revi ew and comparison. FINDINGS: Cerebrum: Mild cerebral atrophy. The ventricles are normal for age. No evidence of midline shift, ma ss lesion, hemorrhage or acute infarction. No extraaxial fluid collections are seen. Posterior Fossa: The cerebellum and brainstem are intact. The 4th ventricle is midline. The cerebe llopontine angle is unremarkable. Extracranial: The visualized portion of the orbits is intact. Skull: The calvaria is intact. No evidence of skull fracture. CONCLUSION: 1. No acute intracranial abnormality. . Electronically signed by: Deo Bethea MD 06/06/2018 7:28 AM EDT
[2018-06-06] MEDS ORDERED: Sod Chloride 0.9% Inj 1,000 ML IV.SIG SCH (08:00)
--- NOTE | 2018-06-06 09:02 | ECG ---
Date Performed: 06/06/2018 Time Performed: 04:35:08 PTAGE: 62 years EKG: SINUS BRADYCARDIA WITH OCCASIONAL VENTRICULAR PREMATURE COMPLEXES POSSIBLE INFERIOR MYOCARD IAL INFARCTION ABNORMAL ECG NO PREVIOUS TRACING DOCTOR: Bob Clark Interpretating Date/Time 06/06/2018 09:01:04
--- NOTE | 2018-06-06 11:28 | P.HPFP ---
History of Present Illness Primary Care Physician: UNKNOWN <Rakan Romero K - 06/06/18 18:07> UNKNOWN Dr. Arden Ma <TeddyLacy Reis T - 06/06/18 14:44> History of Present Illness: Mr. Tan is a 62 year old male with past medical history of hypertension, CHF with preserved ejection fraction of 55-60% (last echo on 02/12), COPD, seizure disorder, and colon cancer s/p colon resection presents to the ED with a chief complaint of weakness and overall feeling unwell. He began having symptoms at 10 PM while at work but did not call the ambulance until 2 AM due to the constant nature of his symptoms. Patient reports that he began having sharp, nonradiating, left-sided chest pain that lasted for a couple of hours. Patient endorses diaphoresis, leg weakness, headache, nausea, but denies any changes in vision, shortness of breath dysphasia, abdominal pain/distension, or any changes in bowel movement/urinary symptoms. Patient denies any alleviating or aggravating factors. He denies any similar episodes in the past. He denies any recent changes in medications, recent illnesses, fevers, chills, or night sweats. Patient only follows with primary care doctor Dr. Arden Ma. PMH: Hypertension, CHF, COPD, CVA with right-sided residual weakness seizure disorder, colon cancer s/p colon resection with chemo and radiation, hx of DVT Surgical History: Colon Resection 2/2 Colon CA, tonsillectomy, appendectomy, eye surgery for strabismus Medications: Losartan 100 mg twice daily, HCTZ 12.5 mg once a day, Xarelto 20 mg , Depakote 500 mg twice daily, Keppra 1000 mg once a day. Family history: Father had a heart attack in his 70s. Mother and sisters are alive and are healthy. Social History: Patient endorses a 47 year history of smoking (2 packs/day), and current occasional marijuana use (about once a month). He denies any current alcohol use but does admit to past alcohol abuse. 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 ED course: Upon arrival patient was bradycardic, but additional vital signs were stable. EKG findings: Sinus bradycardia. Troponins were negative x2. CBC was within normal limits. PT 10.2, INR 1, APTT 27.6. Patient was placed on continuous telemetry and admitting team was consulted. <Lacy Espinal 06/06/18 16:22> - Diagnosis (1) Hypertension (2) Seizures (3) COPD (chronic obstructive pulmonary disease) (4) Nutrition, metabolism, and development symptoms (5) Symptomatic bradycardia (6) Acute kidney injury <Rakan Romero 06/06/18 18:07> (1) Hypertension (2) Seizures (3) COPD (chronic obstructive pulmonary disease) (4) Nutrition, metabolism, and development symptoms (5) Symptomatic bradycardia (6) Acute kidney injury <Lacy Espinal 06/06/18 16:13> Inpatient Certification: I certify that the inpatient services were ordered in accordance with Medicare regulations governing the order. This includes certification that hospital inpatient services are reasonable and necessary and in the case of services not specified as inpatient-only under 42 CFR 419.22(n), that they are appropriately provided as inpatient services in accordance to with the 2-midnight benchmark under 43 CFR 412.3(e) <Rakan Romero 06/06/18 18:07> Review of Systems Constitutional: Denies fever(s), Denies night sweats, Denies weight loss <Lacy Espinal 06/06/18 14:44> Eyes: Denies blurry vision <Lacy Espinal 06/06/18 14:44> Ears, Nose, Mouth, and Throat: Denies pain with swallowing <Lacy Espinal 06/06/18 14:44> Cardiovascular: Reports chest pain, Reports lightheadedness, Denies shortness of breath <Lacy Espinal 06/06/18 14:44> Respiratory: Denies cough, Denies shortness of breath, Denies wheezing <Lacy Espinal 06/06/18 14:44> Gastrointestinal: Reports nausea, Denies abdominal pain, Denies black, tarry stools, Denies constipation, Denies vomiting <Lacy Espinal 06/06/18 14: 44> Genitourinary: Reports urinary frequency, Denies difficulty urinating, Denies painful urination, Denies urinary hesitancy, Denies urinary urgency <Lacy Espinal 06/06/18 14:44> Musculoskeletal: Reports abnormal walking <Lacy Espinal - 06/06/18 14:44> Skin/Breast: Denies rash <Lacy Espinal - 06/06/18 14:44> Neurologic: Reports headache(s), Reports weakness, Denies tingling/numbness/ burning sensations <Lacy Espinal - 06/06/18 14:44> Comments: Lower extremity weakness <Lacy Espinal - 06/06/18 14:44> PMFSH - History History 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, 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 <Lacy Espinal - 06/06/18 11: 28> - Medical History Medical History: Medical History (Last Reviewed 06/06/18 @ 05:15 by Ubaldo Solomon) CHF (congestive heart failure) CVA (cerebral vascular accident) Colon cancer DVT (deep venous thrombosis) Hypertension Seizures Tobacco abuse <Rakan Romero - 06/06/18 18:07> Medical History (Last Reviewed 06/06/18 @ 05:15 by Ubaldo Solomon) CHF (congestive heart failure) CVA (cerebral vascular accident) Colon cancer DVT (deep venous thrombosis) Hypertension Seizures Tobacco abuse <Lacy Espinal - 06/06/18 11:28> - Surgical History Surgical History: Surgical History (Last Reviewed 06/06/18 @ 05:15 by Ubaldo Solomon) History of colon resection History of colon surgery <Rakan Romero - 06/06/18 18:07> Surgical History (Last Reviewed 06/06/18 @ 05:15 by Ubaldo Solomon) History of colon resection History of colon surgery <Lacy Espinal - 06/06/18 11:28> - Family History Family History: Family History (Last Updated 06/06/18 @ 14:27 by Lacy Espinal MD, R2) Father Myocardial infarct <Rakan Romero - 06/06/18 18:07> Family History (Last Updated 06/06/18 @ 14:27 by Lacy Espinal MD, R2) Father Myocardial infarct <Lacy Espinal - 06/06/18 14:44> - Social History I have reviewed the patient's Social History: Yes <Lacy Espinal - 14:44> - Tobacco History Second Hand Smoke Exposure: Yes <Lacy Espinal T - 06/06/18 11:28> Tobacco Use In Past 30 Days: Yes <Lacy Espinal T - 06/06/18 11:28> Smoking Status: Current every day smoker <Lacy Espinal T - 06/06/18 11:28> Tobacco Type: Cigarettes <Lacy Espinal T - 06/06/18 11:28> Packs Per Day: 1 <Lacy Espinal Reis T - 06/06/18 11:28> Cigarettes Per Day: 20.0 <Lacy Espinal Reis T - 06/06/18 11:28> - Alcohol History How Often Do You Have a Drink Containing Alcohol: Never <Lacy Espinal T - 11:28> - Substance Use History Substance History: Active Abuse <Lacy Espinal T - 06/06/18 11:28> - Substance Use Type Marijuana Status: Active <Lacy Espinal T - 06/06/18 11:28> Frequency: OCCASIONAL <Lacy Espinal T - 06/06/18 11:28> - Travel History Recent Travel in the [facility] Within the Last 8 Weeks: No <Lacy Espinal T - 06/06 11:28> Recent Travel Out of the Country Within the Last 8 Weeks: No <Lacy Espinal T - 06/06/18 11:28> - Immunization History Tetanus Immunization: <5 Years <Lacy Espinal T - 06/06/18 11:28> Tetanus Immunization Year if Known: 2015 <Lacy Espinal Reis T - 06/06/18 11:28> Medications and Allergies Allergies Allergy/AdvReac Type Severity Reaction Status Date / Time amlodipine Allergy Severe Swelling Verified 06/06/18 04:36 amoxicillin Allergy Severe "LIPS Verified 06/06/18 04:36 SWELL" clavulanic acid Allergy Severe "LIPS Verified 06/06/18 04:36 SWELL" diatrizoate meglumine Allergy Severe Anaphylaxis; Verified 06/06/18 04:36 06/04/09: PT TOLERATES ORAL CONTRAST W/O AE diazepam Allergy Severe RESPIRATORY Verified 06/06/18 04:36 DISTRESS enalaprilat Allergy Severe Swelling Verified 06/06/18 04:36 of Lip/Tongue/Throat erythromycin base Allergy Severe RASH Verified 06/06/18 04:36 gadobenic acid Allergy Severe Anaphylaxis; Verified 06/06/18 04:36 06/04/09: PT TOLERATES ORAL CONTRAST W/O AE gadodiamide Allergy Severe Anaphylaxis; Verified 06/06/18 04:36 06/04/09: PT TOLERATES ORAL CONTRAST W/O AE gadoteridol Allergy Severe Anaphylaxis; Verified 06/06/18 04:36 06/04/09: PT TOLERATES ORAL CONTRAST W/O AE haloperidol Allergy Severe "TIGHT JAW" Verified 06/06/18 04:36 iodixanol Allergy Severe Anaphylaxis; Verified 06/06/18 04:36 06/04/09: PT TOLERATES ORAL CONTRAST W/O AE iohexol Allergy Severe PT NEEDS Verified 06/06/18 04:36 PREMED/DOESN'T KNOW REACTION benazepril Allergy Intermediate Hives Verified 06/06/18 04:36 captopril Allergy Intermediate Hives Verified 06/06/18 04:36 fosinopril Allergy Intermediate Hives Verified 06/06/18 04:36 lisinopril Allergy Intermediate Itching Verified 06/06/18 04:36 morphine Allergy Intermediate Itching Verified 06/06/18 04:36 quinapril Allergy Unknown UNKNOWN Verified 06/06/18 04:36 REACTION prochlorperazine AdvReac Severe Hives Verified 06/06/18 04:36 <Rakan Romero - 06/06/18 18:07> Home Medications Medication Instructions Recorded Confirmed Type divalproex [Depakote] 500 mg PO BID 03/05/18 06/06/18 History levetiracetam [Keppra] 500 mg PO DAILY 03/05/18 06/06/18 History hydrochlorothiazide 12.5 mg PO DAILY 04/09/18 06/06/18 History labetalol 100 mg PO BID 04/09/18 06/06/18 History <Rakan Romero - 06/06/18 18:07> Active Medications: Active Medications Albuterol (Duoneb Neb (Prn)) 1 ampul NEB Q4HR NEB PRN PRN Reason: SHORTNESS OF BREATH Divalproex Sodium (Depakote Dr) 500 mg PO BID NAIN Hydrochlorothiazide (Microzide) 12.5 mg PO DAILY NAIN Sodium Chloride (Ns Inj) 1,000 mls @ 0 mls/hr IV.SIG BOLUS NAIN Last Infusion: 06/06/18 11:15 Dose: Infused Sodium Chloride (Ns Inj) 1,000 mls @ 100 mls/hr IV.CONT .Q10H NAIN Levetiracetam (Keppra) 1,000 mg PO HS NAIN Rivaroxaban (Xarelto) 20 mg PO DAILY NAIN Sodium Chloride (Ns Flush) 2 ml IV.FLUSH BID NAIN Sodium Chloride (Ns Flush) 2 ml IV.FLUSH PRN PRN PRN Reason: FLUSH AFTER USING IV ACCESS <Rakan Romero - 06/06/18 18:07> Active Medications Sodium Chloride (Ns Inj) 1,000 mls @ 0 mls/hr IV.SIG BOLUS NAIN Last Infusion: 06/06/18 11:15 Dose: Infused Sodium Chloride (Ns Flush) 2 ml IV.FLUSH UNSCH PRN PRN Reason: FLUSH AFTER USING IV ACCESS <Lacy Espinal T - 06/06/18 11:28> Exam Vital signs: Vital Signs 06/06/18 04:33 06/06/18 07:51 06/06/18 07:52 Temperature 98.1 F Pulse Rate 53 L 43 L 43 L Respiratory Rate 18 20 Blood Pressure 108/73 Pulse Oximetry 99 98 98 06/06/18 10:01 06/06/18 16:00 06/06/18 17:34 Temperature 98.6 F Pulse Rate 48 L 49 L Respiratory Rate 18 17 Blood Pressure 117/75 165/88 H Pulse Oximetry 99 97 99 Intake & Output 06/05/18 06/06/18 06/06/18 18:59 06:59 18:59 Intake Total 1500 / 1500 Balance 1500 / 1500 Weight 58.967 kg 70.307 kg Intake: IV 1500 / 1500 NS Inj 1,000 ML @ Wide Open IV. 1000 / 1000 SIG BOLUS NAIN Rx#:[id number] NS Inj 500 ML @ Wide Open IV. 500 / 500 SIG ONCE ONE Rx#:[id number] Other: Weight On Admission 70.307 kg <Rakan Romero 06/06/18 18:07> Vital Signs 06/06/18 04:33 06/06/18 07:51 06/06/18 07:52 Temperature 98.1 F Pulse Rate 53 L 43 L 43 L Respiratory Rate 18 20 Blood Pressure 108/73 Pulse Oximetry 99 98 98 06/06/18 10:01 Temperature Pulse Rate 48 L Respiratory Rate 18 Blood Pressure 117/75 Pulse Oximetry 99 Intake & Output 06/05/18 06/06/18 06/06/18 18:59 06:59 18:59 Intake Total 1500 / 1500 Balance 1500 / 1500 Weight 58.967 kg Intake: IV 1500 / 1500 NS Inj 1,000 ML @ Wide Open IV. 1000 / 1000 SIG BOLUS NAIN Rx#:[id number] NS Inj 500 ML @ Wide Open IV. 500 / 500 SIG ONCE ONE Rx#:[id number] <Lacy Espinal T - 06/06/18 14:23> Narrative: General: Resting in bed, no acute distress HENT: PERRLA, EOMI, throat clear, no lymphadenopathy Cardio: Sinus bradycardia, No murmurs rubs or gallops Pulmonary: Clear to auscultation bilaterally no wheezes or crackles Abdomen: Soft, nontender, nondistended, positive bowel sounds Extremities: b/l heels discolored, pedal pulses 2+ Neuro: Alert and oriented x3, CN II-XII intact, b/l upper extremity weakness 3/5 , b/l lower extremity weakens 3/5, slow [id number] test, Negative pronator drift, sensation intact throughout <TeddyLacy Reis T - 06/06/18 16:22> Results - Labs Result diagrams: 06/06/18 05:35 06/06/18 05:35 <Rakan Romero - 06/06/18 18:07> Abnormal lab results 06/06/18 06/06/18 06/06/18 Range/Units 05:35 05:35 05:35 RBC 4.39 L (4.50-5.90) mil/mm3 [place] % (Auto) 8.4 H (0.0-8.0) % Sodium 135 L (136-145) meq/L BUN 25 H (7-18) mg/dL Creatinine 1.57 H (0.60-1.30) mg/dL Estimated GFR 45 L (>89) mL/min Calcium 8.3 L (8.5-10.1) mg/dL Troponin I Less than 0.02 L (0.02-0.05) ng/mL Cholesterol (120-200) mg/dL LDL Cholesterol, Calc (0-99) mg/dL HDL Cholesterol (40.0-60.0) mg/dL Urine Mucus Few H (Occasional) /lpf Valproic Acid (50-100) mcg/mL 06/06/18 06/06/18 06/06/18 Range/Units 08:33 10:19 13:55 RBC (4.50-5.90) mil/mm3 [place] % (Auto) (0.0-8.0) % Sodium (136-145) meq/L BUN (7-18) mg/dL Creatinine (0.60-1.30) mg/dL Estimated GFR (>89) mL/min Calcium (8.5-10.1) mg/dL Troponin I Less than 0.02 L Less than 0.02 L (0.02-0.05) ng/mL Cholesterol 202 H (120-200) mg/dL LDL Cholesterol, Calc 140 H (0-99) mg/dL HDL Cholesterol 38.0 L (40.0-60.0) mg/dL Urine Mucus (Occasional) /lpf Valproic Acid Less than 3 L (50-100) mcg/mL Short CBC 06/06/18 Range/Units 05:35 WBC 5.7 (4.0-11.0) th/mm3 Hgb 14.5 (13.0-17.0) gm/dL Hct 42.2 (39.0-51.0) % Plt Count 260 (150-450) th/mm3 BMP 06/06/18 05:35 Sodium 135 L Potassium 3.6 Chloride 98 Carbon Dioxide 25.5 BUN 25 H Creatinine 1.57 H Calcium 8.3 L Cardiac Enzymes 06/06/18 06/06/18 06/06/18 Range/Units 05:35 05:35 08:33 Total Creatine Kinase 82 (39-308) U/L Troponin I Less than 0.02 L Less than 0.02 L (0.02-0.05) ng/mL 06/06/18 Range/Units 13:55 Total Creatine Kinase (39-308) U/L Troponin I Less than 0.02 L (0.02-0.05) ng/mL Liver Function 06/06/18 Range/Units 05:35 Total Bilirubin 0.4 (0.2-1.0) mg/dL AST 24 (15-37) U/L ALT 28 (12-78) U/L Alkaline Phosphatase 85 (45-117) U/L Albumin 3.7 (3.4-5.0) g/dL Urine 06/06/18 Range/Units 05:35 Urine Color Straw (Yellw/Straw) Urine Clarity Clear (Clear) Urine pH 5.0 (5.0-8.5) Ur Specific [place] 1.003 (1.002-1.035) Urine Protein Negative (Neg-Trace) mg/dL Urine Glucose (UA) Negative (Negative) mg/dL <Rakan Romero K - 06/06/18 18:07> Abnormal lab results 06/06/18 06/06/18 06/06/18 Range/Units 05:35 05:35 05:35 RBC 4.39 L (4.50-5.90) mil/mm3 [place] % (Auto) 8.4 H (0.0-8.0) % Sodium 135 L (136-145) meq/L BUN 25 H (7-18) mg/dL Creatinine 1.57 H (0.60-1.30) mg/dL Estimated GFR 45 L (>89) mL/min Calcium 8.3 L (8.5-10.1) mg/dL Troponin I Less than 0.02 L (0.02-0.05) ng/mL Urine Mucus Few H (Occasional) /lpf Valproic Acid (50-100) mcg/mL 06/06/18 06/06/18 Range/Units 08:33 10:19 RBC (4.50-5.90) mil/mm3 [place] % (Auto) (0.0-8.0) % Sodium (136-145) meq/L BUN (7-18) mg/dL Creatinine (0.60-1.30) mg/dL Estimated GFR (>89) mL/min Calcium (8.5-10.1) mg/dL Troponin I Less than 0.02 L (0.02-0.05) ng/mL Urine Mucus (Occasional) /lpf Valproic Acid Less than 3 L (50-100) mcg/mL Short CBC 06/06/18 Range/Units 05:35 WBC 5.7 (4.0-11.0) th/mm3 Hgb 14.5 (13.0-17.0) gm/dL Hct 42.2 (39.0-51.0) % Plt Count 260 (150-450) th/mm3 BMP 06/06/18 05:35 Sodium 135 L Potassium 3.6 Chloride 98 Carbon Dioxide 25.5 BUN 25 H Creatinine 1.57 H Calcium 8.3 L Cardiac Enzymes 06/06/18 06/06/18 06/06/18 Range/Units 05:35 05:35 08:33 Total Creatine Kinase 82 (39-308) U/L Troponin I Less than 0.02 L Less than 0.02 L (0.02-0.05) ng/mL Liver Function 06/06/18 Range/Units 05:35 Total Bilirubin 0.4 (0.2-1.0) mg/dL AST 24 (15-37) U/L ALT 28 (12-78) U/L Alkaline Phosphatase 85 (45-117) U/L Albumin 3.7 (3.4-5.0) g/dL Urine 06/06/18 Range/Units 05:35 Urine Color Straw (Yellw/Straw) Urine Clarity Clear (Clear) Urine pH 5.0 (5.0-8.5) Ur Specific [place] 1.003 (1.002-1.035) Urine Protein Negative (Neg-Trace) mg/dL Urine Glucose (UA) Negative (Negative) mg/dL <Lacy Espinal T - 06/06/18 11:28> - Imaging Impressions Chest X-Ray 06/06/18 05:25 CONCLUSION: No acute cardiopulmonary abnormality is identified. Head CT 06/06/18 06:49 CONCLUSION: 1. No acute intracranial abnormality. . <Rakan Romero K - 06/06/18 18:07> Impressions Chest X-Ray 06/06/18 05:25 CONCLUSION: No acute cardiopulmonary abnormality is identified. Head CT 06/06/18 06:49 CONCLUSION: 1. No acute intracranial abnormality. . <Lacy Espinal - 06/06/18 11:28> Caprini VTE Risk Assessment Caprini VTE Risk Assessment: Moderate/High Risk (score >= 2) <Lacy Espinal - 06/06/18 14:44> Caprini Risk Assessment Model: Point Value = 1 Point Value = 2 Point Value = 3 Point Value = 5 Age 41-60 Minor surgery BMI > 25 kg/m2 Swollen legs Varicose veins or History of unexplained or recurrent spontaneous Oral contraceptives or hormone replacement Sepsis (< 1 month) Serious lung disease, including pneumonia (< 1 month) Abnormal pulmonary function Acute myocardial infarction Congestive heart failure (< 1 month) History of inflammatory bowel disease Medical patient at bed rest Age 61-74 Arthroscopic surgery Major open surgery (> 45 min) Laparoscopic surgery (> 45 min) Malignancy Confined to bed (> 72 hours) Immobilizing plaster cast Central venous access Age >= 75 History of VTE Family history of VTE Factor V Leiden Prothrombin [id number] Lupus anticoagulant Anticardiolipin antibodies Elevated serum homocysteine Heparin-induced thrombocytopenia Other congenital or acquired thrombophilia Stroke (< 1 month) Elective arthroplasty Hip, pelvis, or leg fracture Acute spinal cord injury (< 1 month) <Rakan Romero K - 06/06/18 18:07> Point Value = 1 Point Value = 2 Point Value = 3 Point Value = 5 Age 41-60 Minor surgery BMI > 25 kg/m2 Swollen legs Varicose veins or History of unexplained or recurrent spontaneous Oral contraceptives or hormone replacement Sepsis (< 1 month) Serious lung disease, including pneumonia (< 1 month) Abnormal pulmonary function Acute myocardial infarction Congestive heart failure (< 1 month) History of inflammatory bowel disease Medical patient at bed rest Age 61-74 Arthroscopic surgery Major open surgery (> 45 min) Laparoscopic surgery (> 45 min) Malignancy Confined to bed (> 72 hours) Immobilizing plaster cast Central venous access Age >= 75 History of VTE Family history of VTE Factor V Leiden Prothrombin [id number] Lupus anticoagulant Anticardiolipin antibodies Elevated serum homocysteine Heparin-induced thrombocytopenia Other congenital or acquired thrombophilia Stroke (< 1 month) Elective arthroplasty Hip, pelvis, or leg fracture Acute spinal cord injury (< 1 month) <Lacy Espinal T - 06/06/18 11:28> Prophylaxis Regimen: Total Risk Factor Score Risk Level Prophylaxis Regimen 0-1 Low Early ambulation 2 Moderate Order ONE of the following: *Sequential Compression Device (SCD) *Heparin 5000 units SQ BID 3-4 Higher Order ONE of the following medications: *Heparin 5000 units SQ TID *Enoxaparin/Lovenox 40 mg SQ daily (WT < 150 kg, CrCl > 30 mL/min) *Enoxaparin/Lovenox 30 mg SQ daily (WT < 150 kg, CrCl > 10-29 mL/min) *Enoxaparin/Lovenox 30 mg SQ BID (WT < 150 kg, CrCl > 30 mL/min) AND/OR *Sequential Compression Device (SCD) 5 or more Highest Order ONE of the following medications: *Heparin 5000 units SQ TID (Preferred with Epidurals) *Enoxaparin/Lovenox 40 mg SQ daily (WT < 150 kg, CrCl > 30 mL/min) *Enoxaparin/Lovenox 30 mg SQ daily (WT < 150 kg, CrCl > 10-29 mL/min) *Enoxaparin/Lovenox 30 mg SQ BID (WT < 150 kg, CrCl > 30 mL/min) AND *Sequential Compression Device (SCD) <Rakan Romero K - 06/06/18 18:07> Total Risk Factor Score Risk Level Prophylaxis Regimen 0-1 Low Early ambulation 2 Moderate Order ONE of the following: *Sequential Compression Device (SCD) *Heparin 5000 units SQ BID 3-4 Higher Order ONE of the following medications: *Heparin 5000 units SQ TID *Enoxaparin/Lovenox 40 mg SQ daily (WT < 150 kg, CrCl > 30 mL/min) *Enoxaparin/Lovenox 30 mg SQ daily (WT < 150 kg, CrCl > 10-29 mL/min) *Enoxaparin/Lovenox 30 mg SQ BID (WT < 150 kg, CrCl > 30 mL/min) AND/OR *Sequential Compression Device (SCD) 5 or more Highest Order ONE of the following medications: *Heparin 5000 units SQ TID (Preferred with Epidurals) *Enoxaparin/Lovenox 40 mg SQ daily (WT < 150 kg, CrCl > 30 mL/min) *Enoxaparin/Lovenox 30 mg SQ daily (WT < 150 kg, CrCl > 10-29 mL/min) *Enoxaparin/Lovenox 30 mg SQ BID (WT < 150 kg, CrCl > 30 mL/min) AND *Sequential Compression Device (SCD) <Lacy Espinal - 06/06/18 11:28> Assessment and Plan - Assessment (1) Hypertension Code(s): I10 - Essential (primary) hypertension Status: Acute (2) Seizures Code(s): R56.9 - Unspecified convulsions Status: Acute (3) COPD (chronic obstructive pulmonary disease) Code(s): J44.9 - Chronic obstructive pulmonary disease, unspecified Status: Acute (4) Nutrition, metabolism, and development symptoms Code(s): R63.8 - Other symptoms and signs concerning food and fluid intake Status: Acute (5) Symptomatic bradycardia Code(s): R00.1 - Bradycardia, unspecified Status: Acute (6) Acute kidney injury Code(s): N17.9 - Acute kidney failure, unspecified Status: Acute <Rakan Romero K - 06/06/18 18:07> (1) Hypertension Code(s): I10 - Essential (primary) hypertension Status: Acute (2) Seizures Code(s): R56.9 - Unspecified convulsions Status: Acute (3) COPD (chronic obstructive pulmonary disease) Code(s): J44.9 - Chronic obstructive pulmonary disease, unspecified Status: Acute (4) Nutrition, metabolism, and development symptoms Code(s): R63.8 - Other symptoms and signs concerning food and fluid intake Status: Acute (5) Symptomatic bradycardia Code(s): R00.1 - Bradycardia, unspecified Status: Acute (6) Acute kidney injury Code(s): N17.9 - Acute kidney failure, unspecified Status: Acute <Lacy Espinal - 06/06/18 16:13> - Assessment and Plan 62 year old male with past medical history of hypertension, CHF with preserved ejection fraction of 55-60% (last echo on 02/12), COPD, seizure disorder, and colon cancer s/p colon resection presents to the ED with a chief complaint of weakness and overall feeling unwell. Patient was found to have sinus bradycardia and admitted to assess for etiology. Bilateral Lower Extremity Weakness - DDx: possibly secondary to hypoperfusion vs. symptomatic bradycardia vs. past h/o stroke vs. new episode of stroke/TIA - Head CT normal - Consult physical therapy to assess ambulation - Order lipid panel - If weakness persists/progresses consider additional imaging (MRI) Symptomatic bradycardia - EKG demonstrates sinus bradycardia, borderline prolonged FL interval of 195, prolonged QT interval 510, troponin x3 ess than 0.02 - Heart rate ranging from 43-53 - Hold home labetalol 100mg PO BID (last dose yesterday 06/05/2018) - Will observe patient overnight to see if heart rate improves after discontinuing labetalol. - Continue cardiac telemetry - If patient continues to have symptomatic bradycardia, will consult cardiology for possible pacemaker placement Acute Kidney Injury - BUN of 25 and Cr of 1.57 - Baseline Creatinine around 0.93 - Maintenance fluids: NS 100mls/hr - Avoid nephrotoxic agents - Continue to monitor Congestive Heart Failure w/ preserved EF - Last Echocardiogram 01/2018: Left ventricular diastolic dysfunction Seizure Disorder - Depakote levels < 3 - Keppra levels pending - Continue home Depakote 500 mg p.o. twice daily and Keppra 1000 mg p.o. at bedtime Hypertension - Held home labetalol - Continue HCTZ 12.5 mg p.o. daily COPD - CXR findings consistent with COPD - Supplemental oxygen as needed to keep O2 sat >92% - DuoNebs as needed History of DVT - Coag panel WNL - Continue home Xarelto 20 mg daily Current Smoker -will hold off on nicotine patch for now as it can cause further bradycardia FEN: Diet: Cardiac Diet Fluids: NS 100mls/hr DVT ppx: Continue home medication Xarelto 20mg Code status: Full Code sdw Tanvi Enriquez Martínez, M4 <Lacy Espinal T - 06/06/18 16:22> - Attending Attestation The exam, history, and the medical decision-making described in the above note were completed with the assistance of the resident physician. I reviewed and agree with the findings presented. I attest that I had a [id number] encounter with the patient on the same day, and personally performed and documented my assessment and findings in the medical record. S: Agree with the above histories after review with a few slight modifications. Home Medication labetalol not losartan. He has residual right sided weakness from his prior CVA but he does feel that he is overall weaker now, particularly in his legs. Will also add that on ecg there is borderline 1deg AV block and there is a mild non specific conduction delay as QRS borderline wide as well, mild qt prolongation. General: Resting in bed, no acute distress HENT: PERRLA, EOMI, throat clear, no lymphadenopathy Cardio: Sinus bradycardia, No murmurs rubs or gallops Pulmonary: Clear to auscultation bilaterally no wheezes or crackles, slightly decreased air entry. Abdomen: Soft, nontender, nondistended, positive bowel sounds, large vertical and other abdominal scars, no masses palpated. Extremities: b/l heels discolored, pedal pulses 2+ Neuro: Alert and oriented x3, CN II-XII intact with mild anisocoria, b/l upper extremity weakness 4+/5, b/l lower extremity weakens 4-/5, slow [id number] test, Negative pronator drift, sensation intact throughout Skin: warm, dry, intact Psych: appropriate mood and affect, good judgement A/P: Symptomatic bradycardia - Hold home labetalol and consult cardiology if not resolved with this to assess for pacemaker Acute Kidney Injury - b/l 0.9 -1.3 - may be pre-renal from reduced CO with known HFpEF - gentle IVF but quick to switch to diuresis as clinically indicated Weakness/Ambulatory dysfunction will treat above problems and consult PT HFpEF - stopping BB for now - will add ACEi if needed to Seizure Disorder - Stable, no sz in 3 yrs - will cont home meds unless keppra levels are high Hypertension - Held home labetalol - Continue HCTZ 12.5 mg p.o. daily - will replace with ACEi if needed COPD - no exacerbation - DuoNebs as needed History of DVT - Coag panel WNL - Continue home Xarelto 20 mg daily hx of CVA cont xarelto will get MRI if new focal deficits noted Current Smoker - believe bradycardia to be 2/2 beta robert more than nicotine, will allow him to have patch Colon Cancer stopped surveillance by his choice but no known recurrence DVT ppx: Continue home medication Xarelto 20mg <Rakan Romero - 06/06/18 18:07>
--- NOTE | 2018-06-06 14:20 | ECG ---
Date Performed: 06/06/2018 Time Performed: 10:43:14 PTAGE: 62 years EKG: SINUS BRADYCARDIA NONSPECIFIC T WAVE ABNORMALITY NONSPECIFIC INTRAVENTRICULAR CONDUCTION DE LAY ABNORMAL ECG PREVIOUS TRACING : 06/06/2018 04.35 No significant change from previous tracing noted. DOCTOR: Missael Angeles Interpretating Date/Time 06/06/2018 14:18:30
[2018-06-06 16:51] LABS: Cholesterol 202 mg/dL (120-200)
[2018-06-06 17:07] LABS: Triglycerides 118 mg/dL (42-150)
[2018-06-06 17:08] LABS: Chol/HDL Ratio 5.31 Ratio; LDL Cholesterol,Calculated 140 mg/dL (0-99)
[2018-06-06] MEDS ORDERED: Acetaminophen 325 MG Tablet PO PRN (21:57)
[2018-06-06] MEDS: Rivaroxaban 20 MG Tablet PO SCH (22:02)
[2018-06-06] MEDS: Divalproex 500 MG DR Tablet PO SCH (22:02)
[2018-06-06] MEDS: levETIRAcetam 500 MG Tablet PO SCH (22:02)
[2018-06-07 05:03] LABS: Baso % (Auto) 0.9 % (0.0-2.0); Eos # (Auto) 0.2 th/mm3 (0.0-0.4); Eos % (Auto) 4.2 % (0.0-4.0); Hematocrit 37.9 % (39.0-51.0); Hemoglobin 13.2 gm/dL (13.0-17.0); Lymph # (Auto) 1.6 th/mm3 (1.0-4.8); Lymph % (Auto) 35.5 % (9.0-44.0); Mean Corpuscular Hemoglobin 32.8 pg (27.0-34.0); Mean Corpuscular Volume 93.8 fL (80.0-100.0); Mean Platelet Volume 7.9 fL (7.0-11.0); Mono # (Auto) 0.5 th/mm3 (0.0-0.9); Mono % (Auto) 10.9 % (0.0-8.0); Neut # (Auto) 2.1 th/mm3 (1.8-7.7); Neut % (Auto) 48.5 % (16.0-70.0); Platelet Count 231 th/mm3 (150-450); Red Blood Count 4.04 mil/mm3 (4.50-5.90); Red Cell Distribution Width 14.3 % (11.6-17.2); White Blood Count 4.4 th/mm3 (4.0-11.0)
[2018-06-07 05:17] LABS: Calcium 8.2 mg/dL (8.5-10.1); Carbon Dioxide 28.8 meq/L (21.0-32.0); Potassium 3.8 meq/L (3.5-5.1)
[2018-06-07] MEDS: Divalproex 500 MG DR Tablet PO SCH ×2 (09:17→21:02)
[2018-06-07] MEDS: Rivaroxaban 20 MG Tablet PO SCH (09:18)
[2018-06-07] MEDS ORDERED: Calcium Gluconate Inj 1 GM in Dextrose 5% in Water Inj 100 ML IV.SIG ONE ×2 (11:00)
[2018-06-07 12:01] LABS: Folate 13.5 ng/mL (3.1-17.5); Free T4 (Free Thyroxine) 1.24 ng/dL (0.76-1.46); Vitamin B12 221 pg/mL (193-986)
--- NOTE | 2018-06-07 12:37 | P.PNFP ---
Subjective Interval history: Overnight, patient complained of 10 out of 10 right leg pain and was given 50 mg of tramadol (history of DVT). Patient continues to report feeling fatigued and weak this morning. He reports tolerating a regular diet and being comfortable. He denies any headache, lightheadedness, chest pain, shortness of breath, trouble urinating/having bowel movements, changes in sensation, but continues to report bilateral generalized weakness. Patient was taken off of labetalol home medication yesterday due to bradycardia with no resolution of symptoms. Although patient was oriented x3, his overall assessment this morning was limited by extreme lethargy and somnolence. <Lacy Espinal T - 06/07/18 12:36> Results - Labs Result diagrams: 06/07/18 03:56 06/07/18 03:56 <Rakan Romero K - 06/07/18 14:00> Abnormal lab results 06/06/18 06/07/18 06/07/18 Range/Units 13:55 03:56 03:56 RBC 4.04 L (4.50-5.90) mil/mm3 Hct 37.9 L (39.0-51.0) % [place] % (Auto) 10.9 H (0.0-8.0) % Eos % (Auto) 4.2 H (0.0-4.0) % BUN 20 H (7-18) mg/dL Estimated GFR 63 L (>89) mL/min Calcium 8.2 L (8.5-10.1) mg/dL Troponin I Less than 0.02 L (0.02-0.05) ng/mL Cholesterol 202 H (120-200) mg/dL LDL Cholesterol, Calc 140 H (0-99) mg/dL HDL Cholesterol 38.0 L (40.0-60.0) mg/dL Valproic Acid (50-100) mcg/mL 06/07/18 Range/Units 03:56 RBC (4.50-5.90) mil/mm3 Hct (39.0-51.0) % [place] % (Auto) (0.0-8.0) % Eos % (Auto) (0.0-4.0) % BUN (7-18) mg/dL Estimated GFR (>89) mL/min Calcium (8.5-10.1) mg/dL Troponin I (0.02-0.05) ng/mL Cholesterol (120-200) mg/dL LDL Cholesterol, Calc (0-99) mg/dL HDL Cholesterol (40.0-60.0) mg/dL Valproic Acid Less than 3 L (50-100) mcg/mL Short CBC 06/07/18 Range/Units 03:56 WBC 4.4 (4.0-11.0) th/mm3 Hgb 13.2 (13.0-17.0) gm/dL Hct 37.9 L (39.0-51.0) % Plt Count 231 (150-450) th/mm3 BMP 06/07/18 03:56 Sodium 141 Potassium 3.8 Chloride 105 Carbon Dioxide 28.8 BUN 20 H Creatinine 1.18 Calcium 8.2 L Cardiac Enzymes 06/06/18 Range/Units 13:55 Troponin I Less than 0.02 L (0.02-0.05) ng/mL <Rakan Romero - 06/07/18 14:00> Abnormal lab results 06/06/18 06/07/18 06/07/18 Range/Units 13:55 03:56 03:56 RBC 4.04 L (4.50-5.90) mil/mm3 Hct 37.9 L (39.0-51.0) % [place] % (Auto) 10.9 H (0.0-8.0) % Eos % (Auto) 4.2 H (0.0-4.0) % BUN 20 H (7-18) mg/dL Estimated GFR 63 L (>89) mL/min Calcium 8.2 L (8.5-10.1) mg/dL Troponin I Less than 0.02 L (0.02-0.05) ng/mL Cholesterol 202 H (120-200) mg/dL LDL Cholesterol, Calc 140 H (0-99) mg/dL HDL Cholesterol 38.0 L (40.0-60.0) mg/dL Short CBC 06/07/18 Range/Units 03:56 WBC 4.4 (4.0-11.0) th/mm3 Hgb 13.2 (13.0-17.0) gm/dL Hct 37.9 L (39.0-51.0) % Plt Count 231 (150-450) th/mm3 BMP 06/07/18 03:56 Sodium 141 Potassium 3.8 Chloride 105 Carbon Dioxide 28.8 BUN 20 H Creatinine 1.18 Calcium 8.2 L Cardiac Enzymes 06/06/18 Range/Units 13:55 Troponin I Less than 0.02 L (0.02-0.05) ng/mL <Lacy Espinal T - 06/07/18 12:36> Physical Exam Vital signs: Vital Signs 06/06/18 16:00 06/06/18 17:34 06/06/18 19:00 Temperature 98.6 F Pulse Rate 49 L 49 L Respiratory Rate 17 Blood Pressure 165/88 H Pulse Oximetry 97 99 06/06/18 20:00 06/06/18 21:00 06/06/18 22:00 Temperature 98.0 F Pulse Rate 50 L 48 L 44 L Respiratory Rate 18 Blood Pressure 161/85 H Pulse Oximetry 96 06/06/18 23:00 06/07/18 00:00 06/07/18 01:00 Temperature 98.3 F Pulse Rate 48 L 46 L 44 L Respiratory Rate 18 Blood Pressure 157/82 H Pulse Oximetry 96 06/07/18 02:00 06/07/18 03:00 06/07/18 03:33 Temperature Pulse Rate 47 L 49 L 51 L Respiratory Rate 16 Blood Pressure 131/83 Pulse Oximetry 97 06/07/18 04:00 06/07/18 05:00 06/07/18 06:02 Temperature Pulse Rate 42 L 42 L 42 L Respiratory Rate Blood Pressure Pulse Oximetry 06/07/18 07:00 06/07/18 08:00 06/07/18 08:52 Temperature 97.9 F Pulse Rate 50 L 49 L Respiratory Rate 18 Blood Pressure 127/76 Pulse Oximetry 95 96 92 L 06/07/18 08:53 06/07/18 09:00 06/07/18 10:00 Temperature Pulse Rate 50 L 45 L Respiratory Rate Blood Pressure Pulse Oximetry 93 L 06/07/18 11:00 Temperature 98.0 F Pulse Rate 47 L Respiratory Rate 17 Blood Pressure 127/76 Pulse Oximetry 95 Intake & Output 06/06/18 06/07/18 06/07/18 18:59 06:59 18:59 Intake Total 1900 / 1900 720 / 720 Output Total 600 / 600 300 / 300 Balance 1300 / 1300 420 / 420 Weight 70.307 kg 59.5 kg Intake: IV 1500 / 1500 NS Inj 1,000 ML @ Wide Open IV. 1000 / 1000 SIG BOLUS NAIN Rx#:[id number] NS Inj 500 ML @ Wide Open IV. 500 / 500 SIG ONCE ONE Rx#:[id number] Oral 400 / 400 720 / 720 Output: Urine 600 / 600 300 / 300 Other: # Urine Diapers 1 Date of Last Bowel Movement 06/07/18 # Bowel Movements 1 Weight On Admission 70.307 kg <Rakan Romero - 06/07/18 14:00> Vital Signs 06/06/18 16:00 06/06/18 17:34 06/06/18 19:00 Temperature 98.6 F Pulse Rate 49 L 49 L Respiratory Rate 17 Blood Pressure 165/88 H Pulse Oximetry 97 99 06/06/18 20:00 06/06/18 21:00 06/06/18 22:00 Temperature 98.0 F Pulse Rate 50 L 48 L 44 L Respiratory Rate 18 Blood Pressure 161/85 H Pulse Oximetry 96 06/06/18 23:00 06/07/18 00:00 06/07/18 01:00 Temperature 98.3 F Pulse Rate 48 L 46 L 44 L Respiratory Rate 18 Blood Pressure 157/82 H Pulse Oximetry 96 06/07/18 02:00 06/07/18 03:00 06/07/18 03:33 Temperature Pulse Rate 47 L 49 L 51 L Respiratory Rate 16 Blood Pressure 131/83 Pulse Oximetry 97 06/07/18 04:00 06/07/18 05:00 06/07/18 06:02 Temperature Pulse Rate 42 L 42 L 42 L Respiratory Rate Blood Pressure Pulse Oximetry 06/07/18 07:00 06/07/18 08:00 06/07/18 08:52 Temperature 97.9 F Pulse Rate 50 L 49 L Respiratory Rate 18 Blood Pressure 127/76 Pulse Oximetry 95 96 92 L 06/07/18 08:53 06/07/18 09:00 06/07/18 10:00 Temperature Pulse Rate 50 L 45 L Respiratory Rate Blood Pressure Pulse Oximetry 93 L Intake & Output 06/06/18 06/07/18 06/07/18 18:59 06:59 18:59 Intake Total 1900 / 1900 720 / 720 Output Total 600 / 600 300 / 300 Balance 1300 / 1300 420 / 420 Weight 70.307 kg 59.5 kg Intake: IV 1500 / 1500 NS Inj 1,000 ML @ Wide Open IV. 1000 / 1000 SIG BOLUS NAIN Rx#:[id number] NS Inj 500 ML @ Wide Open IV. 500 / 500 SIG ONCE ONE Rx#:[id number] Oral 400 / 400 720 / 720 Output: Urine 600 / 600 300 / 300 Other: # Urine Diapers 1 Date of Last Bowel Movement 06/07/18 # Bowel Movements 1 Weight On Admission 70.307 kg <Lacy Espinal 06/07/18 12:36> - Constitutional no acute distress, somnolent (Patient was extremely lethargic) <Lacy Espinal 06/07/18 12:36> Comments: Patient is increasingly somnolent this morning, does not appear to be in acute distress but unable to fully assess due to lethargy. <Lacy Espinal 06/07/18 12:36> - Routine HEENT Exam Head: Present: normocephalic. Absent: facial swelling <Lacy Espinal 07/15 12:36> Eye: Absent: normal accommodation (unable to accomodate noted on exam), scleral injection, conjunctivae pink, nystagmus (but patient had overall difficulty tracking) <Lacy Espinal 06/07/18 12:36> ENT: Present: mucous membranes moist, oropharynx clear. Absent: dentition normal <Lacy Espinal 06/07/18 12:36> - Routine Neck Exam Present: supple. Absent: swelling <Lacy Espinal 06/07/18 12:36> - Routine Chest/Breast/Axilla Exam Chest wall: Absent: tenderness, mass <Lacy Espinal 06/07/18 12:36> - Detailed Chest Wall Exam Chest wall: Absent: rib tenderness <Lacy Espinal 06/07/18 12:36> - Routine Respiratory Exam Present: decreased breath sounds (extensive h/o smoking and COPD). Absent: accessory muscle use, respiratory distress, wheezes, crackles <Lacy Espinal 06/07/18 12:36> - Routine Cardiovascular Exam Present: RRR, S1, S2, bradycardia. Absent: murmur, gallop <Lacy Espinal 06/07/18 12:36> - Routine Abdominal Exam Present: surgical scars (midline scar 2/2 to colon resection). Absent: soft, normoactive bowel sounds, tenderness, distended, rebound, guarding <Lacy Espinal 06/07/18 12:36> - Routine Extremities Exam Present: tenderness (intermittent sharp tenderness on right extremity ). Absent : cyanosis, clubbing, edema, pulses intact <Lacy Espinal 06/07/18 12:36> - Detailed Lower Extremity Exam Ankle: Bilateral decreased ROM <Lacy Espinal 06/07/18 12:36> Foot/Toes: Right decreased ROM (limited plantar flexion/extension), Bilateral nail abnormalities <Lacy Espinal 06/07/18 12:36> - Routine Neurological Exam Present: oriented X3, motor deficit (Decreased motor strength 3/5 in upper and lower extremities bilaterally ), altered mental status, nystagmus (horizontal nystagmus ). Absent: CN II-XII intact, sensory deficit, pronator drift <Lacy Espinal 06/07/18 12:36> Difficulty with EOM tracking and unable to accommodate. <Lacy Espinal 06/07/18 12:36> - Routine Psychiatric Exam Present: unable to assess <Lacy Espinal 06/07/18 12:36> Assessment and Plan - Assessment (1) Altered mental status, unspecified Code(s): R41.82 - Altered mental status, unspecified Status: Acute (2) Symptomatic bradycardia Code(s): R00.1 - Bradycardia, unspecified Status: Acute (3) Acute kidney injury Code(s): N17.9 - Acute kidney failure, unspecified Status: Acute (4) Hypertension Code(s): I10 - Essential (primary) hypertension Status: Acute (5) Seizures Code(s): R56.9 - Unspecified convulsions Status: Acute (6) COPD (chronic obstructive pulmonary disease) Code(s): J44.9 - Chronic obstructive pulmonary disease, unspecified Status: Acute (7) Nutrition, metabolism, and development symptoms Code(s): R63.8 - Other symptoms and signs concerning food and fluid intake Status: Acute (8) Hypercholesteremia Code(s): E78.00 - Pure hypercholesterolemia, unspecified Status: Acute <Rakan Romero K - 06/07/18 14:00> (1) Altered mental status, unspecified Code(s): R41.82 - Altered mental status, unspecified Status: Acute (2) Symptomatic bradycardia Code(s): R00.1 - Bradycardia, unspecified Status: Acute (3) Acute kidney injury Code(s): N17.9 - Acute kidney failure, unspecified Status: Acute (4) Hypertension Code(s): I10 - Essential (primary) hypertension Status: Acute (5) Seizures Code(s): R56.9 - Unspecified convulsions Status: Acute (6) COPD (chronic obstructive pulmonary disease) Code(s): J44.9 - Chronic obstructive pulmonary disease, unspecified Status: Acute (7) Nutrition, metabolism, and development symptoms Code(s): R63.8 - Other symptoms and signs concerning food and fluid intake Status: Acute (8) Hypercholesteremia Code(s): E78.00 - Pure hypercholesterolemia, unspecified Status: Acute <Lacy Espinal T - 06/07/18 13:41> - Assessment and Plan 62 year old male with past medical history of hypertension, CHF with preserved ejection fraction of 55-60% (last echo on 02/12), COPD, seizure disorder, and colon cancer s/p colon resection presents to the ED with a chief complaint of weakness and overall feeling unwell. Patient was found to have sinus bradycardia and admitted to assess for etiology. #Altered Mental Status, Acute - DDx: post-ictal state vs. medication side effect vs. 2/2 to bradycardia vs. CVA vs. delirium vs. hypoglycemia vs. infection vs. vs. hypothyroid vs. hypocalcemia - Imaging: Stat MRI of brain w/wo contrast - Order labs: Bedside Blood sugars, VBG, HIV panel, RPR, Vitamin B12, Folate, TSH, Free T4 - Vitamin B12 221, Folate 13.5, TSH 1.9, Free T4 1.24 - One time IV Calcium dose today - Consider continuous EEG and neurology consult if workup is inconclusive #Bilateral Lower Extremity Weakness, Acute - DDx: possibly secondary to hypoperfusion vs. symptomatic bradycardia vs. past h/o stroke vs. new episode of stroke/TIA - Weakness persists and increased this morning - Head CT normal - Physical therapy: [place] walker used; poor balance - limited due to dizziness 2/2 to bradycardia; recommended PT 2/5x a week while in the hospital. - Lipid panel: Cholesterol 202, LDL 140, HDL 38 - Head CT normal - Ordered MRI w/wo contrast #Symptomatic bradycardia, Acute - EKG: sinus bradycardia, borderline prolonged TX interval of 195, prolonged QT interval 510 - Troponin < 0.02 x3 - Heart rate ranging from 42-52bpm - Held home Labetalol 100mg BID without resolution of bradycardia - Continue cardiac telemetry - Consult cardiology for unresolved bradycardia, possible pacemaker placement #Hypercholesterolemia, New - Lipid panel: Cholesterol 202, LDL 140, HDL 38 - ASCVD Risk: 20.8% - Start high intensity statin today: Atorvastatin 80mg PO daily #Acute Kidney Injury - Resolved, BUN/Creatinine today: 16/09.18; GFR trending up 45 -> 62 - Discontinue maintenance fluids, debt and budget counselor on adequate PO fluid intake - Avoid nephrotoxic agents - Monitor BMP #Congestive Heart Failure w/ preserved EF, Chronic - Last Echocardiogram 01/2018: Left ventricular diastolic dysfunction #Seizure Disorder, Chronic - Repeat Depakote levels continue to be < 3 - Keppra levels pending - Continue home Depakote 500 mg p.o. twice daily and Keppra 1000 mg p.o. at bedtime #Hypertension, Chronic - Continue to hold home labetalol - Continue HCTZ 12.5 mg p.o. daily #COPD, Chronic - CXR findings consistent with COPD - Supplemental oxygen as needed to keep O2 sat >92% - DuoNebs as needed #History of DVT, Chronic - Coag panel WNL - Continue home Xarelto 20 mg daily - Discontinue use of Tramadol due to decrease in seizure threshold - Tylenol 650mg PO q6hrs PRN for pain #Tobacco Dependance, Current Smoker - Nicotine patch 14mg #FEN: Diet: Cardiac Diet Fluids: Discontinue fluids and debt and budget counselor on adequate PO fluid intake DVT ppx: Continue home medication Xarelto 20mg Code status: Full Code sdw Tanvi Soliz, M4 <Lacy Espinal T - 06/07/18 13:41> - Attending Attestation The exam, history, and the medical decision-making described in the above note were completed with the assistance of the resident physician. I reviewed and agree with the findings presented. I attest that I had a [id number] encounter with the patient on the same day, and personally performed and documented my assessment and findings in the medical record. On exam today patient somnolent, maintaining saturations and normal breathing effort but falls asleep during conversation and draws out words. He has poor effort but appears weak in all extremities, he has baseline right sided weakness and general weakness leaving him at a 4/5 yesterday but today he is only 3/5 strength on exam. Symptomatic bradycardia - no labetalol for > 36 hrs - consult cardiology, borderline 1st degree AV block only Encephalopathy - get MRI, VBG and EEG - no metabolic abnormalities found on initial labs above Acute Kidney Injury - resolved Weakness/Ambulatory dysfunction - may be result of bradycardia alone, but increasing weakness today raises concerns for other etiologies as well. HFpEF - stopping BB for now - will add ACEi if needed to Seizure Disorder - Stable, no sz in 3 yrs per him but can't r/o post ictal state as accounting for encephalopathy above - will cont home meds unless keppra levels are high Hypertension - Held home labetalol - Continue HCTZ 12.5 mg p.o. daily - will replace with ACEi if needed COPD - no exacerbation - DuoNebs as needed History of DVT - Coag panel WNL - Continue home Xarelto 20 mg daily hx of CVA - on xarelto, with worsening today in weakness particularly on left side and some dysarthria, will get MRI brain Current Smoker - cont half dose nicotine patch Colon Cancer stopped surveillance by his choice but no known recurrence DVT ppx: Continue home medication Xarelto 20mg <Rakan Romero - 06/07/18 14:00> <Lacy Espinal T - Last Filed: 06/07/18 13:41> (1) Altered mental status, unspecified Qualifiers: Altered mental status type: somnolence Qualified Code(s): R40.0 - Somnolence <Rakan Romero - Last Filed: 06/07/18 14:00> (1) Altered mental status, unspecified Qualifiers: Altered mental status type: somnolence Qualified Code(s): R40.0 - Somnolence <Lacy Espinal - Last Filed: 06/07/18 13:41> (1) Altered mental status, unspecified Qualifiers: Altered mental status type: somnolence Qualified Code(s): R40.0 - Somnolence <Rakan Romero - Last Filed: 06/07/18 14:00> (1) Altered mental status, unspecified Qualifiers: Altered mental status type: somnolence Qualified Code(s): R40.0 - Somnolence
--- NOTE | 2018-06-07 15:32 | MG ---
cc: Kelly Garduno MD EEG NUMBER: [id number] REFERRING PHYSICIAN: Dr. Espinal. ROOM: 4054. Awake, drowsy, asleep with photic done. Would not respond to the technicians or to the nurse during the hookup. Last EEG in January, no report; CT negative. Admitted with occipital headache, weakness; history of colon cancer, seizure, pancreatitis, alcohol use. MEDICATIONS: 1. Depakote. 2. Keppra DESCRIPTION OF RECORD: Current background is of 6 Hz. Symmetrical. Otherwise, fairly diffuse symmetrical; mild slowing predominantly of high theta frequency, 6 Hz. Some artifact. Photic stimulation with a driving response. EKG cannot be interpreted. IMPRESSION: Mild slowing of the background consistent with a possible mild encephalopathic process without any epileptiform features. Clinical correlation. Kelly Garduno MD DF/ralf , 03:07 PM , 03:14 PM
[2018-06-07] MEDS: levETIRAcetam 500 MG Tablet PO SCH (21:02)
--- NOTE | 2018-06-07 21:16 | P.CONCA ---
History of Present Illness Consult date: 06/07/18 Primary Care Provider: UNKNOWN Chief Complaint: bradycardia History of Present Illness: 62 year old with a history of CHF who was found to have bradycardia. His Labetolol was stopped and he continued to have sinus bradycardia and fatigue so I was consulted to evaluate for possible pacemaker implantation. Upon my interview he is quite somnolent stating " he doesn't want a procedure". It was particularly difficult to asxertain any sort of a history. The amount of information that I received was that he was tired. He denied chest pain, shortness of breath, PND, or orthopnea. He has a history of seizures and a thoughful Neurological workup is already in order by the primary team. In review of the telemetry there was no evidence of any sinister bradyarrhythmias. Review of Systems unobtainable due to mental condition PMFSH - History History 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 - Medical History Medical History: Medical History (Last Reviewed 06/07/18 @ 11:08 by Bola Robles, PT) CHF (congestive heart failure) CVA (cerebral vascular accident) Colon cancer DVT (deep venous thrombosis) Hypertension Seizures Tobacco abuse - Surgical History Surgical History: Surgical History (Last Reviewed 06/06/18 @ 05:15 by Ubaldo Solomon) History of colon resection History of colon surgery - Family History Family History: Family History (Last Updated 06/06/18 @ 14:27 by Lacy Espinal MD, R2) Father Myocardial infarct - Tobacco History Second Hand Smoke Exposure: No Tobacco Use In Past 30 Days: Yes Smoking Status: Former smoker Tobacco Type: Cigarettes Packs Per Day: 1 Cigarettes Per Day: 20.0 - Alcohol History How Often Do You Have a Drink Containing Alcohol: Never - Substance Use History Substance History: No History of Abuse - Substance Use Type Marijuana Type: intermittant marijuana Status: Active Route Used: Inhalation Frequency: OCCASIONAL Reason for Use: Calm Down, Sleep - Travel History Recent Travel in the [place] Within the Last 8 Weeks: No Recent Travel Out of the Country Within the Last 8 Weeks: No - Immunization History Tetanus Immunization: <5 Years Tetanus Immunization Year if Known: 2015 Medications and Allergies Active Medications: Active Medications Acetaminophen (Tylenol) 650 mg PO Q6H PRN PRN Reason: PAIN 1-10 AND/OR FEVER >101F Albuterol (Duoneb Neb (Prn)) 1 ampul NEB Q4HR NEB PRN PRN Reason: SHORTNESS OF BREATH Atorvastatin Calcium (Lipitor) 80 mg PO DAILY [facility] Last Admin: 06/07/18 09:18 Dose: 80 mg Divalproex Sodium (Depakote Dr) 500 mg PO BID [facility] Last Admin: 06/07/18 21:02 Dose: 500 mg Hydrochlorothiazide (Microzide) 12.5 mg PO DAILY [facility] Last Admin: 06/07/18 09:18 Dose: 12.5 mg Sodium Chloride (Ns Inj) 1,000 mls @ 0 mls/hr IV.SIG BOLUS [facility] Last Infusion: 06/06/18 11:15 Dose: Infused Sodium Chloride (Ns Inj) 1,000 mls @ 100 mls/hr IV.CONT .Q10H [facility] Levetiracetam (Keppra) 1,000 mg PO HS [facility] Last Admin: 06/07/18 21:02 Dose: 1,000 mg Nicotine (Habitrol 14 Mg Patch.24 Hr) 1 patch T-DERMAL DAILY [facility] Last Admin: 06/07/18 09:18 Dose: 1 patch Rivaroxaban (Xarelto) 20 mg PO DAILY [facility] Last Admin: 06/07/18 09:18 Dose: 20 mg Sodium Chloride (Ns Flush) 2 ml IV.FLUSH BID [facility] Last Admin: 06/07/18 21:03 Dose: 2 ml Sodium Chloride (Ns Flush) 2 ml IV.FLUSH PRN PRN PRN Reason: FLUSH AFTER USING IV ACCESS Allergies Allergy/AdvReac Type Severity Reaction Status Date / Time amlodipine Allergy Severe Swelling Verified 06/06/18 04:36 amoxicillin Allergy Severe "LIPS Verified 06/06/18 04:36 SWELL" clavulanic acid Allergy Severe "LIPS Verified 06/06/18 04:36 SWELL" diatrizoate meglumine Allergy Severe Anaphylaxis; Verified 06/06/18 04:36 06/04/09: PT TOLERATES ORAL CONTRAST W/O AE diazepam Allergy Severe RESPIRATORY Verified 06/06/18 04:36 DISTRESS enalaprilat Allergy Severe Swelling Verified 06/06/18 04:36 of Lip/Tongue/Throat erythromycin base Allergy Severe RASH Verified 06/06/18 04:36 gadobenic acid Allergy Severe Anaphylaxis; Verified 06/06/18 04:36 06/04/09: PT TOLERATES ORAL CONTRAST W/O AE gadodiamide Allergy Severe Anaphylaxis; Verified 06/06/18 04:36 06/04/09: PT TOLERATES ORAL CONTRAST W/O AE gadoteridol Allergy Severe Anaphylaxis; Verified 06/06/18 04:36 06/04/09: PT TOLERATES ORAL CONTRAST W/O AE haloperidol Allergy Severe "TIGHT JAW" Verified 06/06/18 04:36 iodixanol Allergy Severe Anaphylaxis; Verified 06/06/18 04:36 06/04/09: PT TOLERATES ORAL CONTRAST W/O AE iohexol Allergy Severe PT NEEDS Verified 06/06/18 04:36 PREMED/DOESN'T KNOW REACTION benazepril Allergy Intermediate Hives Verified 06/06/18 04:36 captopril Allergy Intermediate Hives Verified 06/06/18 04:36 fosinopril Allergy Intermediate Hives Verified 06/06/18 04:36 lisinopril Allergy Intermediate Itching Verified 06/06/18 04:36 morphine Allergy Intermediate Itching Verified 06/06/18 04:36 quinapril Allergy Unknown UNKNOWN Verified 06/06/18 04:36 REACTION prochlorperazine AdvReac Severe Hives Verified 06/06/18 04:36 Home Medications Medication Instructions Recorded Confirmed Type divalproex [Depakote] 500 mg PO BID 03/05/18 06/06/18 History levetiracetam [Keppra] 500 mg PO DAILY 03/05/18 06/06/18 History hydrochlorothiazide 12.5 mg PO DAILY 04/09/18 06/06/18 History labetalol 100 mg PO BID 04/09/18 06/06/18 History hydrocodone-acetaminophen 1 tab PO Q4-6H PRN 06/06/18 06/06/18 History Exam Vital signs: Vital Signs 06/06/18 22:00 06/06/18 23:00 06/07/18 00:00 Temperature 98.3 F Pulse Rate 44 L 48 L 46 L Respiratory Rate 18 Blood Pressure 157/82 H Pulse Oximetry 96 06/07/18 01:00 06/07/18 02:00 06/07/18 03:00 Temperature Pulse Rate 44 L 47 L 49 L Respiratory Rate Blood Pressure Pulse Oximetry 06/07/18 03:33 06/07/18 04:00 06/07/18 05:00 Temperature Pulse Rate 51 L 42 L 42 L Respiratory Rate 16 Blood Pressure 131/83 Pulse Oximetry 97 06/07/18 06:02 06/07/18 07:00 06/07/18 08:00 Temperature 97.9 F Pulse Rate 42 L 50 L 49 L Respiratory Rate 18 Blood Pressure 127/76 Pulse Oximetry 95 96 06/07/18 08:52 06/07/18 08:53 06/07/18 09:00 Temperature Pulse Rate 50 L Respiratory Rate Blood Pressure Pulse Oximetry 92 L 93 L 06/07/18 10:00 06/07/18 11:00 06/07/18 12:00 Temperature 98.0 F Pulse Rate 45 L 47 L 45 L Respiratory Rate 17 Blood Pressure 127/76 Pulse Oximetry 95 06/07/18 14:00 06/07/18 15:00 06/07/18 16:00 Temperature 98.0 F Pulse Rate 50 L 51 L 51 L Respiratory Rate 18 Blood Pressure 134/83 Pulse Oximetry 95 06/07/18 18:00 Temperature Pulse Rate 73 Respiratory Rate Blood Pressure Pulse Oximetry Intake & Output 06/07/18 06/07/18 06/08/18 06:59 18:59 06:59 Intake Total 720 / 720 470 / 470 Output Total 300 / 300 700 / 700 Balance 420 / 420 -230 / -230 Weight 59.5 kg Intake: IV 110 / 110 Calcium Gluconate Inj 1 GM In 110 / 110 D5W Inj 100 ML @ 110 mls/hr IV. SIG ONCE ONE Rx#:[id number] Oral 720 / 720 360 / 360 Output: Urine 300 / 300 700 / 700 Other: # Urine Diapers 1 Date of Last Bowel Movement 06/07/18 # Bowel Movements 1 - Constitutional no acute distress - Routine HEENT Exam Head: Present: normocephalic Eye: Present: EOMI - Routine Neck Exam Present: supple. Absent: JVD - Routine Respiratory Exam Present: CTA bilaterally - Routine Cardiovascular Exam Present: S1, S2, bradycardia - Routine Abdominal Exam Present: soft, normoactive bowel sounds - Routine Extremities Exam Absent: edema - Routine Neurological Exam Present: alert, oriented X3, CN II-XII intact - Routine Psychiatric Exam Present: normal affect Results 06/07/18 03:56 06/07/18 03:56 Cardiac Enzymes 06/06/18 06/06/18 06/06/18 Range/Units 05:35 05:35 08:33 AST 24 (15-37) U/L Troponin I Less than 0.02 L Less than 0.02 L (0.02-0.05) ng/mL B-Natriuretic Peptide 25 (0-100) pg/mL 06/06/18 Range/Units 13:55 AST (15-37) U/L Troponin I Less than 0.02 L (0.02-0.05) ng/mL B-Natriuretic Peptide (0-100) pg/mL Coagulation 06/06/18 06/06/18 Range/Units 05:35 05:35 PT 10.2 (9.8-11.6) sec APTT 27.6 (24.3-30.1) sec B-Natriuretic Peptide 25 (0-100) pg/mL Lipids 06/06/18 06/06/18 Range/Units 13:55 16:39 Triglycerides 118 Cancelled (42-150) mg/dL Cholesterol 202 H Cancelled (120-200) mg/dL HDL Cholesterol 38.0 L Cancelled (40.0-60.0) mg/dL Cholesterol/HDL Ratio 5.31 Cancelled Ratio CBC 06/06/18 06/07/18 Range/Units 05:35 03:56 WBC 5.7 4.4 (4.0-11.0) th/mm3 RBC 4.39 L 4.04 L (4.50-5.90) mil/mm3 Hgb 14.5 13.2 (13.0-17.0) gm/dL Hct 42.2 37.9 L (39.0-51.0) % Plt Count 260 231 (150-450) th/mm3 Neut # (Auto) 3.5 2.1 (1.8-7.7) th/mm3 Lymph # (Auto) 1.6 1.6 (1.0-4.8) th/mm3 [place] # (Auto) 0.5 0.5 (0.0-0.9) th/mm3 Eos # (Auto) 0.1 0.2 (0.0-0.4) th/mm3 Baso # (Auto) 0.0 0.0 (0.0-0.2) th/mm3 Comprehensive Metabolic Panel 06/06/18 06/07/18 Range/Units 05:35 03:56 Sodium 135 L 141 (136-145) meq/L Potassium 3.6 3.8 (3.5-5.1) meq/L Chloride 98 105 (98-107) meq/L Carbon Dioxide 25.5 28.8 (21.0-32.0) meq/L BUN 25 H 20 H (7-18) mg/dL Creatinine 1.57 H 1.18 (0.60-1.30) mg/dL Calcium 8.3 L 8.2 L (8.5-10.1) mg/dL AST 24 (15-37) U/L ALT 28 (12-78) U/L Alkaline Phosphatase 85 (45-117) U/L Total Protein 7.3 (6.4-8.2) g/dL Albumin 3.7 (3.4-5.0) g/dL Intake and Output 06/07/18 06/07/18 06/07/18 06:59 14:59 22:59 Intake Total 720 / 720 110 / 110 360 / 360 Output Total 300 / 300 700 / 700 Balance 420 / 420 110 / 110 -340 / -340 Intake: IV 110 / 110 Calcium Gluconate Inj 1 GM In 110 / 110 D5W Inj 100 ML @ 110 mls/hr IV. SIG ONCE ONE Rx#:[id number] Oral 720 / 720 360 / 360 Output: Urine 300 / 300 700 / 700 Other: # Urine Diapers 1 Date of Last Bowel Movement 06/07/18 # Bowel Movements 1 Weight 59.5 kg - Imaging and Cardiology Imaging: Impressions Chest X-Ray 06/06/18 05:25 CONCLUSION: No acute cardiopulmonary abnormality is identified. Head CT 06/06/18 06:49 CONCLUSION: 1. No acute intracranial abnormality. . - EKG Interpretation EKG: sinus rhythm EKG shows: bradycardia EKG interpretations - EKG EKG shows: bradycardia - Dysrhythmias Sinus rhythms and dysrhythmias: sinus rhythm Assessment and Plan - Plan Bradycardia Hx of HFpeF Seizure Disorder Somnolence Hopefully the cessation of labetolol will improve his HR as nothing else stands out for possibly being the culprit. WIll review his telemetry again tommorow and make further recs. Until then I have ordered a limited TTE. His BP is fairly controlled so need for additional meds right now. Thank you for allowing me to participate. Call me anytime with questions.
[2018-06-08 04:24] LABS: Hematocrit 44.3 % (39.0-51.0); Hemoglobin 14.7 gm/dL (13.0-17.0); Mean Corpuscular HGB Conc 33.1 % (32.0-36.0); Mean Corpuscular Volume 96.6 fL (80.0-100.0); Mean Platelet Volume 7.8 fL (7.0-11.0); Platelet Count 253 th/mm3 (150-450); Red Blood Count 4.59 mil/mm3 (4.50-5.90); Red Cell Distribution Width 14.3 % (11.6-17.2); White Blood Count 5.6 th/mm3 (4.0-11.0)
[2018-06-08 04:42] LABS: Calcium 8.6 mg/dL (8.5-10.1); Carbon Dioxide 28.3 meq/L (21.0-32.0); Potassium 3.5 meq/L (3.5-5.1)
[2018-06-08] MEDS: Sod Chloride 0.9% Inj 1,000 ML IV.CONT SCH ×4 (07:00→14:00)
[2018-06-08] MEDS: Rivaroxaban 20 MG Tablet PO SCH (09:54)
[2018-06-08] MEDS: Divalproex 500 MG DR Tablet PO SCH ×2 (09:54→20:30)
--- NOTE | 2018-06-08 10:28 | P.PNFP ---
Subjective Interval history: No overnight events reported. Patient is doing better this morning and is more alert and oriented. He continues to report some weakness and lethargy, but is not able to differentiate whether it is his baseline weakness or not. He has had limited ambulation but is walking to use the bathroom with assistance. He denies having headache shortness of breath, abdominal pain, dysuria, or constipation, but does endorse intermittent, nonradiating, left-sided chest pain that lasted for about 2-3 hours. In addition, he continues to have right-sided leg pain secondary to his DVTs ( chronic); he reports using Tylenol in the past with no resolution and is asking for additional pain control medication. We spoke to patient about possible discharge to inpatient rehab facility and patient is agreeable with that plan. Case management has been consulted and will contact us with possible rehab facilities. We will consult physical therapy to reassess today in regards to ambulation and recommendation for outpatient rehabilitation. Cardiology saw him yesterday due to unresolved bradycardia and recommended a limited TTE to be done today, but are not concerned of any sinister bradyarrhythmias or need for pacemaker placement. They will reassess today. <Lacy Espinal T - 06/08/18 10:28> Results - Labs Result diagrams: 06/08/18 03:27 06/08/18 03:27 <Rakan Romero - 06/08/18 12:56> Abnormal lab results 06/06/18 06/08/18 Range/Units 13:55 03:27 Sodium 135 L (136-145) meq/L Anion Gap 3 L (5-15) meq/L Estimated GFR 68 L (>89) mL/min Levetiracetam Less than 2.0 L (12.0 - 46.0) mcg/mL Short CBC 06/08/18 Range/Units 03:27 WBC 5.6 (4.0-11.0) th/mm3 Hgb 14.7 (13.0-17.0) gm/dL Hct 44.3 (39.0-51.0) % Plt Count 253 (150-450) th/mm3 BMP 06/08/18 03:27 Sodium 135 L Potassium 3.5 Chloride 104 Carbon Dioxide 28.3 BUN 16 Creatinine 1.10 Calcium 8.6 <Rakan Romero - 06/08/18 12:56> Abnormal lab results 06/06/18 06/07/18 06/08/18 Range/Units 13:55 03:56 03:27 Sodium 135 L (136-145) meq/L Anion Gap 3 L (5-15) meq/L Estimated GFR 68 L (>89) mL/min Valproic Acid Less than 3 L (50-100) mcg/mL Levetiracetam Less than 2.0 L (12.0 - 46.0) mcg/mL Short CBC 06/08/18 Range/Units 03:27 WBC 5.6 (4.0-11.0) th/mm3 Hgb 14.7 (13.0-17.0) gm/dL Hct 44.3 (39.0-51.0) % Plt Count 253 (150-450) th/mm3 BMP 06/08/18 03:27 Sodium 135 L Potassium 3.5 Chloride 104 Carbon Dioxide 28.3 BUN 16 Creatinine 1.10 Calcium 8.6 <Lacy Espinal T - 06/08/18 10:28> Physical Exam Vital signs: Vital Signs 06/07/18 14:00 06/07/18 15:00 06/07/18 16:00 Temperature 98.0 F Pulse Rate 50 L 51 L 51 L Respiratory Rate 18 Blood Pressure 134/83 Pulse Oximetry 95 06/07/18 18:00 06/07/18 20:00 06/07/18 22:00 Temperature 97.7 F Pulse Rate 73 54 L 54 L Respiratory Rate 18 Blood Pressure 168/85 H Pulse Oximetry 96 06/08/18 00:00 06/08/18 02:00 06/08/18 04:00 Temperature 97.9 F 97.8 F Pulse Rate 57 L 52 L 55 L Respiratory Rate 18 18 Blood Pressure 151/91 H 146/95 H Pulse Oximetry 97 97 06/08/18 06:00 06/08/18 07:00 06/08/18 08:00 Temperature Pulse Rate 50 L 55 L 53 L Respiratory Rate 18 Blood Pressure Pulse Oximetry 92 L 06/08/18 09:00 06/08/18 09:15 06/08/18 10:00 Temperature Pulse Rate 58 L 59 L Respiratory Rate Blood Pressure Pulse Oximetry 97 06/08/18 11:00 Temperature Pulse Rate 59 L Respiratory Rate Blood Pressure Pulse Oximetry Intake & Output 06/07/18 06/08/18 06/08/18 18:59 06:59 18:59 Intake Total 470 / 470 300 / 300 Output Total 700 / 700 800 / 800 Balance -230 / -230 -500 / -500 Weight 57.9 kg Intake: IV 110 / 110 Calcium Gluconate Inj 1 GM In 110 / 110 D5W Inj 100 ML @ 110 mls/hr IV. SIG ONCE ONE Rx#:[id number] Oral 360 / 360 300 / 300 Output: Urine 700 / 700 800 / 800 Other: Date of Last Bowel Movement 06/07/18 06/07/18 # Bowel Movements 1 <Rakan Romero K - 06/08/18 12:56> Vital Signs 06/07/18 10:00 06/07/18 11:00 06/07/18 12:00 Temperature 98.0 F Pulse Rate 45 L 47 L 45 L Respiratory Rate 17 Blood Pressure 127/76 Pulse Oximetry 95 06/07/18 14:00 06/07/18 15:00 06/07/18 16:00 Temperature 98.0 F Pulse Rate 50 L 51 L 51 L Respiratory Rate 18 Blood Pressure 134/83 Pulse Oximetry 95 06/07/18 18:00 06/07/18 20:00 06/07/18 22:00 Temperature 97.7 F Pulse Rate 73 54 L 54 L Respiratory Rate 18 Blood Pressure 168/85 H Pulse Oximetry 96 06/08/18 00:00 06/08/18 02:00 06/08/18 04:00 Temperature 97.9 F 97.8 F Pulse Rate 57 L 52 L 55 L Respiratory Rate 18 18 Blood Pressure 151/91 H 146/95 H Pulse Oximetry 97 97 06/08/18 06:00 06/08/18 07:00 06/08/18 09:15 Temperature Pulse Rate 50 L 55 L Respiratory Rate Blood Pressure Pulse Oximetry 97 Intake & Output 06/07/18 06/08/18 06/08/18 18:59 06:59 18:59 Intake Total 470 / 470 300 / 300 Output Total 700 / 700 800 / 800 Balance -230 / -230 -500 / -500 Weight 57.9 kg Intake: IV 110 / 110 Calcium Gluconate Inj 1 GM In 110 / 110 D5W Inj 100 ML @ 110 mls/hr IV. SIG ONCE ONE Rx#:[id number] Oral 360 / 360 300 / 300 Output: Urine 700 / 700 800 / 800 Other: Date of Last Bowel Movement 06/07/18 # Bowel Movements 1 <Lacy Espinal 06/08/18 10:28> Narrative: General: Resting in bed, no acute distress HENT: PERRLA, EOMI, throat clear, no lymphadenopathy Cardio: Sinus bradycardia, No murmurs rubs or gallops Pulmonary: Clear to auscultation bilaterally no wheezes or crackles Abdomen: Soft, nontender, nondistended, positive bowel sounds Extremities: b/l heels discolored, pedal pulses 2+ Neuro: Alert and oriented x3, CN II-XII intact, b/l upper extremity weakness 3/5 , b/l lower extremity weakens 3/5, slow [id number] test, Negative pronator drift, sensation intact throughout <Lacy Espinal 06/08/18 10:28> - Constitutional no acute distress, cooperative <Lacy Espinal 06/08/18 10:28> Comments: Patient is alert and oriented x3 and is able to respond to questions adequately today. He is pleasant today, laying in hospital bed comfortably, and is in no apparent acute distress. <Lacy Espinal 06/08/18 10:28> - Routine HEENT Exam Head: Present: normocephalic, atraumatic <Lacy Espinal 06/08/18 10:28> Eye: Absent: normal accommodation (limited accomodation), nystagmus <Lacy Espinal 06/08/18 10:28> ENT: Present: mucous membranes moist <Lacy Espinal 06/08/18 10:28> - Routine Chest/Breast/Axilla Exam Chest wall: Absent: tenderness <Lacy Espinal 06/08/18 10:28> - Routine Respiratory Exam Absent: accessory muscle use, diminished air movement (extensive smoking history and COPD) <Lacy Espinal 06/08/18 10:28> - Routine Cardiovascular Exam Present: RRR, S1, S2, bradycardia (HR ranging from 52-57 this AM). Absent: murmur, gallop <Lacy Espinal 06/08/18 10:28> - Routine Abdominal Exam Present: soft, normoactive bowel sounds, surgical scars (midline vertical scar 2 /2 to colon resection). Absent: tenderness, distended, guarding <Lacy Espinal - 06/08/18 10:28> - Detailed Extremities Exam: Vascular Peripheral pulses: 2+ radial (L), 2+ radial (R), 2+ posterior tibialis (L), 2+ posterior tibialis (R), 2+ dorsalis pedis (L), 2+ dorsalis pedis (R) <Lacy Espinal - 06/08/18 10:28> - Routine Neurological Exam Present: alert, oriented X3, CN II-XII intact, motor deficit (strength testing: bilateral upper extremity 3/5, bilateral lower extremity 3/5; patient unable to differentiate whether this is his baseline weakness after CVA episode at 22 years old), moving all extremities, vision grossly intact, hearing grossly intact, normal speech. Absent: sensory deficit, altered mental status, facial asymmetry <Lacy Espinal 06/08/18 10:28> Extraocular movements intact but noted limitation during accommodation bilaterally. Pupils are reactive to light bilaterally. Patient is experiencing generalized motor weakness in both upper and lower extremities. <Lacy Espinal [facility] 06/08/18 10:28> - Routine Psychiatric Exam Present: normal affect, cooperative <Lacy Espinal 06/08/18 10:28> Comments: Patient no longer experiencing altered mental status. <Lacy Espinal 06/08/18 10:28> Assessment and Plan - Assessment (1) Altered mental status, unspecified Code(s): R41.82 - Altered mental status, unspecified Status: Acute (2) Symptomatic bradycardia Code(s): R00.1 - Bradycardia, unspecified Status: Acute (3) Acute kidney injury Code(s): N17.9 - Acute kidney failure, unspecified Status: Acute (4) Hypertension Code(s): I10 - Essential (primary) hypertension Status: Acute (5) Seizures Code(s): R56.9 - Unspecified convulsions Status: Acute (6) COPD (chronic obstructive pulmonary disease) Code(s): J44.9 - Chronic obstructive pulmonary disease, unspecified Status: Acute (7) Nutrition, metabolism, and development symptoms Code(s): R63.8 - Other symptoms and signs concerning food and fluid intake Status: Acute (8) Hypercholesteremia Code(s): E78.00 - Pure hypercholesterolemia, unspecified Status: Acute <Rakan Romero - 06/08/18 12:56> (1) Altered mental status, unspecified Code(s): R41.82 - Altered mental status, unspecified Status: Acute (2) Symptomatic bradycardia Code(s): R00.1 - Bradycardia, unspecified Status: Acute (3) Acute kidney injury Code(s): N17.9 - Acute kidney failure, unspecified Status: Acute (4) Hypertension Code(s): I10 - Essential (primary) hypertension Status: Acute (5) Seizures Code(s): R56.9 - Unspecified convulsions Status: Acute (6) COPD (chronic obstructive pulmonary disease) Code(s): J44.9 - Chronic obstructive pulmonary disease, unspecified Status: Acute (7) Nutrition, metabolism, and development symptoms Code(s): R63.8 - Other symptoms and signs concerning food and fluid intake Status: Acute (8) Hypercholesteremia Code(s): E78.00 - Pure hypercholesterolemia, unspecified Status: Acute <Lacy Espinal - 06/08/18 10:35> - Assessment and Plan 62 year old male with past medical history of hypertension, CHF with preserved ejection fraction of 55-60% (last echo on 02/12), COPD, seizure disorder, and colon cancer s/p colon resection presents to the ED with a chief complaint of weakness and overall feeling unwell. Patient was found to have sinus bradycardia and admitted to assess for etiology. #Bilateral Lower Extremity Weakness, Acute - DDx: possibly secondary to hypoperfusion vs. symptomatic bradycardia vs. past h/o stroke vs. new episode of stroke/TIA - Imaging: Head CT normal - Consult PT to reassess ambulation today and possible recommendation to d/c to SNF - Case management was consulted for possible SNF placement - Additional imaging: MRI w/wo contrast today #Symptomatic bradycardia, Acute - Heart rate ranging from 50-57 this morning - Initial workup: (EKG) sinus bradycardia, borderline prolonged [place] interval of 195, prolonged QT interval 510, (Troponins) < 0.02 x3 - EKG (repeated 06/08/2018): Sinus bradycardia with prolonged QT interval, nonspecific lateral T wave changes. - Cardiology recommendation (Dr. William Stark): Unable to obtain adequate history due to somnolence, no sinister bradyarrhythmias noted, will reassess today. - Imaging: Transthoracic Echo ordered per cardiology recommendation - Continue to hold Labetalol 100mg BID - Continue cardiac telemetry #Altered Mental Status, Resolved - DDx: post-ictal state vs. medication side effect vs. 2/2 to bradycardia vs. CVA vs. delirium vs. hypoglycemia vs. infection vs. vs. hypothyroid vs. hypocalcemia - Labs: Vitamin B12 221, Folate 13.5, TSH 1.9, Free T4 1.24, HIV non-reactive, RPR pending, BG this AM 80 - EEG impression: Mild slowing of the background consistent with a possible mild encephalopathic process without any epileptiform features. - Imaging: MRI of brain w/wo contrast pending #Hypercholesterolemia, Chronic - Continue Atorvastatin 80mg PO daily #Congestive Heart Failure w/ preserved EF, Chronic - Last Echocardiogram 01/2018: Left ventricular diastolic dysfunction - Imaging: TTE ordered per cardiology recommendations #Seizure Disorder, Chronic - Depakote & Keppra levels: subtherapeutic levels - Continue home Depakote 500 mg p.o. twice daily and Keppra 1000 mg p.o. at bedtime - Follow-up with PCP (Dr. Hubbard) after discharge for neurology referral #Hypertension, Chronic - Continue to hold home Labetalol - Continue HCTZ 12.5 mg p.o. daily #COPD, Chronic - CXR findings consistent with COPD - Supplemental oxygen as needed to keep O2 sat >92% - DuoNebs as needed #History of DVT, Chronic - Coag panel WNL - Continue home Xarelto 20 mg daily - Pain management: Tylenol 650mg PO q6hrs PRN for pain scale 1-5 - Pain management: [place] 5/325 1 (one) tab q6hrs PRN for pain scale 6-10 #Tobacco Dependance, Current Smoker - Nicotine patch 14mg #FEN: Diet: Cardiac Diet Fluids: Adequate PO fluid intake DVT ppx: Continue home medication Xarelto 20mg Code status: Full Code sdw Tanvi Soliz, M4 <Lacy Espinal T - 06/08/18 10:37> - Attending Attestation The exam, history, and the medical decision-making described in the above note were completed with the assistance of the resident physician. I reviewed and agree with the findings presented. I attest that I had a [id number] encounter with the patient on the same day, and personally performed and documented my assessment and findings in the medical record. 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 On exam he does have more notable weakness on the left than right which is opposite that his supposed baseline. would still like MRI to characterize both old and new potential lesions.but it is encouraging to see him back to his mental baseline and bradycardia still improving a little with more time away from the labetalol as it has been >48hrs without a dose now. If ok with cardiology, could potentially go today to a SNF if accepted and has MRI by the end of the day. Otherwise, may need to monitor here over the weekend. <Rakan Romero K - 06/08/18 12:56> <Lacy Espinal T - Last Filed: 06/08/18 10:35> (1) Altered mental status, unspecified Qualifiers: Altered mental status type: somnolence Qualified Code(s): R40.0 - Somnolence <Rakan Romero - Last Filed: 06/08/18 12:56> (1) Altered mental status, unspecified Qualifiers: Altered mental status type: somnolence Qualified Code(s): R40.0 - Somnolence <Lacy Espinal - Last Filed: 06/08/18 10:35> (1) Altered mental status, unspecified Qualifiers: Altered mental status type: somnolence Qualified Code(s): R40.0 - Somnolence <Rakan Romero K - Last Filed: 06/08/18 12:56> (1) Altered mental status, unspecified Qualifiers: Altered mental status type: somnolence Qualified Code(s): R40.0 - Somnolence
--- NOTE | 2018-06-08 11:24 | P.PNCA ---
Subjective Interval history: No acute events. Remains in sinus bradycardia. More active and alert today. Denies any chest pain or shortness of breath. Medications and Allergies Active Medications: Active Medications Acetaminophen (Tylenol) 650 mg PO Q6H PRN PRN Reason: SEE DOSE INSTRUCTIONS Hydrocodone Bitart/Acetaminophen ([place] 5/325) 1 tab PO Q6H PRN PRN Reason: SEE DOSE INSTRUCTIONS Albuterol (Duoneb Neb (Prn)) 1 ampul NEB Q4HR NEB PRN PRN Reason: SHORTNESS OF BREATH Atorvastatin Calcium (Lipitor) 80 mg PO DAILY [facility] Last Admin: 06/08/18 09:54 Dose: 80 mg Divalproex Sodium (Depakote Dr) 500 mg PO BID [facility] Last Admin: 06/08/18 09:54 Dose: 500 mg Hydrochlorothiazide (Microzide) 12.5 mg PO DAILY [facility] Last Admin: 06/08/18 09:54 Dose: 12.5 mg Sodium Chloride (Ns Inj) 1,000 mls @ 0 mls/hr IV.SIG BOLUS [facility] Last Infusion: 06/06/18 11:15 Dose: Infused Sodium Chloride (Ns Inj) 1,000 mls @ 100 mls/hr IV.CONT .Q10H [facility] Last Admin: 06/08/18 07:02 Dose: Not Given Levetiracetam (Keppra) 1,000 mg PO HS [facility] Last Admin: 06/07/18 21:02 Dose: 1,000 mg Nicotine (Habitrol 14 Mg Patch.24 Hr) 1 patch T-DERMAL DAILY [facility] Last Admin: 06/08/18 09:54 Dose: 1 patch Rivaroxaban (Xarelto) 20 mg PO DAILY [facility] Last Admin: 06/08/18 09:54 Dose: 20 mg Sodium Chloride (Ns Flush) 2 ml IV.FLUSH BID [facility] Last Admin: 06/08/18 09:54 Dose: 2 ml Sodium Chloride (Ns Flush) 2 ml IV.FLUSH PRN PRN PRN Reason: FLUSH AFTER USING IV ACCESS Allergies Allergy/AdvReac Type Severity Reaction Status Date / Time amlodipine Allergy Severe Swelling Verified 06/06/18 04:36 amoxicillin Allergy Severe "LIPS Verified 06/06/18 04:36 SWELL" clavulanic acid Allergy Severe "LIPS Verified 06/06/18 04:36 SWELL" diatrizoate meglumine Allergy Severe Anaphylaxis; Verified 06/06/18 04:36 06/04/09: PT TOLERATES ORAL CONTRAST W/O AE diazepam Allergy Severe RESPIRATORY Verified 06/06/18 04:36 DISTRESS enalaprilat Allergy Severe Swelling Verified 06/06/18 04:36 of Lip/Tongue/Throat erythromycin base Allergy Severe RASH Verified 06/06/18 04:36 gadobenic acid Allergy Severe Anaphylaxis; Verified 06/06/18 04:36 06/04/09: PT TOLERATES ORAL CONTRAST W/O AE gadodiamide Allergy Severe Anaphylaxis; Verified 06/06/18 04:36 06/04/09: PT TOLERATES ORAL CONTRAST W/O AE gadoteridol Allergy Severe Anaphylaxis; Verified 06/06/18 04:36 06/04/09: PT TOLERATES ORAL CONTRAST W/O AE haloperidol Allergy Severe "TIGHT JAW" Verified 06/06/18 04:36 iodixanol Allergy Severe Anaphylaxis; Verified 06/06/18 04:36 06/04/09: PT TOLERATES ORAL CONTRAST W/O AE iohexol Allergy Severe PT NEEDS Verified 06/06/18 04:36 PREMED/DOESN'T KNOW REACTION benazepril Allergy Intermediate Hives Verified 06/06/18 04:36 captopril Allergy Intermediate Hives Verified 06/06/18 04:36 fosinopril Allergy Intermediate Hives Verified 06/06/18 04:36 lisinopril Allergy Intermediate Itching Verified 06/06/18 04:36 morphine Allergy Intermediate Itching Verified 06/06/18 04:36 quinapril Allergy Unknown UNKNOWN Verified 06/06/18 04:36 REACTION prochlorperazine AdvReac Severe Hives Verified 06/06/18 04:36 Home Medications Medication Instructions Recorded Confirmed Type divalproex [Depakote] 500 mg PO BID 03/05/18 06/06/18 History levetiracetam [Keppra] 500 mg PO DAILY 03/05/18 06/06/18 History hydrochlorothiazide 12.5 mg PO DAILY 04/09/18 06/06/18 History labetalol 100 mg PO BID 04/09/18 06/06/18 History hydrocodone-acetaminophen 1 tab PO Q4-6H PRN 06/06/18 06/06/18 History Physical Exam Vital signs: Vital Signs 06/07/18 12:00 06/07/18 14:00 06/07/18 15:00 Temperature 98.0 F Pulse Rate 45 L 50 L 51 L Respiratory Rate 18 Blood Pressure 134/83 Pulse Oximetry 95 06/07/18 16:00 06/07/18 18:00 06/07/18 20:00 Temperature 97.7 F Pulse Rate 51 L 73 54 L Respiratory Rate 18 Blood Pressure 168/85 H Pulse Oximetry 96 06/07/18 22:00 06/08/18 00:00 06/08/18 02:00 Temperature 97.9 F Pulse Rate 54 L 57 L 52 L Respiratory Rate 18 Blood Pressure 151/91 H Pulse Oximetry 97 06/08/18 04:00 06/08/18 06:00 06/08/18 07:00 Temperature 97.8 F Pulse Rate 55 L 50 L 55 L Respiratory Rate 18 Blood Pressure 146/95 H Pulse Oximetry 97 06/08/18 08:00 06/08/18 09:00 06/08/18 09:15 Temperature Pulse Rate 53 L 58 L Respiratory Rate 18 Blood Pressure Pulse Oximetry 92 L 97 06/08/18 10:00 06/08/18 11:00 Temperature Pulse Rate 59 L 59 L Respiratory Rate Blood Pressure Pulse Oximetry Intake & Output 06/07/18 06/08/18 06/08/18 18:59 06:59 18:59 Intake Total 470 / 470 300 / 300 Output Total 700 / 700 800 / 800 Balance -230 / -230 -500 / -500 Weight 57.9 kg Intake: IV 110 / 110 Calcium Gluconate Inj 1 GM In 110 / 110 D5W Inj 100 ML @ 110 mls/hr IV. SIG ONCE ONE Rx#:[id number] Oral 360 / 360 300 / 300 Output: Urine 700 / 700 800 / 800 Other: Date of Last Bowel Movement 06/07/18 06/07/18 # Bowel Movements 1 - Constitutional no acute distress - Routine HEENT Exam Head: Present: normocephalic Eye: Present: EOMI - Routine Neck Exam Present: supple. Absent: JVD - Routine Respiratory Exam Present: CTA bilaterally - Routine Cardiovascular Exam Present: S1, S2, bradycardia - Routine Abdominal Exam Present: soft, normoactive bowel sounds - Routine Extremities Exam Absent: edema - Routine Neurological Exam Present: alert, oriented X3, CN II-XII intact Results 06/08/18 03:27 06/08/18 03:27 Cardiac Enzymes 06/06/18 Range/Units 13:55 Troponin I Less than 0.02 L (0.02-0.05) ng/mL Lipids 06/06/18 06/06/18 Range/Units 13:55 16:39 Triglycerides 118 Cancelled (42-150) mg/dL Cholesterol 202 H Cancelled (120-200) mg/dL HDL Cholesterol 38.0 L Cancelled (40.0-60.0) mg/dL Cholesterol/HDL Ratio 5.31 Cancelled Ratio CBC 06/07/18 06/08/18 Range/Units 03:56 03:27 WBC 4.4 5.6 (4.0-11.0) th/mm3 RBC 4.04 L 4.59 (4.50-5.90) mil/mm3 Hgb 13.2 14.7 (13.0-17.0) gm/dL Hct 37.9 L 44.3 (39.0-51.0) % Plt Count 231 253 (150-450) th/mm3 Neut # (Auto) 2.1 (1.8-7.7) th/mm3 Lymph # (Auto) 1.6 (1.0-4.8) th/mm3 [place] # (Auto) 0.5 (0.0-0.9) th/mm3 Eos # (Auto) 0.2 (0.0-0.4) th/mm3 Baso # (Auto) 0.0 (0.0-0.2) th/mm3 Comprehensive Metabolic Panel 06/07/18 06/08/18 Range/Units 03:56 03:27 Sodium 141 135 L (136-145) meq/L Potassium 3.8 3.5 (3.5-5.1) meq/L Chloride 105 104 (98-107) meq/L Carbon Dioxide 28.8 28.3 (21.0-32.0) meq/L BUN 20 H 16 (7-18) mg/dL Creatinine 1.18 1.10 (0.60-1.30) mg/dL Calcium 8.2 L 8.6 (8.5-10.1) mg/dL Intake and Output 06/07/18 06/08/18 06/08/18 22:59 06:59 14:59 Intake Total 360 / 360 300 / 300 Output Total 700 / 700 800 / 800 Balance -340 / -340 -500 / -500 Intake: Oral 360 / 360 300 / 300 Output: Urine 700 / 700 800 / 800 Other: Date of Last Bowel Movement 06/07/18 06/07/18 06/07/18 # Bowel Movements 1 Weight 57.9 kg Assessment and Plan - Plan Bradycardia Hx of HFpeF Seizure Disorder Somnolence HTN * He is more alert this am. It is possible that the Labetolol is now wearing off. Would continue to hold this medication. The patient continues to be in sinus bradycardia and asymptomatic. No need for PPM today. TTE is unchanged. As far as the HFpeF continue to control the BP. Thank you for allowing me to participate. My colleague Dr. Cook will be available for any questions on an as needed basis. Feel free to contact..
--- NOTE | 2018-06-08 12:41 | ECHRPT ---
Indication: Cardiomyopathy CONCLUSIONS Normal left ventricular size. Wall thickness is normal. The left ventricular systolic function is normal with an estimated ejection fraction in the range of 55-60%. There is trace tricuspid valve regurgitation. The estimated pulmonary arterial pressure is 26 mmHg. BP: / HR: Rhythm: MEASUREMENTS (Male / Female) Normal Values Technical Quality:Technically difficult study 2D ECHO LV Diastolic Diameter PLAX 4.1 cm 4.2 - 5.9 / 3.9 - 5.3 cm LV Systolic Diameter PLAX 2.8 cm IVS Diastolic Thickness 1.1 cm 0.6 - 1.0 / 0.6 - 0.9 cm LVPW Diastolic Thickness 1.1 cm 0.6 - 1.0 / 0.6 - 0.9 cm LV Relative Wall Thickness 0.5 LVOT Diameter 2.0 cm Aortic Root Diameter 2.4 cm LA Systolic Diameter LX 2.7 cm 3.0 - 4.0 / 2.7 - 3.8 cm DOPPLER AV Peak Velocity 96.3 cm/s AV Peak Gradient 3.7 mmHg LVOT Peak Velocity 90.1 cm/s LVOT Peak Gradient 3.2 mmHg AV Area Cont Eq pk 2.9 cm Mitral E Point Velocity 44.4 cm/s Mitral A Point Velocity 63.7 cm/s Mitral E to A Ratio 0.7 LV E' Lateral Velocity 8.5 cm/s Mitral E to LV E' Lateral Ratio 5.2 LV E' Septal Velocity 6.7 cm/s Mitral E to LV E' Septal Ratio 6.6 TR Peak Velocity 201.0 cm/s TR Peak Gradient 16.2 mmHg Right Atrial Pressure 10.0 mmHg Pulmonary Artery Systolic Pressu 26.2 mmHg Right Ventricular Systolic Press 26.2 mmHg PV Peak Velocity 83.4 cm/s PV Peak Gradient 2.8 mmHg FINDINGS LEFT VENTRICLE Normal left ventricular size. Wall thickness is normal. The left ventricular systolic function is normal with an estimated ejection fraction in the range of 55-60%. RIGHT VENTRICLE Normal right ventricular size and systolic function. LEFT ATRIUM The left atrial size is normal. RIGHT ATRIUM The right atrial size is normal. ATRIAL SEPTUM Normal atrial septal thickness without atrial level shunting by limited color doppler interrogation. AORTA The aortic root and proximal ascending aorta are normal in size on limited imaging. MITRAL VALVE Structurally normal mitral valve. No mitral valve stenosis or regurgitation. AORTIC VALVE Trileaflet aortic valve. No aortic valve stenosis or regurgitation. TRICUSPID VALVE There is trace tricuspid valve regurgitation. The estimated pulmonary arterial pressure is 26 mmHg. PULMONARY VALVE No pulmonary valve regurgitation or stenosis. VESSELS The inferior vena cava was not well visualized. PERICARDIUM No pericardial effusion. Bob Clark MD, FACC (Electronically Signed) Final Date:08 June 2018 12:39
--- NOTE | 2018-06-08 15:07 | MR ---
EXAM DATE: 06/08/2018 7:02 AM EDT AGE/SEX: 62 years / Male INDICATIONS: CVA. CLINICAL DATA: This is the patient's initial encounter. Patient reports that signs and symptoms have been present for 1 day and indicates a pain score of 0/10. MEDICAL/SURGICAL HISTORY: Congestive heart failure. Seizures. Hypertension. Colon resection. [place] [facility] [place].. . TECHNIQUE: Multiplanar, multisequence examination of the brain was performed without contrast. FINDINGS: Cerebrum: The ventricles are normal for age. No evidence of midline shift, mass lesion, hemorrhage or acute infarction. No extraaxial fluid collections are seen. The pituitary gland and suprasellar cistern are normal in configuration. White Matter: Scattered foci of high FLAIR signal abnormality involving the periventricular white ma tter both cerebral hemispheres.. Posterior Fossa: The cerebellum and brainstem are intact. The 4th ventricle is midline. The cerebel lopontine angle is unremarkable. The cerebellar tonsils are normal in position. Diffusion Imaging: No focal areas of restricted diffusion are seen. No evidence of acute infarction . Extracranial: The visualized portions of the orbits and paranasal sinuses are unremarkable. CONCLUSION: 1. No acute intracranial abnormality. 2. Chronic small vessel ischemic change. Electronically signed by: Augusto Rivas MD 06/08/2018 3:05 PM EDT
--- NOTE | 2018-06-08 19:36 | ECG ---
Date Performed: 06/08/2018 Time Performed: 05:39:28 PTAGE: 62 years EKG: Sinus bradycardia. Prolonged QT interval Lateral T wave changes are nonspecific Borderline ECG PREVIOUS TRACING : 06/06/2018 10.43 Since the previous tracing, no significant change noted DOCTOR: Ulisses Ramos Interpretating Date/Time 06/08/2018 19:35:59
[2018-06-08] MEDS: levETIRAcetam 500 MG Tablet PO SCH (20:30)
[2018-06-09] MEDS: Sod Chloride 0.9% Inj 1,000 ML IV.CONT SCH ×3 (01:18→23:16)
[2018-06-09] MEDS: Rivaroxaban 20 MG Tablet PO SCH (08:12)
[2018-06-09] MEDS: Divalproex 500 MG DR Tablet PO SCH ×2 (08:13→21:45)
--- NOTE | 2018-06-09 09:24 | P.PNFP ---
Subjective Interval history: Patient had nausea overnight and was bradycardic to 49. Patient received a dose of Reglan. This morning patient's heart rate around 60 on cardiac telemetry. Patient reports that he is still a little nauseated but no vomiting. He tolerated his breakfast well and ate everything. States that he still has pain in his right leg, unchanged from yesterday. States that the nurse just gave him some [place]. He is agreeable to going to SNF. Patient accepted to [facility]. Waiting on prior authorization. Informed patient that he might have to stay till Monday until everything is set up. [id number] form signed this morning. Patient denies chest pain, lightheadedness, shortness of breath, vomiting, abdominal pain, and fevers. Results - Labs Result diagrams: 06/08/18 03:27 06/08/18 03:27 - Imaging Impressions Head MRI 06/08/18 07:02 CONCLUSION: 1. No acute intracranial abnormality. 2. Chronic small vessel ischemic change. Physical Exam Vital signs: Vital Signs 06/08/18 10:00 06/08/18 11:00 06/08/18 12:00 Temperature 98.1 F Pulse Rate 59 L 59 L 53 L Respiratory Rate 16 Blood Pressure 144/98 H Pulse Oximetry 97 06/08/18 13:00 06/08/18 14:00 06/08/18 14:40 Temperature Pulse Rate 59 L 60 58 L Respiratory Rate Blood Pressure Pulse Oximetry 06/08/18 16:00 06/08/18 17:00 06/08/18 17:55 Temperature 98.1 F Pulse Rate 69 70 68 Respiratory Rate 16 Blood Pressure 164/87 H Pulse Oximetry 96 06/08/18 19:00 06/08/18 20:00 06/08/18 21:00 Temperature 97.8 F Pulse Rate 65 62 60 Respiratory Rate 18 Blood Pressure 133/83 Pulse Oximetry 96 06/08/18 22:00 06/08/18 23:00 06/09/18 00:00 Temperature 98.2 F Pulse Rate 60 58 L 64 Respiratory Rate 16 Blood Pressure 152/101 H Pulse Oximetry 96 06/09/18 01:00 06/09/18 01:18 06/09/18 02:00 Temperature Pulse Rate 60 54 L Respiratory Rate 16 Blood Pressure Pulse Oximetry 06/09/18 03:00 06/09/18 04:00 06/09/18 05:00 Temperature 97.8 F Pulse Rate 55 L 52 L 48 L Respiratory Rate 18 Blood Pressure 142/84 H Pulse Oximetry 96 06/09/18 06:00 Temperature Pulse Rate 56 L Respiratory Rate Blood Pressure Pulse Oximetry Intake & Output 06/08/18 06/09/18 06/09/18 18:59 06:59 18:59 Intake Total 720 / 720 480 / 480 Output Total 750 / 750 800 / 800 Balance -30 / -30 -320 / -320 Intake: Oral 720 / 720 480 / 480 Output: Urine 750 / 750 800 / 800 Other: # Voids 1 Date of Last Bowel Movement 06/07/18 06/07/18 Narrative: General: Resting in bed, no acute distress HENT: PERRLA, EOMI, throat clear, no lymphadenopathy Cardio: Sinus bradycardia, No murmurs rubs or gallops Pulmonary: Clear to auscultation bilaterally no wheezes or crackles Abdomen: Soft, nontender, nondistended, positive bowel sounds Extremities: b/l heels discolored, pedal pulses 2+ Neuro: Alert and oriented x3, CN II-XII intact, b/l upper extremity weakness 3/5 , b/l lower extremity weakens 3/5, slow [id number] test, Negative pronator drift, sensation intact throughout Assessment and Plan - Assessment (1) Altered mental status, unspecified Code(s): R41.82 - Altered mental status, unspecified Status: Acute (2) Symptomatic bradycardia Code(s): R00.1 - Bradycardia, unspecified Status: Acute (3) Acute kidney injury Code(s): N17.9 - Acute kidney failure, unspecified Status: Acute (4) Hypertension Code(s): I10 - Essential (primary) hypertension Status: Acute (5) Seizures Code(s): R56.9 - Unspecified convulsions Status: Acute (6) COPD (chronic obstructive pulmonary disease) Code(s): J44.9 - Chronic obstructive pulmonary disease, unspecified Status: Acute (7) Nutrition, metabolism, and development symptoms Code(s): R63.8 - Other symptoms and signs concerning food and fluid intake Status: Acute (8) Hypercholesteremia Code(s): E78.00 - Pure hypercholesterolemia, unspecified Status: Acute - Assessment and Plan 62 year old male with past medical history of hypertension, CHF with preserved ejection fraction of 55-60% (last echo on 02/12), COPD, seizure disorder, and colon cancer s/p colon resection presents to the ED with a chief complaint of weakness and overall feeling unwell. Patient was found to have sinus bradycardia and admitted to assess for etiology. #Symptomatic bradycardia, Acute -Heart rate ranging from 49-63 -Cardiology consulted. Appreciate recommendations. -TTE performed yesterday, unchanged -Continue to hold labetalol. #Bilateral Lower Extremity Weakness, Acute - DDx: possibly secondary to hypoperfusion vs. symptomatic bradycardia vs. past h/o stroke vs. new episode of stroke/TIA - Imaging: Head CT normal. MRI demonstrates no acute intracranial abnormality. Chronic small vessel ischemic change. - PT recommends rehab. - Pending prior authorization to undergo manner #Altered Mental Status, Resolved - Patient with altered mental status 2 days ago - DDx: post-ictal state vs. medication side effect vs. 2/2 to bradycardia vs. CVA vs. delirium vs. hypoglycemia vs. infection vs. vs. hypothyroid vs. hypocalcemia - Labs: Vitamin B12 221, Folate 13.5, TSH 1.9, Free T4 1.24, HIV non-reactive, RPR negative - EEG impression: Mild slowing of the background consistent with a possible mild encephalopathic process without any epileptiform features. - Imaging: MRI of brain w/wo contrast negative for acute intracranial abnormality #Hypercholesterolemia, Chronic - Continue Atorvastatin 80mg PO daily #Congestive Heart Failure w/ preserved EF, Chronic - Last Echocardiogram 01/2018: Left ventricular diastolic dysfunction - Imaging: TTE performed yesterday ,unchanged #Seizure Disorder, Chronic - Depakote & Keppra levels: subtherapeutic levels - Continue home Depakote 500 mg p.o. twice daily and Keppra 1000 mg p.o. at bedtime - Follow-up with PCP (Dr. Hubbard) after discharge for neurology referral #Hypertension, Chronic - Continue to hold home Labetalol - Continue HCTZ 12.5 mg p.o. daily - Patient started on losartan 25 mg p.o. daily yesterday for blood pressure control, patient allergic to LAUREN inhibitors #COPD, Chronic - CXR findings consistent with COPD - Supplemental oxygen as needed to keep O2 sat >92% - DuoNebs as needed #History of DVT, Chronic - Coag panel WNL - Continue home Xarelto 20 mg daily - Pain management: Tylenol 650mg PO q6hrs PRN for pain scale 1-5 - Pain management: [place] 5/325 1 (one) tab q6hrs PRN for pain scale 6-10 #Tobacco Dependance, Current Smoker - Nicotine patch 14mg #FEN: Diet: Cardiac Diet Fluids: Adequate PO fluid intake DVT ppx: Continue home medication Xarelto 20mg Code status: Full Code Dispo: pending prior authorization to [facility] (1) Altered mental status, unspecified Qualifiers: Altered mental status type: somnolence Qualified Code(s): R40.0 - Somnolence
[2018-06-09] MEDS: levETIRAcetam 500 MG Tablet PO SCH (21:45)
[2018-06-10] MEDS: Sod Chloride 0.9% Inj 1,000 ML IV.CONT SCH (08:01)
[2018-06-10] MEDS: Divalproex 500 MG DR Tablet PO SCH ×2 (08:16→20:41)
[2018-06-10] MEDS: Rivaroxaban 20 MG Tablet PO SCH (08:16)
--- NOTE | 2018-06-10 08:44 | P.PNFP ---
Subjective Interval history: No acute events overnight. Patient heart rate in the 60s on cardiac telemetry. Otherwise vitals are stable. Patient lying in bed, eating breakfast. Able to answer questions appropriately. Denies chest pain, shortness of breath, nausea vomiting, and abdominal pain. Patient is ready to go to SNF. Results - Labs Result diagrams: 06/08/18 03:27 06/08/18 03:27 Physical Exam Vital signs: Vital Signs 06/09/18 09:00 06/09/18 10:00 06/09/18 10:34 Temperature Pulse Rate 54 L 55 L Respiratory Rate Blood Pressure Pulse Oximetry 95 06/09/18 11:00 06/09/18 12:00 06/09/18 13:00 Temperature 97.9 F Pulse Rate 62 53 L 52 L Respiratory Rate 16 Blood Pressure 113/70 Pulse Oximetry 98 06/09/18 14:00 06/09/18 15:00 06/09/18 16:00 Temperature 97.9 F Pulse Rate 59 L 49 L 48 L Respiratory Rate 16 Blood Pressure 112/80 Pulse Oximetry 95 06/09/18 17:00 06/09/18 18:00 06/09/18 19:00 Temperature 97.9 F Pulse Rate 56 L 56 L 60 Respiratory Rate 16 Blood Pressure 145/78 H Pulse Oximetry 95 06/09/18 20:00 06/09/18 21:00 06/09/18 22:00 Temperature Pulse Rate 56 L 54 L 54 L Respiratory Rate Blood Pressure Pulse Oximetry 95 06/09/18 23:00 06/10/18 00:00 06/10/18 01:00 Temperature Pulse Rate 54 L 54 L 56 L Respiratory Rate 16 Blood Pressure 123/66 Pulse Oximetry 96 06/10/18 02:00 06/10/18 03:00 06/10/18 04:00 Temperature 97.6 F Pulse Rate 56 L 56 L 57 L Respiratory Rate 16 Blood Pressure 108/73 Pulse Oximetry 96 06/10/18 05:00 Temperature Pulse Rate 58 L Respiratory Rate Blood Pressure Pulse Oximetry Intake & Output 06/09/18 06/10/18 06/10/18 18:59 06:59 18:59 Intake Total 1200 / 1200 684 / 684 Output Total 600 / 600 500 / 500 Balance 600 / 600 184 / 184 Intake: Oral 1200 / 1200 684 / 684 Output: Urine 600 / 600 500 / 500 Other: # Voids 2 # Bowel Movements 2 Narrative: General: Resting in bed, no acute distress HENT: PERRLA, EOMI, throat clear, no lymphadenopathy Cardio: Sinus bradycardia, No murmurs rubs or gallops Pulmonary: Clear to auscultation bilaterally no wheezes or crackles Abdomen: Soft, nontender, nondistended, positive bowel sounds Extremities: b/l heels discolored, pedal pulses 2+ Neuro: Alert and oriented x3, CN II-XII intact, b/l upper extremity weakness 3/5 , b/l lower extremity weakens 3/5, slow [id number]-[id number] test, Negative pronator drift, sensation intact throughout Assessment and Plan - Assessment (1) Altered mental status, unspecified Code(s): R41.82 - Altered mental status, unspecified Status: Acute (2) Symptomatic bradycardia Code(s): R00.1 - Bradycardia, unspecified Status: Acute (3) Acute kidney injury Code(s): N17.9 - Acute kidney failure, unspecified Status: Acute (4) Hypertension Code(s): I10 - Essential (primary) hypertension Status: Acute (5) Seizures Code(s): R56.9 - Unspecified convulsions Status: Acute (6) COPD (chronic obstructive pulmonary disease) Code(s): J44.9 - Chronic obstructive pulmonary disease, unspecified Status: Acute (7) Nutrition, metabolism, and development symptoms Code(s): R63.8 - Other symptoms and signs concerning food and fluid intake Status: Acute (8) Hypercholesteremia Code(s): E78.00 - Pure hypercholesterolemia, unspecified Status: Acute - Assessment and Plan 62 year old male with past medical history of hypertension, CHF with preserved ejection fraction of 55-60% (last echo on 02/12), COPD, seizure disorder, and colon cancer s/p colon resection presents to the ED with a chief complaint of weakness and overall feeling unwell. Patient was found to have sinus bradycardia and admitted to assess for etiology. #Symptomatic bradycardia, Acute -Heart rate ranging from 49-63 -Cardiology consulted. Appreciate recommendations. -TTE performed 06/08, unchanged from prior in January -Continue to hold labetalol. #Bilateral Lower Extremity Weakness, Acute - DDx: possibly secondary to hypoperfusion vs. symptomatic bradycardia vs. past h/o stroke vs. new episode of stroke/TIA - Imaging: Head CT normal. MRI demonstrates no acute intracranial abnormality. Chronic small vessel ischemic change. - PT recommends rehab. - Pending prior authorization to [facility] #Altered Mental Status, Resolved - Patient with altered mental status 2 days ago - DDx: post-ictal state vs. medication side effect vs. 2/2 to bradycardia vs. CVA vs. delirium vs. hypoglycemia vs. infection vs. vs. hypothyroid vs. hypocalcemia - Labs: Vitamin B12 221, Folate 13.5, TSH 1.9, Free T4 1.24, HIV non-reactive, RPR negative - EEG impression: Mild slowing of the background consistent with a possible mild encephalopathic process without any epileptiform features. - Imaging: MRI of brain w/wo contrast negative for acute intracranial abnormality #Hypercholesterolemia, Chronic - Continue Atorvastatin 80mg PO daily #Congestive Heart Failure w/ preserved EF, Chronic - Last Echocardiogram 01/2018: Left ventricular diastolic dysfunction - Imaging: TTE performed yesterday ,unchanged #Seizure Disorder, Chronic - Depakote & Keppra levels: subtherapeutic levels - Continue home Depakote 500 mg p.o. twice daily and Keppra 1000 mg p.o. at bedtime - Follow-up with PCP (Dr. Hubbard) after discharge for neurology referral #Hypertension, Chronic - Continue to hold home Labetalol - Continue HCTZ 12.5 mg p.o. daily - Patient started on losartan 25 mg p.o. daily yesterday for blood pressure control, patient allergic to LAUREN inhibitors #COPD, Chronic - CXR findings consistent with COPD - Supplemental oxygen as needed to keep O2 sat >92% - DuoNebs as needed #History of DVT, Chronic - Coag panel WNL - Continue home Xarelto 20 mg daily - Pain management: Tylenol 650mg PO q6hrs PRN for pain scale 1-5 - Pain management: [place] 5/325 1 (one) tab q6hrs PRN for pain scale 6-10 #Tobacco Dependance, Current Smoker - Nicotine patch 14mg #FEN: Diet: Cardiac Diet Fluids: Adequate PO fluid intake DVT ppx: Continue home medication Xarelto 20mg Code status: Full Code Dispo: pending prior authorization to [facility] Romo (1) Altered mental status, unspecified Qualifiers: Altered mental status type: somnolence Qualified Code(s): R40.0 - Somnolence
[2018-06-10] MEDS: levETIRAcetam 500 MG Tablet PO SCH (20:41)
[2018-06-11] MEDS: Divalproex 500 MG DR Tablet PO SCH (09:49)
[2018-06-11] MEDS: Rivaroxaban 20 MG Tablet PO SCH (09:49)
[2018-06-11 13:34] VITALS: TEMP 97.9
[2018-06-11 15:08] VITALS: BP 111/67; PULSE 62; RESP 18; O2SAT 94
--- NOTE | 2018-06-11 15:57 | P.PNFP ---
Subjective Interval history: 62 yo male with h/o DVT admitted for bradycardia and global weakness being seen today for follow up. Reports his weakness is overall worse than yesterday. No other symptoms ie chest pain, SOB, fevers. Results - Labs Result diagrams: 06/08/18 03:27 06/08/18 03:27 Physical Exam Vital signs: Vital Signs 06/10/18 16:00 06/10/18 17:00 06/10/18 17:17 Temperature Pulse Rate 58 L 50 L Respiratory Rate Blood Pressure Pulse Oximetry 97 06/10/18 18:00 06/10/18 19:00 06/10/18 20:00 Temperature 97.9 F Pulse Rate 63 58 L 54 L Respiratory Rate 16 Blood Pressure 117/78 Pulse Oximetry 95 96 06/10/18 21:00 06/10/18 22:00 06/10/18 23:00 Temperature 98 F Pulse Rate 52 L 58 L 55 L Respiratory Rate 16 Blood Pressure 112/78 Pulse Oximetry 94 L 06/11/18 00:00 06/11/18 01:00 06/11/18 02:00 Temperature Pulse Rate 55 L 58 L 56 L Respiratory Rate Blood Pressure Pulse Oximetry 06/11/18 03:00 06/11/18 04:00 06/11/18 05:00 Temperature 97.6 F Pulse Rate 52 L 49 L 54 L Respiratory Rate Blood Pressure 115/76 Pulse Oximetry 95 06/11/18 06:00 06/11/18 07:00 06/11/18 08:00 Temperature 97.5 F L Pulse Rate 58 L 46 L 50 L Respiratory Rate 18 Blood Pressure 90/67 L Pulse Oximetry 96 96 06/11/18 09:00 06/11/18 10:00 06/11/18 11:00 Temperature 97.9 F Pulse Rate 66 60 59 L Respiratory Rate 17 Blood Pressure 112/70 Pulse Oximetry 96 06/11/18 12:00 06/11/18 13:00 06/11/18 14:00 Temperature Pulse Rate 50 L 58 L 60 Respiratory Rate Blood Pressure Pulse Oximetry 06/11/18 15:00 Temperature 97.9 F Pulse Rate 62 Respiratory Rate 18 Blood Pressure 111/67 Pulse Oximetry 94 L Intake & Output 06/10/18 06/11/18 06/11/18 18:59 06:59 18:59 Intake Total 1250 / 1250 1200 / 1200 Output Total 850 / 850 Balance 400 / 400 1200 / 1200 Weight 57.6 kg Intake: Oral 1250 / 1250 1200 / 1200 Output: Urine 850 / 850 Other: # Voids 2 Date of Last Bowel Movement 06/10/18 # Bowel Movements 1 - Constitutional no acute distress - Routine HEENT Exam Head: Present: normocephalic, atraumatic - Routine Respiratory Exam Present: CTA bilaterally. Absent: accessory muscle use, wheezes, crackles - Routine Cardiovascular Exam Present: RRR, S1, S2. Absent: murmur - Routine Abdominal Exam Present: soft. Absent: tenderness, distended - Routine Extremities Exam Absent: cyanosis, clubbing, edema, palpable cord, tenderness - Routine Skin Exam Present: intact - Routine Neurological Exam Present: alert, CN II-XII intact, normal speech Assessment and Plan - Assessment (1) Altered mental status, unspecified Code(s): R41.82 - Altered mental status, unspecified Status: Resolved (2) Symptomatic bradycardia Code(s): R00.1 - Bradycardia, unspecified Status: Acute (3) Acute kidney injury Code(s): N17.9 - Acute kidney failure, unspecified Status: Acute (4) Hypertension Code(s): I10 - Essential (primary) hypertension Status: Acute (5) Seizures Code(s): R56.9 - Unspecified convulsions Status: Acute (6) COPD (chronic obstructive pulmonary disease) Code(s): J44.9 - Chronic obstructive pulmonary disease, unspecified Status: Acute (7) Nutrition, metabolism, and development symptoms Code(s): R63.8 - Other symptoms and signs concerning food and fluid intake Status: Acute (8) Hypercholesteremia Code(s): E78.00 - Pure hypercholesterolemia, unspecified Status: Acute - Assessment and Plan 62 year old male with past medical history of hypertension, CHF with preserved ejection fraction of 55-60% (last echo on 02/12), COPD, seizure disorder, and colon cancer s/p colon resection presents to the ED with a chief complaint of weakness and overall feeling unwell. Patient was found to have sinus bradycardia and admitted to assess for etiology. #Symptomatic bradycardia, Acute -Heart rate ranging from in the 50s-60s -Cardiology consulted. Appreciate recommendations. -TTE performed 06/08, unchanged from prior in January -Discontinued labetalol #Bilateral Lower Extremity Weakness, Acute - DDx: possibly secondary to hypoperfusion vs. symptomatic bradycardia vs. past h/o stroke vs. new episode of stroke/TIA - Imaging: Head CT normal. MRI demonstrates no acute intracranial abnormality. Chronic small vessel ischemic change. - PT recommends rehab at [facility] #Altered Mental Status, Resolved - Patient with altered mental status 2 days [employer] - DDx: post-ictal state vs. medication side effect vs. 2/2 to bradycardia vs. CVA vs. delirium vs. hypoglycemia vs. infection vs. vs. hypothyroid vs. hypocalcemia - Labs: Vitamin B12 221, Folate 13.5, TSH 1.9, Free T4 1.24, HIV non-reactive, RPR negative - EEG impression: Mild slowing of the background consistent with a possible mild encephalopathic process without any epileptiform features. - Imaging: MRI of brain w/wo contrast negative for acute intracranial abnormality Unclear etiology, in any case episode resolved #Hypercholesterolemia, Chronic - Continue Atorvastatin 80mg PO daily #Congestive Heart Failure w/ preserved EF, Chronic - Last Echocardiogram 01/2018: Left ventricular diastolic dysfunction - Imaging: TTE performed this hospitalization, unchanged from previous Echo - Cardiology recommended continued BP management, otherwise no new meds #Seizure Disorder, Chronic - Depakote & Keppra levels: subtherapeutic levels - Continue home Depakote 500 mg p.o. twice daily and Keppra 1000 mg p.o. at bedtime - Follow-up with PCP (Dr. Hubbard) after discharge for neurology referral #Hypertension, Chronic - Continue to hold home Labetalol - Continue HCTZ 12.5 mg p.o. daily - Patient started on losartan 25 mg p.o. daily yesterday for blood pressure control, patient allergic to LAUREN inhibitors #COPD, Chronic - CXR findings consistent with COPD - Supplemental oxygen as needed to keep O2 sat >92% - DuoNebs as needed #History of DVT, Chronic - Coag panel WNL - Continue home Xarelto 20 mg daily - Pain management: Tylenol 650mg PO q6hrs PRN for pain scale 1-5 - Pain management: [place] 5/325 1 (one) tab q6hrs PRN for pain scale 6-10 #Tobacco Dependance, Current Smoker - Nicotine patch 14mg Disposition: To [facility] today for physical reconditioning (1) Altered mental status, unspecified Qualifiers: Altered mental status type: somnolence Qualified Code(s): R40.0 - Somnolence
--- NOTE | 2018-06-11 17:28 | P.DS ---
Date of admission: 06/06/18 11:26 Primary care physician: UNKNOWN Brief History from admission: Mr. Tan is a 62 year old male with past medical history of hypertension, CHF with preserved ejection fraction of 55-60% (last echo on 02/12), COPD, seizure disorder, and colon cancer s/p colon resection presents to the ED with a chief complaint of weakness and overall feeling unwell. He began having symptoms at 10 PM while at work but did not call the ambulance until 2 AM due to the constant nature of his symptoms. Patient reports that he began having sharp, nonradiating, left-sided chest pain that lasted for a couple of hours. Patient endorses diaphoresis, leg weakness, headache, nausea, but denies any changes in vision, shortness of breath dysphasia, abdominal pain/distension, or any changes in bowel movement/urinary symptoms. Patient denies any alleviating or aggravating factors. He denies any similar episodes in the past. He denies any recent changes in medications, recent illnesses, fevers, chills, or night sweats. Patient only follows with primary care doctor Dr. Arden Ma. PMH: Hypertension, CHF, COPD, CVA with right-sided residual weakness seizure disorder, colon cancer s/p colon resection with chemo and radiation, hx of DVT Surgical History: Colon Resection 2/2 Colon CA, tonsillectomy, appendectomy, eye surgery for strabismus Medications: Losartan 100 mg twice daily, HCTZ 12.5 mg once a day, Xarelto 20 mg , Depakote 500 mg twice daily, Keppra 1000 mg once a day. Family history: Father had a heart attack in his 70s. Mother and sisters are alive and are healthy. Social History: Patient endorses a 47 year history of smoking (2 packs/day), and current occasional marijuana use (about once a month). He denies any current alcohol use but does admit to past alcohol abuse. 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 ED course: Upon arrival patient was bradycardic, but additional vital signs were stable. EKG findings: Sinus bradycardia. Troponins were negative x2. CBC was within normal limits. PT 10.2, INR 1, APTT 27.6. Patient was placed on continuous telemetry and admitting team was consulted. Patient update on day of discharge: Overall improved from admission however still globally weak and tired. No chest pains or shortness of breath. DS: Diagnosis - Discharge Diagnosis (1) Altered mental status, unspecified Status: Resolved (2) Symptomatic bradycardia Status: Acute (3) Acute kidney injury Status: Acute (4) Hypertension Status: Acute (5) Seizures Status: Acute (6) COPD (chronic obstructive pulmonary disease) Status: Acute (7) Nutrition, metabolism, and development symptoms Status: Acute (8) Hypercholesteremia Status: Acute DS: Medications - Discharge Medications Prescriptions: atorvastatin 80 mg PO DAILY #90 tab levetiracetam [Keppra] 1,000 mg PO HS #90 tab losartan [Cozaar] 25 mg PO DAILY #90 tab DS: Summary Hospital Course: Admitted due to symptomatic bradycardia. Sinus affecting agent (labetalol) held , troponin's negative, EKGs trended and all negative for WA. Cardiology consulted who agreed with holding labetalol and noted improvement in symptoms as HR increased (up to high 50s on date of discharge from low 40s on admission) . Due to patient's history EEG was performed which showed mild slowing of the background consistent with a possible mild encephalopathic process without any epileptiform features. On day of discharge patient's symptoms are improved from admission but persistent and including global weakness. PT recommended skilled rehab which was arranged. Primary team recommends follow up with PCP for the bradycardia and would also recommend neurology referral if symptoms persist. - Time Spent with Patient Total time spent providing and/or coordinating discharge services: Less than 30 minutes - Quality: VTE Deep Vein Thrombosis/Pulmonary Embolism Present on Admission: No Exam Vital signs: Vital Signs 06/10/18 18:00 06/10/18 19:00 06/10/18 20:00 Temperature 97.9 F Pulse Rate 63 58 L 54 L Respiratory Rate 16 Blood Pressure 117/78 Pulse Oximetry 95 96 06/10/18 21:00 06/10/18 22:00 06/10/18 23:00 Temperature 98 F Pulse Rate 52 L 58 L 55 L Respiratory Rate 16 Blood Pressure 112/78 Pulse Oximetry 94 L 06/11/18 00:00 06/11/18 01:00 06/11/18 02:00 Temperature Pulse Rate 55 L 58 L 56 L Respiratory Rate Blood Pressure Pulse Oximetry 06/11/18 03:00 06/11/18 04:00 06/11/18 05:00 Temperature 97.6 F Pulse Rate 52 L 49 L 54 L Respiratory Rate Blood Pressure 115/76 Pulse Oximetry 95 06/11/18 06:00 06/11/18 07:00 06/11/18 08:00 Temperature 97.5 F L Pulse Rate 58 L 46 L 50 L Respiratory Rate 18 Blood Pressure 90/67 L Pulse Oximetry 96 96 06/11/18 09:00 06/11/18 10:00 06/11/18 11:00 Temperature 97.9 F Pulse Rate 66 60 59 L Respiratory Rate 17 Blood Pressure 112/70 Pulse Oximetry 96 06/11/18 12:00 06/11/18 13:00 06/11/18 14:00 Temperature Pulse Rate 50 L 58 L 60 Respiratory Rate Blood Pressure Pulse Oximetry 06/11/18 15:00 Temperature 97.9 F Pulse Rate 62 Respiratory Rate 18 Blood Pressure 111/67 Pulse Oximetry 94 L Intake & Output 06/10/18 06/11/18 06/11/18 18:59 06:59 18:59 Intake Total 1250 / 1250 1200 / 1200 Output Total 850 / 850 Balance 400 / 400 1200 / 1200 Weight 57.6 kg Intake: Oral 1250 / 1250 1200 / 1200 Output: Urine 850 / 850 Other: # Voids 2 Date of Last Bowel Movement 06/10/18 # Bowel Movements 1 Results Procedures completed during hospitalization: None Completed studies during hospitalization: Chest X-Ray 06/06/18 05:25 CONCLUSION: No acute cardiopulmonary abnormality is identified. Head CT 06/06/18 06:49 CONCLUSION: 1. No acute intracranial abnormality. . Head MRI 06/08/18 07:02 CONCLUSION: 1. No acute intracranial abnormality. 2. Chronic small vessel ischemic change. Labs on day of discharge: Laboratory Tests 06/06/18 06/06/18 06/06/18 05:35 05:35 05:35 WBC 5.7 RBC 4.39 L Hgb 14.5 Hct 42.2 MCV 96.1 MCH 33.0 MCHC 34.4 RDW 14.4 Plt Count 260 MPV 7.8 Neut % (Auto) 61.1 Lymph % (Auto) 27.6 Sullivan % (Auto) 8.4 H Eos % (Auto) 2.2 Baso % (Auto) 0.7 Neut # (Auto) 3.5 Lymph # (Auto) 1.6 Sullivan # (Auto) 0.5 Eos # (Auto) 0.1 Baso # (Auto) 0.0 WBC Differential . Differential Comment Auto diff final PT INR APTT Sodium 135 L Potassium 3.6 Chloride 98 Carbon Dioxide 25.5 Anion Gap 12 BUN 25 H Creatinine 1.57 H Estimated GFR 45 L POC Glucose Random Glucose 88 Calcium 8.3 L Magnesium Total Bilirubin 0.4 AST 24 ALT 28 Alkaline Phosphatase 85 Ammonia Total Creatine Kinase Troponin I Less than 0.02 L B-Natriuretic Peptide 25 Total Protein 7.3 Albumin 3.7 Triglycerides Cholesterol LDL Cholesterol, Calc HDL Cholesterol Cholesterol/HDL Ratio Lipase 305 Vitamin B12 Folate TSH Free T4 Urine Color Urine Clarity Urine pH Ur Specific [place] Urine Protein Urine Glucose (UA) Urine Ketones Urine Occult Blood Urine Nitrate Urine Bilirubin Urine Urobilinogen Ur Leukocyte Esterase Urine RBC Urine WBC Ur Squamous Epith Cells Urine Mucus Micro UA Comment Ur Microscopic Review Urine Culture Comments Valproic Acid Levetiracetam Serum Alcohol RPR HIV 1&2 Ab/P24 Ag 4thGn 06/06/18 06/06/18 06/06/18 05:35 05:35 05:35 WBC RBC Hgb Hct MCV MCH MCHC RDW Plt Count MPV Neut % (Auto) Lymph % (Auto) Sullivan % (Auto) Eos % (Auto) Baso % (Auto) Neut # (Auto) Lymph # (Auto) Sullivan # (Auto) Eos # (Auto) Baso # (Auto) WBC Differential Differential Comment PT 10.2 INR 1.0 APTT 27.6 Sodium Potassium Chloride Carbon Dioxide Anion Gap BUN Creatinine Estimated GFR POC Glucose Random Glucose Calcium Magnesium 2.5 Total Bilirubin AST ALT Alkaline Phosphatase Ammonia Total Creatine Kinase 82 Troponin I B-Natriuretic Peptide Total Protein Albumin Triglycerides Cholesterol LDL Cholesterol, Calc HDL Cholesterol Cholesterol/HDL Ratio Lipase Vitamin B12 Folate TSH Free T4 Urine Color Urine Clarity Urine pH Ur Specific [place] Urine Protein Urine Glucose (UA) Urine Ketones Urine Occult Blood Urine Nitrate Urine Bilirubin Urine Urobilinogen Ur Leukocyte Esterase Urine RBC Urine WBC Ur Squamous Epith Cells Urine Mucus Micro UA Comment Ur Microscopic Review Urine Culture Comments Valproic Acid Levetiracetam Serum Alcohol RPR HIV 1&2 Ab/P24 Ag 4thGn 06/06/18 06/06/18 06/06/18 05:35 05:35 08:33 WBC RBC Hgb Hct MCV MCH MCHC RDW Plt Count MPV Neut % (Auto) Lymph % (Auto) Sullivan % (Auto) Eos % (Auto) Baso % (Auto) Neut # (Auto) Lymph # (Auto) Sullivan # (Auto) Eos # (Auto) Baso # (Auto) WBC Differential Differential Comment PT INR APTT Sodium Potassium Chloride Carbon Dioxide Anion Gap BUN Creatinine Estimated GFR POC Glucose Random Glucose Calcium Magnesium Total Bilirubin AST ALT Alkaline Phosphatase Ammonia Total Creatine Kinase Troponin I Less than 0.02 L B-Natriuretic Peptide Total Protein Albumin Triglycerides Cholesterol LDL Cholesterol, Calc HDL Cholesterol Cholesterol/HDL Ratio Lipase Vitamin B12 Folate TSH Free T4 Urine Color Straw Urine Clarity Clear Urine pH 5.0 Ur Specific [place] 1.003 Urine Protein Negative Urine Glucose (UA) Negative Urine Ketones Negative Urine Occult Blood Negative Urine Nitrate Negative Urine Bilirubin Negative Urine Urobilinogen Less than 2 Ur Leukocyte Esterase Negative Urine RBC Less than 1 Urine WBC Less than 1 Ur Squamous Epith Cells <1 Urine Mucus Few H Micro UA Comment Culture not ind Ur Microscopic Review Not Reportable Urine Culture Comments Culture not ind Valproic Acid Levetiracetam Serum Alcohol Less than 3 RPR HIV 1&2 Ab/P24 Ag 4thGn 06/06/18 06/06/18 06/06/18 10:19 10:19 13:55 WBC RBC Hgb Hct MCV MCH MCHC RDW Plt Count MPV Neut % (Auto) Lymph % (Auto) Sullivan % (Auto) Eos % (Auto) Baso % (Auto) Neut # (Auto) Lymph # (Auto) Sullivan # (Auto) Eos # (Auto) Baso # (Auto) WBC Differential Differential Comment PT INR APTT Sodium Potassium Chloride Carbon Dioxide Anion Gap BUN Creatinine Estimated GFR POC Glucose Random Glucose Calcium Magnesium Total Bilirubin AST ALT Alkaline Phosphatase Ammonia 23 Total Creatine Kinase Troponin I B-Natriuretic Peptide Total Protein Albumin Triglycerides Cholesterol LDL Cholesterol, Calc HDL Cholesterol Cholesterol/HDL Ratio Lipase Vitamin B12 Folate TSH Free T4 Urine Color Urine Clarity Urine pH Ur Specific [place] Urine Protein Urine Glucose (UA) Urine Ketones Urine Occult Blood Urine Nitrate Urine Bilirubin Urine Urobilinogen Ur Leukocyte Esterase Urine RBC Urine WBC Ur Squamous Epith Cells Urine Mucus Micro UA Comment Ur Microscopic Review Urine Culture Comments Valproic Acid Less than 3 L Levetiracetam Less than 2.0 L Serum Alcohol RPR HIV 1&2 Ab/P24 Ag 4thGn 06/06/18 06/06/18 06/07/18 13:55 16:39 03:56 WBC 4.4 RBC 4.04 L Hgb 13.2 Hct 37.9 L MCV 93.8 MCH 32.8 MCHC 35.0 RDW 14.3 Plt Count 231 MPV 7.9 Neut % (Auto) 48.5 Lymph % (Auto) 35.5 Sullivan % (Auto) 10.9 H Eos % (Auto) 4.2 H Baso % (Auto) 0.9 Neut # (Auto) 2.1 Lymph # (Auto) 1.6 Sullivan # (Auto) 0.5 Eos # (Auto) 0.2 Baso # (Auto) 0.0 WBC Differential . Differential Comment Auto diff final PT INR APTT Sodium Potassium Chloride Carbon Dioxide Anion Gap BUN Creatinine Estimated GFR POC Glucose Random Glucose Calcium Magnesium Total Bilirubin AST ALT Alkaline Phosphatase Ammonia Total Creatine Kinase Troponin I Less than 0.02 L B-Natriuretic Peptide Total Protein Albumin Triglycerides 118 Cancelled Cholesterol 202 H Cancelled LDL Cholesterol, Calc 140 H Cancelled HDL Cholesterol 38.0 L Cancelled Cholesterol/HDL Ratio 5.31 Cancelled Lipase Vitamin B12 Folate TSH Free T4 Urine Color Urine Clarity Urine pH Ur Specific [place] Urine Protein Urine Glucose (UA) Urine Ketones Urine Occult Blood Urine Nitrate Urine Bilirubin Urine Urobilinogen Ur Leukocyte Esterase Urine RBC Urine WBC Ur Squamous Epith Cells Urine Mucus Micro UA Comment Ur Microscopic Review Urine Culture Comments Valproic Acid Levetiracetam Serum Alcohol RPR HIV 1&2 Ab/P24 Ag 4thGn 06/07/18 06/07/18 06/07/18 03:56 03:56 09:35 WBC RBC Hgb Hct MCV MCH MCHC RDW Plt Count MPV Neut % (Auto) Lymph % (Auto) Sullivan % (Auto) Eos % (Auto) Baso % (Auto) Neut # (Auto) Lymph # (Auto) Sullivan # (Auto) Eos # (Auto) Baso # (Auto) WBC Differential Differential Comment PT INR APTT Sodium 141 Potassium 3.8 Chloride 105 Carbon Dioxide 28.8 Anion Gap 7 BUN 20 H Creatinine 1.18 Estimated GFR 63 L POC Glucose 97 Random Glucose 85 Calcium 8.2 L Magnesium Total Bilirubin AST ALT Alkaline Phosphatase Ammonia Total Creatine Kinase Troponin I B-Natriuretic Peptide Total Protein Albumin Triglycerides Cholesterol LDL Cholesterol, Calc HDL Cholesterol Cholesterol/HDL Ratio Lipase Vitamin B12 221 Folate 13.5 TSH 1.900 Free T4 1.24 Urine Color Urine Clarity Urine pH Ur Specific [place] Urine Protein Urine Glucose (UA) Urine Ketones Urine Occult Blood Urine Nitrate Urine Bilirubin Urine Urobilinogen Ur Leukocyte Esterase Urine RBC Urine WBC Ur Squamous Epith Cells Urine Mucus Micro UA Comment Ur Microscopic Review Urine Culture Comments Valproic Acid Less than 3 L Levetiracetam Serum Alcohol RPR HIV 1&2 Ab/P24 Ag 4thGn 06/07/18 06/07/18 06/08/18 12:21 12:21 03:27 WBC 5.6 RBC 4.59 Hgb 14.7 Hct 44.3 MCV 96.6 MCH 32.0 MCHC 33.1 RDW 14.3 Plt Count 253 MPV 7.8 Neut % (Auto) Lymph % (Auto) Sullivan % (Auto) Eos % (Auto) Baso % (Auto) Neut # (Auto) Lymph # (Auto) Sullivan # (Auto) Eos # (Auto) Baso # (Auto) WBC Differential Differential Comment PT INR APTT Sodium Potassium Chloride Carbon Dioxide Anion Gap BUN Creatinine Estimated GFR POC Glucose Random Glucose Calcium Magnesium Total Bilirubin AST ALT Alkaline Phosphatase Ammonia Total Creatine Kinase Troponin I B-Natriuretic Peptide Total Protein Albumin Triglycerides Cholesterol LDL Cholesterol, Calc HDL Cholesterol Cholesterol/HDL Ratio Lipase Vitamin B12 Folate TSH Free T4 Urine Color Urine Clarity Urine pH Ur Specific [place] Urine Protein Urine Glucose (UA) Urine Ketones Urine Occult Blood Urine Nitrate Urine Bilirubin Urine Urobilinogen Ur Leukocyte Esterase Urine RBC Urine WBC Ur Squamous Epith Cells Urine Mucus Micro UA Comment Ur Microscopic Review Urine Culture Comments Valproic Acid Levetiracetam Serum Alcohol RPR Nonreactive HIV 1&2 Ab/P24 Ag 4thGn Nonreactive 06/08/18 03:27 WBC RBC Hgb Hct MCV MCH MCHC RDW Plt Count MPV Neut % (Auto) Lymph % (Auto) Sullivan % (Auto) Eos % (Auto) Baso % (Auto) Neut # (Auto) Lymph # (Auto) Sullivan # (Auto) Eos # (Auto) Baso # (Auto) WBC Differential Differential Comment PT INR APTT Sodium 135 L Potassium 3.5 Chloride 104 Carbon Dioxide 28.3 Anion Gap 3 L BUN 16 Creatinine 1.10 Estimated GFR 68 L POC Glucose Random Glucose 80 Calcium 8.6 Magnesium Total Bilirubin AST ALT Alkaline Phosphatase Ammonia Total Creatine Kinase Troponin I B-Natriuretic Peptide Total Protein Albumin Triglycerides Cholesterol LDL Cholesterol, Calc HDL Cholesterol Cholesterol/HDL Ratio Lipase Vitamin B12 Folate TSH Free T4 Urine Color Urine Clarity Urine pH Ur Specific [place] Urine Protein Urine Glucose (UA) Urine Ketones Urine Occult Blood Urine Nitrate Urine Bilirubin Urine Urobilinogen Ur Leukocyte Esterase Urine RBC Urine WBC Ur Squamous Epith Cells Urine Mucus Micro UA Comment Ur Microscopic Review Urine Culture Comments Valproic Acid Levetiracetam Serum Alcohol RPR HIV 1&2 Ab/P24 Ag 4thGn - Impressions ITS Impressions Chest X-Ray 06/06/18 05:25 CONCLUSION: No acute cardiopulmonary abnormality is identified. Head CT 06/06/18 06:49 CONCLUSION: 1. No acute intracranial abnormality. . Head MRI 06/08/18 07:02 CONCLUSION: 1. No acute intracranial abnormality. 2. Chronic small vessel ischemic change. Discharge Plan - Discharge Disposition Patient Disposition: 03 Discharge to SNF - Discharge Condition Condition: Stable - Discharge Order Discharge Orders: Discharge Order (Routine); Ordered 06/11/18 Ordered By: Wally Umana - Physicians Team Primary Care Provider: UNKNOWN, Attending Provider: Edmundo Francois Other Providers: William Stark MD ; [facility],Agency
== END 2018-06-11 16:39 ==
LOC: NEPC 04:31 → NEDA 11:26 → INTOOBSV 11:26 → HCPC 13:30
PROVIDERS: ADMIT Family Medicine; ATTEND Family Medicine